=== PATIENT | female | born 1935 | race Caucasian/White ===

== ENCOUNTER 2017-04-07 15:04 | Observation (INO) | payer OTHER, MEDICARE ==
[2017-04-07 17:14] LABS: BASOPHIL 0.5 % (0-2.0); EOSINOPHIL 0.1 % (0-4.5); MCH 27.6 pg (25.7-33.7); MCHC 32.3 g/dl (32.0-36.0); MEAN CELL VOLUME 85.4 fl (80-96); MEAN PLT VOLUME 9.2 fl (7.5-11.1); NEUTROPHILS 90.2 % (42.8-82.8); PLATELET COUNT 244 K/MM3 (134-434); RDW 14.4 % (11.6-15.6); WHITE BLOOD COUNT 10.4 K/mm3 (4.0-10.0)
--- NOTE | 2017-04-07 17:30 | PDOC ---
History of Present Illness <EdyIrlanda - Last Filed: 04/07/17 17:59> <RjалександрCheri - Last Filed: 04/07/17 20:09> - General Chief Complaint: Syncope/Near Syncope Stated Complaint: Syncope/Near Syncope Time Seen by Provider: 04/07/17 17:18 - History of Present Illness Initial Comments: 04/07/17 17:31 Patient is an 82 year old female with significant medical hx of dementia and hypothyoidism who is presenting to the ED after a syncopal episode today. The patient was sitting in a chair when stated that suddenly she didnt feel well and slumped over. This was witnessed by the , who brought her to the floor and performed CPR on the patient without checking for a pulse. EMS was called and the patient had awoken by the time of their arrival. Patient had multiple episodes of nausea, vomiting, and epigastric pain after waking up and in the ambulance. EMS states that the patients heart rate dropped into the 50 s and atropine was administered. Patient complains of right shoulder pain in the ED, she is not a good historian. PMD: Marifer Peter MD Neurologist: Alfonso Rivas MD ([phone]) (Irlanda Snow) Past History <Irlanda Snow - Last Filed: 04/07/17 17:59> - Past Medical History Dementia: Yes - Psycho/Social/Smoking Cessation Hx Suicidal Ideation: No Smoking History: Unknown if ever smoked <Cheri Grady - Last Filed: 04/07/17 20:09> - Past Medical History Allergies/Adverse Reactions: Allergies Allergy/AdvReac Type Severity Reaction Status Date / Time aspirin Allergy Mild Verified 04/07/17 16:22 cephalexin Allergy Mild Verified 04/07/17 16:22 cephalexin monohydrate Allergy Mild Verified 04/07/17 16:22 [From Keflex] naproxen Allergy Mild Verified 04/07/17 16:22 Home Medications: Ambulatory Orders Acyclovir [Zovirax -] 400 mg PO DAILY 04/07/17 Cyanocobalamin Vit B-12 Inj. [Redisol] 1,000 mcg IM MONTHLY 04/07/17 Donepezil HCl 5 mg PO DAILY 04/07/17 Levothyroxine [Synthroid -] 125 mcg PO DAILY 04/07/17 Review of Systems <EdyIrlanda - Last Filed: 04/07/17 17:59> <Cheri Grady - Last Filed: 04/07/17 20:09> - Review of Systems Comments:: 04/07/17 17:32 GENERAL/CONSTITUTIONAL: No fever or chills. No weakness. HEAD, EYES, EARS, NOSE AND THROAT: No change in vision. No ear pain or discharge. No sore throat. CARDIOVASCULAR: Syncope. No chest pain or shortness of breath. RESPIRATORY: No cough, wheezing, or hemoptysis. GASTROINTESTINAL: Nausea, vomiting, epigastric pain. No diarrhea or constipation. GENITOURINARY: No dysuria, frequency, or change in urination. MUSCULOSKELETAL: Right shoulder pain. No joint or muscle swelling. No neck or back pain. ENDOCRINE: No increased thirst. No abnormal weight change. SKIN: No rash NEUROLOGIC: No headache, vertigo, loss of consciousness, or change in strength/ sensation. (Irlanda Snow) *Physical Exam <EdyIrlanda - Last Filed: 04/07/17 17:59> <Cheri Grady - Last Filed: 04/07/17 20:09> - Vital Signs Last Vital Signs Temp Pulse Resp BP Pulse Ox 122/10 04/07/17 15:04 - Physical Exam Comments: 04/07/17 17:33 GENERAL: Awake, alert, dementia, in no acute distress HEAD: No signs of trauma EYES: PERRLA, EOMI, sclera anicteric, conjunctiva clear ENT: Auricles normal inspection, hearing grossly normal, nares patent, oropharynx clear without exudates. Dry mucous membranes NECK: Normal ROM, supple, no lymphadenopathy, JVD, or masses LUNGS: Breath sounds equal, clear to auscultation bilaterally. No wheezes, and no crackles HEART: Regular rate and rhythm, normal S1 and S2, no murmurs, rubs or gallops ABDOMEN: Soft, right mid quadrant tenderness, right lower rib tenderness, normoactive bowel sounds. No guarding, no rebound. No masses MUSCULOSKELETAL: No spinal tenderness. Right shoulder tender to palpation, can abduct to 90, no ecchymosis no deformity. Hips nontender with full ROM. EXTREMITIES: Warm and well profused. Right elbow/wrist FROM. No edema. No clubbing or cyanosis. Extremities otherwise atraumatic. NEUROLOGICAL: A&O x 1. Dementia. Normal speech SKIN: Warm, Dry, normal turgor, no rashes or lesions noted. HEMATOLOGIC/LYMPHATIC: No anemia, easy bleeding, or history of blood clots. ALLERGIC/IMMUNOLOGIC: No hives or skin allergy. (Irlanda Snow) Heart Score/ECG Review <Irlanda Snow - Last Filed: 04/07/17 17:59> - Electrocardiogram EKG: Normal - ECG Intrepretation Rhythm: Regular Rhythm <Cheri Grady - Last Filed: 04/07/17 20:09> #1 04/07/17 17:37 Sinus rhythm at 66 bpm with 1st degree AV block Otherwise normal ECG (Irlanda Snow) - ECG Intrepretation Comment:: 04/07/17 19:47 rate 66 bpm, no st elevation or depression. normal axis. (Cheri Grady) ED Treatment Course - LABORATORY CBC & Chemistry Diagram: 04/07/17 16:51 04/07/17 16:51 <Irlanda Snow - Last Filed: 04/07/17 17:59> - LABORATORY CBC & Chemistry Diagram: 04/07/17 16:51 04/07/17 16:51 <Cheri Grady - Last Filed: 04/07/17 20:09> - ADDITIONAL ORDERS Additional order review: Laboratory Results 04/07/17 04/07/17 04/07/17 18:13 16:51 16:51 INR 1.02 Sodium 140 Potassium 4.4 Chloride 101 Carbon Dioxide 29 Anion Gap 10 BUN 12 Creatinine 0.8 Creat Clearance w eGFR > 60 Random Glucose 91 Calcium 8.3 L Total Bilirubin 0.8 AST 15 ALT 16 Alkaline Phosphatase 111 Creatine Kinase 48 Troponin I < 0.02 Total Protein 6.4 Albumin 3.5 TSH 0.01 L 04/07/17 16:51 RBC 4.46 MCV 85.4 MCHC 32.3 RDW 14.4 MPV 9.2 Neutrophils % 90.2 H Lymphocytes % 6.5 L Monocytes % 2.7 L Eosinophils % 0.1 Basophils % 0.5 - RADIOLOGY Radiology Studies Ordered: Category Date Time Status HEAD CT WITHOUT CONTRAST [CT] Stat CT Scan 04/07/17 17:32 Completed CHEST X-RAY PORTABLE* [RAD] Stat Radiology 04/07/17 17:36 Ordered SHOULDER-RIGHT [RAD] Stat Radiology 04/07/17 17:32 Ordered - Medications Given in the ED: ED Medications Discontinued Medications Generic Name Dose Route Start Last Admin Trade Name Ibis PRN Reason Stop Dose Admin Lorazepam 1 mg 04/07/17 18:08 04/07/17 18:11 Ativan Injection - IM 04/07/17 18:09 1 mg ONCE ONE Administration Medical Decision Making <Irlanda Snow - Last Filed: 04/07/17 17:59> <Cheri Grady - Last Filed: 04/07/17 20:09> - Medical Decision Making 04/07/17 17:22 82 yo F with ho alzheimers dementia, hypothyroid, here with syncopal epsiode today. pt was at home with , and health aid, when suddenly became unresponsive after stating she didn't feel well. had breif LOC slumped in chair. laid to floor by , who initiated CPR. did not check for pulse. then became alert. EMS called , on arrival pt stating she didn't feel well, describing nausea, en rout, pt became bradycaric, given atropine. no cp no sob. c/o right shoulder pain. no f/c did have h/o uti. on exam awake, alert, c/o right shoulder ttp, no deformityl. lungs clear heart RRR no m/r/g. DDGX: uti, mi , dysrythmia , ich, shoulder injury infection such as pna. plan cxr ua cbc lytes. liklye admit r/o bradycardia, acs. (Cheri Grady) *DC/Admit/Observation/Transfer <Irlanda Snow - Last Filed: 04/07/17 17:59> - Discharge Dispostion Admit: Yes <Cheri Grady - Last Filed: 04/07/17 20:09> Diagnosis at time of Disposition: Syncope - Attestations Scribe Attestion: 04/07/17 17:36 Documentation prepared by Irlanda Snow, acting as medical liaison for Cheri Grady MD. (Irlanda Snow)
[2017-04-07 17:46] LABS: ALBUMIN 3.5 g/dl (3.4-5.0); ANION GAP 10 (8-16); CALCIUM 8.3 mg/dL (8.5-10.1); CO2 29 mmol/L (21-32); GLUCOSE,RANDOM 91 mg/dL (74-106)
[2017-04-07 17:51] LABS: ALK PHOS 111 U/L (45-117); BILIRUBIN,TOTAL 0.8 mg/dL (0.2-1.0); COCKROFT - GAULT 0; CREATININE 0.8 mg/dL (0.55-1.02); SGOT/AST 15 U/L (15-37); SGPT/ALT 16 U/L (12-78); TOT PROT 6.4 g/dl (6.4-8.2); TROPONIN I < 0.02 ng/ml (0.00-0.05)
[2017-04-07 17:58] LABS: INR 1.02 (0.82-1.09); PROTHROMBIN TIME (PATIENT) 11.2 SEC (9.98-11.88)
[2017-04-07] MEDS ORDERED: LORAZEPAM CARPU-JECT 2 MG/ML DISP.SYRIN ONE (18:06)
[2017-04-07] MEDS ORDERED: LORAZEPAM CARPU-JECT 2 MG/ML DISP.SYRIN IM ONE (18:08)
[2017-04-07 19:13] VITALS: BMI 22.6
[2017-04-07] MEDS ORDERED: HALOPERIDOL LACTATE 5 MG/ML IM ONE (19:28)
[2017-04-07] MEDS ORDERED: HALOPERIDOL LACTATE 5 MG/ML ONE (19:31)
[2017-04-07] MEDS ORDERED: LORazepam 1 MG TABLET PO PRN (21:54)
--- NOTE | 2017-04-07 22:26 | HP ---
<Jaycee Martinez - Last Filed: 04/07/17 22:53> CHIEF COMPLAINT: Syncope x1 episode PCP: HISTORY OF PRESENT ILLNESS: 82 year old female that present to the ED after an episode of syncope witnessed by family members(). Patient herself has advanced dementia and is unable to provide detailed hx, but had conversation with her over the phone who stated that the pt was sitting in chair and suddenly slumped over. She remained unresponsive for quite awhile and preceded to perform CPR. There were no witnessed seizures. Upon arrival of EMS, her HR was 50 and Atropine was administered. Pt arrived to ED with normal VS and stable BP and HR. No prior episodes of syncope like this before. denies any hx of heart disease. Upon examination in the ED pt is complaining of right shoulder pain. Recent Travel: No PAST MEDICAL HISTORY: dementia, hypothyroidism, hemorrhoids, UTI, shingles PAST SURGICAL HISTORY: Spine surgery, Laparoscopic oophorectomy, Prolapse bladder repair Social History: lives at home has 24 hr aide, social support present Smoking: no Alcohol: no Drugs: no Family History: Allergies aspirin Allergy (Mild, Verified 04/07/17 16:22) cephalexin Allergy (Mild, Verified 04/07/17 16:22) cephalexin monohydrate [From Keflex] Allergy (Mild, Verified 04/07/17 16:22) naproxen Allergy (Mild, Verified 04/07/17 16:22) HOME MEDICATIONS: Home Medications Medication Instructions Recorded Acyclovir [Zovirax -] 400 mg PO DAILY 04/07/17 Cyanocobalamin Vit B-12 Inj. 1,000 mcg IM MONTHLY 04/07/17 [Redisol] Donepezil HCl 5 mg PO DAILY 04/07/17 Levothyroxine [Synthroid -] 125 mcg PO DAILY 04/07/17 REVIEW OF SYSTEMS CONSTITUTIONAL: Absent: fever, chills, diaphoresis, generalized weakness, malaise, loss of appetite, weight change HEENT: Absent: rhinorrhea, nasal congestion, throat pain, throat swelling, difficulty swallowing, mouth swelling, ear pain, eye pain, visual changes CARDIOVASCULAR: Absent: chest pain, syncope, palpitations, irregular heart rate, lightheadedness , peripheral edema RESPIRATORY: Absent: cough, shortness of breath, dyspnea with exertion, orthopnea, wheezing, stridor, hemoptysis GASTROINTESTINAL: Absent: abdominal pain, abdominal distension, nausea, vomiting, diarrhea, constipation, melena, hematochezia GENITOURINARY: Absent: dysuria, frequency, urgency, hesitancy, hematuria, flank pain, genital pain MUSCULOSKELETAL: Present: right shoulder pain Absent: myalgia, arthralgia, joint swelling, back pain, neck pain SKIN: Absent: rash, itching, pallor HEMATOLOGIC/IMMUNOLOGIC: Absent: easy bleeding, easy bruising, lymphadenopathy, frequent infections ENDOCRINE: Absent: unexplained weight gain, unexplained weight loss, heat intolerance, cold intolerance NEUROLOGIC: Absent: headache, focal weakness or paresthesias, dizziness, unsteady gait, seizure, mental status changes, bladder or bowel incontinence PSYCHIATRIC: Absent: anxiety, depression, suicidal or homicidal ideation, hallucinations. VS: Vital Signs Period Temp Pulse Resp BP Sys/Rdz Pulse Ox Last 24 Hr 122/10 PHYSICAL EXAMINATION GENERAL: (+)Awake, alert, and disoriented to time and place HEAD: Normal with no signs of trauma. EYES: Pupils equal, round and reactive to light, extraocular movements intact, sclera anicteric, conjunctiva clear. No lid lag. EARS, NOSE, THROAT: (+)dry mucous membranes. Ears normal, nares patent, oropharynx clear without exudates. NECK: Normal range of motion, supple without lymphadenopathy, JVD, or masses. LUNGS: Breath sounds equal, clear to auscultation bilaterally. No wheezes, and no crackles. No accessory muscle use. HEART: Regular rate and rhythm, normal S1 and S2 without murmur, rub or gallop. ABDOMEN: Soft, nontender, not distended, normoactive bowel sounds, no guarding, no rebound, no masses. No hepatomegaly or splenomegaly. MUSCULOSKELETAL: Normal range of motion at all joints. No bony deformities. No CVA tenderness. UPPER EXTREMITIES: (+)Right shoulder tender to palpation, pain upon ROM, No deformity. 2+ pulses, warm, well-perfused. No cyanosis. No clubbing. No peripheral edema. LOWER EXTREMITIES: 2+ pulses, warm, well-perfused. No calf tenderness. No peripheral edema. NEUROLOGICAL: Cranial nerves II-XII intact. PSYCHIATRIC: Cooperative. Good eye contact. Appropriate mood and affect. SKIN: Warm, dry, normal turgor, no rashes or lesions noted, normal capillary refill. Labs: CBCD WBC 10.4 K/mm3 (4.0-10.0) H 04/07/17 16:51 RBC 4.46 M/mm3 (3.60-5.2) 04/07/17 16:51 Hgb 12.3 GM/dL (10.7-15.3) 04/07/17 16:51 Hct 38.0 % (32.4-45.2) 04/07/17 16:51 MCV 85.4 fl (80-96) 04/07/17 16:51 MCHC 32.3 g/dl (32.0-36.0) 04/07/17 16:51 RDW 14.4 % (11.6-15.6) 04/07/17 16:51 Plt Count 244 K/MM3 (134-434) 04/07/17 16:51 MPV 9.2 fl (7.5-11.1) 04/07/17 16:51 CMP Sodium 140 mmol/L (136-145) 04/07/17 16:51 Potassium 4.4 mmol/L (3.5-5.1) 04/07/17 16:51 Chloride 101 mmol/L (98-107) 04/07/17 16:51 Carbon Dioxide 29 mmol/L (21-32) 04/07/17 16:51 Anion Gap 10 (8-16) 04/07/17 16:51 BUN 12 mg/dL (7-18) 04/07/17 16:51 Creatinine 0.8 mg/dL (0.55-1.02) 04/07/17 16:51 Creat Clearance w eGFR > 60 (>60) 04/07/17 16:51 Calcium 8.3 mg/dL (8.5-10.1) L 04/07/17 16:51 Total Bilirubin 0.8 mg/dL (0.2-1.0) 04/07/17 16:51 AST 15 U/L (15-37) 04/07/17 16:51 ALT 16 U/L (12-78) 04/07/17 16:51 Alkaline Phosphatase 111 U/L (45-117) 04/07/17 16:51 Total Protein 6.4 g/dl (6.4-8.2) 04/07/17 16:51 Albumin 3.5 g/dl (3.4-5.0) 04/07/17 16:51 ECG: NS at 66 bpm with 1st degree AV block Urinalysis: pending ASSESSMENT/PLAN: 1. Syncope, transient bradycardia. Cardiogenic etiology cannot be excluded - telemetry monitoring - orthostatic vital signs - IVF possible dehydration - echo - troponins - obtain UA (ordered in ED) r/o underlined UTI - frequent VS 2. Dementia as per patient's pt has episodes of agitation emergency record shows admin of haldol and lorazepam x4 -continue with prn lorazepam for agitation -continue with namenda 3. Hx of shingles -Continue with aciclovir 4. Hx of hypothyroidism -Continue with synthroid 5. Right shoulder pain -xrays pending 6. Dvt ppx -Heparin subQ Documentation prepared by Jaycee Martinez, acting as medical technicians for Nikole Ram M.D. <Nikole Ram - Last Filed: 04/07/17 22:59> Visit type - Emergency Visit Emergency Visit: Yes ED Registration Date: 04/07/17 Care time: The patient presented to the Emergency Department on the above date and was hospitalized for further evaluation of their emergent condition. - New Patient This patient is new to me today: Yes Date on this admission: 04/07/17 - Critical Care Critical Care patient: No
[2017-04-08] MEDS ORDERED: HEPARIN NA (PORCINE) 5,000 UNITS/ML 1ML VIAL ONE ×2 (01:39→12:25)
[2017-04-08] MEDS: HEPARIN NA (PORCINE) 5,000 UNITS/ML 1ML VIAL SQ SCH ×4 (01:41→22:05)
[2017-04-08 06:50] LABS: BASOPHIL 0.5 % (0-2.0); EOSINOPHIL 0.5 % (0-4.5); MCH 28.2 pg (25.7-33.7); MCHC 33.1 g/dl (32.0-36.0); MEAN PLT VOLUME 9.1 fl (7.5-11.1); NEUTROPHILS 78.4 % (42.8-82.8); PLATELET COUNT 229 K/MM3 (134-434); WHITE BLOOD COUNT 7.8 K/mm3 (4.0-10.0)
[2017-04-08] MEDS: SODIUM CHLORIDE 1,000 ML IV SCH ×2 (06:59→22:06)
[2017-04-08] MEDS ORDERED: LEVOTHYROXINE NA 125 MCG TABLET (FP) PO SCH (07:00)
[2017-04-08 07:05] LABS: ALBUMIN 3.3 g/dl (3.4-5.0); ANION GAP 10 (8-16); BILIRUBIN,TOTAL 0.9 mg/dL (0.2-1.0); CALCIUM 8.6 mg/dL (8.5-10.1); CO2 28 mmol/L (21-32); CREATININE 0.8 mg/dL (0.55-1.02); GLUCOSE,RANDOM 97 mg/dL (74-106); SGOT/AST 16 U/L (15-37); SGPT/ALT 14 U/L (12-78)
[2017-04-08 07:06] LABS: ALK PHOS 109 U/L (45-117)
[2017-04-08] MEDS ORDERED: LEVOTHYROXINE NA 25 MCG TABLET (FP) ONE (08:43)
[2017-04-08] MEDS ORDERED: ACYCLOVIR 400 MG TABLET PO SCH (10:00)
[2017-04-08] MEDS: DONEPEZIL HCL 5 MG TABLET (FP) PO SCH (11:30)
[2017-04-08 13:07] LABS: FREE T4 1.63 ng/dl (0.76-1.46); TROPONIN I < 0.02 ng/ml (0.00-0.05)
[2017-04-08 15:37] LABS: URINE APPEARANCE CLEAR; URINE BILIRUBIN NEGATIVE (NEGATIVE); URINE BLOOD NEGATIVE (NEGATIVE); URINE COLOR STRAW; URINE GLUCOSE (UA) NEGATIVE (NEGATIVE); URINE KETONE NEGATIVE (NEGATIVE); URINE LEUK ESTERASE NEGATIVE (NEGATIVE); URINE NITRITE NEGATIVE (NEGATIVE); URINE PROTEIN NEGATIVE (NEGATIVE); URINE UROBILINOGEN NEGATIVE E.U./dl (0.2-1.0)
--- NOTE | 2017-04-08 17:13 | EKG ---
Test Reason : Blood Pressure : / mmHG Vent. Rate : 066 BPM Atrial Rate : 066 BPM P-R Int : 220 ms QRS Dur : 074 ms QT Int : 424 ms P-R-T Axes : 069 038 031 degrees QTc Int : 444 ms SINUS RHYTHM WITH 1ST DEGREE A-V BLOCK OTHERWISE NORMAL ECG NO PREVIOUS ECGS AVAILABLE Confirmed by ABE ALVA, HARIKA ([id number]) on 04/08/2017 5:13:29 PM Referred By: Confirmed By:HARIKA FISH MD
--- NOTE | 2017-04-08 17:54 | PN ---
Teaching Attending Note Name of Resident: Bishop Castañeda ATTENDING PHYSICIAN STATEMENT I saw and evaluated the patient. I reviewed the resident's note and discussed the case with the resident. I agree with the resident's findings and plan as documented. SUBJECTIVE:resting comfortable. denies Cp, SOB,fever, chills, N/V/C/D OBJECTIVE: Last Vital Signs Temp Pulse Resp BP Pulse Ox 98.1 F 74 18 119/59 98 04/08/17 17:09 04/08/17 17:09 04/08/17 17:09 04/08/17 17:09 04/08/17 17:09 General NAD A&Ox1 (self only) CV S1 S2 RRR no murmur/rub/gallop no carotid bruits Lungs CTA B/L no wheezing/rales/rhonchi ASSESSMENT AND PLAN: 82yo F wtih PMH dementia, hypothyroid, frequent UTI and shingles presented to the ER and was admitted for further evaluation 1. Syncope- noted to be bradycardic on EMS arrival 50's 1st degree AV block on EKG. no priors to compare. cardiac markers neg x2. no events on tele monitor. no longer bradycardic. CT head, CXR, echo and carotid doppler done. UA negative for infection. +orthostatics. will cont IVF at this time. cont for 24H cardiac monitoring 2. Hypothyroid- TSH low, T4 elevated. decrease LT4 to 100mcg. will need to have TSH levels check in 6 weeks 3. Dementia- at baseline per aid present at bedside 4. cont 24H cardiac monitoring to monitor for arrhythmia. case d/w 24H aid present at bedside. all questions answered. informed of anticipation of discharge in the AM.
--- NOTE | 2017-04-08 17:59 | PN ---
Physical Exam: SUBJECTIVE: Patient seen and examined at bedside. She has advanced dementia and is confused at baseline. OBJECTIVE: Vital Signs Period Temp Pulse Resp BP Sys/Rdz Pulse Ox Last 24 Hr 97.9 F-98.8 F 58-81 16-18 95-138/56-75 97-99 GENERAL: Awake, alert but not oriented, able to converse but confused at baseline, in no acute distress. HEAD: Normal with no signs of trauma. EYES: PERRL, extraocular movements intact, sclera anicteric, conjunctiva clear. ENT: Ears normal, nares patent, oropharynx clear without exudates LUNGS:CTAB HEART:RRR, S1, S2 without murmur, rub or gallop. ABDOMEN: Soft, nontender, nondistended, normoactive bowel sounds, no guarding, no rebound, no hepatosplenomegaly, no masses. EXTREMITIES: no edema; cap refill > 3 sec NEUROLOGICAL: Unable to assess SKIN: Warm, dry CBCD WBC 7.8 K/mm3 (4.0-10.0) 04/08/17 06:10 RBC 4.34 M/mm3 (3.60-5.2) 04/08/17 06:10 Hgb 12.2 GM/dL (10.7-15.3) 04/08/17 06:10 Hct 36.9 % (32.4-45.2) 04/08/17 06:10 MCV 85.0 fl (80-96) 04/08/17 06:10 MCHC 33.1 g/dl (32.0-36.0) 04/08/17 06:10 RDW 14.0 % (11.6-15.6) 04/08/17 06:10 Plt Count 229 K/MM3 (134-434) 04/08/17 06:10 MPV 9.1 fl (7.5-11.1) 04/08/17 06:10 CMP Sodium 141 mmol/L (136-145) 04/08/17 06:10 Potassium 4.2 mmol/L (3.5-5.1) 04/08/17 06:10 Chloride 103 mmol/L (98-107) 04/08/17 06:10 Carbon Dioxide 28 mmol/L (21-32) 04/08/17 06:10 Anion Gap 10 (8-16) 04/08/17 06:10 BUN 10 mg/dL (7-18) 04/08/17 06:10 Creatinine 0.8 mg/dL (0.55-1.02) 04/08/17 06:10 Creat Clearance w eGFR > 60 (>60) 04/08/17 06:10 Calcium 8.6 mg/dL (8.5-10.1) 04/08/17 06:10 Total Bilirubin 0.9 mg/dL (0.2-1.0) 04/08/17 06:10 AST 16 U/L (15-37) 04/08/17 06:10 ALT 14 U/L (12-78) 04/08/17 06:10 Alkaline Phosphatase 109 U/L (45-117) 04/08/17 06:10 Total Protein 6.0 g/dl (6.4-8.2) L 04/08/17 06:10 Albumin 3.3 g/dl (3.4-5.0) L 04/08/17 06:10 Intake & Output 04/05/17 04/06/17 04/07/17 04/08/17 23:59 23:59 23:59 23:59 Weight 60 kg 60 kg Vital Signs Temperature 98.1 F 04/08/17 17:09 Pulse Rate 74 04/08/17 17:09 Respiratory Rate 18 04/08/17 17:09 Blood Pressure 119/59 04/08/17 17:09 O2 Sat by Pulse Oximetry (%) 98 04/08/17 17:09 Active Medications Generic Name Dose Route Start Last Admin Trade Name Leodanq PRN Reason Stop Dose Admin Acyclovir 400 mg 04/08/17 10:00 04/08/17 12:31 Zovirax - PO 400 mg DAILY GALO Administration Donepezil HCl 5 mg 04/08/17 10:00 04/08/17 11:30 Aricept - PO 5 mg DAILY GALO Administration Heparin Sodium (Porcine) 5,000 unit 04/07/17 22:00 04/08/17 12:31 Heparin - SQ Not Given BID GALO Sodium Chloride 1,000 mls @ 75 mls/hr 04/07/17 22:00 04/08/17 06:59 Normal Saline - IV Not Given ASDIR GALO Levothyroxine Sodium 100 mcg 04/09/17 07:00 Synthroid - PO DAILY@0700 GALO Lorazepam 1 mg 04/07/17 21:54 Ativan - PO 04/09/17 21:53 TID PRN AGITATION Imaging ECHO on 04/08: normal LVF, normal EF Carotid doppler on 04/08: Intimal thickening in the distal common carotid artery with a small soft plaque at the bifurcation involving the bulb and without evidence of hemodynamically significant stenosis. Patient refused evaluation of the left side as well as evaluation of both vertebral arteries Shoulder X-ray on 04/07: No evidence of glenohumeral joint dislocation, visible acute bony abnormalities. CXR on 04/07: no acute pathology CT head on 04/07: no acute pathology ASSESSMENT/PLAN: 82 yo F with h/o advanced dementia admitted to observation after an syncope episode. Syncope - Cardiac vs. neurologic vs. vasovagal * ECHO, CT head and carotid doppler WNL * Trop x 3 negative * orthostatic BP change unremarkable * cont. cardiac monitoring for symptomatic bradycardia L shoulder pain - X-ray negative - Patient has no complaint so far Hypothyroidism - Now hyper: low TSH and high T4 - Synthroid dose adjusted to 100mcg daily Advanced dementia - Cont. aricept FEN - Pt refuses IVF - All lytes normal - Vegetarian diet Prophylaxis - DVT: heparin SQ - GI: not indicated Disposition - Discharge tomorrow if cardiac monitoring does not show any acute event Code status - Full code Visit type - Emergency Visit Emergency Visit: Yes ED Registration Date: 04/07/17 Care time: The patient presented to the Emergency Department on the above date and was hospitalized for further evaluation of their emergent condition. - New Patient This patient is new to me today: Yes Date on this admission: 04/09/17 - Critical Care Critical Care patient: No
[2017-04-09] MEDS ORDERED: LEVOTHYROXINE NA 100 MCG TABLET (FP) PO SCH (07:00)
[2017-04-09] MEDS ORDERED: PT OWN MED DRAWER 7, Y5N ONE (10:11)
[2017-04-09] MEDS: DONEPEZIL HCL 5 MG TABLET (FP) PO SCH (10:15)
--- NOTE | 2017-04-09 10:49 | PN ---
Teaching Attending Note Name of Resident: Bishop Castañeda ATTENDING PHYSICIAN STATEMENT I saw and evaluated the patient. I reviewed the resident's note and discussed the case with the resident. I agree with the resident's findings and plan as documented. SUBJECTIVE:currently asymptomatic. denies LOC, CP, palpitaitons, dizzyness OBJECTIVE: Last Vital Signs Temp Pulse Resp BP Pulse Ox 97.6 F 66 18 108/72 95 04/09/17 06:48 04/09/17 06:48 04/09/17 06:48 04/09/17 06:48 04/09/17 05:00 General NAD A&Ox1 (self only) CV S1 S2 RRR no murmur/rub/gallop no carotid bruits Lungs CTA B/L no wheezing/rales/rhonchi ASSESSMENT AND PLAN: 82yo F wtih PMH dementia, hypothyroid, frequent UTI and shingles presented to the ER and was admitted for further evaluation 1. Syncope-no repeated episodes. cardiac markers negative x3. no events on tele monitor. no longer bradycardic. all imaging studies are negative. repeat orthostatics this AM are negative. can d/c IVF. 2. Hypothyroid- TSH low, T4 elevated. decrease LT4 to 100mcg. will need to have TSH levels check in 6 weeks 3. Dementia- at baseline 4. d/c home. spoke with present at bedside about results. informed him need to ensure pt is drinking plenty of water. informed me he has appt with [facility] on friday. informed of reduced dose of LT4.
[2017-04-09 11:19] VITALS: PULSE 56; TEMP 98.2
[2017-04-09 11:24] VITALS: BP 99/69
--- NOTE | 2017-04-09 18:31 | DS ---
Physical Exam: SUBJECTIVE: Patient seen and examined at bedside. She was asleep. Upon waking up, she stated she feels fine overnight. No complaint. Per nurse, she was agitated at times last night and kept pulling EKG leads off. OBJECTIVE: Vital Signs Period Temp Pulse Resp BP Sys/Rdz Pulse Ox Last 24 Hr 97.6 F-98.3 F 55-72 18-18 99-137/54-82 94-95 PHYSICAL EXAM GENERAL: Awake, alert but not oriented, able to converse but confused at baseline, in no acute distress. HEAD: Normal with no signs of trauma. EYES: PERRL, extraocular movements intact, sclera anicteric, conjunctiva clear. ENT: Ears normal, nares patent, oropharynx clear without exudates LUNGS:CTAB HEART:RRR, S1, S2 without murmur, rub or gallop. ABDOMEN: Soft, nontender, nondistended, normoactive bowel sounds, no guarding, no rebound, no hepatosplenomegaly, no masses. EXTREMITIES: no edema NEUROLOGICAL: Unable to assess SKIN: Warm, dry LABS Laboratory Results - last 24 hr 04/08/17 15:00 Ur Specific [place] 1.015 HOSPITAL COURSE: Date of Admission:04/07/17 82 yo F with h/o advanced dementia admitted to observation after an syncope episode. Syncope workup was done. ECHO, CT head and carotid doppler were all within normal limits, troponins were negative, orthostatic BP change unremarkable and 24 hour cardiac monitoring showed no acute event. Her TSH is low and T4 is elevated on lab work. As a result, her synthroid dose was decreased to 100mcg daily and new prescription was sent to her pharmacy. She's instructed to keep hydrated and follow up with her PMD. Date of Discharge: 04/09/17 Minutes to complete discharge: 35 Discharge Summary Reason For Visit: Syncope - Instructions Diet, Activity, Other Instructions: You were admitted since you loss consciousness at home. It was found out that you were very dehydrated which may have contributed to this. It is important that you drink plenty of water, especially with the current heat wave to prevent this from happening again. The sonogram of your heart and vessels in your neck were normal. No abnormal rhythms were detected on the heart monitor. It was also found on lab work that your thyroid function was very high (TSH 0.01 T4 1.63) and your synthyroid dose was reduced. You will need to have your primary care doctor repeat your lab work in 6 weeks Follow up with your primary care doctor this week If your symptoms worsen return to the ER Referrals: Marifer Peter [Non Staff, Medical] - Disposition: HOME - Home Medications Comprehensive Discharge Medication List: Ambulatory Orders Acyclovir [Zovirax -] 400 mg PO DAILY 04/07/17 Cyanocobalamin Vit B-12 Inj. [Vitamin B12 Injection -] 1,000 mcg IM MONTHLY Donepezil HCl 5 mg PO DAILY 04/07/17 Levothyroxine [Synthroid -] 125 mcg PO DAILY 04/07/17 Levothyroxine [Synthroid -] 100 mcg PO DAILY@0700 #30 tablet 04/09/17 This patient is new to me today: No Emergency Visit: No Critical Care patient: No - Discharge Referral Referred to [facility] Med P.C.: No
== END 2017-04-09 12:25 | disposition home or self-care (01) ==
LOC: JER 15:04 → JERBED 20:09 → UNDOADMOB 20:09 → INTOOBSV 20:09 → JERBED 21:39 → J4W 04-08 17:00
PROVIDERS: ADMIT Internal Medicine; ATTEND Internal Medicine
PROC: 3E023GC Introduction of Other Therapeutic Substance into Muscle, Percutaneous Approach (ICD-10-PCS; principal; 2017-04-07)
DX: R55 Syncope and collapse (principal); F03.90 Unspecified dementia, unspecified severity, without behavioral disturbance, psychotic disturbance, mood disturbance, and anxiety; E03.9 Hypothyroidism, unspecified; Z86.19 Personal history of other infectious and parasitic diseases; M25.512 Pain in left shoulder; Z87.440 Personal history of urinary (tract) infections
CPT/HCPCS: 36415; 70450-TC; 71010-TC; 73030-TC-RT; 80053; 81003; 82550; 82553; 84439; 84443; 84484; 85025; 85610; 87086; 93005; 93010; 93306-TC; 93880-TC; 99285-25; G0378; G0480; J1644

== ENCOUNTER 2019-07-10 15:33 | Inpatient (IN) | payer OTHER, MEDICARE ==
[2019-07-10] MEDS ORDERED: ATROPINE SULFATE 1 MG/10 ML DISP.SYRIN ONE (15:44)
[2019-07-10 15:59] VITALS: BMI 20.5
--- NOTE | 2019-07-10 16:36 | PDOC ---
History of Present Illness - General Chief Complaint: Blood Pressure Problem Stated Complaint: LOW BLOOD PRESSURE Time Seen by Provider: 07/10/19 15:42 History Source: Spouse Exam Limitations: Dementia - History of Present Illness Initial Comments: 84 yo F pmh Alzheimer and hypothyroidism BIBEMS from home after a witnessed episode of unresponsiveness described as patient's head went limp while sitting in a chair. No seizure activities, no head strike. EMS called and found her to be bradycardic in the 40s and hypotensive 70/34, administered 0.5mg atropine which brought her HR to 90s and BP up to 120s/80s. Patient in ED is awake but nonverbal; states she is at baseline. denies any recent changes in behavior, cough, rhinorrhea, fever, changes in appetite, n/v/d. states pt did not have any pain this morning. Pt has had one prior episode similar to this. Allergies to ASA, cephalexin, and naproxen / / hx provided by . Patient is a poor historian / nonverbal. Past History - Past Medical History Allergies/Adverse Reactions: Allergies Allergy/AdvReac Type Severity Reaction Status Date / Time aspirin Allergy Severe Verified 07/11/19 07:26 cephalexin Allergy Mild Verified 04/07/17 16:22 cephalexin monohydrate Allergy Mild Verified 04/07/17 16:22 [From Keflex] naproxen Allergy Mild Verified 04/07/17 16:22 Home Medications: Ambulatory Orders Acyclovir [Zovirax -] 400 mg PO DAILY 04/07/17 Levothyroxine [Synthroid -] 100 mcg PO DAILY@0700 #30 tablet 04/09/17 COPD: No Dementia: Yes Thyroid Disease: Yes (hypothyroid) - Suicide/Smoking/Psychosocial Hx Smoking History: Never smoked Have you smoked in the past 12 months: No Number of Cigarettes Smoked Daily: 0 Information on smoking cessation initiated: No Hx Alcohol Use: No Drug/Substance Use Hx: No Substance Use Type: None Hx Substance Use Treatment: No Review of Systems - Review of Systems Able to Perform ROS?: No (pt condition, see hpi ) *Physical Exam - Vital Signs Last Vital Signs Temp Pulse Resp BP Pulse Ox 67 16 101/53 L 96 07/10/19 15:35 07/10/19 15:35 07/10/19 15:35 07/10/19 15:35 - Physical Exam Comments: EXAM LIMITED DUE TO PATIENT CONDITION. GEN: NAD, nontoxic. Awake but nonverbal. Responsive to voice. HEENT: NC/AT, PERRLA. CV: S1/S2, RRR, no m/r/g LUNG: LIMITED inspiratory effort but CTAB, no wheezes, crackles, rales, rhonchi. GI: soft, ndnt, +BS, no guarding, no rebound. No masses. EXTREMITIES: 2+ distal pulses. No LE edema. No obvious deformities of all extremities. ED Treatment Course - LABORATORY CBC & Chemistry Diagram: 07/11/19 08:40 07/11/19 08:40 - RADIOLOGY Radiology Studies Ordered: Category Date Time Status CHEST X-RAY PORTABLE* [RAD] Stat Radiology 07/10/19 15:54 Ordered Medical Decision Making - Medical Decision Making 07/10/19 16:30 84 yo F BIBEMS with an episode of unresponsiveness found to be bradycardic and hypotensive was given atropine and BP,HR increased. Hx provided by pt's . Unresponsiveness DDx - bradycardia, ACS, dehydration. Uncertain about the cause of bradycardia - CBC, CMP, cardiac - CXR, EKG - UA/UC - investor relations specialist 07/10/19 17:53 labs reviewed EKG demonstrates bigeminy will admit for further workup of syncope / bradycardia / hypotension // admitted *DC/Admit/Observation/Transfer Diagnosis at time of Disposition: Bradycardia Syncope Qualifiers: Syncope type: unspecified Qualified Code(s): R55 - Syncope and collapse Hypotension Qualifiers: Hypotension type: unspecified hypotension type Qualified Code(s): I95.9 - Hypotension, unspecified - Discharge Dispostion Condition at time of disposition: Stable Decision to Admit order: Yes - Referrals - Patient Instructions - Post Discharge Activity
[2019-07-10 17:02] LABS: BASO % 1.4 % (0-2.0); EOS % 0.7 % (0-4.5); HEMATOCRIT 36.6 % (32.4-45.2); HEMOGLOBIN 12.2 GM/dL (10.7-15.3); LYMPH % 11.8 % (8-40); MCH 30.1 pg (25.7-33.7); MCHC 33.4 g/dl (32.0-36.0); MEAN CELL VOLUME 89.9 fl (80-96); MONO % 4.8 % (3.8-10.2); NEUT % 81.3 % (42.8-82.8); PLATELET COUNT 250 K/MM3 (134-434); RBC 4.07 M/mm3 (3.60-5.2); RDW 13.6 % (11.6-15.6); WHITE BLOOD COUNT 10.9 K/mm3 (4.0-10.0)
--- NOTE | 2019-07-10 17:16 | PDOC ---
Documentation entered by Marian Madrid SCRIBE, acting as scribe for Tai Haynes MD. Tai Haynes MD: This documentation has been prepared by the [facility], SCRIBE, under my direction and personally reviewed by me in its entirety. I confirm that the documentation accurately reflects all work, treatment, procedures, and medical decision making performed by me. Attending Attestation - Resident Resident Name: Wood Hoffman - ED Attending Attestation I have performed the following: I have examined & evaluated the patient, The case was reviewed & discussed with the resident, I agree w/resident's findings & plan, Exceptions are as noted - HPI HPI: 07/10/19 18:14 The patient is an 84 year old male, with a significant past medical history of hypothyroidism and Alzheimers, who presents to the emergency department s/p episode of syncope. As per aid, patient was sitting at the table at which time she had an episode of syncope. Aid notes calling EMS at which time she was bradycardic in the 40s and hypotensive 70/34. She was administered 0.5mg atropine and brought to the ED. History was obtained via aid at bedside secondary to patients profound dementia. Allergies: Penicillins, Iodine. Primary Care Physician: Dr. Lerner Cardiology: Dr. Kan - Physicial Exam PE: 07/10/19 17:13 GENERAL: The patient is awake, alert/oriented x 0, cachectic, pale appearing HEAD: Normocephalic, atraumatic. EYES: extraocular movements intact, sclera anicteric, conjunctiva clear. ENT: Normal voice, Moist mucous membranes. NECK: Normal range of motion, supple LUNGS: Breath sounds equal, clear to auscultation bilaterally. No wheezes, no rhonchi, no rales. HEART: bradycardic ABDOMEN: Soft, nontender, No guarding, no rebound. No CVA tenderness EXTREMITIES: Normal range of motion, no edema. NEUROLOGICAL: No facial assymetry, Normal speech, moving all 4 extremities spontneously and symmetrically SKIN: Warm, Dry, normal turgor, - Medical Decision Making 07/10/19 17:14 84y F hx of hypohtyoridism, presents with complaint of syncopal episode, found to be bradycardic to 40s and hyptoensive, given atropin by EMS with imprvement ofher HR and BP. here pt without complaints, but history severely limited by her severe dementia. per aide, pt was doing welluntil this monrning. ddx - arrythmia, metaoblic derangement, occult infection, acs pt on quality assurance monitor chassis ekg noted for bigeminy anticipate admit for further management pending labs Heart Score/ECG Review - ECG Impressions Comment:: 07/10/19 17:16 Twelve-lead EKG was performed and reviewed by me. There is normal sinus rhythm with a rate of 66 pvcs with pattern of bigeminy
[2019-07-10 17:43] LABS: ALBUMIN 3.3 g/dl (3.4-5.0); BILIRUBIN,TOTAL 0.6 mg/dL (0.2-1); BLOOD UREA NITROGEN 18.6 mg/dL (7-18); CALCIUM 8.6 mg/dL (8.5-10.1); POTASSIUM 4.8 mmol/L (3.5-5.1); TOT PROT 6.4 g/dl (6.4-8.2)
--- NOTE | 2019-07-10 19:13 | PN ---
Teaching Attending Note Name of Resident: Amber Goldstein ATTENDING PHYSICIAN STATEMENT I saw and evaluated the patient. I reviewed the resident's note and discussed the case with the resident. I agree with the resident's findings and plan as documented. SUBJECTIVE: Patient is an 84 year old woman with PMH of Penicillin allergy, Alzheimer's dementia (nonverbal) and Hypothyroidism presenting from home after a witnessed episode of unresponsiveness described as patient's head went limp while sitting in a chair. No seizure activities, no head trauma. EMS called and found her to be bradycardic in the 40s and hypotensive 70/34, administered 0.5mg atropine which brought her HR to 90s and BP up to 120s/80s. Patient in ED is awake but nonverbal; states she is at baseline. denies any recent changes in behavior, cough, rhinorrhea, fever, changes in appetite, nausea, vomiting or diarrhea. states patient did not have any pain this morning and had a similar presentation on 2017. OBJECTIVE: Alert and not orthostatic Vital Signs Period Temp Pulse Resp BP Sys/Rdz Pulse Ox Last 24 Hr 97.2 F 67 16 101/53 96 HEENT: No Jaundice, eye redness or discharge, PERRLA, EOMI. Normocephalic, atraumatic. External ears are normal and hearing is grossly intact. No nasal discharge. Neck: Supple, nontender. No palpable adenopathy or thyromegaly. No JVD Chest: Good effort. Clear to auscultation and percussion. Heart: Regular. No S3, rub or murmur Abdomen: Not distended, soft, nontender and no HSM. No rebound or guarding. Normal bowel sounds. Ext: Peripheral pulses intact. No leg edema. Skin: Warm and dry. No petechiae, rash or ecchymosis. Neuro: Alert. Not oriented; unable to follow commands. CN 2-12 grossly intact. Sensation grossly intact in all four extremities and DTR are symmetric. Psych: Appropriate mood and affect. Home Medications Medication Instructions Recorded Acyclovir [Zovirax -] 400 mg PO DAILY 04/07/17 Cyanocobalamin Vit B-12 Inj. 1,000 mcg IM MONTHLY 04/07/17 [Vitamin B12 Injection -] Donepezil HCl 5 mg PO DAILY 04/07/17 Levothyroxine [Synthroid -] 125 mcg PO DAILY 04/07/17 Levothyroxine [Synthroid -] 100 mcg PO DAILY@0700 #30 tablet 04/09/17 Abnormal Lab Results 07/10/19 07/10/19 16:45 16:45 WBC 10.9 H Absolute Neuts (auto) 8.8 H Chloride 109 H Anion Gap 6 L BUN 18.6 H AST 12 L ALT 12 L Albumin 3.3 L ASSESSMENT AND PLAN: 1. Syncope - Likely of cardiac origin in view of associated bradycardia. Bradycardia and hypotension responded promptly to one dose of atropine. EKG shows bigemeny with no significant changes of ischemia and initial troponin is negative. No acute infiltrate on CXR. Get free T4 and T3RU. Will get stat Urinalysis, head CT scan, carotid doppler, ECHO, monitor her on telemetry, hydrate gently and consult Neurology and Cardiology. Continue comprehensive care of all her comorbid conditions including Alzheimers' care. 2. Hypoalbuminemia - Possibly due to combined effects of malnutrition and inflammation associated with comorbid chronic conditions. Will ensure adequate dietary protein intake and also consult supervisor print line. 3. DVT prophylaxis - Lovenox 40 mg SQ q 24 hours. 4. Advance directives - Full code
[2019-07-10] MEDS: SODIUM CHLORIDE 1,000 ML IV SCH (20:33)
[2019-07-10 21:43] LABS: HYALINE CASTS 14 /lpf (0-8); PH,URINE 7.5 (5.0-8.0); URINE APPEARANCE CLEAR; URINE BACTERIA 1163.6 /hpf (NEGATIVE); URINE BILIRUBIN NEGATIVE (NEGATIVE); URINE COLOR YELLOW; URINE GLUCOSE (UA) NEGATIVE (NEGATIVE); URINE KETONE NEGATIVE (NEGATIVE); URINE LEUK ESTERASE TRACE (NEGATIVE); URINE NITRITE NEGATIVE (NEGATIVE); URINE PROTEIN NEGATIVE (NEGATIVE); URINE RBC 1 /hpf (0-4); URINE UROBILINOGEN 0.2 mg/dL (0.2-1.0); URINE WBC 3 /hpf (0-5)
[2019-07-10] MEDS: HEPARIN NA (PORCINE) 5,000 UNITS/ML 1ML VIAL SQ SCH (22:55)
--- NOTE | 2019-07-10 23:21 | HP ---
CHIEF COMPLAINT: unresponsiveness PCP: Dr. Marifer Peter HISTORY OF PRESENT ILLNESS: 84 y.o. F H Alzheimers dementia and hypothyroidism BIBEMS after her and 24-hr live-in nurse found her to be unresponsive at home. History obtained from pt's and home nurse as the patient is nonverbal at baseline. Pt was sitting at the kitchen table drinking tea when her home nurse noticed she became limp in her chair. As per , pt's eyes rolled backwards for approximately 2 seconds. Patient did not lose consciousness, did not lose bladder control, did not hit her head. Upon EMS arrival pt found to be bradycardic to the 40s and hypotensive to 70/34. Pt was given atropine w/ incr in HR to 90s and BP to 120/80s. Pt is awake and alert. As per and EMR patient had a syncopal episode w/ similar presentation in 2017. Pts states that over the past 3 months her Alzheimers has significantly worsened. Requires assistance w/ almost all ADLs except is able to feed herself. Walks w/ assistance. ER course was notable for: (1) Atropine 1mg, HR & BP improved (2) Gentle hydration w/ NS @75mL/ hr (3) UA negative Recent Travel: denies PAST MEDICAL HISTORY: as above PAST SURGICAL HISTORY: scoliosis surgery- lumbar laminectomy & spinal fusion in 2010, lap hysterectomy for bladder prolapse correction w/ unilateral oopharectomy 2010, proctology procedure 2014. Social History: to for ~20 years. 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 1,000 mcg IM MONTHLY 04/07/17 [Vitamin B12 Injection -] Donepezil HCl 5 mg PO DAILY 04/07/17 Levothyroxine [Synthroid -] 125 mcg PO DAILY 04/07/17 Levothyroxine [Synthroid -] 100 mcg PO DAILY@0700 #30 tablet 04/09/17 REVIEW OF SYSTEMS CONSTITUTIONAL: Absent: fever, chills, diaphoresis, generalized weakness, malaise, loss of appetite, weight change HEENT: Absent: rhinorrhea, nasal congestion, throat pain, throat swelling, difficulty swallowing, mouth swelling, ear pain, eye pain, visual changes CARDIOVASCULAR: Absent: chest pain, syncope, palpitations, irregular heart rate, lightheadedness , peripheral edema RESPIRATORY: Absent: cough, shortness of breath, dyspnea with exertion, orthopnea, wheezing, stridor, hemoptysis GASTROINTESTINAL: Absent: abdominal pain, abdominal distension, nausea, vomiting, diarrhea, constipation, melena, hematochezia GENITOURINARY: Absent: dysuria, frequency, urgency, hesitancy, hematuria, flank pain, genital pain MUSCULOSKELETAL: Absent: myalgia, arthralgia, joint swelling, back pain, neck pain SKIN: Absent: rash, itching, pallor HEMATOLOGIC/IMMUNOLOGIC: Absent: easy bleeding, easy bruising, lymphadenopathy, frequent infections ENDOCRINE: Absent: unexplained weight gain, unexplained weight loss, heat intolerance, cold intolerance NEUROLOGIC: Absent: headache, focal weakness or paresthesias, dizziness, unsteady gait, seizure, mental status changes, bladder or bowel incontinence PSYCHIATRIC: Absent: anxiety, depression, suicidal or homicidal ideation, hallucinations. PHYSICAL EXAMINATION Vital Signs - 24 hr 07/10/19 07/10/19 15:35 16:46 Temperature 97.2 F L Pulse Rate 67 Respiratory 16 Rate Blood Pressure 101/53 L O2 Sat by Pulse 96 Oximetry (%) GENERAL: Awake, alert, unable to assess orientation. HEENT: NCAT. PERRLA. LUNGS: Pt did not take full deep breaths, difficult to fully assess breath sounds. Clear to ausc with regular breathing. No wheezes, and no crackles. No accessory muscle use. HEART: Regular rate and rhythm, normal S1 and S2 without murmur, rub or gallop. ABDOMEN: Soft, nontender, not distended, normoactive bowel sounds, no guarding. UPPER EXTREMITIES: 2+ pulses, warm, well-perfused. No cyanosis. No clubbing. No peripheral edema. LOWER EXTREMITIES: 2+ pulses, warm, well-perfused. No calf tenderness. No peripheral edema. Laboratory Results - last 24 hr 07/10/19 07/10/19 07/10/19 16:45 16:45 16:45 WBC 10.9 H RBC 4.07 Hgb 12.2 Hct 36.6 MCV 89.9 MCH 30.1 MCHC 33.4 RDW 13.6 Plt Count 250 MPV 9.0 Absolute Neuts (auto) 8.8 H Neutrophils % 81.3 Lymphocytes % 11.8 Monocytes % 4.8 Eosinophils % 0.7 Basophils % 1.4 Nucleated RBC % 0 Sodium 145 Potassium 4.8 Chloride 109 H Carbon Dioxide 30 Anion Gap 6 L BUN 18.6 H Creatinine 1.0 Est GFR (CKD-EPI)AfAm 59.08 Est GFR (CKD-EPI)NonAf 50.97 Random Glucose 97 Calcium 8.6 Total Bilirubin 0.6 AST 12 L ALT 12 L Alkaline Phosphatase 108 Creatine Kinase 34 Troponin I < 0.02 Total Protein 6.4 Albumin 3.3 L TSH 1.34 Urine Color Urine Appearance Urine pH Ur Specific [place] Urine Protein Urine Glucose (UA) Urine Ketones Urine Blood Urine Nitrite Urine Bilirubin Urine Urobilinogen Ur Leukocyte Esterase Urine WBC (Auto) Urine RBC (Auto) Urine Casts (Auto) U Epithel Cells (Auto) Urine Bacteria (Auto) 07/10/19 21:10 WBC RBC Hgb Hct MCV MCH MCHC RDW Plt Count MPV Absolute Neuts (auto) Neutrophils % Lymphocytes % Monocytes % Eosinophils % Basophils % Nucleated RBC % Sodium Potassium Chloride Carbon Dioxide Anion Gap BUN Creatinine Est GFR (CKD-EPI)AfAm Est GFR (CKD-EPI)NonAf Random Glucose Calcium Total Bilirubin AST ALT Alkaline Phosphatase Creatine Kinase Troponin I Total Protein Albumin TSH Urine Color Yellow Urine Appearance Clear Urine pH 7.5 Ur Specific [place] 1.014 Urine Protein Negative Urine Glucose (UA) Negative Urine Ketones Negative Urine Blood Negative Urine Nitrite Negative Urine Bilirubin Negative Urine Urobilinogen 0.2 Ur Leukocyte Esterase Trace Urine WBC (Auto) 3 Urine RBC (Auto) 1 Urine Casts (Auto) 14 U Epithel Cells (Auto) 5.0 Urine Bacteria (Auto) 1163.6 ASSESSMENT/PLAN: 84 y.o. F H Alzheimers dementia and hypothyroidism presented after likely syncopal episode #Syncopal episode -Simón & hypotensive, responded well to atropine x 1 dose -EKG: Bigeminy -Trop neg x 1 -F/u thyroid fxn test (T4, T3RU) -UA neg -F/u CT head, CXR, carotid US, Echo -Gentle hydration w/ NS -Neuro consulted (Dr. Schumacher) -Cardio consulted (Dr. Kan) -Tele monitoring #Alzheimers Dementia -Cut Off Sawyer consulted -C/w Donepezil #Hypothyroidism -F/u thryoid testing -C/w Levothyroxine #FEN -NS @75mL/hr -Monitor lytes -Na controlled diet #DVT PPX -Heparin 5000 SQ BID Visit type - Emergency Visit Emergency Visit: Yes ED Registration Date: 07/10/19 Care time: The patient presented to the Emergency Department on the above date and was hospitalized for further evaluation of their emergent condition. - New Patient This patient is new to me today: Yes Date on this admission: 07/11/19 - Critical Care Critical Care patient: No ATTENDING PHYSICIAN STATEMENT I saw and evaluated the patient. I reviewed the resident's note and discussed the case with the resident. I agree with the resident's findings and plan as documented. SUBJECTIVE: OBJECTIVE: ASSESSMENT AND PLAN:
[2019-07-10] MEDS ORDERED: HEPARIN NA (PORCINE) 5,000 UNITS/ML 1ML VIAL ONE ×2 (23:29→23:48)
[2019-07-11] MEDS: LEVOTHYROXINE NA 100 MCG TABLET (FP) PO SCH (08:00)
[2019-07-11] MEDS ORDERED: LEVOTHYROXINE NA 25 MCG TABLET (FP) ONE (08:22)
[2019-07-11] MEDS ORDERED: HEPARIN NA (PORCINE) 5,000 UNITS/ML 1ML VIAL ONE ×2 (08:22→22:10)
--- NOTE | 2019-07-11 08:34 | CON.CARD ---
Consult Consult Specialty:: cardio - History of Present Illness Chief Complaint: syncope History of Present Illness: 84 y.o. F here with syncope. pt has Alzheimers dementia and is non-verbal, history from notes (per admit team d/w and 24-hr live-in nurse). she was sitting at the kitchen table drinking tea when her home nurse noticed she became limp in her chair. As per , pt's eyes rolled backwards for approximately 2 seconds. Patient did not lose consciousness, did not lose bladder control, did not hit her head. Upon EMS arrival pt found to be bradycardic to the 40s and hypotensive to 70/ 34. Pt was given atropine w/ incr in HR to 90s and BP to 120/80s. Pt is awake and alert. at baseline she recognizes , has sense of humor in flashes--per at baseline. states yest he was concerned that eyes rolled back. but there was no suggestive sz activity. she never reports cp, palpitations. no h/o cardiac disease. Here with similar episode 2017--24 hrs tele unrevealing, echo WNL then. PMH: hypothyroid - Alcohol/Substance Use Hx Alcohol Use: No - Smoking History Smoking history: Never smoked Have you smoked in the past 12 months: No Aproximately how many cigarettes per day: 0 Home Medications - Allergies Allergies/Adverse Reactions: Allergies Allergy/AdvReac Type Severity Reaction Status Date / Time aspirin Allergy Severe Verified 07/11/19 07:26 cephalexin Allergy Mild Verified 04/07/17 16:22 cephalexin monohydrate Allergy Mild Verified 04/07/17 16:22 [From Keflex] naproxen Allergy Mild Verified 04/07/17 16:22 - Home Medications Home Medications: Ambulatory Orders Acyclovir [Zovirax -] 400 mg PO DAILY 04/07/17 Cyanocobalamin Vit B-12 Inj. [Vitamin B12 Injection -] 1,000 mcg IM MONTHLY Donepezil HCl 5 mg PO DAILY 04/07/17 Levothyroxine [Synthroid -] 100 mcg PO DAILY@0700 #30 tablet 04/09/17 Family Disease History - Family Disease History Family History: Unable to Obtain Review of Systems Unable to obtain ROS, reason: pt non-verbal Vital Signs: Vital Signs Temperature 97.4 F L 07/11/19 06:59 Pulse Rate 52 L 07/11/19 06:59 Respiratory Rate 17 07/11/19 06:59 Blood Pressure 100/83 07/11/19 06:59 O2 Sat by Pulse Oximetry (%) 96 07/11/19 06:59 Constitutional: Yes: Well Nourished, No Distress Eyes: No: Sclera Icterus HENT: No: Nasal Congestion Neck: No: Decreased ROM Respiratory: Yes: CTA Bilaterally. No: Accessory Muscle Use, Rales, Wheezes Gastrointestinal: Yes: Normal Bowel Sounds. No: Distention, Hepatomegaly, Palpable Mass, Tenderness Cardiovascular: Yes: Regular Rate and Rhythm JVD: No Carotid Bruit: No PMI: Non-Displaced Heart Sounds: Yes: S1, S2. No: Gallop Murmur: No: Systolic Murmur, Diastolic Murmur Musculoskeletal: Yes: Other (No kyphosis) Extremities: No: Cool, Cyanosis Edema: No Peripheral Pulses: 2+ Left Carotid, 2+ Right Carotid, 2+ Left Doralis Pedis, 2+ Right Dorsalis Pedis Integumentary: No: Jaundice Neurological: No: Alert, Oriented (x3), Seizure Psychiatric: No: Agitated - Other Data Labs, Other Data: CBC, BMP 07/10/19 16:45 07/10/19 16:45 Troponin, BNP 07/10/19 16:45 Troponin I < 0.02 Troponin, BNP 07/10/19 16:45 Troponin I < 0.02 Assessment/Plan ECG: NSR with ventric bigeminy; no path q's or ST-T abn. normal axis CXR: clear lungs tele: sinus jus to 40s at times. artifact. rare PVCs, no VT. no conduction dz/ pathological bradyarrhythmia syncope: -vitals with EMS reportedly moderately bradycardic (40s) and hypotensive-- responded briskly to atropine -event most likely represents vasovagal/neurocardiogenic (? hot tea triggered). -similar presentation 2016 with normal echo/tele monitor then -this presentation would not be an indication for PM, in absence of documenting more profound bradycardia associated with sx's--rec outpatient event monitor if pt can comply (? patch monitor can work) -cont tele at least 24 hrs here -CT head, carotids unrevealing -pt confusion precluded orthostatic VS check standing (no drop supine to seated) -TSH normal -troponin neg, ECG no ischemia -ventricular bigeminy is likely incidental finding. rec echo to confirm normal LV fxn. K good, will check Mag dementia: -per hospitalist
[2019-07-11 09:01] LABS: BASO % 0.9 % (0-2.0); EOS % 1.4 % (0-4.5); HEMATOCRIT 35.6 % (32.4-45.2); HEMOGLOBIN 11.8 GM/dL (10.7-15.3); LYMPH % 25.5 % (8-40); MCH 29.6 pg (25.7-33.7); MCHC 33.3 g/dl (32.0-36.0); MEAN CELL VOLUME 88.9 fl (80-96); MEAN PLT VOLUME 8.7 fl (7.5-11.1); MONO % 5.5 % (3.8-10.2); NEUT % 66.7 % (42.8-82.8); PLATELET COUNT 242 K/MM3 (134-434); RDW 13.7 % (11.6-15.6); WHITE BLOOD COUNT 5.3 K/mm3 (4.0-10.0)
[2019-07-11 09:23] LABS: ALBUMIN 3.2 g/dl (3.4-5.0); BILIRUBIN,TOTAL 0.6 mg/dL (0.2-1); CALCIUM 8.8 mg/dL (8.5-10.1); CREATININE 0.8 mg/dL (0.55-1.3); MAGNESIUM 2.3 mg/dL (1.8-2.4); PHOSPHOROUS 3.8 mg/dL (2.5-4.9); POTASSIUM 4.9 mmol/L (3.5-5.1); TOT PROT 6.3 g/dl (6.4-8.2)
[2019-07-11] MEDS: HEPARIN NA (PORCINE) 5,000 UNITS/ML 1ML VIAL SQ SCH ×2 (09:35→22:13)
[2019-07-11] MEDS ORDERED: DONEPEZIL HCL 5 MG TABLET (FP) PO SCH (10:00)
[2019-07-11] MEDS: ACYCLOVIR 400 MG TABLET PO SCH (10:30)
--- NOTE | 2019-07-11 11:29 | CON.NEURO ---
Consult Consult Specialty:: Endy Referred by:: ER - History of Present Illness History of Present Illness: 84 years old woman with PMH CAD O A Demntia Alzheimer presnted with two secomnds episodes of ?? syncopy had the pleasure of seeing the patient in the emergency room with her home health aide. Patient was lying down patient was sleeping patient was arousable no report of any seizure-like activity CAT scan of the head was noted. - History Source History Provided By: Medical Record Limitations to Obtaining History: Clinical Condition - Alcohol/Substance Use Hx Alcohol Use: No - Smoking History Smoking history: Never smoked Have you smoked in the past 12 months: No Aproximately how many cigarettes per day: 0 Home Medications - Allergies Allergies/Adverse Reactions: Allergies Allergy/AdvReac Type Severity Reaction Status Date / Time aspirin Allergy Severe Verified 07/11/19 07:26 cephalexin Allergy Mild Verified 04/07/17 16:22 cephalexin monohydrate Allergy Mild Verified 04/07/17 16:22 [From Keflex] naproxen Allergy Mild Verified 04/07/17 16:22 - Home Medications Home Medications: Ambulatory Orders Acyclovir [Zovirax -] 400 mg PO DAILY 04/07/17 Cyanocobalamin Vit B-12 Inj. [Vitamin B12 Injection -] 1,000 mcg IM MONTHLY Donepezil HCl 10 mg PO DAILY 04/07/17 Levothyroxine [Synthroid -] 100 mcg PO DAILY@0700 #30 tablet 04/09/17 Family Disease History - Family Disease History Family History: Unable to Obtain Review of Systems - Review of Systems Constitutional: reports: No Symptoms Eyes: reports: No Symptoms HENT: reports: No Symptoms Physical Exam-Neuro Vital Signs: Vital Signs Temperature 97.4 F L 07/11/19 06:59 Pulse Rate 52 L 07/11/19 06:59 Respiratory Rate 17 07/11/19 06:59 Blood Pressure 100/83 07/11/19 06:59 O2 Sat by Pulse Oximetry (%) 97 07/11/19 09:00 Constitutional: Yes: Well Nourished Neck: Yes: WNL Cardiovascular: Yes: WNL Respiratory: Yes: WNL Labs: CBC, BMP 07/11/19 08:40 07/11/19 08:40 - Neuro Exam Level Of Consciousness: Yes: Alert, Oriented to Person Eyes: Yes: PERRLA Speech: Garbled Dominant Hand: Right Cranial Nerves II-XII Intact: Yes Gag: Absent DTR's: 1+ Left Bicep, 1+ Right Bicep, 1+ Left Brachioradialis, 1+ Right Brachioradialis Response to pain prick: Abnormal Response to temperature: Abnormal Response to vibration: Abnormal Motor Strength: 3/5: Left Arm, Right Arm, Left Leg, Right Leg Gait: Deferred Imaging - Results Cat Scan: Image Reviewed Problem List - Problems (1) Syncope Assessment/Plan: 1. Admit to Tele 2. Seizure precautions 3. Holter monitor 4. ASA 5. DC Aricpet 6. Fall precautions Code(s): R55 - SYNCOPE AND COLLAPSE Qualifiers: Syncope type: unspecified Qualified Code(s): R55 - Syncope and collapse
--- NOTE | 2019-07-11 11:33 | EKG ---
Test Reason : Blood Pressure : / mmHG Vent. Rate : 066 BPM Atrial Rate : 066 BPM P-R Int : 196 ms QRS Dur : 076 ms QT Int : 464 ms P-R-T Axes : 076 012 040 degrees QTc Int : 486 ms SINUS RHYTHM WITH FREQUENT PREMATURE VENTRICULAR COMPLEXES IN A PATTERN OF BIGEMINY OTHERWISE NORMAL ECG WHEN COMPARED WITH ECG OF 07-APR-2017 15:18, PREMATURE VENTRICULAR COMPLEXES ARE NOW PRESENT Confirmed by BORIS ATKINS MD ([id number]) on 07/11/2019 11:33:12 AM Referred By: Confirmed By:BORIS ATKINS MD
--- NOTE | 2019-07-11 18:04 | PN ---
Progress Note (short form) - Note Progress Note: SUBJECTIVE: No complaints. Disoriented. Non-verbal at baseline OBJECTIVE: Afebrile, hemodynamically Stable. Disoriented. Calm. Last Vital Signs Temp Pulse Resp BP Pulse Ox 97.4 F L 52 L 17 100/83 97 07/11/19 06:59 07/11/19 06:59 07/11/19 06:59 07/11/19 06:59 07/11/19 09:00 HEENT - Atraumatic, Normocephalic. Heart - S1, S2, soft SM Lungs - decreased air entry at bases Abdomen - soft, non-tender. Bowel sounds normal Extremities - No edema/calf tenderness Neuro - Non-verbal at baseline. Moving all 4 extremities Laboratory Results - last 24 hr 07/10/19 07/11/19 07/11/19 21:10 08:40 08:40 WBC 5.3 RBC 4.00 Hgb 11.8 Hct 35.6 MCV 88.9 MCH 29.6 MCHC 33.3 RDW 13.7 Plt Count 242 MPV 8.7 Absolute Neuts (auto) 3.6 Neutrophils % 66.7 Lymphocytes % 25.5 D Monocytes % 5.5 Eosinophils % 1.4 D Basophils % 0.9 Nucleated RBC % 0 PTT (Actin FS) 34.0 Sodium Potassium Chloride Carbon Dioxide Anion Gap BUN Creatinine Est GFR (CKD-EPI)AfAm Est GFR (CKD-EPI)NonAf Random Glucose Calcium Phosphorus Magnesium Total Bilirubin AST ALT Alkaline Phosphatase Total Protein Albumin Urine Color Yellow Urine Appearance Clear Urine pH 7.5 Ur Specific [place] 1.014 Urine Protein Negative Urine Glucose (UA) Negative Urine Ketones Negative Urine Blood Negative Urine Nitrite Negative Urine Bilirubin Negative Urine Urobilinogen 0.2 Ur Leukocyte Esterase Trace Urine WBC (Auto) 3 Urine RBC (Auto) 1 Urine Casts (Auto) 14 U Epithel Cells (Auto) 5.0 Urine Bacteria (Auto) 1163.6 07/11/19 08:40 WBC RBC Hgb Hct MCV MCH MCHC RDW Plt Count MPV Absolute Neuts (auto) Neutrophils % Lymphocytes % Monocytes % Eosinophils % Basophils % Nucleated RBC % PTT (Actin FS) Sodium 145 Potassium 4.9 Chloride 110 H Carbon Dioxide 29 Anion Gap 6 L BUN 15.0 Creatinine 0.8 Est GFR (CKD-EPI)AfAm 77.37 Est GFR (CKD-EPI)NonAf 66.76 Random Glucose 89 Calcium 8.8 Phosphorus 3.8 Magnesium 2.3 Total Bilirubin 0.6 AST 11 L ALT 13 Alkaline Phosphatase 105 Total Protein 6.3 L Albumin 3.2 L Urine Color Urine Appearance Urine pH Ur Specific [place] Urine Protein Urine Glucose (UA) Urine Ketones Urine Blood Urine Nitrite Urine Bilirubin Urine Urobilinogen Ur Leukocyte Esterase Urine WBC (Auto) Urine RBC (Auto) Urine Casts (Auto) U Epithel Cells (Auto) Urine Bacteria (Auto) Current Medications Generic Name Dose Route Start Last Admin Trade Name Freq PRN Reason Stop Dose Admin Acyclovir 400 mg 07/11/19 10:00 07/11/19 10:30 Zovirax - PO 400 mg DAILY GALO Administration Donepezil HCl 5 mg 07/11/19 10:00 07/11/19 10:30 Aricept - PO 5 mg DAILY GALO Administration Heparin Sodium (Porcine) 5,000 unit 07/10/19 22:00 07/11/19 09:35 Heparin - SQ 5,000 unit BID GALO Administration Sodium Chloride 1,000 mls @ 75 mls/hr 07/10/19 20:15 07/10/19 20:33 Normal Saline - IV 75 mls/hr ASDIR GALO Administration Levothyroxine Sodium 100 mcg 07/11/19 07:00 07/11/19 08:00 Synthroid - PO 100 mcg DAILY@0700 GALO Administration Home Medications Medication Instructions Recorded Acyclovir [Zovirax -] 400 mg PO DAILY 04/07/17 Cyanocobalamin Vit B-12 Inj. 1,000 mcg IM MONTHLY 04/07/17 [Vitamin B12 Injection -] Donepezil HCl 5 mg PO DAILY 04/07/17 Levothyroxine [Synthroid -] 100 mcg PO DAILY@0700 #30 tablet 04/09/17 ASSESSMENT/PLAN: 86 year old female with Alzheimer's Dementia (non-verbal at baseline), Hypothyroidism, DJD (Scoliosis Sx/Lumbar laminectomy/Spinal fusion), brought in by EMS for unresponsive episode at home found to be bradycardic to the 40s and hypotensive to 70/34 by EMS. 1. Syncope secondary to Bradycardia Simón/Hypotension improved s/p Atropine ECG - Bigeminy TropI neg TSH 1.34 CT Head - dilated ventricles with generalized volume loss ?NPH Carotid US - No hemodynamically significant stenosis Echo pending Cardiology consulted - Ventricular Bigeminy on tele with Siunus Simón intermittently, awaiting Echo, 24 additional hrs of tele, outpatient event monitor. Neurology consulted - Aricept stopped and Seizure precautions recommended. 2. Alzheimer's Dementia, non-verbal at baseline Donepezil discontinued as per Neuro. 3. Hypotyroidism - Continue Levothyroxine DVT px - Heparin SQ Visit type - Emergency Visit Emergency Visit: Yes ED Registration Date: 07/10/19 Care time: The patient presented to the Emergency Department on the above date and was hospitalized for further evaluation of their emergent condition. - New Patient This patient is new to me today: Yes Date on this admission: 07/11/19 - Critical Care Critical Care patient: No - Discharge Referral Referred to [facility] Med P.C.: No
[2019-07-11] MEDS: SODIUM CHLORIDE 1,000 ML IV SCH (20:27)
[2019-07-12] MEDS: LEVOTHYROXINE NA 100 MCG TABLET (FP) PO SCH (06:37)
[2019-07-12] MEDS ORDERED: PT OWN MED DRAWER 7, Y5N ONE (09:44)
[2019-07-12] MEDS: HEPARIN NA (PORCINE) 5,000 UNITS/ML 1ML VIAL SQ SCH ×2 (09:55→21:59)
[2019-07-12] MEDS: ACYCLOVIR 400 MG TABLET PO SCH (09:55)
--- NOTE | 2019-07-12 11:33 | PN ---
Progress Note, Physician Chief Complaint: syncope History of Present Illness: sleepy with eyes closed, becomes agitated when attempt to examin her. otherwise calm. - Current Medication List Current Medications: Active Medications Acyclovir (Zovirax -) 400 mg PO DAILY [facility] Last Admin: 07/12/19 09:55 Dose: 400 mg Heparin Sodium (Porcine) (Heparin -) 5,000 unit SQ BID [facility] Last Admin: 07/12/19 09:55 Dose: 5,000 unit Sodium Chloride (Normal Saline -) 1,000 mls @ 75 mls/hr IV ASDIR [facility] Last Admin: 07/11/19 20:27 Dose: 75 mls/hr Levothyroxine Sodium (Synthroid -) 100 mcg PO DAILY@0700 [facility] Last Admin: 07/12/19 06:37 Dose: 100 mcg - Objective Vital Signs: Vital Signs Temperature 98.2 F 07/12/19 09:01 Pulse Rate 59 L 07/12/19 09:01 Respiratory Rate 18 07/12/19 09:01 Blood Pressure 139/65 07/12/19 09:01 O2 Sat by Pulse Oximetry (%) 98 07/12/19 09:00 Constitutional: Yes: Well Nourished, No Distress, Calm Cardiovascular: Yes: Regular Rate and Rhythm, S1, S2. No: Gallop, Murmur Respiratory: Yes: Regular, CTA Bilaterally (not allowing thorough exam). No: Accessory Muscle Use Extremities: No: Cold Edema: No Neurological: Yes: Lethargy. No: Oriented, Seizure Psychiatric: No: Agitated Labs: CBC, BMP 07/11/19 08:40 07/11/19 08:40 Assessment/Plan ECG: NSR with ventric bigeminy; no path q's or ST-T abn. normal axis CXR: clear lungs tele: sinus jus 40s-50s. no VT. no events syncope: -vitals with EMS reportedly moderately bradycardic (40s) and hypotensive-- responded to atropine -event most likely represents vasovagal/neurocardiogenic (? hot tea triggered). -similar presentation 2016 with normal echo/tele monitor then -this presentation would not be an indication for PM, in absence of documenting more profound bradycardia associated with sx's--rec outpatient event monitor if pt can comply (? patch monitor can work) -tele shows asymptomatic sinus bradycardia with HRs ranging 40s-50s, likely hi vagal tone (has been asleep or sleepy each time i have examined her here)--no indication for pacing. -CT head, carotids unrevealing -pt confusion precluded orthostatic VS check standing (no drop supine to seated) -TSH normal -troponin neg, ECG no ischemia -ventricular bigeminy is likely incidental finding. rec echo to confirm normal LV fxn. K good, will check Mag dementia: -per hospitalist if tele remains benign unchanged throughout the day today and echo ok, no further cardiac workup is indicated
--- NOTE | 2019-07-12 13:07 | PN ---
Teaching Attending Note Name of Resident: Ruby Manzanares ATTENDING PHYSICIAN STATEMENT I saw and evaluated the patient. I reviewed the resident's note and discussed the case with the resident. I agree with the resident's findings and plan as documented. SUBJECTIVE: No complaints. Disoriented. Minimally-verbal at baseline. Unable to participate in interview. OBJECTIVE: Afebrile, Hemodynamically Stable. Disoriented. Calm. Last Vital Signs Temp Pulse Resp BP Pulse Ox 98.2 F 59 L 18 139/65 98 07/12/19 09:01 07/12/19 09:01 07/12/19 09:01 07/12/19 09:01 07/12/19 09:00 Heart - S1, S2, soft SM Lungs - decreased air entry at bases Abdomen - soft, non-tender. Bowel sounds normal Extremities - No edema/calf tenderness Neuro - Minimally-verbal at baseline. Moving all 4 extremities Laboratory Results - last 24 hr 07/12/19 06:50 Free T4 1.42 Current Medications Generic Name Dose Route Start Last Admin Trade Name Freq PRN Reason Stop Dose Admin Acyclovir 400 mg 07/11/19 10:00 07/12/19 09:55 Zovirax - PO 400 mg DAILY GALO Administration Heparin Sodium (Porcine) 5,000 unit 07/10/19 22:00 07/12/19 09:55 Heparin - SQ 5,000 unit BID GALO Administration Sodium Chloride 1,000 mls @ 75 mls/hr 07/10/19 20:15 07/11/19 20:27 Normal Saline - IV 75 mls/hr ASDIR GALO Administration Levothyroxine Sodium 100 mcg 07/11/19 07:00 07/12/19 06:37 Synthroid - PO 100 mcg DAILY@0700 GALO Administration Home Medications Medication Instructions Recorded Acyclovir [Zovirax -] 400 mg PO DAILY 04/07/17 Cyanocobalamin Vit B-12 Inj. 1,000 mcg IM MONTHLY 04/07/17 [Vitamin B12 Injection -] Donepezil HCl 5 mg PO DAILY 04/07/17 Levothyroxine [Synthroid -] 100 mcg PO DAILY@0700 #30 tablet 04/09/17 ASSESSMENT/PLAN: 86 year old female with Alzheimer's Dementia (minimally-verbal at baseline), Hypothyroidism, DJD (Scoliosis Sx/Lumbar laminectomy/Spinal fusion), brought in by EMS for unresponsive episode at home found to be bradycardic to the 40s and hypotensive to 70/34 by EMS. 1. Syncope secondary to Bradycardia Simón/Hypotension improved s/p Atropine ECG/tele - Bigeminy TropI neg TSH 1.34 CT Head - dilated ventricles with generalized volume loss ?NPH Carotid US - No hemodynamically significant stenosis Echo pending Cardiology consulted - Ventricular Bigeminy on tele with Sinus Simón intermittently - rec awaiting Echo, 24 additional hrs of tele, outpatient follow up for event monitor. Neurology consulted - Aricept stopped and Seizure precautions recommended. Neuro to kindly comment on CT Head findings of possible NPH. 2. Alzheimer's Dementia, minimally-verbal at baseline Donepezil discontinued as per Neuro. 3. Hypotyroidism - Continue Levothyroxine 4. Acyclovir chronically - reason unclear, will attempt to get more information. DVT Px - Heparin SQ
--- NOTE | 2019-07-12 16:00 | PN ---
Physical Exam: SUBJECTIVE: Patient seen and examined. Pt is verbal this morning, forming non- complete sentences. Responsive to name. Overnight pt remained bradycardic on tele. OBJECTIVE: Vital Signs Period Temp Pulse Resp BP Sys/Rdz Pulse Ox Last 24 Hr 97.6 F-98.4 F 50-64 12-20 120-161/65-79 98-100 GENERAL: Unable to assess orientation. Alert, awake. HEENT: NCAT. PERRLA. LUNGS: CTABL. No wheezes, and no crackles. No accessory muscle use. HEART: Regular rate and rhythm, normal S1 and S2 without murmur, rub or gallop. ABDOMEN: Soft, nontender, not distended, normoactive bowel sounds, no guarding. UPPER EXTREMITIES: 2+ pulses, well-perfused. No cyanosis. No peripheral edema. LOWER EXTREMITIES: 2+ pulses, well-perfused. No calf tenderness. No peripheral edema. Laboratory Results - last 24 hr 07/12/19 06:50 Free T4 1.42 Active Medications Generic Name Dose Route Start Last Admin Trade Name Ibis PRN Reason Stop Dose Admin Acyclovir 400 mg 07/11/19 10:00 07/12/19 09:55 Zovirax - PO 400 mg DAILY GALO Administration Heparin Sodium (Porcine) 5,000 unit 07/10/19 22:00 07/12/19 09:55 Heparin - SQ 5,000 unit BID GALO Administration Sodium Chloride 1,000 mls @ 75 mls/hr 07/10/19 20:15 07/11/19 20:27 Normal Saline - IV 75 mls/hr ASDIR GALO Administration Levothyroxine Sodium 100 mcg 07/11/19 07:00 07/12/19 06:37 Synthroid - PO 100 mcg DAILY@0700 GALO Administration ASSESSMENT/PLAN: 84 y.o. F PMH Alzheimers dementia and hypothyroidism presented after likely syncopal episode #Syncopal episode -Simón & hypotensive, responded well to atropine x 1 dose -EKG: Bigeminy -Trop neg x 1 -Normal T4, f/u T3 -UA neg -F/u Echo -CT head: volume loss (generalized) w/ mod to marked ventricular dilatation. Lateral & 3rd ventricles are dilated. 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 Carotid doppler: Mild intimal thickening & minimal plaque buildup at common carotid bifurcation R>L. -Gentle hydration w/ NS -Neuro consulted (Dr. 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 Kan) -Tele monitoring #Alzheimers Dementia -Radiation Protection Engineer recs: soft diet, cut up food. Lactose free. Ensure enlive BID between meals. Daily multivitamins -Holding Donepezil #Hypothyroidism -F/u thryoid testing -C/w Levothyroxine #FEN -NS @75mL/hr -Monitor lytes -Na controlled diet #DVT PPX -Heparin 5000 SQ BID Visit type - Emergency Visit Emergency Visit: No - New Patient This patient is new to me today: No - Critical Care Critical Care patient: No ATTENDING PHYSICIAN STATEMENT I saw and evaluated the patient. I reviewed the resident's note and discussed the case with the resident. I agree with the resident's findings and plan as documented. SUBJECTIVE: OBJECTIVE: ASSESSMENT AND PLAN:
--- NOTE | 2019-07-12 18:14 | ECHO ---
Name: JONATHAN BRODERICKLYN Exam:Adult Echocardiogram Study Date: 07/12/2019 11:41 AM Age: 84 yrs Reason For Study: SYNCOPE Height: 63 in Weight: 120 lb BSA: 1.6 m2 MMode/2D Measurements & Calculations IVSd: 0.97 cm Ao root diam: 3.1 cm LVIDd: 3.4 cm LA dimension: 2.5 cm LVIDs: 2.3 cm LVPWd: 0.92 cm LVPWs: 1.1 cm EDV(Teich): 47.8 ml ESV(Teich): 18.4 ml LVOT diam: 1.7 cm RV S Gentry: 11.8 cm/sec Doppler Measurements & Calculations MV E max gentry: 107.1 cm/sec Ao V2 max: 137.5 cm/sec MV A max gentry: 75.0 cm/sec Ao max P.6 mmHg MV E/A: 1.4 Ao V2 mean: 91.5 cm/sec MV dec time: 0.30 sec Ao mean P.9 mmHg Ao V2 VTI: 32.2 cm ASHLY(I,D): 2.0 cm2 ASHLY(V,D): 1.7 cm2 LV V1 max P.4 mmHg SV(LVOT): 64.1 ml LV V1 mean P.7 mmHg LV V1 max: 104.6 cm/sec LV V1 mean: 78.0 cm/sec LV V1 VTI: 28.3 cm TR max gentry: 203.1 cm/sec PA V2 max: 71.6 cm/sec TR max P.5 mmHg PA max P.1 mmHg RVSP(TR): 26.5 mmHg Med Peak E' Gentry: 5.5 cm/sec RAP systole: 10.0 mmHg Med E/e': 19.6 Lat Peak E' Gentry: 7.6 cm/sec Lat E/e': 14.1 Procedure The study was technically difficult with many images being suboptimal in quality. The study was techn ically limited with all images being suboptimal in quality. Left Ventricle The left ventricular size, thickness and function are normal. Ejection Fraction = 65-70%. The transmi tral spectral Doppler flow pattern is abnormal for age. Regional wall motion abnormalities cannot be exclu ded due to limited visualization. Right Ventricle The right ventricle is normal in size and function. Atria Normal left and right atrial size and function. Mitral Valve The mitral valve is grossly normal. There is trace mitral regurgitation. Tricuspid Valve The tricuspid valve is not well visualized. Aortic Valve The aortic valve is not well visualized. No aortic regurgitation is present. Pulmonic Valve The pulmonic valve is not well visualized. Great Vessels The aortic root is normal size. Pericardium/Pleura There is no pericardial effusion. Interpretation Summary There is no comparison study available. The left ventricular size, thickness and function are normal The right ventricle is normal in size and function. There is trace mitral regurgitation. Ejection Fraction = 65-70%. Marc Brown MD 07/12/2019 06:13 PM
[2019-07-13] MEDS: SODIUM CHLORIDE 1,000 ML IV SCH (06:00)
[2019-07-13] MEDS: LEVOTHYROXINE NA 100 MCG TABLET (FP) PO SCH (07:13)
[2019-07-13] MEDS: ACYCLOVIR 400 MG TABLET PO SCH (11:22)
[2019-07-13] MEDS: HEPARIN NA (PORCINE) 5,000 UNITS/ML 1ML VIAL SQ SCH (11:22)
--- NOTE | 2019-07-13 11:35 | PN ---
Progress Note (short form) - Note Progress Note: awake to voice, appears comfortable. shakes head when asked if any complaints, not answering questions. per no events Current Medications Acyclovir (Zovirax -) 400 mg PO DAILY [facility] Last Admin: 07/13/19 11:22 Dose: 400 mg Heparin Sodium (Porcine) (Heparin -) 5,000 unit SQ BID [facility] Last Admin: 07/13/19 11:22 Dose: 5,000 unit Sodium Chloride (Normal Saline -) 1,000 mls @ 75 mls/hr IV ASDIR [facility] Last Admin: 07/13/19 06:00 Dose: 75 mls/hr Levothyroxine Sodium (Synthroid -) 100 mcg PO DAILY@0700 [facility] Last Admin: 07/13/19 07:13 Dose: Not Given Vital Signs Period Temp Pulse Resp BP Sys/Rdz Pulse Ox Last 24 Hr 97.7 F-98.4 F 48-73 18-18 120-132/63-80 98 Constitutional: Yes: Well Nourished, No Distress, Calm Cardiovascular: Yes: Regular Rate and Rhythm, S1, S2. No: Gallop, Murmur Respiratory: Yes: Regular, CTA Bilaterally (not allowing thorough exam). No: Accessory Muscle Use Extremities: No: Cold Edema: No Neurological: Yes: Lethargy. No: Oriented, Seizure Psychiatric: No: Agitated Assessment/Plan ECG: NSR with ventric bigeminy; no path q's or ST-T abn. normal axis CXR: clear lungs tele: sinus jus syncope: -vitals with EMS reportedly moderately bradycardic (40s) and hypotensive-- responded to atropine -event most likely represents vasovagal/neurocardiogenic (? hot tea triggered). -similar presentation 2016 with normal echo/tele monitor then -this presentation would not be an indication for PM, in absence of documenting more profound bradycardia associated with sx's--rec outpatient event monitor if pt can comply (? patch monitor can work) -tele shows asymptomatic sinus bradycardia with HRs ranging 40s-50s, likely hi vagal tone (has been asleep or sleepy each time i have examined her here)--no indication for pacing. -CT head, carotids unrevealing -pt confusion precluded orthostatic VS check standing (no drop supine to seated) -TSH normal -troponin neg, ECG no ischemia -ventricular bigeminy is likely incidental finding. rec echo to confirm normal LV fxn. K good, will check Mag - echo unremarkable, no further cardiac testing indicated dementia: -per hospitalist Stable for dc from cardiac perspective
--- NOTE | 2019-07-13 14:47 | PN ---
Teaching Attending Note Name of Resident: Ruby Manzanares ATTENDING PHYSICIAN STATEMENT I saw and evaluated the patient. I reviewed the resident's note and discussed the case with the resident. I agree with the resident's findings and plan as documented. SUBJECTIVE:asymptomatic. denies CP, SOB, fever, chills, N/V/C/D OBJECTIVE: Last Vital Signs Temp Pulse Resp BP Pulse Ox 97.8 F 48 L 18 132/64 98 07/13/19 09:00 07/13/19 09:00 07/13/19 09:00 07/13/19 09:00 07/13/19 09:00 General NAD CV S1 S2 RRR lungs CTA anteriorly ASSESSMENT AND PLAN: 86 year old female with Alzheimer's Dementia (minimally-verbal at baseline), Hypothyroidism, DJD (Scoliosis Sx/Lumbar laminectomy/Spinal fusion), brought in by EMS for unresponsive episode at home found to be bradycardic to the 40s and hypotensive to 70/34 by EMS. 1. Syncope secondary to Bradycardia. s/p atropine. showing ventricular bigeminy on tele. echo normal. no further workup per cardio. CT head showing cerebral atrophy vs NPH. resident spoke to neuro and no intervention at this time. aricept stopped. as per aid present at bedside. she is close to baseline 2. on acyclovir- unclear why. and aid unsure. multiple attempts to reach primary with no response. will need to discuss with PMD 3. d/c home
[2019-07-13 15:39] VITALS: BP 143/61; PULSE 58; TEMP 97.7
--- NOTE | 2019-07-13 16:04 | DS ---
Physical Exam: SUBJECTIVE: Patient seen and examined. Verbal but minimal, noncoherent. Patient appears well. OBJECTIVE: Vital Signs Period Temp Pulse Resp BP Sys/Rdz Pulse Ox Last 24 Hr 97.7 F-98.3 F 48-73 18-18 120-143/61-80 98-98 PHYSICAL EXAM GENERAL: Unable to assess orientation. Alert, awake. HEENT: NCAT. PERRLA. LUNGS: CTABL. No wheezes, and no crackles. No accessory muscle use. HEART: Regular rate and rhythm, normal S1 and S2 without murmur, rub or gallop. ABDOMEN: Soft, nontender, not distended, normoactive bowel sounds, no guarding. UPPER EXTREMITIES: 2+ pulses, well-perfused. No cyanosis. No peripheral edema. LOWER EXTREMITIES: 2+ pulses, well-perfused. No calf tenderness. No peripheral edema. LABS Laboratory Results - last 24 hr 07/12/19 06:50 Free T3 1.5 L HOSPITAL COURSE: 84 y.o. F PMH Alzheimers dementia, hypothyroidism and degenerative joint disease presented after syncopal episode secondary to bradycardia with subsequent hypotension. Patient was brought into EMS after her and 24 hour live in nurse noticed her go limp and her eyes roll backwards for about 2 seconds. Patient was given 1 dose atropine in ED and responded well with normalization of HR to 90's and BP 120s/80s. Cardiac workup revealed bigeminy on EKG; echo was normal. Placed on gentle hydration and tele monitoring with some episodes of bradycardia and no other significant events. 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 Neuro was consulted, recommended no acute intervention at this time. Aricept d/ cd, patient to f/u with Neurologist in 2 weeks. Date of Admission:07/10/19 Carotid doppler 07/11: Mild intimal thickening & minimal plaque buildup at the common carotid bifurcation, R>L w/o evidence of hemodynamically significant stenosis. CT head 07/11: Generalized volume loss w/ mod to marked ventircular dilation. The lateral & 3rd ventricles including the temporal horns are relatively more dilated than the 4th. Although this may be due to central atrophy, the differential diagnosis includes normal pressure hydrocephalus and aqueduct of sylvius stenosis. Echo: Trace MR. EF 65-70% Date of Discharge: 07/13/19 Minutes to complete discharge: 36 Discharge Summary Reason For Visit: BRADYCARDIA, SYNCOPE, HYPOTENSION Current Active Problems Bradycardia (Acute) Hypotension (Acute) Syncope (Acute) Condition: Stable - Instructions Diet, Activity, Other Instructions: Your visit You presented to the hospital for a syncopal episode with slow heart rate and low blood pressure. You were treated with IV fluids and monitoring. While you were here you had imaging done of your brain showing generalized changes consistent with your Alzheimers. You were evaluated by neurology and recommended to stop taking your Aricept. Please follow a soft diet that is chopped up and easy to eat. cont with ensures. Medication changes 1. Please do not continue to take Aricept until you follow up with your neurologist. Please follow up with the following physicians: 1. Primary care provider (Dr. Peter) in 1 week.Please discuss with them why your on acyclovir. as this may not be necessary anymore. 2. Neurology (Dr. Schumacher) in 2 weeks. 3. [facility] (Dr. Kan) in 2 weeks. Further information Please take all other medications as prescribed Please call 911 or come to the emergency department if you experience shortness of breath, chest pain, dizziness, headache, unusual bleeding, seizure, or any other alarming symptoms. Referrals: Willis Kan MD [Staff Physician] - Karlos Schumacher MD [Staff Physician] - Disposition: HOME - Home Medications Comprehensive Discharge Medication List: Ambulatory Orders Acyclovir [Zovirax -] 400 mg PO DAILY 04/07/17 Levothyroxine [Synthroid -] 100 mcg PO DAILY@0700 #30 tablet 04/09/17 This patient is new to me today: No Emergency Visit: No Critical Care patient: No - Discharge Referral Referred to [facility] Med [facility] No ATTENDING PHYSICIAN STATEMENT I saw and evaluated the patient. I reviewed the resident's note and discussed the case with the resident. I agree with the resident's findings and plan as documented. SUBJECTIVE: OBJECTIVE: ASSESSMENT AND PLAN:
== END 2019-07-13 17:20 | disposition home or self-care (01) | DRG 309 ==
LOC: JER 15:33 → JERBED 17:55 → J4W 07-11 22:55
PROVIDERS: ADMIT Internal Medicine; ATTEND Internal Medicine
DX: R00.1 Bradycardia, unspecified (principal); G91.2 (Idiopathic) normal pressure hydrocephalus; R55 Syncope and collapse; I95.9 Hypotension, unspecified; R00.8 Other abnormalities of heart beat; G30.9 Alzheimer's disease, unspecified; F02.80 Dementia in other diseases classified elsewhere, unspecified severity, without behavioral disturbance, psychotic disturbance, mood disturbance, and anxiety; E03.9 Hypothyroidism, unspecified; E88.09 Other disorders of plasma-protein metabolism, not elsewhere classified
CPT/HCPCS: 36415; 70450-TC; 71045-TC-FY; 80053; 81003; 82550; 83735; 84100; 84439; 84443; 84481; 84484; 85025; 85730; 87086; 93005; 93010; 93306-TC; 93880-TC; 97116-GP; 97161-GP; 99285-25; J1644; J7030

== ENCOUNTER 2019-08-09 13:01 | Inpatient (IN) | payer OTHER, MEDICARE ==
--- NOTE | 2019-08-09 14:44 | PDOC ---
History of Present Illness - General Chief Complaint: Respiratory Stated Complaint: FEVER Time Seen by Provider: 08/09/19 14:43 History Source: Care Provider - History of Present Illness Initial Comments: 08/09/19 17:37 Ms. Maher is an 84 y/o woman with severe alzheimers, non-verbal, hypothyroidism, hx NPH presenting from home with her regular home health aid. Her aid reports that she sees her three days each week, alternating with another health aid. She reports that this morning when we saw her for the first time since her last shift four days ago she appeared more somnolent than usual. She reports that her baseline mental status is incoherent, but she is typically able to form some words. Today she reports that Ms. Maher's reported to her that she had been febrile, and was "more sleepy" than usual. Her health aid denies noticing any changes in her urine, any measured fevers, or any complaints of pain. Past History - Past Medical History Allergies/Adverse Reactions: Allergies Allergy/AdvReac Type Severity Reaction Status Date / Time aspirin Allergy Severe Verified 07/11/19 07:26 cephalexin Allergy Mild Verified 04/07/17 16:22 cephalexin monohydrate Allergy Mild Verified 04/07/17 16:22 [From Keflex] naproxen Allergy Mild Verified 04/07/17 16:22 Home Medications: Ambulatory Orders Levothyroxine [Synthroid -] 100 mcg PO DAILY@0700 #30 tablet 04/09/17 COPD: No Dementia: Yes Thyroid Disease: Yes (hypothyroid) - Surgical History Abdominal Surgery: (11/03-Laparoscopic Hysterectomy for prolapse uterus & removal ovary.) Appendectomy: Yes Cardiac Surgery: (Repair Extruded Retina Rt eye) Orthopedic Surgery: (Lumbar laminectomy &Spinal fusion 2011bnfor degenerative Scoliosis) - Immunization History Immunization Up to Date: Yes - Suicide/Smoking/Psychosocial Hx Smoking History: Never smoked Have you smoked in the past 12 months: No Number of Cigarettes Smoked Daily: 0 Information on smoking cessation initiated: No Hx Alcohol Use: No Drug/Substance Use Hx: No Substance Use Type: None Hx Substance Use Treatment: No Review of Systems - Review of Systems Able to Perform ROS?: No (Severe dementia, non-verb) *Physical Exam - Vital Signs Last Vital Signs Temp Pulse Resp BP Pulse Ox 100.1 F H 85 21 H 122/71 100 08/09/19 14:00 08/09/19 14:00 08/09/19 14:00 08/09/19 14:00 08/09/19 14:00 - Physical Exam Comments: Exam limited by dementia. PE: GENERAL: Somnolent, disoriented, no verbal responsiveness. HEAD: No signs of trauma, normocephalic, atraumatic EYES: PERRLA, EOMI, sclera anicteric, conjunctiva clear ENT: Auricles normal inspection, hearing grossly normal, nares patent, oropharynx clear without exudates. Moist mucosa NECK: Supple, no lymphadenopathy, JVD, or masses LUNGS: No distress, clear to auscultation bilaterally HEART: Regular rate and rhythm, normal S1 and S2, no murmurs, rubs or gallops, peripheral pulses normal and equal bilaterally. ABDOMEN: Soft, nontender, normoactive bowel sounds. No guarding, no rebound. No masses EXTREMITIES : Normal inspection, no edema. No clubbing or cyanosis SKIN: Warm, Dry, normal turgor, no rashes or lesions noted ED Treatment Course - LABORATORY CBC & Chemistry Diagram: 08/10/19 06:35 08/10/19 06:35 Medical Decision Making - Medical Decision Making 08/09/19 19:37 84F with hx severe alzheimers presenting with increased sleepiness per home health aid, subjective fevers at home. Differential includes infectious workup given age, alzheimers, increased risk for aspiration. Plan: Rectal temp Sepsis order set CBC CMP EKG CXR UA Urine culture Blood culture Cardiac profile Dispo: Likely admission, pending labs, imaging --- Repeat temp - 100.7 --- WBC - 11.0 Lactate - 1.5 --- Straight cath completed, urine turbid, cloudy in appearance Plan for inpatient admission given SIRS criteria + discovered source of possible sepsis. --- Patient admitted to Dr. Edmond. *DC/Admit/Observation/Transfer Diagnosis at time of Disposition: UTI (urinary tract infection) Qualifiers: Urinary tract infection type: site unspecified Hematuria presence: without hematuria Qualified Code(s): N39.0 - Urinary tract infection, site not specified - Discharge Dispostion Condition at time of disposition: Stable Decision to Admit order: Yes - Referrals - Patient Instructions - Post Discharge Activity
[2019-08-09] MEDS ORDERED: SODIUM CHLORIDE 0.9% 500 ML INFUS.BAG IV ONE (15:06)
[2019-08-09 15:48] LABS: VENOUS PC02 42.8 mmHg (38-52); VENOUS PH 7.42 (7.31-7.41)
--- NOTE | 2019-08-09 15:48 | PDOC ---
Attending Attestation - Resident Resident Name: Otf Gutierrez - HPI HPI: 08/09/19 15:49 Pt presents to the ED after brought in from home for altered mental status and chills. Home health aide states that family reported fevers at home, but does not recall Tmax. Home health aide reports that her baseline is to be confused, but alert, walking and verbal. - Physicial Exam PE: 08/09/19 15:57 Agree with resident exam. patient opens eyes to loud voice, but is non verbal, not following commands. Lungs are clear. CV: rrr no m/r. Abdomen: soft, non tender, non distended, no guarding or rebound. - Medical Decision Making 08/09/19 16:02 Pt presents to the ED after sent in for altered mental status. low grade fever on arrival to the ED. Differential includes sepsis, electrolyte disturbance, intracranial lesion or bleed. Will check labs and CT head, check fingerstick, and admit to medicine. 08/09/19 16:03
[2019-08-09 15:49] LABS: BASO % 0.6 % (0-2.0); HEMOGLOBIN 13.1 GM/dL (10.7-15.3); MCH 29.2 pg (25.7-33.7); MCHC 32.7 g/dl (32.0-36.0); MEAN CELL VOLUME 89.3 fl (80-96); MEAN PLT VOLUME 9.2 fl (7.5-11.1); MONO % 5.5 % (3.8-10.2); NEUT % 81.9 % (42.8-82.8); PLATELET COUNT 287 K/MM3 (134-434); RBC 4.48 M/mm3 (3.60-5.2); RDW 13.7 % (11.6-15.6)
[2019-08-09 15:50] LABS: VENOUS PO2 < 49 mmHg (28-48)
[2019-08-09 16:03] LABS: ACTIVATED PTT 29.6 SECONDS (25.2-36.5)
[2019-08-09 16:42] LABS: ALBUMIN 3.7 g/dl (3.4-5.0); BILIRUBIN,TOTAL 1.7 mg/dL (0.2-1); BLOOD UREA NITROGEN 24.6 mg/dL (7-18); CALCIUM 9.1 mg/dL (8.5-10.1); POTASSIUM 4.4 mmol/L (3.5-5.1)
[2019-08-09 16:51] LABS: INR 1.01 (0.83-1.09); PROTHROMBIN TIME (PATIENT) 11.9 SEC (9.7-13.0)
--- NOTE | 2019-08-09 19:42 | PDOC ---
*Physical Exam - Vital Signs Last Vital Signs Temp Pulse Resp BP Pulse Ox 100.1 F H 85 21 H 122/71 100 08/09/19 14:00 08/09/19 14:00 08/09/19 14:00 08/09/19 14:00 08/09/19 14:00 ED Treatment Course - LABORATORY CBC & Chemistry Diagram: 08/09/19 15:33 08/09/19 15:33 - ADDITIONAL ORDERS Additional order review: Laboratory Results 08/09/19 08/09/19 08/09/19 15:33 15:33 15:33 PT with INR INR PTT (Actin FS) VBG pH 7.42 H POC VBG pCO2 42.8 POC VBG pO2 < 49 H VBG HCO3 27.2 VBG O2 Sat (Jatin) 74.8 VBG Base Excess 2.8 H Sodium Potassium Chloride Carbon Dioxide Anion Gap BUN Creatinine Est GFR (CKD-EPI)AfAm Est GFR (CKD-EPI)NonAf Random Glucose Lactic Acid 1.5 Calcium Total Bilirubin AST ALT Alkaline Phosphatase Troponin I Total Protein Albumin Blood Type O POSITIVE Antibody Screen Negative 08/09/19 08/09/19 08/09/19 15:33 15:33 15:33 PT with INR 11.90 INR 1.01 PTT (Actin FS) 29.6 VBG pH POC VBG pCO2 POC VBG pO2 VBG HCO3 VBG O2 Sat (Jatin) VBG Base Excess Sodium 140 Potassium 4.4 Chloride 105 Carbon Dioxide 27 Anion Gap 8 BUN 24.6 H Creatinine 1.0 Est GFR (CKD-EPI)AfAm 59.08 Est GFR (CKD-EPI)NonAf 50.97 Random Glucose 118 H Lactic Acid Calcium 9.1 Total Bilirubin 1.7 H AST 142 H ALT 40 Alkaline Phosphatase 140 H Troponin I < 0.02 Total Protein 7.0 Albumin 3.7 Blood Type Antibody Screen 08/09/19 15:33 RBC 4.48 MCV 89.3 MCHC 32.7 RDW 13.7 MPV 9.2 Neutrophils % 81.9 D Lymphocytes % 12.0 D Monocytes % 5.5 Eosinophils % 0.0 D Basophils % 0.6 - Medications Given in the ED: ED Medications Discontinued Medications Generic Name Dose Route Start Last Admin Trade Name Freq PRN Reason Stop Dose Admin Sodium Chloride 500 ml 08/09/19 15:06 08/09/19 15:39 Normal Saline - IV 08/09/19 15:07 500 ml ONCE ONE Administration Medical Decision Making - Medical Decision Making 08/09/19 19:41 temp is now 100.7, and she'll be given Tylenol King placed and urine is cloudy and turbid and she'll be started on IV antibiotics and admitted *DC/Admit/Observation/Transfer Diagnosis at time of Disposition: UTI (urinary tract infection) Qualifiers: Urinary tract infection type: site unspecified Hematuria presence: without hematuria Qualified Code(s): N39.0 - Urinary tract infection, site not specified - Referrals - Patient Instructions - Post Discharge Activity
[2019-08-09 21:18] LABS: URINE APPEARANCE TURBID; URINE BILIRUBIN NEGATIVE (NEGATIVE); URINE COLOR YELLOW; URINE GLUCOSE (UA) NEGATIVE (NEGATIVE); URINE KETONE TRACE (NEGATIVE); URINE PROTEIN 100 (NEGATIVE); URINE UROBILINOGEN 0.2 mg/dL (0.2-1.0)
[2019-08-09 21:19] LABS: EPI CELLS 54.3 /HPF (0-5/HPF); HYALINE CASTS 2923.75 /lpf (0-8); URINE BACTERIA 1601.5 /hpf (NEGATIVE); URINE LEUK ESTERASE LARGE (NEGATIVE); URINE NITRITE POSITIVE (NEGATIVE); URINE WBC 6077.3 /hpf (0-5)
[2019-08-09 21:34] LABS: URINE RBC 87.2 /hpf (0-4); YEAST NONE SEEN (NEGATIVE)
--- NOTE | 2019-08-09 22:01 | HP ---
Admitting History and Physical - Primary Care Physician PCP: Debbie Edmond - Admission History of Present Illness: Ms. Maher is an 84 y/o woman with severe alzheimers, non-verbal, hypothyroidism, hx NPH presenting from home with her regular home health aid. Her aid reports that she sees her three days each week, alternating with another health aid. She reports that this morning when we saw her for the first time since her last shift four days ago she appeared more somnolent than usual. She reports that her baseline mental status is incoherent, but she is typically able to form some words. Today she reports that Ms. Maher's reported to her that she had been febrile, and was "more sleepy" than usual. Her health aid denies noticing any changes in her urine, any measured fevers, or any complaints of pain. - Smoking History Smoking history: Never smoked Have you smoked in the past 12 months: No Aproximately how many cigarettes per day: 0 - Alcohol/Substance Use Hx Alcohol Use: No Home Medications - Allergies Allergies/Adverse Reactions: Allergies Allergy/AdvReac Type Severity Reaction Status Date / Time aspirin Allergy Severe Verified 07/11/19 07:26 cephalexin Allergy Mild Verified 04/07/17 16:22 cephalexin monohydrate Allergy Mild Verified 04/07/17 16:22 [From Keflex] naproxen Allergy Mild Verified 04/07/17 16:22 - Home Medications Home Medications: Ambulatory Orders Levothyroxine [Synthroid -] 100 mcg PO DAILY@0700 #30 tablet 04/09/17 Physical Examination Vital Signs: Vital Signs Temperature 100.1 F H 08/09/19 14:00 Pulse Rate 83 08/09/19 21:59 Respiratory Rate 18 08/09/19 21:59 Blood Pressure 140/85 08/09/19 21:59 O2 Sat by Pulse Oximetry (%) 96 08/09/19 21:59 Constitutional: Yes: No Distress HENT: Yes: Atraumatic Neck: Yes: Supple Cardiovascular: Yes: Regular Rate and Rhythm Respiratory: Yes: Rhonchi Gastrointestinal: Yes: Normal Bowel Sounds Extremities: Yes: WNL Edema: No Neurological: Yes: Other (drowsy) Labs: CBC, BMP 08/09/19 15:33 08/09/19 15:33 Imaging - Results X-ray: Report Reviewed Cat Scan: Report Reviewed Problem List - Problems (1) Dementia Code(s): F03.90 - UNSPECIFIED DEMENTIA WITHOUT BEHAVIORAL DISTURBANCE (2) UTI (urinary tract infection) Assessment/Plan: iv abx cxs sent id on board Code(s): N39.0 - URINARY TRACT INFECTION, SITE NOT SPECIFIED Qualifiers: Urinary tract infection type: site unspecified Hematuria presence: without hematuria Qualified Code(s): N39.0 - Urinary tract infection, site not specified (3) Hypothyroid Assessment/Plan: on meds Code(s): E03.9 - HYPOTHYROIDISM, UNSPECIFIED Assessment/Plan Laboratory Tests 08/09/19 08/09/19 08/09/19 15:33 15:33 15:33 WBC 11.0 H RBC 4.48 Hgb 13.1 Hct 40.0 MCV 89.3 MCH 29.2 MCHC 32.7 RDW 13.7 Plt Count 287 MPV 9.2 Absolute Neuts (auto) 9.0 H Neutrophils % 81.9 D Lymphocytes % 12.0 D Monocytes % 5.5 Eosinophils % 0.0 D Basophils % 0.6 Nucleated RBC % 0 PT with INR 11.90 INR 1.01 PTT (Actin FS) 29.6 VBG pH POC VBG pCO2 POC VBG pO2 VBG HCO3 VBG O2 Sat (Jatin) VBG Base Excess Sodium Potassium Chloride Carbon Dioxide Anion Gap BUN Creatinine Est GFR (CKD-EPI)AfAm Est GFR (CKD-EPI)NonAf Random Glucose Lactic Acid Calcium Total Bilirubin AST ALT Alkaline Phosphatase Troponin I < 0.02 Total Protein Albumin Urine Color Urine Appearance Urine pH Ur Specific [place] Urine Protein Urine Glucose (UA) Urine Ketones Urine Blood Urine Nitrite Urine Bilirubin Urine Urobilinogen Ur Leukocyte Esterase Urine WBC (Auto) Urine RBC (Auto) Urine Casts (Auto) U Pathogenic Cast Auto U Epithel Cells (Auto) Urine Bacteria (Auto) Urine Yeast (Auto) Blood Type Antibody Screen 08/09/19 08/09/19 08/09/19 15:33 15:33 15:33 WBC RBC Hgb Hct MCV MCH MCHC RDW Plt Count MPV Absolute Neuts (auto) Neutrophils % Lymphocytes % Monocytes % Eosinophils % Basophils % Nucleated RBC % PT with INR INR PTT (Actin FS) VBG pH 7.42 H POC VBG pCO2 42.8 POC VBG pO2 < 49 H VBG HCO3 27.2 VBG O2 Sat (Jatin) 74.8 VBG Base Excess 2.8 H Sodium 140 Potassium 4.4 Chloride 105 Carbon Dioxide 27 Anion Gap 8 BUN 24.6 H Creatinine 1.0 Est GFR (CKD-EPI)AfAm 59.08 Est GFR (CKD-EPI)NonAf 50.97 Random Glucose 118 H Lactic Acid 1.5 Calcium 9.1 Total Bilirubin 1.7 H AST 142 H ALT 40 Alkaline Phosphatase 140 H Troponin I Total Protein 7.0 Albumin 3.7 Urine Color Urine Appearance Urine pH Ur Specific [place] Urine Protein Urine Glucose (UA) Urine Ketones Urine Blood Urine Nitrite Urine Bilirubin Urine Urobilinogen Ur Leukocyte Esterase Urine WBC (Auto) Urine RBC (Auto) Urine Casts (Auto) U Pathogenic Cast Auto U Epithel Cells (Auto) Urine Bacteria (Auto) Urine Yeast (Auto) Blood Type Antibody Screen 08/09/19 08/09/19 15:33 19:50 WBC RBC Hgb Hct MCV MCH MCHC RDW Plt Count MPV Absolute Neuts (auto) Neutrophils % Lymphocytes % Monocytes % Eosinophils % Basophils % Nucleated RBC % PT with INR INR PTT (Actin FS) VBG pH POC VBG pCO2 POC VBG pO2 VBG HCO3 VBG O2 Sat (Jatin) VBG Base Excess Sodium Potassium Chloride Carbon Dioxide Anion Gap BUN Creatinine Est GFR (CKD-EPI)AfAm Est GFR (CKD-EPI)NonAf Random Glucose Lactic Acid Calcium Total Bilirubin AST ALT Alkaline Phosphatase Troponin I Total Protein Albumin Urine Color Yellow Urine Appearance Turbid Urine pH 6.0 Ur Specific [place] 1.020 Urine Protein 100 Urine Glucose (UA) Negative Urine Ketones Trace H Urine Blood Moderate Urine Nitrite Positive H Urine Bilirubin Negative Urine Urobilinogen 0.2 Ur Leukocyte Esterase Large Urine WBC (Auto) 6077.3 Urine RBC (Auto) 87.2 Urine Casts (Auto) 2923.75 U Pathogenic Cast Auto None seen U Epithel Cells (Auto) 54.3 Urine Bacteria (Auto) 1601.5 Urine Yeast (Auto) None seen Blood Type O POSITIVE Antibody Screen Negative Active Medications Generic Name Dose Route Start Last Admin Trade Name Freq PRN Reason Stop Dose Admin Acetaminophen 650 mg 08/10/19 18:09 08/10/19 18:21 Tylenol - PO 650 mg Q6H PRN Administration FEVER Heparin Sodium (Porcine) 5,000 unit 08/10/19 10:00 08/13/19 10:41 Heparin - SQ 5,000 unit BID GALO Administration Sodium Chloride 1,000 mls @ 75 mls/hr 08/10/19 03:00 08/12/19 17:19 Normal Saline - IV 75 mls/hr ASDIR GALO Administration Meropenem 1 gm/ Dextrose 100 mls @ 200 mls/hr 08/10/19 11:45 08/13/19 10:41 IVPB 200 mls/hr Q8H-IV GALO Administration Levothyroxine Sodium 100 mcg 08/10/19 07:00 08/13/19 06:31 Synthroid - PO 100 mcg DAILY@0700 GALO Administration
[2019-08-10 01:13] LABS: ARTERIAL BLD GAS O2 SATURATION 95.1 % (95-98); ARTERIAL BLOOD GAS BASE EXCESS 2.2 meq/l (-2-2); ARTERIAL BLOOD GAS pH 7.45 (7.35-7.45)
[2019-08-10 01:15] LABS: ALLENS TEST POSITIVE
[2019-08-10] MEDS ORDERED: MEROPENEM 1 GM in DEXTROSE 5%-WATER 100 ML IVPB ONE (01:24)
[2019-08-10] MEDS ORDERED: VANCOMYCIN 1 GM in D5W (PRE-DOCKED) 1,000 MG/250 ML IVPB ONE (01:25)
[2019-08-10] MEDS ORDERED: MEROPENEM 1 GM VIAL (RESTRICTED TO ID) IVPB ONE ×3 (01:34→18:15)
[2019-08-10] MEDS ORDERED: DEXTROSE 5%-WATER 100 ML IVPB ONE ×3 (01:35→18:15)
--- NOTE | 2019-08-10 01:39 | RAPID ---
Physical Examination Vital Signs: Vital Signs Temperature 100.7 F H 08/09/19 20:02 Pulse Rate 83 08/09/19 21:59 Respiratory Rate 18 08/09/19 21:59 Blood Pressure 140/85 08/09/19 21:59 O2 Sat by Pulse Oximetry (%) 96 08/09/19 21:59 Labs: CBC, BMP 08/09/19 15:33 08/09/19 15:33 Rapid Response - Rapid Response Assessment: Rapid response called at 8w. Patient found to be unresponsive. As per nurse, patient just came up from the ED where it was reported that patient was awake and alert. Patient is admitted for sepsis 2/2 UTI. , Neal, at bedside provided information that patient's mental status at baseline waxes and wanes. VS: BP 153/81, AK 77, Temp 96.6, RR 15, O2 sat 94% Patient is lethargic, does not open eyes, but follows some commands Lung CTAB Heart RRR, S1 S2 Abdomen soft NT, ND , NABs Neuro: squeezes eyes shut when attempt to open eyes to check pupils. squeezed fingers when asked. does not follow other commands. arms resisting passive ROM by examiner. Acute Metabolic encephalopathy likely 2/2 sepsis, will rule out stroke BGM 140s Head CT stat As patient was wheeled down to CT, she was reported to be more awake and alert, but still minimally responsive. CBC, CMP, lactic acid, cardiac profile stat EKG, ABG IV NS bolus given Will start Meropenem and Vancomycin given patient's recent hospital admission. Previous echo reviewed. Will start gentle hydration with IV NS @75cc/hr. Head CT report on imaging nurse companion noted: No acute intracranial pathology.
[2019-08-10 02:59] LABS: WHITE BLOOD COUNT 10.1 K/mm3 (4.0-10.0)
[2019-08-10 03:22] LABS: BASO % 0.7 % (0-2.0); HEMATOCRIT 35.7 % (32.4-45.2); HEMOGLOBIN 11.8 GM/dL (10.7-15.3); LYMPH % 8.5 % (8-40); MCH 29.6 pg (25.7-33.7); MCHC 33.2 g/dl (32.0-36.0); MEAN CELL VOLUME 89.3 fl (80-96); MEAN PLT VOLUME 9.9 fl (7.5-11.1); MONO % 4.4 % (3.8-10.2); NEUT % 86.4 % (42.8-82.8); PLATELET COUNT 256 K/MM3 (134-434)
[2019-08-10 03:47] LABS: ALBUMIN 3.2 g/dl (3.4-5.0); ANION GAP 5 MMOL/L (8-16); BLOOD UREA NITROGEN 25.4 mg/dL (7-18); CALCIUM 8.2 mg/dL (8.5-10.1); CHLORIDE 108 mmol/L (98-107); CO2 29 mmol/L (21-32); CREATININE 0.9 mg/dL (0.55-1.3); GLUCOSE,RANDOM 117 mg/dL (74-106); SODIUM 142 mmol/L (136-145); TOT PROT 6.2 g/dl (6.4-8.2)
[2019-08-10 03:48] LABS: ALK PHOS 118 U/L (45-117); BILIRUBIN,TOTAL 1.2 mg/dL (0.2-1); SGOT/AST 141 U/L (15-37); SGPT/ALT 44 U/L (13-61)
[2019-08-10] MEDS: SODIUM CHLORIDE 1,000 ML IV SCH (03:55)
[2019-08-10] MEDS ORDERED: ACETAMINOPHEN 1000 MG/100 ML VIAL (NON FORMULARY) IVPB ONE (05:07)
[2019-08-10 07:36] LABS: BASO % 0.7 % (0-2.0); HEMOGLOBIN 11.6 GM/dL (10.7-15.3); LYMPH % 10.9 % (8-40); MCH 29.9 pg (25.7-33.7); MCHC 34.1 g/dl (32.0-36.0); MEAN CELL VOLUME 87.6 fl (80-96); MONO % 6.7 % (3.8-10.2); NEUT % 81.7 % (42.8-82.8); PLATELET COUNT 256 K/MM3 (134-434); RBC 3.88 M/mm3 (3.60-5.2); WHITE BLOOD COUNT 10.3 K/mm3 (4.0-10.0)
[2019-08-10] MEDS: LEVOTHYROXINE NA 100 MCG TABLET (FP) PO SCH (07:41)
[2019-08-10 08:30] LABS: BLOOD UREA NITROGEN 22.1 mg/dL (7-18); CALCIUM 8.2 mg/dL (8.5-10.1); CREATININE 0.8 mg/dL (0.55-1.3); POTASSIUM 3.7 mmol/L (3.5-5.1)
[2019-08-10] MEDS: HEPARIN NA (PORCINE) 5,000 UNITS/ML 1ML VIAL SQ SCH ×2 (10:33→21:23)
--- NOTE | 2019-08-10 11:32 | CON.ID ---
Consult Consult Specialty:: infectious diseases Referred by:: Reason for Consultation:: uti,weakness - History of Present Illness Chief Complaint: lethargy History of Present Illness: 84 y/o woman with severe alzheimers, non-verbal, hypothyroidism, hx NPH presenting from home with her regular home health aid. Her aid reports that she sees her three days each week, alternating with another health aid. She reports that this morning when we saw her for the first time since her last shift four days ago she appeared more somnolent than usual. She reports that her baseline mental status is incoherent, but she is typically able to form some words. Today she reports that Ms. Maher's reported to her that she had been febrile, and was "more sleepy" than usual. Her health aid denies noticing any changes in her urine, any measured fevers, or any complaints of pain. the above history taken from the charts as patient not able to give any history - History Source History Provided By: Medical Record Limitations to Obtaining History: Clinical Condition - Alcohol/Substance Use Hx Alcohol Use: No - Smoking History Smoking history: Never smoked Have you smoked in the past 12 months: No Aproximately how many cigarettes per day: 0 Home Medications - Allergies Allergies/Adverse Reactions: Allergies Allergy/AdvReac Type Severity Reaction Status Date / Time aspirin Allergy Severe Verified 07/11/19 07:26 cephalexin Allergy Mild Verified 04/07/17 16:22 cephalexin monohydrate Allergy Mild Verified 04/07/17 16:22 [From Keflex] naproxen Allergy Mild Verified 04/07/17 16:22 - Home Medications Home Medications: Ambulatory Orders Levothyroxine [Synthroid -] 100 mcg PO DAILY@0700 #30 tablet 04/09/17 Review of Systems Unable to obtain ROS, reason: unable to obtain Physical Exam Vital Signs: Vital Signs Temperature 100.9 F H 08/10/19 06:00 Pulse Rate 67 08/10/19 06:00 Respiratory Rate 20 08/10/19 06:00 Blood Pressure 118/59 L 08/10/19 06:00 O2 Sat by Pulse Oximetry (%) 93 L 08/10/19 04:00 Constitutional: Yes: No Distress, Calm Cardiovascular: Yes: Regular Rate and Rhythm Respiratory: Yes: Regular, CTA Bilaterally Gastrointestinal: Yes: Normal Bowel Sounds, Soft Renal/: Yes: King Present Musculoskeletal: Yes: WNL Extremities: Yes: Other Neurological: Yes: Other Psychiatric: Yes: Other Labs: CBC, BMP 08/10/19 06:35 08/10/19 06:35 Imaging - Results Chest X-ray: Report Reviewed, Image Reviewed Cat Scan: Report Reviewed, Image Reviewed Assessment/Plan Problem List - Problems (1) Dementia Code(s): F03.90 - UNSPECIFIED DEMENTIA WITHOUT BEHAVIORAL DISTURBANCE (2) UTI (urinary tract infection) Code(s): N39.0 - URINARY TRACT INFECTION, SITE NOT SPECIFIED 3 lethargy weakness plan continue meropenam all cx reports awaited hydration rest as per the team
[2019-08-10] MEDS: MEROPENEM 1 GM in DEXTROSE 5%-WATER 100 ML IVPB SCH ×2 (12:34→18:21)
--- NOTE | 2019-08-10 13:07 | EKG ---
Test Reason : Blood Pressure : / mmHG Vent. Rate : 077 BPM Atrial Rate : 077 BPM P-R Int : 190 ms QRS Dur : 076 ms QT Int : 376 ms P-R-T Axes : 069 038 005 degrees QTc Int : 425 ms NORMAL SINUS RHYTHM NONSPECIFIC ST AND T WAVE ABNORMALITY ABNORMAL ECG WHEN COMPARED WITH ECG OF 10-JUL-2019 15:43, PREMATURE VENTRICULAR COMPLEXES ARE NO LONGER PRESENT T WAVE INVERSION NOW EVIDENT IN ANTERIOR LEADS QT HAS SHORTENED Confirmed by MD Josue, Samir ([id number]) on 08/10/2019 1:06:56 PM Referred By: Confirmed By:Samir Salas MD
[2019-08-10] MEDS ORDERED: ACETAMINOPHEN 325 MG TABLET (FP) PO PRN ×2 (17:36→18:09)
--- NOTE | 2019-08-10 18:10 | PN ---
Progress Note, Physician History of Present Illness: more alert - Current Medication List Current Medications: Active Medications Heparin Sodium (Porcine) (Heparin -) 5,000 unit SQ BID [facility] Last Admin: 08/10/19 10:33 Dose: 5,000 unit Sodium Chloride (Normal Saline -) 1,000 mls @ 75 mls/hr IV ASDIR [facility] Last Admin: 08/10/19 03:55 Dose: 75 mls/hr Meropenem 1 gm/ Dextrose 100 mls @ 200 mls/hr IVPB Q8H-IV [facility] Last Admin: 08/10/19 12:34 Dose: 200 mls/hr Levothyroxine Sodium (Synthroid -) 100 mcg PO DAILY@0700 [facility] Last Admin: 08/10/19 07:41 Dose: 100 mcg - Objective Vital Signs: Vital Signs Temperature 101.3 F H 08/10/19 17:07 Pulse Rate 83 08/10/19 17:07 Respiratory Rate 20 08/10/19 17:07 Blood Pressure 164/75 08/10/19 17:07 O2 Sat by Pulse Oximetry (%) 93 L 08/10/19 09:00 Constitutional: Yes: No Distress HENT: Yes: Atraumatic Neck: Yes: Supple, Tenderness Respiratory: Yes: CTA Bilaterally Gastrointestinal: Yes: Normal Bowel Sounds Extremities: Yes: WNL Edema: No Peripheral Pulses WNL: Yes Neurological: Yes: Alert, Oriented Labs: CBC, BMP 08/10/19 06:35 08/10/19 06:35 INR, PTT INR 1.01 (0.83-1.09) 08/09/19 15:33 Problem List - Problems (1) Dementia Code(s): F03.90 - UNSPECIFIED DEMENTIA WITHOUT BEHAVIORAL DISTURBANCE (2) UTI (urinary tract infection) Assessment/Plan: iv abx cxs sent id on board Code(s): N39.0 - URINARY TRACT INFECTION, SITE NOT SPECIFIED Qualifiers: Urinary tract infection type: site unspecified Hematuria presence: without hematuria Qualified Code(s): N39.0 - Urinary tract infection, site not specified (3) Hypothyroid Code(s): E03.9 - HYPOTHYROIDISM, UNSPECIFIED
[2019-08-10] MEDS ORDERED: PT OWN MED DRAWER 7, Y5N ONE ×2 (20:55→23:06)
[2019-08-11] MEDS ORDERED: DEXTROSE 5%-WATER 100 ML IVPB ONE ×4 (01:08→23:56)
[2019-08-11] MEDS ORDERED: MEROPENEM 1 GM VIAL (RESTRICTED TO ID) IVPB ONE ×4 (01:08→23:56)
[2019-08-11] MEDS: MEROPENEM 1 GM in DEXTROSE 5%-WATER 100 ML IVPB SCH ×3 (01:32→18:06)
[2019-08-11] MEDS: SODIUM CHLORIDE 1,000 ML IV SCH (03:30)
[2019-08-11] MEDS: LEVOTHYROXINE NA 100 MCG TABLET (FP) PO SCH (06:05)
[2019-08-11] MEDS: HEPARIN NA (PORCINE) 5,000 UNITS/ML 1ML VIAL SQ SCH ×2 (09:40→21:45)
--- NOTE | 2019-08-11 10:58 | PN ---
Progress Note, Physician History of Present Illness: looks much better than yesterday still essentially non verbal,but did say no when asked how is she feeling - Current Medication List Current Medications: Active Medications Acetaminophen (Tylenol -) 650 mg PO Q6H PRN PRN Reason: FEVER Last Admin: 08/10/19 18:21 Dose: 650 mg Heparin Sodium (Porcine) (Heparin -) 5,000 unit SQ BID [facility] Last Admin: 08/11/19 09:40 Dose: 5,000 unit Sodium Chloride (Normal Saline -) 1,000 mls @ 75 mls/hr IV ASDIR [facility] Last Admin: 08/11/19 03:30 Dose: Not Given Meropenem 1 gm/ Dextrose 100 mls @ 200 mls/hr IVPB Q8H-IV [facility] Last Admin: 08/11/19 09:40 Dose: 200 mls/hr Levothyroxine Sodium (Synthroid -) 100 mcg PO DAILY@0700 [facility] Last Admin: 08/11/19 06:05 Dose: 100 mcg - Objective Vital Signs: Vital Signs Temperature 97.8 F 08/11/19 06:50 Pulse Rate 73 08/11/19 06:50 Respiratory Rate 20 08/11/19 06:50 Blood Pressure 115/54 L 08/11/19 06:50 O2 Sat by Pulse Oximetry (%) 93 L 08/10/19 21:00 Constitutional: Yes: No Distress, Calm Cardiovascular: Yes: S1, S2 Respiratory: Yes: Regular, CTA Bilaterally Gastrointestinal: Yes: Normal Bowel Sounds, Soft Genitourinary: Yes: King Present Musculoskeletal: Yes: WNL Extremities: Yes: WNL Neurological: Yes: Alert Psychiatric: Yes: Other Labs: CBC, BMP 08/10/19 06:35 08/10/19 06:35 INR, PTT INR 1.01 (0.83-1.09) 08/09/19 15:33 Assessment/Plan Problem List - Problems (1) Dementia Code(s): F03.90 - UNSPECIFIED DEMENTIA WITHOUT BEHAVIORAL DISTURBANCE (2) UTI (urinary tract infection) Code(s): N39.0 - URINARY TRACT INFECTION, SITE NOT SPECIFIED 3 lethargy weakness plan continue meropenam await for identification of the organism and sensitivity
--- NOTE | 2019-08-11 12:21 | PN ---
Progress Note, Physician - Current Medication List Current Medications: Active Medications Acetaminophen (Tylenol -) 650 mg PO Q6H PRN PRN Reason: FEVER Last Admin: 08/10/19 18:21 Dose: 650 mg Heparin Sodium (Porcine) (Heparin -) 5,000 unit SQ BID [facility] Last Admin: 08/11/19 09:40 Dose: 5,000 unit Sodium Chloride (Normal Saline -) 1,000 mls @ 75 mls/hr IV ASDIR [facility] Last Admin: 08/11/19 03:30 Dose: Not Given Meropenem 1 gm/ Dextrose 100 mls @ 200 mls/hr IVPB Q8H-IV [facility] Last Admin: 08/11/19 09:40 Dose: 200 mls/hr Levothyroxine Sodium (Synthroid -) 100 mcg PO DAILY@0700 [facility] Last Admin: 08/11/19 06:05 Dose: 100 mcg - Objective Vital Signs: Vital Signs Temperature 97.8 F 08/11/19 06:50 Pulse Rate 73 08/11/19 06:50 Respiratory Rate 20 08/11/19 09:00 Blood Pressure 115/54 L 08/11/19 06:50 O2 Sat by Pulse Oximetry (%) 93 L 08/11/19 09:00 Constitutional: Yes: No Distress HENT: Yes: Atraumatic Neck: Yes: Supple Cardiovascular: Yes: Regular Rate and Rhythm Respiratory: Yes: CTA Bilaterally Gastrointestinal: Yes: Normal Bowel Sounds Extremities: Yes: WNL Edema: No Neurological: Yes: Alert Labs: CBC, BMP 08/10/19 06:35 08/10/19 06:35 INR, PTT INR 1.01 (0.83-1.09) 08/09/19 15:33 Problem List - Problems (1) Dementia Code(s): F03.90 - UNSPECIFIED DEMENTIA WITHOUT BEHAVIORAL DISTURBANCE (2) UTI (urinary tract infection) Assessment/Plan: iv abx cxs noted id to decide on po abx Code(s): N39.0 - URINARY TRACT INFECTION, SITE NOT SPECIFIED Qualifiers: Urinary tract infection type: site unspecified Hematuria presence: without hematuria Qualified Code(s): N39.0 - Urinary tract infection, site not specified (3) Hypothyroid Assessment/Plan: on meds Code(s): E03.9 - HYPOTHYROIDISM, UNSPECIFIED
[2019-08-12] MEDS: SODIUM CHLORIDE 1,000 ML IV SCH ×3 (01:33→17:19)
[2019-08-12] MEDS: MEROPENEM 1 GM in DEXTROSE 5%-WATER 100 ML IVPB SCH ×3 (01:34→17:19)
[2019-08-12] MEDS: LEVOTHYROXINE NA 100 MCG TABLET (FP) PO SCH (06:07)
[2019-08-12] MEDS ORDERED: MEROPENEM 1 GM VIAL (RESTRICTED TO ID) IVPB ONE ×2 (09:23→17:11)
[2019-08-12] MEDS ORDERED: DEXTROSE 5%-WATER 100 ML IVPB ONE ×2 (09:24→17:11)
[2019-08-12] MEDS: HEPARIN NA (PORCINE) 5,000 UNITS/ML 1ML VIAL SQ SCH ×2 (09:34→22:21)
--- NOTE | 2019-08-12 10:05 | PN ---
Progress Note, Physician History of Present Illness: stable afebrile still very confused - Current Medication List Current Medications: Active Medications Acetaminophen (Tylenol -) 650 mg PO Q6H PRN PRN Reason: FEVER Last Admin: 08/10/19 18:21 Dose: 650 mg Heparin Sodium (Porcine) (Heparin -) 5,000 unit SQ BID [facility] Last Admin: 08/12/19 09:34 Dose: 5,000 unit Sodium Chloride (Normal Saline -) 1,000 mls @ 75 mls/hr IV ASDIR [facility] Last Admin: 08/12/19 06:25 Dose: Not Given Meropenem 1 gm/ Dextrose 100 mls @ 200 mls/hr IVPB Q8H-IV [facility] Last Admin: 08/12/19 09:34 Dose: 200 mls/hr Levothyroxine Sodium (Synthroid -) 100 mcg PO DAILY@0700 [facility] Last Admin: 08/12/19 06:07 Dose: 100 mcg - Objective Vital Signs: Vital Signs Temperature 98.6 F 08/12/19 09:39 Pulse Rate 62 08/12/19 09:39 Respiratory Rate 16 08/12/19 09:39 Blood Pressure 129/54 L 08/12/19 09:39 O2 Sat by Pulse Oximetry (%) 93 L 08/11/19 21:00 Constitutional: Yes: No Distress, Calm Cardiovascular: Yes: S1, S2 Respiratory: Yes: Regular, CTA Bilaterally Genitourinary: Yes: King Present Musculoskeletal: Yes: WNL Extremities: Yes: Other Neurological: Yes: Alert, Other Psychiatric: Yes: Other Labs: CBC, BMP 08/10/19 06:35 08/10/19 06:35 INR, PTT INR 1.01 (0.83-1.09) 08/09/19 15:33 Assessment/Plan Problem List - Problems (1) Dementia Code(s): F03.90 - UNSPECIFIED DEMENTIA WITHOUT BEHAVIORAL DISTURBANCE (2) UTI (urinary tract infection) Code(s): N39.0 - URINARY TRACT INFECTION, SITE NOT SPECIFIED 3 lethargy weakness plan continue meropenam await for identification of the organism and sensitivity
--- NOTE | 2019-08-12 20:39 | PN ---
Progress Note, Physician History of Present Illness: alert - Current Medication List Current Medications: Active Medications Acetaminophen (Tylenol -) 650 mg PO Q6H PRN PRN Reason: FEVER Last Admin: 08/10/19 18:21 Dose: 650 mg Heparin Sodium (Porcine) (Heparin -) 5,000 unit SQ BID [facility] Last Admin: 08/12/19 09:34 Dose: 5,000 unit Sodium Chloride (Normal Saline -) 1,000 mls @ 75 mls/hr IV ASDIR [facility] Last Admin: 08/12/19 17:19 Dose: 75 mls/hr Meropenem 1 gm/ Dextrose 100 mls @ 200 mls/hr IVPB Q8H-IV [facility] Last Admin: 08/12/19 17:19 Dose: 200 mls/hr Levothyroxine Sodium (Synthroid -) 100 mcg PO DAILY@0700 [facility] Last Admin: 08/12/19 06:07 Dose: 100 mcg - Objective Vital Signs: Vital Signs Temperature 98.9 F 08/12/19 17:04 Pulse Rate 70 08/12/19 17:04 Respiratory Rate 20 08/12/19 17:04 Blood Pressure 111/62 08/12/19 17:04 O2 Sat by Pulse Oximetry (%) 96 08/12/19 09:00 Constitutional: Yes: No Distress HENT: Yes: Atraumatic Neck: Yes: Supple Cardiovascular: Yes: Regular Rate and Rhythm Respiratory: Yes: CTA Bilaterally Gastrointestinal: Yes: Normal Bowel Sounds Extremities: Yes: WNL Edema: No Peripheral Pulses WNL: Yes Neurological: Yes: Alert Labs: CBC, BMP 08/10/19 06:35 08/10/19 06:35 INR, PTT INR 1.01 (0.83-1.09) 08/09/19 15:33 Problem List - Problems (1) Dementia Code(s): F03.90 - UNSPECIFIED DEMENTIA WITHOUT BEHAVIORAL DISTURBANCE (2) UTI (urinary tract infection) Assessment/Plan: iv abx cxs pending id on board Code(s): N39.0 - URINARY TRACT INFECTION, SITE NOT SPECIFIED Qualifiers: Urinary tract infection type: site unspecified Hematuria presence: without hematuria Qualified Code(s): N39.0 - Urinary tract infection, site not specified Assessment/Plan Laboratory Tests 08/09/19 08/09/19 08/09/19 15:33 15:33 15:33 WBC 11.0 H RBC 4.48 Hgb 13.1 Hct 40.0 MCV 89.3 MCH 29.2 MCHC 32.7 RDW 13.7 Plt Count 287 MPV 9.2 Absolute Neuts (auto) 9.0 H Neutrophils % 81.9 D Lymphocytes % 12.0 D Monocytes % 5.5 Eosinophils % 0.0 D Basophils % 0.6 Nucleated RBC % 0 PT with INR 11.90 INR 1.01 PTT (Actin FS) 29.6 VBG pH POC VBG pCO2 POC VBG pO2 VBG HCO3 VBG O2 Sat (Jatin) VBG Base Excess Sodium Potassium Chloride Carbon Dioxide Anion Gap BUN Creatinine Est GFR (CKD-EPI)AfAm Est GFR (CKD-EPI)NonAf Random Glucose Lactic Acid Calcium Total Bilirubin AST ALT Alkaline Phosphatase Troponin I < 0.02 Total Protein Albumin Urine Color Urine Appearance Urine pH Ur Specific [place] Urine Protein Urine Glucose (UA) Urine Ketones Urine Blood Urine Nitrite Urine Bilirubin Urine Urobilinogen Ur Leukocyte Esterase Urine WBC (Auto) Urine RBC (Auto) Urine Casts (Auto) U Pathogenic Cast Auto U Epithel Cells (Auto) Urine Bacteria (Auto) Urine Yeast (Auto) Blood Type Antibody Screen 08/09/19 08/09/19 08/09/19 15:33 15:33 15:33 WBC RBC Hgb Hct MCV MCH MCHC RDW Plt Count MPV Absolute Neuts (auto) Neutrophils % Lymphocytes % Monocytes % Eosinophils % Basophils % Nucleated RBC % PT with INR INR PTT (Actin FS) VBG pH 7.42 H POC VBG pCO2 42.8 POC VBG pO2 < 49 H VBG HCO3 27.2 VBG O2 Sat (Jatin) 74.8 VBG Base Excess 2.8 H Sodium 140 Potassium 4.4 Chloride 105 Carbon Dioxide 27 Anion Gap 8 BUN 24.6 H Creatinine 1.0 Est GFR (CKD-EPI)AfAm 59.08 Est GFR (CKD-EPI)NonAf 50.97 Random Glucose 118 H Lactic Acid 1.5 Calcium 9.1 Total Bilirubin 1.7 H AST 142 H ALT 40 Alkaline Phosphatase 140 H Troponin I Total Protein 7.0 Albumin 3.7 Urine Color Urine Appearance Urine pH Ur Specific [place] Urine Protein Urine Glucose (UA) Urine Ketones Urine Blood Urine Nitrite Urine Bilirubin Urine Urobilinogen Ur Leukocyte Esterase Urine WBC (Auto) Urine RBC (Auto) Urine Casts (Auto) U Pathogenic Cast Auto U Epithel Cells (Auto) Urine Bacteria (Auto) Urine Yeast (Auto) Blood Type Antibody Screen 08/09/19 08/09/19 15:33 19:50 WBC RBC Hgb Hct MCV MCH MCHC RDW Plt Count MPV Absolute Neuts (auto) Neutrophils % Lymphocytes % Monocytes % Eosinophils % Basophils % Nucleated RBC % PT with INR INR PTT (Actin FS) VBG pH POC VBG pCO2 POC VBG pO2 VBG HCO3 VBG O2 Sat (Jatin) VBG Base Excess Sodium Potassium Chloride Carbon Dioxide Anion Gap BUN Creatinine Est GFR (CKD-EPI)AfAm Est GFR (CKD-EPI)NonAf Random Glucose Lactic Acid Calcium Total Bilirubin AST ALT Alkaline Phosphatase Troponin I Total Protein Albumin Urine Color Yellow Urine Appearance Turbid Urine pH 6.0 Ur Specific [place] 1.020 Urine Protein 100 Urine Glucose (UA) Negative Urine Ketones Trace H Urine Blood Moderate Urine Nitrite Positive H Urine Bilirubin Negative Urine Urobilinogen 0.2 Ur Leukocyte Esterase Large Urine WBC (Auto) 6077.3 Urine RBC (Auto) 87.2 Urine Casts (Auto) 2923.75 U Pathogenic Cast Auto None seen U Epithel Cells (Auto) 54.3 Urine Bacteria (Auto) 1601.5 Urine Yeast (Auto) None seen Blood Type O POSITIVE Antibody Screen Negative Active Medications Generic Name Dose Route Start Last Admin Trade Name Leodanq PRN Reason Stop Dose Admin Acetaminophen 650 mg 08/10/19 18:09 08/10/19 18:21 Tylenol - PO 650 mg Q6H PRN Administration FEVER Heparin Sodium (Porcine) 5,000 unit 08/10/19 10:00 08/13/19 10:41 Heparin - SQ 5,000 unit BID [facility] Administration Sodium Chloride 1,000 mls @ 75 mls/hr 08/10/19 03:00 08/12/19 17:19 Normal Saline - IV 75 mls/hr ASDIR [facility] Administration Meropenem 1 gm/ Dextrose 100 mls @ 200 mls/hr 08/10/19 11:45 08/13/19 10:41 IVPB 200 mls/hr Q8H-IV [facility] Administration Levothyroxine Sodium 100 mcg 08/10/19 07:00 08/13/19 06:31 Synthroid - PO 100 mcg DAILY@0700 [facility] Administration
[2019-08-13] MEDS ORDERED: DEXTROSE 5%-WATER 100 ML IVPB ONE ×3 (00:24→17:01)
[2019-08-13] MEDS ORDERED: MEROPENEM 1 GM VIAL (RESTRICTED TO ID) IVPB ONE ×3 (00:24→17:01)
[2019-08-13] MEDS: MEROPENEM 1 GM in DEXTROSE 5%-WATER 100 ML IVPB SCH ×3 (01:25→17:18)
[2019-08-13] MEDS: LEVOTHYROXINE NA 100 MCG TABLET (FP) PO SCH (06:31)
[2019-08-13 06:44] LABS: BASO % 0.3 % (0-2.0); EOS % 1.6 % (0-4.5); HEMATOCRIT 29.7 % (32.4-45.2); HEMOGLOBIN 10.2 GM/dL (10.7-15.3); LYMPH % 17.9 % (8-40); MCH 29.7 pg (25.7-33.7); MCHC 34.2 g/dl (32.0-36.0); MEAN CELL VOLUME 86.9 fl (80-96); MEAN PLT VOLUME 9.6 fl (7.5-11.1); MONO % 6.1 % (3.8-10.2); NEUT % 74.1 % (42.8-82.8); PLATELET COUNT 199 K/MM3 (134-434); RBC 3.42 M/mm3 (3.60-5.2); RDW 13.9 % (11.6-15.6); WHITE BLOOD COUNT 5.1 K/mm3 (4.0-10.0)
[2019-08-13 07:41] LABS: ALBUMIN 2.2 g/dl (3.4-5.0); BILIRUBIN,TOTAL 0.7 mg/dL (0.2-1); BLOOD UREA NITROGEN 10.1 mg/dL (7-18); CALCIUM 7.7 mg/dL (8.5-10.1); CREATININE 0.6 mg/dL (0.55-1.3); POTASSIUM 3.2 mmol/L (3.5-5.1)
--- NOTE | 2019-08-13 10:37 | PN ---
Progress Note, Physician History of Present Illness: stable more awake and alert - Current Medication List Current Medications: Active Medications Acetaminophen (Tylenol -) 650 mg PO Q6H PRN PRN Reason: FEVER Last Admin: 08/10/19 18:21 Dose: 650 mg Heparin Sodium (Porcine) (Heparin -) 5,000 unit SQ BID [facility] Last Admin: 08/12/19 22:21 Dose: 5,000 unit Sodium Chloride (Normal Saline -) 1,000 mls @ 75 mls/hr IV ASDIR [facility] Last Admin: 08/12/19 17:19 Dose: 75 mls/hr Meropenem 1 gm/ Dextrose 100 mls @ 200 mls/hr IVPB Q8H-IV [facility] Last Admin: 08/13/19 01:25 Dose: 200 mls/hr Levothyroxine Sodium (Synthroid -) 100 mcg PO DAILY@0700 [facility] Last Admin: 08/13/19 06:31 Dose: 100 mcg - Objective Vital Signs: Vital Signs Temperature 98.4 F 08/13/19 06:38 Pulse Rate 64 08/13/19 06:38 Respiratory Rate 08/13/19 06:38 Blood Pressure 120/46 L 08/13/19 06:38 O2 Sat by Pulse Oximetry (%) 96 08/12/19 21:00 Constitutional: Yes: No Distress, Calm Cardiovascular: Yes: S1, S2 Respiratory: Yes: Regular, CTA Bilaterally Gastrointestinal: Yes: Normal Bowel Sounds, Soft Musculoskeletal: Yes: WNL Extremities: Yes: WNL Neurological: Yes: Alert, Other Psychiatric: Yes: Other Labs: CBC, BMP 08/13/19 05:30 08/13/19 05:30 INR, PTT INR 1.01 (0.83-1.09) 08/09/19 15:33 Assessment/Plan Problem List - Problems (1) Dementia Code(s): F03.90 - UNSPECIFIED DEMENTIA WITHOUT BEHAVIORAL DISTURBANCE (2) UTI (urinary tract infection) Code(s): N39.0 - URINARY TRACT INFECTION, SITE NOT SPECIFIED 3 lethargy weakness plan continue meropenam cx results noted
[2019-08-13] MEDS: HEPARIN NA (PORCINE) 5,000 UNITS/ML 1ML VIAL SQ SCH ×2 (10:41→22:24)
--- NOTE | 2019-08-13 17:14 | PN ---
Progress Note, Physician History of Present Illness: alert - Current Medication List Current Medications: Active Medications Acetaminophen (Tylenol -) 650 mg PO Q6H PRN PRN Reason: FEVER Last Admin: 08/10/19 18:21 Dose: 650 mg Heparin Sodium (Porcine) (Heparin -) 5,000 unit SQ BID [facility] Last Admin: 08/13/19 10:41 Dose: 5,000 unit Sodium Chloride (Normal Saline -) 1,000 mls @ 75 mls/hr IV ASDIR [facility] Last Admin: 08/12/19 17:19 Dose: 75 mls/hr Meropenem 1 gm/ Dextrose 100 mls @ 200 mls/hr IVPB Q8H-IV [facility] Last Admin: 08/13/19 10:41 Dose: 200 mls/hr Levothyroxine Sodium (Synthroid -) 100 mcg PO DAILY@0700 [facility] Last Admin: 08/13/19 06:31 Dose: 100 mcg - Objective Vital Signs: Vital Signs Temperature 97 F L 08/13/19 16:59 Pulse Rate 66 08/13/19 16:59 Respiratory Rate 20 08/13/19 16:59 Blood Pressure 107/56 L 08/13/19 16:59 O2 Sat by Pulse Oximetry (%) 96 08/12/19 21:00 Constitutional: Yes: No Distress HENT: Yes: Atraumatic Neck: Yes: Supple Cardiovascular: Yes: Regular Rate and Rhythm Respiratory: Yes: CTA Bilaterally Gastrointestinal: Yes: Normal Bowel Sounds Extremities: Yes: WNL Edema: No Peripheral Pulses WNL: Yes Neurological: Yes: Alert Labs: CBC, BMP 08/13/19 05:30 08/13/19 05:30 INR, PTT INR 1.01 (0.83-1.09) 08/09/19 15:33 Problem List - Problems (1) Dementia Code(s): F03.90 - UNSPECIFIED DEMENTIA WITHOUT BEHAVIORAL DISTURBANCE (2) UTI (urinary tract infection) Assessment/Plan: iv abx cxs noted id to decide on po abx Code(s): N39.0 - URINARY TRACT INFECTION, SITE NOT SPECIFIED Qualifiers: Urinary tract infection type: site unspecified Hematuria presence: without hematuria Qualified Code(s): N39.0 - Urinary tract infection, site not specified (3) Hypothyroid Assessment/Plan: on meds Code(s): E03.9 - HYPOTHYROIDISM, UNSPECIFIED
[2019-08-13] MEDS: SODIUM CHLORIDE 1,000 ML IV SCH (17:18)
[2019-08-13] MEDS: POTASSIUM CHLORIDE ORAL LIQUID 20 MEQ/15 ML PO SCH (22:19)
[2019-08-14] MEDS ORDERED: MEROPENEM 1 GM VIAL (RESTRICTED TO ID) IVPB ONE ×3 (01:26→17:38)
[2019-08-14] MEDS ORDERED: DEXTROSE 5%-WATER 100 ML IVPB ONE ×3 (01:27→17:38)
[2019-08-14] MEDS: MEROPENEM 1 GM in DEXTROSE 5%-WATER 100 ML IVPB SCH ×3 (01:41→17:43)
[2019-08-14] MEDS: LEVOTHYROXINE NA 100 MCG TABLET (FP) PO SCH (06:09)
--- NOTE | 2019-08-14 10:17 | PN ---
Progress Note, Physician History of Present Illness: patient stable no new issues more awake - Current Medication List Current Medications: Active Medications Acetaminophen (Tylenol -) 650 mg PO Q6H PRN PRN Reason: FEVER Last Admin: 08/10/19 18:21 Dose: 650 mg Heparin Sodium (Porcine) (Heparin -) 5,000 unit SQ BID [facility] Last Admin: 08/13/19 22:24 Dose: 5,000 unit Sodium Chloride (Normal Saline -) 1,000 mls @ 75 mls/hr IV ASDIR [facility] Last Admin: 08/13/19 17:18 Dose: 75 mls/hr Meropenem 1 gm/ Dextrose 100 mls @ 200 mls/hr IVPB Q8H-IV [facility] Last Admin: 08/14/19 01:41 Dose: 200 mls/hr Levothyroxine Sodium (Synthroid -) 100 mcg PO DAILY@0700 [facility] Last Admin: 08/14/19 06:09 Dose: 100 mcg Potassium Chloride (Potassium Chloride Oral Liquid) 20 meq PO BID [facility] Last Admin: 08/13/19 22:19 Dose: 20 meq - Objective Vital Signs: Vital Signs Temperature 97.9 F 08/14/19 06:34 Pulse Rate 69 08/14/19 06:34 Respiratory Rate 20 08/14/19 06:34 Blood Pressure 136/62 08/14/19 06:34 O2 Sat by Pulse Oximetry (%) 96 08/12/19 21:00 Constitutional: Yes: No Distress, Calm Cardiovascular: Yes: S1, S2 Respiratory: Yes: Regular, CTA Bilaterally Gastrointestinal: Yes: Normal Bowel Sounds, Soft Musculoskeletal: Yes: WNL Extremities: Yes: WNL Neurological: Yes: Alert, Other Psychiatric: Yes: Other Labs: CBC, BMP 08/13/19 05:30 08/13/19 05:30 INR, PTT INR 1.01 (0.83-1.09) 08/09/19 15:33 Assessment/Plan Problem List - Problems (1) Dementia Code(s): F03.90 - UNSPECIFIED DEMENTIA WITHOUT BEHAVIORAL DISTURBANCE (2) UTI (urinary tract infection) Code(s): N39.0 - URINARY TRACT INFECTION, SITE NOT SPECIFIED 3 lethargy weakness plan continue meropenam will stop abx tomorrow
[2019-08-14] MEDS: HEPARIN NA (PORCINE) 5,000 UNITS/ML 1ML VIAL SQ SCH ×2 (10:21→21:54)
[2019-08-14] MEDS: SODIUM CHLORIDE 1,000 ML IV SCH (10:22)
[2019-08-14] MEDS: POTASSIUM CHLORIDE ORAL LIQUID 20 MEQ/15 ML PO SCH ×2 (10:26→21:54)
--- NOTE | 2019-08-14 21:41 | PN ---
Progress Note, Physician - Current Medication List Current Medications: Active Medications Acetaminophen (Tylenol -) 650 mg PO Q6H PRN PRN Reason: FEVER Last Admin: 08/10/19 18:21 Dose: 650 mg Heparin Sodium (Porcine) (Heparin -) 5,000 unit SQ BID [facility] Last Admin: 08/14/19 10:21 Dose: 5,000 unit Sodium Chloride (Normal Saline -) 1,000 mls @ 75 mls/hr IV ASDIR [facility] Last Admin: 08/14/19 10:22 Dose: 75 mls/hr Meropenem 1 gm/ Dextrose 100 mls @ 200 mls/hr IVPB Q8H-IV [facility] Last Admin: 08/14/19 17:43 Dose: 200 mls/hr Levothyroxine Sodium (Synthroid -) 100 mcg PO DAILY@0700 [facility] Last Admin: 08/14/19 06:09 Dose: 100 mcg Potassium Chloride (Potassium Chloride Oral Liquid) 20 meq PO BID [facility] Last Admin: 08/14/19 10:26 Dose: Not Given - Objective Vital Signs: Vital Signs Temperature 97.9 F 08/14/19 17:19 Pulse Rate 71 08/14/19 17:19 Respiratory Rate 18 08/14/19 17:19 Blood Pressure 120/64 08/14/19 17:19 O2 Sat by Pulse Oximetry (%) 96 08/12/19 21:00 Labs: CBC, BMP 08/13/19 05:30 08/13/19 05:30 INR, PTT INR 1.01 (0.83-1.09) 08/09/19 15:33
[2019-08-15] MEDS ORDERED: MEROPENEM 1 GM VIAL (RESTRICTED TO ID) IVPB ONE ×2 (01:30→10:52)
[2019-08-15] MEDS ORDERED: DEXTROSE 5%-WATER 100 ML IVPB ONE ×2 (01:31→10:52)
[2019-08-15] MEDS: MEROPENEM 1 GM in DEXTROSE 5%-WATER 100 ML IVPB SCH ×2 (01:51→10:55)
[2019-08-15] MEDS: LEVOTHYROXINE NA 100 MCG TABLET (FP) PO SCH (06:30)
[2019-08-15 08:10] LABS: ALBUMIN 2.4 g/dl (3.4-5.0); BILIRUBIN,TOTAL 0.6 mg/dL (0.2-1); BLOOD UREA NITROGEN 6.9 mg/dL (7-18); CREATININE 0.6 mg/dL (0.55-1.3); POTASSIUM 4.3 mmol/L (3.5-5.1); TOT PROT 5.1 g/dl (6.4-8.2)
--- NOTE | 2019-08-15 10:53 | PN ---
Progress Note, Physician History of Present Illness: patient stable no new issues - Current Medication List Current Medications: Active Medications Acetaminophen (Tylenol -) 650 mg PO Q6H PRN PRN Reason: FEVER Last Admin: 08/10/19 18:21 Dose: 650 mg Heparin Sodium (Porcine) (Heparin -) 5,000 unit SQ BID [facility] Last Admin: 08/14/19 21:54 Dose: 5,000 unit Sodium Chloride (Normal Saline -) 1,000 mls @ 75 mls/hr IV ASDIR [facility] Last Admin: 08/14/19 10:22 Dose: 75 mls/hr Meropenem 1 gm/ Dextrose 100 mls @ 200 mls/hr IVPB Q8H-IV [facility] Last Admin: 08/15/19 01:51 Dose: 200 mls/hr Levothyroxine Sodium (Synthroid -) 100 mcg PO DAILY@0700 [facility] Last Admin: 08/15/19 06:30 Dose: 100 mcg Potassium Chloride (Potassium Chloride Oral Liquid) 20 meq PO BID [facility] Last Admin: 08/14/19 21:54 Dose: 20 meq - Objective Vital Signs: Vital Signs Temperature 98.9 F 08/15/19 06:56 Pulse Rate 70 08/15/19 06:56 Respiratory Rate 18 08/15/19 06:56 Blood Pressure 109/52 L 08/15/19 06:56 O2 Sat by Pulse Oximetry (%) 96 08/12/19 21:00 Constitutional: Yes: No Distress, Calm Cardiovascular: Yes: S1, S2 Respiratory: Yes: Regular, CTA Bilaterally Gastrointestinal: Yes: Normal Bowel Sounds, Soft Musculoskeletal: Yes: WNL Extremities: Yes: WNL Neurological: Yes: Other Psychiatric: Yes: Other Labs: CBC, BMP 08/13/19 05:30 08/15/19 06:30 INR, PTT INR 1.01 (0.83-1.09) 08/09/19 15:33 Assessment/Plan Problem List - Problems (1) Dementia Code(s): F03.90 - UNSPECIFIED DEMENTIA WITHOUT BEHAVIORAL DISTURBANCE (2) UTI (urinary tract infection) Code(s): N39.0 - URINARY TRACT INFECTION, SITE NOT SPECIFIED 3 lethargy weakness plan will watch patient without abx rest as per the team
[2019-08-15] MEDS: HEPARIN NA (PORCINE) 5,000 UNITS/ML 1ML VIAL SQ SCH ×2 (10:55→21:39)
[2019-08-15] MEDS: POTASSIUM CHLORIDE ORAL LIQUID 20 MEQ/15 ML PO SCH ×2 (10:55→21:39)
--- NOTE | 2019-08-15 19:58 | PN ---
Progress Note, Physician History of Present Illness: No new changes - Current Medication List Current Medications: Active Medications Acetaminophen (Tylenol -) 650 mg PO Q6H PRN PRN Reason: FEVER Last Admin: 08/10/19 18:21 Dose: 650 mg Heparin Sodium (Porcine) (Heparin -) 5,000 unit SQ BID [facility] Last Admin: 08/15/19 10:55 Dose: 5,000 unit Sodium Chloride (Normal Saline -) 1,000 mls @ 75 mls/hr IV ASDIR [facility] Last Admin: 08/14/19 10:22 Dose: 75 mls/hr Levothyroxine Sodium (Synthroid -) 100 mcg PO DAILY@0700 [facility] Last Admin: 08/15/19 06:30 Dose: 100 mcg Potassium Chloride (Potassium Chloride Oral Liquid) 20 meq PO BID [facility] Last Admin: 08/15/19 10:55 Dose: 20 meq - Objective Vital Signs: Vital Signs Temperature 97.9 F 08/15/19 14:00 Pulse Rate 59 L 08/15/19 14:00 Respiratory Rate 18 08/15/19 14:00 Blood Pressure 93/55 L 08/15/19 14:00 O2 Sat by Pulse Oximetry (%) 96 08/12/19 21:00 Neck: Yes: WNL, Supple Cardiovascular: Yes: WNL, Regular Rate and Rhythm Respiratory: Yes: WNL, Regular, CTA Bilaterally Gastrointestinal: Yes: WNL, Normal Bowel Sounds, Soft Labs: CBC, BMP 08/13/19 05:30 08/15/19 06:30 INR, PTT INR 1.01 (0.83-1.09) 08/09/19 15:33 Problem List - Problems (1) UTI (urinary tract infection) Assessment/Plan: Pt is now off antibxs as per ID Cont to monitor Urine culture (+) for Citrobacter Will dc IVF Code(s): N39.0 - URINARY TRACT INFECTION, SITE NOT SPECIFIED Qualifiers: Urinary tract infection type: site unspecified Hematuria presence: without hematuria Qualified Code(s): N39.0 - Urinary tract infection, site not specified (2) Hypothyroid Assessment/Plan: Cont levothyroxine Code(s): E03.9 - HYPOTHYROIDISM, UNSPECIFIED (3) Dementia Code(s): F03.90 - UNSPECIFIED DEMENTIA WITHOUT BEHAVIORAL DISTURBANCE
[2019-08-16] MEDS: LEVOTHYROXINE NA 100 MCG TABLET (FP) PO SCH (06:38)
--- NOTE | 2019-08-16 07:50 | PN ---
Progress Note, Physician History of Present Illness: stable no new issues - Current Medication List Current Medications: Active Medications Acetaminophen (Tylenol -) 650 mg PO Q6H PRN PRN Reason: FEVER Last Admin: 08/10/19 18:21 Dose: 650 mg Heparin Sodium (Porcine) (Heparin -) 5,000 unit SQ BID [facility] Last Admin: 08/15/19 21:39 Dose: 5,000 unit Levothyroxine Sodium (Synthroid -) 100 mcg PO DAILY@0700 [facility] Last Admin: 08/16/19 06:38 Dose: 100 mcg Potassium Chloride (Potassium Chloride Oral Liquid) 20 meq PO BID [facility] Last Admin: 08/15/19 21:39 Dose: 20 meq - Objective Vital Signs: Vital Signs Temperature 97.7 F 08/16/19 05:00 Pulse Rate 60 08/16/19 05:00 Respiratory Rate 18 08/15/19 22:00 Blood Pressure 118/60 08/16/19 05:00 O2 Sat by Pulse Oximetry (%) 96 08/12/19 21:00 Constitutional: Yes: No Distress, Calm Cardiovascular: Yes: S1, S2 Respiratory: Yes: Regular, CTA Bilaterally Gastrointestinal: Yes: Normal Bowel Sounds, Soft Musculoskeletal: Yes: WNL Extremities: Yes: WNL Neurological: Yes: Other Psychiatric: Yes: Other Labs: CBC, BMP 08/13/19 05:30 08/15/19 06:30 INR, PTT INR 1.01 (0.83-1.09) 08/09/19 15:33 Assessment/Plan Problem List - Problems (1) Dementia Code(s): F03.90 - UNSPECIFIED DEMENTIA WITHOUT BEHAVIORAL DISTURBANCE (2) UTI (urinary tract infection) Code(s): N39.0 - URINARY TRACT INFECTION, SITE NOT SPECIFIED 3 lethargy weakness plan continue current mgmt nutrition rest as per the team
[2019-08-16] MEDS ORDERED: PT OWN MED DRAWER 7, Y5N ONE (08:05)
[2019-08-16] MEDS: HEPARIN NA (PORCINE) 5,000 UNITS/ML 1ML VIAL SQ SCH ×2 (11:01→22:48)
[2019-08-16] MEDS: POTASSIUM CHLORIDE ORAL LIQUID 20 MEQ/15 ML PO SCH ×2 (11:01→22:48)
[2019-08-16 13:13] VITALS: BMI 23.2
--- NOTE | 2019-08-16 16:49 | DS ---
Physical Examination Vital Signs: Vital Signs Temperature 97.3 F L 08/16/19 14:00 Pulse Rate 72 08/16/19 14:00 Respiratory Rate 18 08/16/19 14:00 Blood Pressure 106/45 L 08/16/19 14:00 O2 Sat by Pulse Oximetry (%) 96 08/12/19 21:00 Constitutional: Yes: No Distress HENT: Yes: Atraumatic Neck: Yes: Supple Cardiovascular: Yes: Regular Rate and Rhythm Respiratory: Yes: CTA Bilaterally Gastrointestinal: Yes: Normal Bowel Sounds Extremities: Yes: WNL Edema: No Neurological: Yes: Alert, Oriented Labs: CBC, BMP 08/13/19 05:30 08/15/19 06:30 Discharge Summary Reason For Visit: COMPLICATED UTI Current Active Problems UTI (urinary tract infection) (Acute) Condition: Stable - Instructions - Home Medications Comprehensive Discharge Medication List: Ambulatory Orders Levothyroxine [Synthroid -] 100 mcg PO DAILY@0700 #30 tablet 04/09/17
--- NOTE | 2019-08-16 18:09 | PN ---
Progress Note, Physician - Current Medication List Current Medications: Active Medications Acetaminophen (Tylenol -) 650 mg PO Q6H PRN PRN Reason: FEVER Last Admin: 08/10/19 18:21 Dose: 650 mg Heparin Sodium (Porcine) (Heparin -) 5,000 unit SQ BID [facility] Last Admin: 08/16/19 11:01 Dose: 5,000 unit Levothyroxine Sodium (Synthroid -) 100 mcg PO DAILY@0700 [facility] Last Admin: 08/16/19 06:38 Dose: 100 mcg Potassium Chloride (Potassium Chloride Oral Liquid) 20 meq PO BID [facility] Last Admin: 08/16/19 11:01 Dose: 20 meq - Objective Vital Signs: Vital Signs Temperature 97.1 F L 08/16/19 17:28 Pulse Rate 67 08/16/19 17:28 Respiratory Rate 18 08/16/19 17:28 Blood Pressure 154/74 08/16/19 17:28 O2 Sat by Pulse Oximetry (%) 96 08/12/19 21:00 Constitutional: Yes: No Distress HENT: Yes: Atraumatic Neck: Yes: Supple Cardiovascular: Yes: Regular Rate and Rhythm Respiratory: Yes: CTA Bilaterally Gastrointestinal: Yes: Normal Bowel Sounds Extremities: Yes: WNL Edema: No Peripheral Pulses WNL: Yes Neurological: Yes: Alert Labs: CBC, BMP 08/13/19 05:30 08/15/19 06:30 INR, PTT INR 1.01 (0.83-1.09) 08/09/19 15:33 Problem List - Problems (1) Dementia Assessment/Plan: not on many meds as of now..as per Code(s): F03.90 - UNSPECIFIED DEMENTIA WITHOUT BEHAVIORAL DISTURBANCE (2) UTI (urinary tract infection) Assessment/Plan: abx completed Code(s): N39.0 - URINARY TRACT INFECTION, SITE NOT SPECIFIED Qualifiers: Urinary tract infection type: site unspecified Hematuria presence: without hematuria Qualified Code(s): N39.0 - Urinary tract infection, site not specified (3) Hypothyroid Assessment/Plan: on meds Code(s): E03.9 - HYPOTHYROIDISM, UNSPECIFIED Assessment/Plan d/w in detail answered all his questions he is considering sending her to snf he will call psychiatric social worker tomorrow
[2019-08-17] MEDS: LEVOTHYROXINE NA 100 MCG TABLET (FP) PO SCH (06:23)
[2019-08-17] MEDS: POTASSIUM CHLORIDE ORAL LIQUID 20 MEQ/15 ML PO SCH ×2 (10:43→10:46)
--- NOTE | 2019-08-17 11:52 | PN ---
Progress Note, Physician History of Present Illness: stable no new issues - Current Medication List Current Medications: Active Medications Acetaminophen (Tylenol -) 650 mg PO Q6H PRN PRN Reason: FEVER Last Admin: 08/10/19 18:21 Dose: 650 mg Levothyroxine Sodium (Synthroid -) 100 mcg PO DAILY@0700 [facility] Last Admin: 08/17/19 06:23 Dose: 100 mcg Potassium Chloride (Potassium Chloride Oral Liquid) 20 meq PO BID [facility] Last Admin: 08/17/19 10:46 Dose: Not Given - Objective Vital Signs: Vital Signs Temperature 97.7 F 08/17/19 10:00 Pulse Rate 62 08/17/19 10:00 Respiratory Rate 18 08/17/19 10:00 Blood Pressure 107/60 08/17/19 10:00 O2 Sat by Pulse Oximetry (%) 96 08/17/19 09:00 Constitutional: Yes: No Distress, Calm Cardiovascular: Yes: S1, S2 Respiratory: Yes: Regular, CTA Bilaterally Gastrointestinal: Yes: Normal Bowel Sounds, Soft Musculoskeletal: Yes: WNL Extremities: Yes: Other Neurological: Yes: Other Labs: CBC, BMP 08/13/19 05:30 08/15/19 06:30 INR, PTT INR 1.01 (0.83-1.09) 08/09/19 15:33 Assessment/Plan Problem List - Problems (1) Dementia Code(s): F03.90 - UNSPECIFIED DEMENTIA WITHOUT BEHAVIORAL DISTURBANCE (2) UTI (urinary tract infection) Code(s): N39.0 - URINARY TRACT INFECTION, SITE NOT SPECIFIED 3 lethargy weakness plan continue current mgmt nutrition rest as per the team
--- NOTE | 2019-08-17 18:40 | DS ---
Physical Examination Vital Signs: Vital Signs Temperature 95 F L 08/17/19 15:00 Pulse Rate 88 08/17/19 15:00 Respiratory Rate 18 08/17/19 15:00 Blood Pressure 114/61 08/17/19 15:00 O2 Sat by Pulse Oximetry (%) 96 08/17/19 09:00 Constitutional: Yes: No Distress HENT: Yes: Atraumatic Neck: Yes: Supple Cardiovascular: Yes: Regular Rate and Rhythm Respiratory: Yes: CTA Bilaterally Gastrointestinal: Yes: Normal Bowel Sounds Extremities: Yes: WNL Neurological: Yes: Alert Labs: CBC, BMP 08/13/19 05:30 08/15/19 06:30 Discharge Summary Reason For Visit: COMPLICATED UTI Current Active Problems UTI (urinary tract infection) (Acute) Condition: Stable - Instructions - Home Medications Comprehensive Discharge Medication List: Ambulatory Orders Levothyroxine [Synthroid -] 100 mcg PO DAILY@0700 #30 tablet 04/09/17 dc [facility] today
[2019-08-17 19:42] VITALS: BP 99/43; PULSE 69; TEMP 98
== END 2019-08-17 21:17 | DRG 689 ==
LOC: JER 13:01 → JERBED 20:15 → J8W 08-10 00:46
PROVIDERS: ADMIT Internal Medicine; ATTEND Internal Medicine
DX: N39.0 Urinary tract infection, site not specified (principal); G93.41 Metabolic encephalopathy; G30.9 Alzheimer's disease, unspecified; F02.80 Dementia in other diseases classified elsewhere, unspecified severity, without behavioral disturbance, psychotic disturbance, mood disturbance, and anxiety; E03.9 Hypothyroidism, unspecified
CPT/HCPCS: 36415; 36600; 70450-TC; 71045-TC-FY; 80053; 81003; 82550; 82553; 82803; 82962; 83605; 84443; 84484; 85025; 85610; 85730; 86850; 86900; 86901; 87040; 87086; 87186; 93005; 93010; 97116-GP; 97161-GP; 99283-25; J0131; J1644; J7030

== ENCOUNTER 2019-12-29 17:05 | Inpatient (IN) | payer OTHER, MEDICARE ==
--- NOTE | 2019-12-29 18:01 | PDOC ---
History of Present Illness - General Chief Complaint: Weakness Stated Complaint: DEHYDRATED Time Seen by Provider: 12/29/19 18:00 History Source: Patient Exam Limitations: No Limitations - History of Present Illness Initial Comments: 12/29/19 18:00 Dalia Maher is an 84F with H Alzheimer's dementia c/b baseline non-verbal , hypothyroidism, history NPH, sent by PMD for failure to thrive. at bedside, highly involved in care, brought OSH medical records. Patient at end stages of Alzheimers, non-verbal. Reports that patient has been at [facility] multiple times over the last 6 months, 2 times for syncopal episodes/ falls, last time in July 2019 for weakness and found to have UTI, admitted for Abx and discharged to SNF. says since patient returned home from SNF , was able to walk, but since has declined, no longer able to walk, poor PO intake, 20lb weight loss, worsening dementia. Has 24 hour aide who monitors, bed -bound, has back ulcers and turned frequently. Aide denies cough, fever, bloody stools, diarrhea, vomiting, choking/aspiration. Saw PMD Dr. Peter at [place], latest labs on 12/25/19 show dehydration, malnutrition, recommend patient be brought to hospital for IVF and evaluation. Takes 100mcg Synthroid daily and Bactroban for back ulcers. Past History - Past Medical History Allergies/Adverse Reactions: Allergies Allergy/AdvReac Type Severity Reaction Status Date / Time aspirin Allergy Severe Verified 12/29/19 18:09 cephalexin Allergy Mild Verified 12/29/19 18:09 cephalexin monohydrate Allergy Mild Verified 12/29/19 18:09 [From Keflex] naproxen Allergy Mild Verified 12/29/19 18:09 Home Medications: Ambulatory Orders Levothyroxine [Synthroid -] 100 mcg PO DAILY@0700 #30 tablet 04/09/17 Mupirocin Ointment [Bactroban 2% Ointment -] 1 applic TD BID 12/29/19 COPD: No Dementia: Yes Thyroid Disease: Yes (hypothyroid) - Surgical History Abdominal Surgery: (11/03-Laparoscopic Hysterectomy for prolapse uterus & removal ovary.) Appendectomy: Yes Cardiac Surgery: (Repair Extruded Retina Rt eye) Orthopedic Surgery: (Lumbar laminectomy &Spinal fusion 2011bnfor degenerative Scoliosis) - Immunization History Immunization Up to Date: Yes - Psycho Social/Smoking Cessation Hx Smoking History: Never smoked Have you smoked in the past 12 months: No Number of Cigarettes Smoked Daily: 0 Hx Alcohol Use: No Drug/Substance Use Hx: No Substance Use Type: None Hx Substance Use Treatment: No Review of Systems - Review of Systems Able to Perform ROS?: No (demented) Constitutional: No: Chills, Fever HEENTM: No: Symptoms Reported Respiratory: No: Cough, Shortness of Breath, Hemoptysis ABD/GI: Yes: Constipated, Poor Appetite, Poor Fluid Intake. No: Diarrhea, Nausea, Vomiting : No: Discharge, Frequency Musculoskeletal: No: Symptoms Reported Integumentary: No: Symptoms Reported Neurological: No: Symptoms reported Endocrine: Yes: Change in Weight All Other Systems: Reviewed and Negative *Physical Exam - Physical Exam General Appearance: Yes: Nourished, Appropriately Dressed, Cachetic. No: Apparent Distress HEENT: positive: EOMI, Symmetrical. negative: MIKA (R eye without pupil), Normal Voice, Pharynx Normal (dry mouth and tongue), Scleral Icterus (R), Scleral Icterus (L) Neck: positive: Supple. negative: Tender, Lymphadenopathy (R), Lymphadenopathy (L), Tender lateral, Tender midline Respiratory/Chest: positive: Lungs Clear, Normal Breath Sounds. negative: Chest Tender, Respiratory Distress, Accessory Muscle Use, Crackles, Rales, Rhonchi, Stridor, Wheezing Cardiovascular: positive: Regular Rhythm, Regular Rate. negative: Murmur Gastrointestinal/Abdominal: positive: Normal Bowel Sounds, Flat, Soft. negative : Tender, Organomegaly, Pulsatile Mass, Guarding, Rebound Rectal Exam: positive: normal exam, normal rectal tone. negative: hemorrhoids Musculoskeletal: positive: Normal Inspection. negative: CVA Tenderness, Decreased Range of Motion Extremity: positive: Normal Capillary Refill, Normal Inspection, Normal Range of Motion, Pelvis Stable. negative: Tender, Pedal Edema, Swelling Integumentary: positive: Normal Color, Dry, Warm, Other (2in and 1cm back ulcers , Stage 2, serous/pus discharge) Neurologic: positive: Alert. negative: Fully Oriented, Normal Mood/Affect, Normal Response, Motor Strength 5/5 (forming machine adjuster strength 5/5 in both hands, quads/ rotator cuff/bicep strength 5/5) ED Treatment Course - LABORATORY CBC & Chemistry Diagram: 12/29/19 18:30 12/29/19 18:30 Medical Decision Making - Medical Decision Making 12/29/19 19:09 Patient presents with poor PO, weight loss, dehydration, worsening Alzheimers, sent by PMD for admission and rehydration. Patient clinically very dry, last labs show Na 157, unable to articulate any distress or symptoms. Unknown code status, will clarify with at bedside if PEG placement needed for feeding as patient continues to decline. - CMP/CBC/Mg/Phos for eval lytes - CP for eval heart - ECG for eval cardiac disease - CXR for eval PNA - UA/UC for eval UTI given history - BC/WC for eval infection - FOBT for eval possible anemia - 1L NS to start for dehydration, will continue based on labs Signed out to Dr. Cervantes, will need admission and lyte repletion based on results, clarification of Code Status. Discharge - Discharge Information Problems reviewed: Yes Clinical Impression/Diagnosis: Failure to thrive Qualifiers: Failure to thrive age range: in adult Qualified Code(s): R62.7 - Adult failure to thrive Condition: Stable - Admission Yes - Follow up/Referral Referrals: Marifer Peter [Primary Care Provider] - - Patient Discharge Instructions - Post Discharge Activity
[2019-12-29] MEDS ORDERED: SODIUM CHLORIDE 0.9% 500 ML INFUS.BAG IV ONE (19:01)
--- NOTE | 2019-12-29 19:04 | PDOC ---
Documentation entered by Eugenio Tapia SCRIBE, acting as scribe for Arlene Hoang DO. Arlene Hoang DO: This documentation has been prepared by the Regina sutton Elijah, SCRIBE, under my direction and personally reviewed by me in its entirety. I confirm that the documentation accurately reflects all work, treatment, procedures, and medical decision making performed by me. Attending Attestation - Resident Resident Name: Richard Butt - ED Attending Attestation I have performed the following: I have examined & evaluated the patient, The case was reviewed & discussed with the resident, I agree w/resident's findings & plan - HPI HPI: 12/29/19 19:08 Patient is a 84 year old female with a significant PMH of Alzheimers who presents today via PCP for dehydration. As per patients she has not been drinking fluids normally as of late and in addition has not had a BM in the last x3-4 days. Denies fevers, chills, vomiting and diarrhea. Allergies: Aspiring, Cephalexin Monohydrate, Naproxen PCP: Dr. Peter - Physicial Exam PE: 12/29/19 19:08 Constitutional: +Non-Verbal Head: Normocephalic. Atraumatic Eyes: +Cataract in Right E ENT: +Mucous membranes are dry. Posterior pharynx without exudates or erythema. Uvula midline. Neck: Supple. Full ROM. No lymphadenopathy. Cardiovascular: Regular rate. Regular rhythm. S1, S2 regular. Distal pulses are 2+ and symmetric. Pulmonary/Chest: No evidence of respiratory distress. Clear to auscultation bilaterally No wheezing, rales or rhonchi. Abdominal: +scaphoid-abdomen Back: No CVA tenderness. Musculoskeletal: No edema. No cyanosis. No clubbing. Full range of motion in all extremities. Nocalf tenderness. Radial/pedal pulses are intact and 2+ bilaterally Skin: +Skin is dry. Neurological: Cranial nerves II-XII are grossly intact. Strength is grossly symmetric. No sensory deficits. - Medical Decision Making 12/29/19 19:00 a/p: 84yo female with hx of dementia - end stage requiring to be fed and requiring 24 hour care presents to the ER for dehydration -seen by her PMD earlier today - had labs that showed a sodium of 153 and dehydration -sent for labs, admission, ivf hydation -pt with wounds to back and sacrum that are being treated with mupirocin topical ointment -pt is nonverbal and cannot provide any hx -will send labs, ivf hydration, ekg -will straight cath for urine -pt will need admission 12/29/19 19:17 cxr clear 12/29/19 19:17 no elevated wbc 12/29/19 20:13 pt with borderline trop 12/29/19 20:52 sodium 167 ivf ordered pt will need admission microblog sent 12/29/19 21:11 resident discussed the case with toby who accepts the patient to service 12/29/19 21:12 pt with a uti abx ordered
[2019-12-29 19:05] LABS: BASO % 0.9 % (0-2.0); EOS % 0.2 % (0-4.5); HEMATOCRIT 41.8 % (32.4-45.2); HEMOGLOBIN 13.1 GM/dL (10.7-15.3); LYMPH % 20.6 % (8-40); MCHC 31.3 g/dl (32.0-36.0); MEAN CELL VOLUME 89.4 fl (80-96); NEUT % 74.3 % (42.8-82.8); PLATELET COUNT 228 K/MM3 (134-434); RBC 4.67 M/mm3 (3.60-5.2); RDW 16.1 % (11.6-15.6)
[2019-12-29 19:22] LABS: INR 1.11 (0.83-1.09); PROTHROMBIN TIME (PATIENT) 13.1 SEC (9.7-13.0)
[2019-12-29 19:24] LABS: ACTIVATED PTT 34.2 SECONDS (25.2-36.5)
[2019-12-29 19:48] LABS: VENOUS PC02 60.3 mmHg (38-52); VENOUS PH 7.36 (7.31-7.41)
[2019-12-29 19:49] LABS: VENOUS PO2 < 49 mmHg (28-48)
[2019-12-29 19:56] LABS: BILIRUBIN,TOTAL 1.4 mg/dL (0.2-1); BLOOD UREA NITROGEN 55.9 mg/dL (7-18); CALCIUM 8.8 mg/dL (8.5-10.1); PHOSPHOROUS 3.8 mg/dL (2.5-4.9); POTASSIUM 3.7 mmol/L (3.5-5.1); TOT PROT 6.2 g/dl (6.4-8.2)
--- NOTE | 2019-12-29 19:58 | PDOC ---
*Physical Exam - Vital Signs Last Vital Signs Temp Pulse Resp BP Pulse Ox 99.2 F 104/74 12/29/19 18:10 12/29/19 18:10 ED Treatment Course - LABORATORY CBC & Chemistry Diagram: 12/29/19 18:30 12/29/19 18:30 - ADDITIONAL ORDERS Additional order review: Laboratory Results 12/29/19 12/29/19 12/29/19 18:30 18:30 18:30 PT with INR 13.10 H INR 1.11 H PTT (Actin FS) 34.2 VBG pH 7.36 POC VBG pCO2 60.3 H POC VBG pO2 < 49 H VBG HCO3 33.4 H VBG O2 Sat (Jatin) 36.6 L VBG Base Excess 6.3 H Potassium 3.7 Chloride 129 H Carbon Dioxide 33 H BUN 55.9 H Creatinine 1.0 Est GFR (CKD-EPI)AfAm 59.08 Est GFR (CKD-EPI)NonAf 50.97 Random Glucose 111 H Calcium 8.8 Phosphorus 3.8 Magnesium 4.0 H Total Bilirubin 1.4 H AST 28 ALT 19 Alkaline Phosphatase 112 Total Protein 6.2 L Albumin 3.0 L Stool Occult Blood 12/29/19 18:00 PT with INR INR PTT (Actin FS) VBG pH POC VBG pCO2 POC VBG pO2 VBG HCO3 VBG O2 Sat (Jatin) VBG Base Excess Potassium Chloride Carbon Dioxide BUN Creatinine Est GFR (CKD-EPI)AfAm Est GFR (CKD-EPI)NonAf Random Glucose Calcium Phosphorus Magnesium Total Bilirubin AST ALT Alkaline Phosphatase Total Protein Albumin Stool Occult Blood Negative 12/29/19 18:30 RBC 4.67 MCV 89.4 MCHC 31.3 L RDW 16.1 H MPV 10.0 Neutrophils % 74.3 Lymphocytes % 20.6 Monocytes % 4.0 Eosinophils % 0.2 D Basophils % 0.9 - Medications Given in the ED: ED Medications Discontinued Medications Generic Name Dose Route Start Last Admin Trade Name Freq PRN Reason Stop Dose Admin Sodium Chloride 1,000 ml 12/29/19 19:01 12/29/19 19:12 Normal Saline - IV 12/29/19 19:02 1,000 ml ONCE ONE Administration Medical Decision Making - Medical Decision Making Patient signed out to me from Dr. Butt pending labs, re-assessment and admission to the hospital after being sent in by her PMD for failure to thrive. Urine: Patient has a UTI -Prior cultures essentially cervantes-sensitive but patient is allergic to cephalosporins - Treating with Zosyn Labs: Hypernatremic to 167 - Per MD calc: Female, elderly, 40 kg, sodium serum of 167 Fluid type: 1/2 NS Rate of sodium correction: 0.5 mEq/L/Hr => 108 ml/hr Re-assessment: Patient non-verbal - Starting 1/2 NS drip at 100 ml/hr Disposition: Admit to Tele Discharge - Discharge Information Problems reviewed: Yes Clinical Impression/Diagnosis: Hypernatremia Failure to thrive Qualifiers: Failure to thrive age range: in adult Qualified Code(s): R62.7 - Adult failure to thrive UTI (urinary tract infection) Qualifiers: Urinary tract infection type: acute cystitis Hematuria presence: without hematuria Qualified Code(s): N30.00 - Acute cystitis without hematuria Condition: Guarded - Admission Yes - Follow up/Referral Referrals: Marifer Peter [Primary Care Provider] - - Patient Discharge Instructions - Post Discharge Activity
[2019-12-29 20:15] LABS: EPI CELLS 0.4 /HPF (0-5/HPF); HYALINE CASTS 0 /lpf (0-8); PH,URINE 7.5 (5.0-8.0); URINE APPEARANCE TURBID; URINE BACTERIA 4612.4 /hpf (NEGATIVE); URINE BILIRUBIN NEGATIVE (NEGATIVE); URINE COLOR DK YELLOW; URINE GLUCOSE (UA) NEGATIVE (NEGATIVE); URINE KETONE NEGATIVE (NEGATIVE); URINE LEUK ESTERASE 3+ (NEGATIVE); URINE NITRITE NEGATIVE (NEGATIVE); URINE PROTEIN 1+ (NEGATIVE); URINE RBC 1 /hpf (0-4); URINE UROBILINOGEN 0.2 mg/dL (0.2-1.0); URINE WBC 62 /hpf (0-5)
[2019-12-29] MEDS ORDERED: PIPERACILLIN/TAZOB 4.5 GM 4.5 GM in DEXTROSE 5%-WATER 100 ML IVPB ONE (20:28)
[2019-12-29] MEDS ORDERED: SODIUM CHLORIDE 0.45% 1,000 ML IV SCH (20:30)
[2019-12-29] MEDS ORDERED: PIPERACILLIN/TAZOB 4.5 GM 4.5 GM/100 ML BAG IVPB ONE (21:24)
--- NOTE | 2019-12-29 23:01 | PN ---
Teaching Attending Note Name of Resident: Ayaan Rodriguez ATTENDING PHYSICIAN STATEMENT I saw and evaluated the patient. I reviewed the resident's note and discussed the case with the resident. I agree with the resident's findings and plan as documented. SUBJECTIVE: 84-year-old woman with advanced dementia, bedbound, nonverbal at baseline, history of hypothyroidism sent in by PCP for failure to thrive. Patient allegedly lives at home, she cannot provide any history herself due to severe underlying dementia. History obtained from EMR And ER staff. OBJECTIVE: Last Vital Signs Temp Pulse Resp BP Pulse Ox 99.2 F 104/74 12/29/19 18:10 12/29/19 18:10 GENERAL: Appears nontoxic, not in acute distress, cachectic, frail, does not cooperate with physical exam HEENT: Normocephalic, atraumatic. PERRLA, EOMI. No conjunctival pallor. Sclera are non- icteric. Moist mucous membranes. Oropharynx is clear. NECK: Supple. Full ROM. No JVD. Carotid pulses 2+ and symmetric, without bruits. No thyromegaly. No lymphadenopathy. CARDIOVASCULAR: Regular rate and rhythm. No murmurs, rubs, or gallops. Distal pulses are 2+ and symmetric. PULMONARY: No evidence of respiratory distress. Lungs clear to auscultation bilaterally. No wheezing, rales or rhonchi. ABDOMINAL: Soft. Non-tender. Non-distended. No rebound or guarding. No organomegaly. Normoactive bowel sounds. MUSCULOSKELETAL Normal range of motion at all joints. No bony deformities or tenderness. No CVA tenderness. EXTREMITIES: No cyanosis. No clubbing. No edema. No calf tenderness. SKIN: Small Stage III sacral ulcer, foul-smelling with some purulent discharge noted NEUROLOGICAL: Moves all extremities, no focal neurological deficits noted, severe underlying dementia. PSYCHIATRIC: Underlying dementia, uncooperative. Abnormal Lab Results 12/29/19 12/29/19 12/29/19 18:30 18:30 18:30 MCHC 31.3 L RDW 16.1 H PT with INR INR POC VBG pCO2 POC VBG pO2 VBG HCO3 VBG O2 Sat (Jatin) VBG Base Excess Sodium 167 H* Chloride 129 H Carbon Dioxide 33 H Anion Gap 5 L BUN 55.9 H Random Glucose 111 H Magnesium 4.0 H Total Bilirubin 1.4 H Troponin I 0.07 H Total Protein 6.2 L Albumin 3.0 L Urine Protein Ur Leukocyte Esterase 12/29/19 12/29/19 12/29/19 18:30 18:30 19:15 MCHC RDW PT with INR 13.10 H INR 1.11 H POC VBG pCO2 60.3 H POC VBG pO2 < 49 H VBG HCO3 33.4 H VBG O2 Sat (Jatin) 36.6 L VBG Base Excess 6.3 H Sodium Chloride Carbon Dioxide Anion Gap BUN Random Glucose Magnesium Total Bilirubin Troponin I Total Protein Albumin Urine Protein 1+ H Ur Leukocyte Esterase 3+ H Imaging studies reviewed ASSESSMENT AND PLAN: 84-year-old woman, cachectic, BMI noted to be 16, failure to thrive presenting with decreased p.o. intake, dehydration, severe free water deficit and resultant hypernatremia. #Hypernatremiacalculated free water deficit to be 3.5 L. Suspect secondary to free water loss secondary to decreased p.o. intake. [facility] hydration[facility]-normal saline at 100 cc an hour Check BMP every 6 hours Sodium should not be overcorrectedno more than 12 Meq/ 24 hours Check other electrolytes including magnesium, phosphate Nephrology consultation King catheter Accurate I's and O's and daily weights #Sacral wound infectionSuspect limited to the soft tissues and skin Vancomycin, Zosyn Infectious disease consultation Wound care to site Wound culture ESR, CRP #Severe malnutrition/failure to thriveCachectic, BMI lower than normal. Hypoalbuminemia Dietary consult for calorie count Palliative consult May be candidate for PEG #Metabolic alkalosissuspect contraction alkalosis secondary to severe intravascular volume depletion IV fluid resuscitation as stated above #Elevated T bilirubin Right upper quadrant ultrasound to exclude cholecystitis #Mild troponinemiasuspect secondary to mild JUAN versus demand ischemia Telemetry Trend troponins
[2019-12-29] MEDS ORDERED: VANCOMYCIN 1 GRAM (PRE-DOCKED) 1,000 MG/250 ML BAG IVPB ONE ×2 (23:15→23:40)
[2019-12-30 02:28] LABS: BLOOD UREA NITROGEN 53.5 mg/dL (7-18); CALCIUM 8.5 mg/dL (8.5-10.1); MAGNESIUM 3.9 mg/dL (1.8-2.4)
--- NOTE | 2019-12-30 02:29 | HP ---
CHIEF COMPLAINT: failure to thrive, hypernatremia, sent in from PCP PCP: Dr. 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 Patient was admitted to this institution in July 2019 for a fall, found with a UTI, and was sent to a SNF afterwards and had been home for greater than one month before this presentation. after The aide and at the bedside assisted in history taking. The patient is bed-bound and is not able to make her needs known and does not voice complaints or requests. She is fed by the aide who feeds her on a schedule and does not know if the patient gets hungry or thirst. The patient was noted by the and aide to have poor PO intake over the last week and worsened over the last 2 days. Earlier labs performed via the PCP noted she was hypernatremic in the 150s. She was recommended to present to the ER for IVF and evaluations. Family does note that the ulcer on her sacrum has increased in size despite the wound care that they have been providing for her. ER course was notable for: (1) 98% sat on 2L (2) Na 167, Cl 129, HCO3 33, BUN 55.9, CRE 1.0 (baseline 0.5-0.6), Mg 4.0, Bili 1.4, trop 0.07 (3) UA 3+ LE, 62 WBC , >4000 bacteria. VBG pH 7.36, CO2 60.3, Hco3 33.4 (4) CXR without acute disease (5) Given NS, Zofran, started on 1/2NS at 100cc/hr Recent Travel: family denied PAST MEDICAL HISTORY: as above PAST SURGICAL HISTORY: scoliosis surgery- lumbar laminectomy & spinal fusion in 2010, lap hysterectomy for bladder prolapse correction w/ unilateral oopharectomy 2010, proctology procedure 2014. Social History: Smoking: family denied Alcohol: family denied Drug: family denied to for ~20 years. 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 PHYSICAL EXAMINATION Vital Signs - 24 hr 12/29/19 12/29/19 12/29/19 18:10 21:14 22:43 Temperature 99.2 F Pulse Rate [ 89 Radial] Respiratory 18 Rate Blood Pressure 104/74 O2 Sat by Pulse 98 Oximetry (%) GENERAL: Awake, not alert and not oriented. Cachectic and very malnourished. HEAD: Normal with no signs of trauma. EYES: Pupils equal, round and sluggish reaction to light. EARS, NOSE, THROAT: Dry mucous membranes. NECK: No masses or JVD. LUNGS: Breath sounds equal, clear to auscultation bilaterally. No wheezes, and no crackles. No accessory muscle use. HEART: Regular rate and rhythm, normal S1 and S2 without murmur, rub. ABDOMEN: Soft, nontender, not distended, normoactive bowel sounds, no guarding, no rebound, no masses. No hepatomegaly or splenomegaly. MUSCULOSKELETAL: No bony deformities or tenderness. UPPER EXTREMITIES: 2+ pulses, warm, well-perfused. No cyanosis. No clubbing. No peripheral edema. LOWER EXTREMITIES: 2+ pulses, warm, well-perfused. No calf tenderness. No peripheral edema. NEUROLOGICAL: Moves all limbs spontaneously and withdraws to painful stimuli. SKIN: Cool, dry, decreased turgor. Noted stage 3 sacral ulcer with purulence, foul-smelling. Laboratory Results - last 24 hr 12/29/19 12/29/19 12/29/19 18:00 18:30 18:30 WBC RBC Hgb Hct MCV MCH MCHC RDW Plt Count MPV Absolute Neuts (auto) Neutrophils % Lymphocytes % Monocytes % Eosinophils % Basophils % Nucleated RBC % PT with INR INR PTT (Actin FS) VBG pH POC VBG pCO2 POC VBG pO2 VBG HCO3 VBG O2 Sat (Jatin) VBG Base Excess Sodium 167 H* Potassium 3.7 Chloride 129 H Carbon Dioxide 33 H Anion Gap 5 L BUN 55.9 H Creatinine 1.0 Est GFR (CKD-EPI)AfAm 59.08 Est GFR (CKD-EPI)NonAf 50.97 Random Glucose 111 H Calcium 8.8 Phosphorus 3.8 Magnesium 4.0 H Total Bilirubin 1.4 H AST 28 ALT 19 Alkaline Phosphatase 112 Creatine Kinase 145 Troponin I 0.07 H Total Protein 6.2 L Albumin 3.0 L Urine Color Urine Appearance Urine pH Ur Specific [place] Urine Protein Urine Glucose (UA) Urine Ketones Urine Blood Urine Nitrite Urine Bilirubin Urine Urobilinogen Ur Leukocyte Esterase Urine WBC (Auto) Urine RBC (Auto) Urine Casts (Auto) U Epithel Cells (Auto) Urine Bacteria (Auto) Stool Occult Blood Negative Blood Type Antibody Screen 12/29/19 12/29/19 12/29/19 18:30 18:30 18:30 WBC 7.0 RBC 4.67 Hgb 13.1 Hct 41.8 D MCV 89.4 MCH 28.0 MCHC 31.3 L RDW 16.1 H Plt Count 228 MPV 10.0 Absolute Neuts (auto) 5.2 Neutrophils % 74.3 Lymphocytes % 20.6 Monocytes % 4.0 Eosinophils % 0.2 D Basophils % 0.9 Nucleated RBC % 0 PT with INR 13.10 H INR 1.11 H PTT (Actin FS) 34.2 VBG pH POC VBG pCO2 POC VBG pO2 VBG HCO3 VBG O2 Sat (Jatin) VBG Base Excess Sodium Potassium Chloride Carbon Dioxide Anion Gap BUN Creatinine Est GFR (CKD-EPI)AfAm Est GFR (CKD-EPI)NonAf Random Glucose Calcium Phosphorus Magnesium Total Bilirubin AST ALT Alkaline Phosphatase Creatine Kinase Troponin I Total Protein Albumin Urine Color Urine Appearance Urine pH Ur Specific [place] Urine Protein Urine Glucose (UA) Urine Ketones Urine Blood Urine Nitrite Urine Bilirubin Urine Urobilinogen Ur Leukocyte Esterase Urine WBC (Auto) Urine RBC (Auto) Urine Casts (Auto) U Epithel Cells (Auto) Urine Bacteria (Auto) Stool Occult Blood Blood Type O POSITIVE Antibody Screen Negative 12/29/19 12/29/19 18:30 19:15 WBC RBC Hgb Hct MCV MCH MCHC RDW Plt Count MPV Absolute Neuts (auto) Neutrophils % Lymphocytes % Monocytes % Eosinophils % Basophils % Nucleated RBC % PT with INR INR PTT (Actin FS) VBG pH 7.36 POC VBG pCO2 60.3 H POC VBG pO2 < 49 H VBG HCO3 33.4 H VBG O2 Sat (Jatin) 36.6 L VBG Base Excess 6.3 H Sodium Potassium Chloride Carbon Dioxide Anion Gap BUN Creatinine Est GFR (CKD-EPI)AfAm Est GFR (CKD-EPI)NonAf Random Glucose Calcium Phosphorus Magnesium Total Bilirubin AST ALT Alkaline Phosphatase Creatine Kinase Troponin I Total Protein Albumin Urine Color Dk yellow Urine Appearance Turbid Urine pH 7.5 D Ur Specific [place] 1.023 Urine Protein 1+ H Urine Glucose (UA) Negative Urine Ketones Negative Urine Blood Negative Urine Nitrite Negative Urine Bilirubin Negative Urine Urobilinogen 0.2 Ur Leukocyte Esterase 3+ H Urine WBC (Auto) 62 Urine RBC (Auto) 1 Urine Casts (Auto) 0 U Epithel Cells (Auto) 0.4 Urine Bacteria (Auto) 4612.4 Stool Occult Blood Blood Type Antibody Screen ASSESSMENT/PLAN: Dalia Maher is an 84 year old female with a past medical history of 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 UTI - UA as above - started on Zosyn due to cephalosporin allergy - Ucx pending - ID consulted Sacral Ulcer - on Vancomycin and Zosyn - wound care consulted - ID consulted - wound culture - turning q2h - will likely need air mattress and close wound care follow up Hypernatremia - NA 167, free water deficit 3.5L - likely in setting of dehydration and poor PO intake - correction rate of 106mL/hr for 0.5Meq/hr corrected, avoid correction by greater than 10Meq/24hrs - urine lytes, CRE, osms, serum osms - BMP q6h - nephrology consulted - choi, I+Os, daily weights - may need to consider NG tube and free water administration Troponemia - 0.07-->0.09 - has T wave inversion in V4, V5, V6, II, III - likely demand ischemia from severe intravascular depletion - continue to monitor in setting of resuscitation Cachectic with poor PO intake - BMI 16.1 - has poor PO intake - dietary consult - may need to consider PEG Elevated bilirubin - unclear reason for elevation - RUQ U/S Hypothyroidism - continue home synthroid DVT PPx - heparin 5000 units bid FEN - 1/2 NS at 100cc/hr - continue to monitor electrolytes and replete as necessary, hypernatremia, hypermagnesemia noted and correcting with fluids - dysphagia puree diet Dispo - admit to telemetry - palliative care team consulted CODE STATUS - full code Family Medical History Family History: Unable to Obtain Visit type - Emergency Visit Emergency Visit: Yes ED Registration Date: 12/29/19 Care time: The patient presented to the Emergency Department on the above date and was hospitalized for further evaluation of their emergent condition. - New Patient This patient is new to me today: Yes Date on this admission: 12/30/19 - Critical Care Critical Care patient: No
[2019-12-30] MEDS ORDERED: PIPERACILLIN/TAZOB 3.375 GM 3.375 GM in DEXTROSE 5%-WATER - 50 ML IVPB SCH (04:00)
[2019-12-30] MEDS ORDERED: PIPERACILLIN/TAZOB 3.375 GM 3.375 GM/50 ML BAG IVPB ONE ×2 (04:21→17:38)
[2019-12-30] MEDS: PIPERACILLIN/TAZOB 3.375 GM 3.375 GM in DEXTROSE 5%-WATER - 50 ML IVPB SCH ×4 (04:28→18:01)
[2019-12-30 06:49] LABS: BASO % 0.5 % (0-2.0); EOS % 0.8 % (0-4.5); HEMATOCRIT 39.1 % (32.4-45.2); HEMOGLOBIN 12.5 GM/dL (10.7-15.3); LYMPH % 20.6 % (8-40); MCH 28.2 pg (25.7-33.7); MCHC 31.9 g/dl (32.0-36.0); MEAN CELL VOLUME 88.5 fl (80-96); MEAN PLT VOLUME 9.8 fl (7.5-11.1); MONO % 3.7 % (3.8-10.2); NEUT % 74.4 % (42.8-82.8); PLATELET COUNT 221 K/MM3 (134-434); RBC 4.42 M/mm3 (3.60-5.2); RDW 15.2 % (11.6-15.6)
[2019-12-30] MEDS ORDERED: LEVOTHYROXINE NA 100 MCG TABLET (FP) PO SCH (07:00)
[2019-12-30 07:59] LABS: ALBUMIN 2.9 g/dl (3.4-5.0); BILIRUBIN,TOTAL 2.3 mg/dL (0.2-1); BLOOD UREA NITROGEN 47.8 mg/dL (7-18); CALCIUM 8.3 mg/dL (8.5-10.1); CREATININE 0.9 mg/dL (0.55-1.3); MAGNESIUM 3.8 mg/dL (1.8-2.4); PHOSPHOROUS 3.1 mg/dL (2.5-4.9); POTASSIUM 3.7 mmol/L (3.5-5.1)
[2019-12-30] MEDS ORDERED: DEXTROSE 5%-WATER - 1,000 ML IV SCH (09:00)
--- NOTE | 2019-12-30 11:18 | CON.CARD ---
Cardiology Consult (text) - Consultation Consultation Note: Chief Complaint: ftt History of Present Illness: 84 y.o. F here with failure to thrive. pt has Alzheimers dementia and is non-verbal, history from notes sent in by pmd for abnl labs and ftt in er had elevated na PMH: hypothyroid - Alcohol/Substance Use Hx Alcohol Use: No - Smoking History Smoking history: Never smoked Have you smoked in the past 12 months: No Aproximately how many cigarettes per day: 0 Home Medications - Allergies Allergies/Adverse Reactions: Allergies Allergy/AdvReac Type Severity Reaction Status Date / Time aspirin Allergy Severe Verified 12/29/19 18:09 cephalexin Allergy Mild Verified 12/29/19 18:09 cephalexin monohydrate Allergy Mild Verified 12/29/19 18:09 [From Keflex] naproxen Allergy Mild Verified 12/29/19 18:09 - Home Medications Home Medications: Ambulatory Orders Home Medications Medication Instructions Recorded Levothyroxine [Synthroid -] 100 mcg PO DAILY@0700 #30 tablet 04/09/17 Mupirocin Ointment [Bactroban 2% 1 applic TD BID 12/29/19 Ointment -] Family Disease History - Family Disease History Family History: Unable to Obtain Review of Systems Unable to obtain ROS, reason: pt non-verbal Vital Signs: Vital Signs Period Temp Pulse Resp BP Sys/Rdz Pulse Ox Last 24 Hr 99.2 F 89 18 104/74 98 Constitutional: Yes: Well Nourished, No Distress Eyes: No: Sclera Icterus Respiratory: Yes: CTA Bilaterally. No: Accessory Muscle Use, Rales, Wheezes Gastrointestinal: Yes: Normal Bowel Sounds. No: Distention, Hepatomegaly, Palpable Mass, Tenderness Cardiovascular: Yes: Regular Rate and Rhythm JVD: No Carotid Bruit: No PMI: Non-Displaced Heart Sounds: Yes: S1, S2. No: Gallop Murmur: No: Systolic Murmur, Diastolic Murmur Extremities: No: Cool, Cyanosis Edema: No Peripheral Pulses: 2+ Left Carotid, 2+ Right Carotid, 2+ Left Doralis Pedis, 2+ Right Dorsalis Pedis Integumentary: No: Jaundice diaphoresis Neurological: severe dementia Psychiatric: No: Agitated Laboratory Last Values WBC 7.0 K/mm3 (4.0-10.0) 12/30/19 05:50 RBC 4.42 M/mm3 (3.60-5.2) 12/30/19 05:50 Hgb 12.5 GM/dL (10.7-15.3) 12/30/19 05:50 Hct 39.1 % (32.4-45.2) 12/30/19 05:50 MCV 88.5 fl (80-96) 12/30/19 05:50 MCH 28.2 pg (25.7-33.7) 12/30/19 05:50 MCHC 31.9 g/dl (32.0-36.0) L 12/30/19 05:50 RDW 15.2 % (11.6-15.6) 12/30/19 05:50 Plt Count 221 K/MM3 (134-434) 12/30/19 05:50 MPV 9.8 fl (7.5-11.1) 12/30/19 05:50 Absolute Neuts (auto) 5.2 K/mm3 (1.5-8.0) 12/30/19 05:50 Neutrophils % 74.4 % (42.8-82.8) 12/30/19 05:50 Lymphocytes % 20.6 % (8-40) 12/30/19 05:50 Monocytes % 3.7 % (3.8-10.2) L 12/30/19 05:50 Eosinophils % 0.8 % (0-4.5) D 12/30/19 05:50 Basophils % 0.5 % (0-2.0) 12/30/19 05:50 Nucleated RBC % 0 % (0-0) 12/30/19 05:50 PT with INR 13.10 SEC (9.7-13.0) H 12/29/19 18:30 INR 1.11 (0.83-1.09) H 12/29/19 18:30 PTT (Actin FS) 34.2 SECONDS (25.2-36.5) 12/29/19 18:30 VBG pH 7.36 (7.31-7.41) 12/29/19 18:30 POC VBG pCO2 60.3 mmHg (38-52) H 12/29/19 18:30 POC VBG pO2 < 49 mmHg (28-48) H 02/05/20 18:30 VBG HCO3 33.4 mmol/L (23-29) H 12/29/19 18:30 VBG O2 Sat (Jatin) 36.6 % (70-80) L 12/29/19 18:30 VBG Base Excess 6.3 meq/l (-2-2) H 12/29/19 18:30 Sodium 165 mmol/L (136-145) H* 12/30/19 05:50 Potassium 3.7 mmol/L (3.5-5.1) 12/30/19 05:50 Chloride 129 mmol/L (98-107) H 12/30/19 05:50 Carbon Dioxide 30 mmol/L (21-32) 12/30/19 05:50 Anion Gap 6 MMOL/L (8-16) L 12/30/19 05:50 BUN 47.8 mg/dL (7-18) H 12/30/19 05:50 Creatinine 0.9 mg/dL (0.55-1.3) 12/30/19 05:50 Est GFR (CKD-EPI)AfAm 67.10 12/30/19 05:50 Est GFR (CKD-EPI)NonAf 57.90 12/30/19 05:50 Random Glucose 138 mg/dL (74-106) H 12/30/19 05:50 Serum Osmolality 364 mosm/kg (278-305) H 12/30/19 00:30 Calcium 8.3 mg/dL (8.5-10.1) L 12/30/19 05:50 Phosphorus 3.1 mg/dL (2.5-4.9) 12/30/19 05:50 Magnesium 3.8 mg/dL (1.8-2.4) H 12/30/19 05:50 Total Bilirubin 2.3 mg/dL (0.2-1) H 12/30/19 05:50 AST 29 U/L (15-37) 12/30/19 05:50 ALT 18 U/L (13-61) 12/30/19 05:50 Alkaline Phosphatase 109 U/L (45-117) 12/30/19 05:50 Creatine Kinase 145 U/L (26-192) 12/29/19 18:30 Troponin I 0.08 ng/ml (0.00-0.05) H 12/30/19 05:50 Total Protein 6.0 g/dl (6.4-8.2) L 12/30/19 05:50 Albumin 2.9 g/dl (3.4-5.0) L 12/30/19 05:50 TSH 0.05 uIU/ml (0.358-3.74) L 12/30/19 05:50 Urine Color Dk yellow 12/29/19 19:15 Urine Appearance Turbid 12/29/19 19:15 Urine pH 7.5 (5.0-8.0) D 12/29/19 19:15 Ur Specific [place] 1.023 (1.010-1.035) 12/29/19 19:15 Urine Protein 1+ (NEGATIVE) H 12/29/19 19:15 Urine Glucose (UA) Negative (NEGATIVE) 12/29/19 19:15 Urine Ketones Negative (NEGATIVE) 12/29/19 19:15 Urine Blood Negative (NEGATIVE) 12/29/19 19:15 Urine Nitrite Negative (NEGATIVE) 12/29/19 19:15 Urine Bilirubin Negative (NEGATIVE) 12/29/19 19:15 Urine Urobilinogen 0.2 mg/dL (0.2-1.0) 12/29/19 19:15 Ur Leukocyte Esterase 3+ (NEGATIVE) H 12/29/19 19:15 Urine WBC (Auto) 62 /hpf (0-5) 12/29/19 19:15 Urine RBC (Auto) 1 /hpf (0-4) 12/29/19 19:15 Urine Casts (Auto) 0 /lpf (0-8) 12/29/19 19:15 U Epithel Cells (Auto) 0.4 /HPF (0-5/HPF) 12/29/19 19:15 Urine Bacteria (Auto) 4612.4 /hpf (NEGATIVE) 12/29/19 19:15 Urine Osmolality 687 mosm/kg (300-900) 12/30/19 06:00 Ur Random Creatinine 129.0 mg/dL (30-150) 12/30/19 06:00 Ur Random Sodium 32 MMOL/L (40-220) L 12/30/19 06:00 Ur Random Potassium 71.0 MMOL/L (25-125) 12/30/19 06:00 Ur Random Chloride 57 MMOL/L (110-250) L 02/06/20 06:00 Stool Occult Blood Negative (NEGATIVE) 12/29/19 18:00 Blood Type O POSITIVE 12/29/19 18:30 Antibody Screen Negative 12/29/19 18:30 Assessment/Plan ecg: sr nl intervals, nonspec stt changes, no sig change prior echo 06/2019: nl lv/rv, no sig valve path CXR: clear lungs elevated trops: -borderline trop elevation with flat trend and nl ck, ecg w/o significant changes from prior, no signs acs -recent echo unremarkable hypernatremia: -cont ivfs, monitor na -renal consulting hypothyroid: -on synthroid
--- NOTE | 2019-12-30 11:24 | EKG ---
Test Reason : Blood Pressure : / mmHG Vent. Rate : 085 BPM Atrial Rate : 085 BPM P-R Int : 144 ms QRS Dur : 064 ms QT Int : 348 ms P-R-T Axes : 071 058 265 degrees QTc Int : 414 ms NORMAL SINUS RHYTHM ABNORMAL ECG WHEN COMPARED WITH ECG OF 09-AUG-2019 15:38, T WAVE INVERSION NOW EVIDENT IN INFERIOR LEADS INVERTED T WAVES HAVE REPLACED NONSPECIFIC T WAVE ABNORMALITY IN LATERAL LEADS Confirmed by ENRIQUE ALVA, DEANNA ([id number]) on 12/30/2019 11:23:52 AM Referred By: Confirmed By:DEANNA NUNEZ MD
[2019-12-30 11:59] LABS: BILIRUBIN,DIRECT 0.6 mg/dL (0.0-0.2); BLOOD UREA NITROGEN 43.4 mg/dL (7-18); CALCIUM 8.3 mg/dL (8.5-10.1); CREATININE 0.9 mg/dL (0.55-1.3); MAGNESIUM 3.6 mg/dL (1.8-2.4); POTASSIUM 3.9 mmol/L (3.5-5.1)
[2019-12-30] MEDS ORDERED: LEVOTHYROXINE NA 25 MCG TABLET (FP) ONE ×2 (12:01→13:37)
--- NOTE | 2019-12-30 12:39 | CONSULT ---
Consultation: REQUESTING PROVIDER: Dr. German CONSULT REQUEST: We have been asked to medically evaluate this patient for hypernatremia. 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 All history per , who is bedside. Reports that the patient has had worsening mental function over the past 6 months, and for the past 2 months, she has been unable to feed herself. They have 24/7 home nursing but they have had difficulty ensuring adequate fluid intake, leading to chronic issues with hypovolemic hyponatremia, typically in the 150s. REVIEW OF SYSTEMS: Unable to assess 2/2 advanced Alzheimer's. PHYSICAL EXAMINATION Vital Signs - 24 hr 12/29/19 12/29/19 12/29/19 18:10 21:14 22:43 Temperature 99.2 F Pulse Rate [ 89 Radial] Respiratory 18 Rate Blood Pressure 104/74 O2 Sat by Pulse 98 Oximetry (%) GENERAL: Awake, alert, moaning sounds, no acute distress. HEAD: Normal with no signs of trauma. HEENT: atraumatic, normocephalic, dry mucous membranes NECK: Normal range of motion, supple without lymphadenopathy LUNGS: Breath sounds equal, clear to auscultation bilaterally. No wheezes, and no crackles HEART: Regular rate and rhythm, normal S1 and S2 without murmur, rub or gallop ABDOMEN: Soft, nontender, not distended, normoactive bowel sounds, no guarding, no rebound, no masses MUSCULOSKELETAL: Normal range of motion at all joints. No bony deformities or tenderness. No CVA tenderness UPPER EXTREMITIES: 2+ pulses, warm, well-perfused. No cyanosis. No clubbing. LOWER EXTREMITIES: 2+ pulses, warm, well-perfused. No calf tenderness. No peripheral edema. NEUROLOGICAL: grunting, 5/5 strength, non-verbal SKIN: Warm, dry, sacral ulcer Laboratory Results - last 24 hr 12/29/19 12/29/19 12/29/19 18:00 18:30 18:30 WBC RBC Hgb Hct MCV MCH MCHC RDW Plt Count MPV Absolute Neuts (auto) Neutrophils % Lymphocytes % Monocytes % Eosinophils % Basophils % Nucleated RBC % PT with INR INR PTT (Actin FS) VBG pH POC VBG pCO2 POC VBG pO2 VBG HCO3 VBG O2 Sat (Jatin) VBG Base Excess Sodium 167 H* Potassium 3.7 Chloride 129 H Carbon Dioxide 33 H Anion Gap 5 L BUN 55.9 H Creatinine 1.0 Est GFR (CKD-EPI)AfAm 59.08 Est GFR (CKD-EPI)NonAf 50.97 Random Glucose 111 H Serum Osmolality Calcium 8.8 Phosphorus 3.8 Magnesium 4.0 H Total Bilirubin 1.4 H Direct Bilirubin AST 28 ALT 19 Alkaline Phosphatase 112 LD Total Creatine Kinase 145 Troponin I 0.07 H Total Protein 6.2 L Albumin 3.0 L TSH Free T4 Urine Color Urine Appearance Urine pH Ur Specific [place] Urine Protein Urine Glucose (UA) Urine Ketones Urine Blood Urine Nitrite Urine Bilirubin Urine Urobilinogen Ur Leukocyte Esterase Urine WBC (Auto) Urine RBC (Auto) Urine Casts (Auto) U Epithel Cells (Auto) Urine Bacteria (Auto) Urine Osmolality Ur Random Creatinine Ur Random Sodium Ur Random Potassium Ur Random Chloride Stool Occult Blood Negative Blood Type Antibody Screen 12/29/19 12/29/19 12/29/19 18:30 18:30 18:30 WBC 7.0 RBC 4.67 Hgb 13.1 Hct 41.8 D MCV 89.4 MCH 28.0 MCHC 31.3 L RDW 16.1 H Plt Count 228 MPV 10.0 Absolute Neuts (auto) 5.2 Neutrophils % 74.3 Lymphocytes % 20.6 Monocytes % 4.0 Eosinophils % 0.2 D Basophils % 0.9 Nucleated RBC % 0 PT with INR 13.10 H INR 1.11 H PTT (Actin FS) 34.2 VBG pH POC VBG pCO2 POC VBG pO2 VBG HCO3 VBG O2 Sat (Jatin) VBG Base Excess Sodium Potassium Chloride Carbon Dioxide Anion Gap BUN Creatinine Est GFR (CKD-EPI)AfAm Est GFR (CKD-EPI)NonAf Random Glucose Serum Osmolality Calcium Phosphorus Magnesium Total Bilirubin Direct Bilirubin AST ALT Alkaline Phosphatase LD Total Creatine Kinase Troponin I Total Protein Albumin TSH Free T4 Urine Color Urine Appearance Urine pH Ur Specific [place] Urine Protein Urine Glucose (UA) Urine Ketones Urine Blood Urine Nitrite Urine Bilirubin Urine Urobilinogen Ur Leukocyte Esterase Urine WBC (Auto) Urine RBC (Auto) Urine Casts (Auto) U Epithel Cells (Auto) Urine Bacteria (Auto) Urine Osmolality Ur Random Creatinine Ur Random Sodium Ur Random Potassium Ur Random Chloride Stool Occult Blood Blood Type O POSITIVE Antibody Screen Negative 12/29/19 12/29/19 12/30/19 18:30 19:15 00:30 WBC RBC Hgb Hct MCV MCH MCHC RDW Plt Count MPV Absolute Neuts (auto) Neutrophils % Lymphocytes % Monocytes % Eosinophils % Basophils % Nucleated RBC % PT with INR INR PTT (Actin FS) VBG pH 7.36 POC VBG pCO2 60.3 H POC VBG pO2 < 49 H VBG HCO3 33.4 H VBG O2 Sat (Jatin) 36.6 L VBG Base Excess 6.3 H Sodium 170 H* Potassium 4.0 Chloride 132 H Carbon Dioxide 31 Anion Gap 7 L BUN 53.5 H Creatinine 1.0 Est GFR (CKD-EPI)AfAm 59.08 Est GFR (CKD-EPI)NonAf 50.97 Random Glucose 121 H Serum Osmolality 364 H Calcium 8.5 Phosphorus Magnesium 3.9 H Total Bilirubin Direct Bilirubin AST ALT Alkaline Phosphatase LD Total Creatine Kinase Troponin I 0.09 H Total Protein Albumin TSH Free T4 Urine Color Dk yellow Urine Appearance Turbid Urine pH 7.5 D Ur Specific [place] 1.023 Urine Protein 1+ H Urine Glucose (UA) Negative Urine Ketones Negative Urine Blood Negative Urine Nitrite Negative Urine Bilirubin Negative Urine Urobilinogen 0.2 Ur Leukocyte Esterase 3+ H Urine WBC (Auto) 62 Urine RBC (Auto) 1 Urine Casts (Auto) 0 U Epithel Cells (Auto) 0.4 Urine Bacteria (Auto) 4612.4 Urine Osmolality Ur Random Creatinine Ur Random Sodium Ur Random Potassium Ur Random Chloride Stool Occult Blood Blood Type Antibody Screen 12/30/19 12/30/19 12/30/19 05:50 05:50 06:00 WBC 7.0 RBC 4.42 Hgb 12.5 Hct 39.1 MCV 88.5 MCH 28.2 MCHC 31.9 L RDW 15.2 Plt Count 221 MPV 9.8 Absolute Neuts (auto) 5.2 Neutrophils % 74.4 Lymphocytes % 20.6 Monocytes % 3.7 L Eosinophils % 0.8 D Basophils % 0.5 Nucleated RBC % 0 PT with INR INR PTT (Actin FS) VBG pH POC VBG pCO2 POC VBG pO2 VBG HCO3 VBG O2 Sat (Jatin) VBG Base Excess Sodium 165 H* Potassium 3.7 Chloride 129 H Carbon Dioxide 30 Anion Gap 6 L BUN 47.8 H Creatinine 0.9 Est GFR (CKD-EPI)AfAm 67.10 Est GFR (CKD-EPI)NonAf 57.90 Random Glucose 138 H Serum Osmolality Calcium 8.3 L Phosphorus 3.1 Magnesium 3.8 H Total Bilirubin 2.3 H Direct Bilirubin AST 29 ALT 18 Alkaline Phosphatase 109 LD Total Creatine Kinase Troponin I 0.08 H Total Protein 6.0 L Albumin 2.9 L TSH 0.05 L Free T4 Urine Color Urine Appearance Urine pH Ur Specific [place] Urine Protein Urine Glucose (UA) Urine Ketones Urine Blood Urine Nitrite Urine Bilirubin Urine Urobilinogen Ur Leukocyte Esterase Urine WBC (Auto) Urine RBC (Auto) Urine Casts (Auto) U Epithel Cells (Auto) Urine Bacteria (Auto) Urine Osmolality Ur Random Creatinine Cancelled Ur Random Sodium Ur Random Potassium Ur Random Chloride Stool Occult Blood Blood Type Antibody Screen 12/30/19 12/30/19 12/30/19 06:00 06:00 10:40 WBC RBC Hgb Hct MCV MCH MCHC RDW Plt Count MPV Absolute Neuts (auto) Neutrophils % Lymphocytes % Monocytes % Eosinophils % Basophils % Nucleated RBC % PT with INR INR PTT (Actin FS) VBG pH POC VBG pCO2 POC VBG pO2 VBG HCO3 VBG O2 Sat (Jatin) VBG Base Excess Sodium 166 H* Potassium 3.9 Chloride 132 H Carbon Dioxide 31 Anion Gap 4 L BUN 43.4 H Creatinine 0.9 Est GFR (CKD-EPI)AfAm 67.10 Est GFR (CKD-EPI)NonAf 57.90 Random Glucose 116 H Serum Osmolality Calcium 8.3 L Phosphorus 3.0 Magnesium 3.6 H Total Bilirubin Direct Bilirubin 0.6 H AST ALT Alkaline Phosphatase LD Total 360 H Creatine Kinase Troponin I Total Protein Albumin TSH Free T4 1.65 H Urine Color Urine Appearance Urine pH Ur Specific [place] Urine Protein Urine Glucose (UA) Urine Ketones Urine Blood Urine Nitrite Urine Bilirubin Urine Urobilinogen Ur Leukocyte Esterase Urine WBC (Auto) Urine RBC (Auto) Urine Casts (Auto) U Epithel Cells (Auto) Urine Bacteria (Auto) Urine Osmolality 687 Ur Random Creatinine 129.0 Ur Random Sodium 32 L Ur Random Potassium 71.0 Ur Random Chloride 57 L Stool Occult Blood Blood Type Antibody Screen Active Medications Generic Name Dose Route Start Last Admin Trade Name Freq PRN Reason Stop Dose Admin Heparin Sodium (Porcine) 5,000 unit 12/30/19 10:00 Heparin - SQ BID GALO Piperacillin Sod/Tazobactam 50 mls @ 100 mls/hr 12/30/19 04:00 12/30/19 12:04 Sod 3.375 gm/ Dextrose IVPB 12/30/19 16:29 100 mls/hr Q6H GALO Administration Dextrose 1,000 mls @ 100 mls/hr 12/30/19 09:00 D5w - IV Q10H GALO Levothyroxine Sodium 100 mcg 12/30/19 07:00 Synthroid - PO DAILY@0700 GALO ASSESSMENT/PLAN: 84 yo F PMH advanced Alzheimer's disease (non-verbal at baseline), hypothyroidism, and normal pressure hydrocephalus, presenting upon request of her PCP due to failure to thrive and hypernatremia. Neuro: - advanced Alzheimer's - non-verbal at baseline - per , patient is at her baseline CV: - borderline trop elevation with flat trend - EKG: normal sinus, non-specific ST-T changes, no acute changes - recent echo 06/2019 unremarkable, normal LV/RV, no significant valvular pathology Respiratory: - CXR clear - no acute concerns GI: - no acute concerns Renal: - patient with hypernatremia, likely chronic and 2/2 hypovolemia - continue IVF, trend Na - Renal consulted, appreciate recs Endo: - hypothyroid on Synthroid Dispo: - Patient is appropriate to be followed on floors - Please notify if there are changes in mental status - Thank you for this consultative opportunity Visit type - Emergency Visit Emergency Visit: Yes ED Registration Date: 12/29/19 Care time: The patient presented to the Emergency Department on the above date and was hospitalized for further evaluation of their emergent condition. - New Patient This patient is new to me today: Yes Date on this admission: 12/30/19 - Critical Care Critical Care patient: Yes Total Critical Care Time (in minutes): 20 ATTENDING PHYSICIAN STATEMENT I saw and evaluated the patient. I reviewed the resident's note and discussed the case with the resident. I agree with the resident's findings and plan as documented. SUBJECTIVE: OBJECTIVE: ASSESSMENT AND PLAN:
--- NOTE | 2019-12-30 12:47 | PN ---
Teaching Attending Note Name of Resident: Enrique Chiang ATTENDING PHYSICIAN STATEMENT I saw and evaluated the patient. I reviewed the resident's note and discussed the case with the resident. I agree with the resident's findings and plan as documented. Seen and examined; no new complaints. This patient is an 84 y/o female presenting with severe hypoNa. Due to constraints with lab draws may require upgrade to ICU 2/2 staffing. Will delineate. 10 sys ROS done and negative aside from HPI VS, labs, imaging reviewed NAD, AAO, resting comfortably in bed. RRR s1/2 no mgr Normal muscle tone, moves all 5 extremities with normal apparent strength Neck is supple, trachea midline, no benny LN Lungs CTAB with sym expansion NT ND +BS no benny organomegaly CN2-12 wnl; no FND NC AT EOMI PERRLA Normal mood, appropriate behavior, euthymic affect No skin breakdown or rashes noted ASSESSMENT AND PLAN: Presents from ultrasound of the right upper quadrant shows sludge filled gallbladder with small calculi and an atrophic right kidney with no evidence of hydronephrosis or acute pathology. home with a chief complaint of failure to thrive and hyponatremia. She cannot provide history. Discussed with at length and she is full code. He says that if she is to she is to at home. I fear that he has limited insight into the severity of her illness. He is willing to consider placement. She has had multiple hospitalizations at [facility] this year. Problems include -Severe hypernatremia; change to D5w; avoiding overcorrection and will consult nephro. -Failure to thrive. Dietary consult, check prealbumin. Likely secondary to her advanced alzheimer's. -Possible dysphagia, consulting speech and swallow -Relative hypotension with low-grade fevers, question the cuff size having something to do with this. Given her BMI of 17 I would recommend child-size cuff with no tachycardia associated with this. We are obtaining a chest CT to further evaluate if there is a pneumonic process occurring. Source also could be implicated with UTI given the fact that she has positive leukoesterase and bacteria, but minimal epithelial cells and no nitrite as she has had in the past disagreed with this. She is not growing out any resistant organisms. Furthermore, she has an elevated ESR with a decubitus ulcer, surgery has seen the patient for this and they do not anticipate inpatient debridement -Hypomagnesemia -Low TSH at 0.05, free T4 is 1.65, free T3 is 1.2. Consult endocrinology; patient has a history of hypothyroidism documented and was on 100 mcg of levothyroxine daily at home. 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 Cardiology has been consulted. She has a recent echocardiogram and June 2019 that is unremarkable with normal left and right ventricles and no significant valvulopathy noted -Advanced dementia, Alzheimer type Full Code; confirmed with . Plan for family meeting to discuss goals of care
--- NOTE | 2019-12-30 13:11 | PN ---
Teaching Attending Note Name of Resident: Junior Lomeli ATTENDING PHYSICIAN STATEMENT I saw and evaluated the patient. I reviewed the resident's note and discussed the case with the resident. I agree with the resident's findings and plan as documented. SUBJECTIVE: Pt seen and examined in the ER. Pt nonverbal, unable to provide history at this time. Hypernatremia is stable, slowly improving with free water replacement. Blood pressure has been stable. OBJECTIVE: Vital Signs Period Temp Pulse Resp BP Sys/Rdz Pulse Ox Last 24 Hr 99.2 F 89 18 104/74 98 Gen: NAD, nonverbal Heart: RRR Lung: decreased breath sounds at the bases Abd: soft, nontender Ext: no edema Unstageable sacral ulcer CBC, BMP 12/30/19 05:50 12/30/19 10:40 Active Medications Heparin Sodium (Porcine) (Heparin -) 5,000 unit SQ BID GALO Piperacillin Sod/Tazobactam (Sod 3.375 gm/ Dextrose) 50 mls @ 100 mls/hr IVPB Q6H GALO Stop: 12/30/19 16:29 Last Admin: 12/30/19 12:04 Dose: 100 mls/hr Dextrose (D5w -) 1,000 mls @ 100 mls/hr IV Q10H [facility] Levothyroxine Sodium (Synthroid -) 100 mcg PO DAILY@0700 [facility] ASSESSMENT AND PLAN: UTI Hypernatremia/Dehydration Failure to Thrive Sacral Decubitus Ulcer +Troponins likely Demand Ischemia Hypothyroidism Advanced Dementia - continue antibiotics - f/u cultures - free water replacement - monitor lytes - aspiration precautions - may need surgical eval of sacral ulcer - DVT prophylaxis - can monitor on floor, please call back if any change in clinical condition
[2019-12-30] MEDS ORDERED: HEPARIN NA (PORCINE) 5,000 UNITS/ML 1ML VIAL ONE (13:37)
[2019-12-30] MEDS: HEPARIN NA (PORCINE) 5,000 UNITS/ML 1ML VIAL SQ SCH ×2 (13:39→22:06)
--- NOTE | 2019-12-30 13:46 | CONSULT ---
- Consultation REQUESTING PROVIDER: CONSULT REQUEST: We have been asked to surgically evaluate this patient for decubitus ulcer PCP:Rufus German MD HISTORY OF PRESENT ILLNESS: 84yo F h/o dementia so history was obtained from pt's bedside. states that pt has had the decubitus ulcer for a couple weeks that has been treating with mupirocin and being seen by his PCP. also states he is trying to do frequent bed turning as pt is nonambulatory. PMHx: dementia, Home Medications Medication Instructions Recorded Levothyroxine [Synthroid -] 100 mcg PO DAILY@0700 #30 tablet 04/09/17 Mupirocin Ointment [Bactroban 2% 1 applic TD DAILY 12/29/19 Ointment -] Allergies Allergy/AdvReac Type Severity Reaction Status Date / Time aspirin Allergy Severe Verified 12/29/19 18:09 cephalexin Allergy Mild Verified 12/29/19 18:09 cephalexin monohydrate Allergy Mild Verified 12/29/19 18:09 [From Keflex] naproxen Allergy Mild Verified 12/29/19 18:09 PHYSICAL EXAM: GENERAL: Awake, disoriented, cachectic HEAD: Normal with no signs of trauma. EYES: PERRL, sclera anicteric, conjunctiva clear. NECK: Normal ROM, supple without lymphadenopathy, JVD, or masses. LUNGS: breathing comfortably on room air, No accessory muscle use. UPPER EXTREMITIES: 2+ pulses, warm, well-perfused. No cyanosis. Cap refill <2 seconds. No peripheral edema. LOWER EXTREMITIES: 2+ pulses, warm, well-perfused. No calf tenderness. No peripheral edema. NEUROLOGICAL: Normal speech, gait not observed. PSYCH: Cooperative. Good eye contact. Appropriate mood and affect. SKIN: Warm, dry, normal turgor, stage 2 decubitus ulcer 7cm x 3 cm, no erythema or discharge. Vital Signs Temperature 99.2 F 12/29/19 18:10 Pulse Rate 89 12/29/19 22:43 Respiratory Rate 18 12/29/19 21:14 Blood Pressure 104/74 12/29/19 18:10 O2 Sat by Pulse Oximetry (%) 98 12/29/19 21:14 Lab Results WBC 7.0 K/mm3 (4.0-10.0) 12/30/19 05:50 RBC 4.42 M/mm3 (3.60-5.2) 12/30/19 05:50 Hgb 12.5 GM/dL (10.7-15.3) 12/30/19 05:50 Hct 39.1 % (32.4-45.2) 12/30/19 05:50 MCV 88.5 fl (80-96) 12/30/19 05:50 MCHC 31.9 g/dl (32.0-36.0) L 12/30/19 05:50 RDW 15.2 % (11.6-15.6) 12/30/19 05:50 Plt Count 221 K/MM3 (134-434) 12/30/19 05:50 Sodium 166 mmol/L (136-145) H* 12/30/19 10:40 Potassium 3.9 mmol/L (3.5-5.1) 12/30/19 10:40 Chloride 132 mmol/L (98-107) H 12/30/19 10:40 Carbon Dioxide 31 mmol/L (21-32) 12/30/19 10:40 Anion Gap 4 MMOL/L (8-16) L 12/30/19 10:40 BUN 43.4 mg/dL (7-18) H 12/30/19 10:40 Creatinine 0.9 mg/dL (0.55-1.3) 12/30/19 10:40 Random Glucose 116 mg/dL (74-106) H 12/30/19 10:40 Calcium 8.3 mg/dL (8.5-10.1) L 12/30/19 10:40 Blood Type O POSITIVE 12/29/19 18:30 Antibody Screen Negative 12/29/19 18:30 INR 1.11 (0.83-1.09) H 12/29/19 18:30 Problem List - Problems (1) Decubitus ulcer limited to breakdown of skin (stage 2) Assessment/Plan: Sacral Ulcer/DTI Plan -Reposition every two hours while in bed -Air mattress recommended -Use drawsheets and Trendelenburg when repositioning to reduce friction and shear -Manageincontinence via timely cleansing, use of appropriate incontinence disposables and use of barrier ointment to intact skin -Ensure adequate hydration/nutrition, supplementation per primary team -Ensure off-loading to all bony areas (heels, ankles, hips and tailbone) with Allevyn/Optifoam -Clean open wounds with normal saline and apply mupirocin Code(s): L89.92 - PRESSURE ULCER OF UNSPECIFIED SITE, STAGE 2 Qualifiers: Pressure injury location: contiguous region involving back and buttock Laterality: unspecified laterality Qualified Code(s): L89.42 - Pressure ulcer of contiguous site of back, buttock and hip, stage 2
[2019-12-30 13:55] LABS: BLOOD UREA NITROGEN 45.5 mg/dL (7-18); CALCIUM 8.1 mg/dL (8.5-10.1); CREATININE 0.9 mg/dL (0.55-1.3); POTASSIUM 3.6 mmol/L (3.5-5.1)
--- NOTE | 2019-12-30 14:00 | PN ---
Physical Exam: SUBJECTIVE: Patient seen and examined at bedside. No acute events. OBJECTIVE: Vital Signs Period Temp Pulse Resp BP Sys/Rdz Pulse Ox Last 24 Hr 99.2 F 89 18 104/74 98 GENERAL: The patient is awake, alert, and fully oriented, in no acute distress. HEAD: Normal with no signs of trauma. LUNGS: Breath sounds equal, clear to auscultation bilaterally, no wheezes, no crackles, no accessory muscle use. HEART: Regular rate and rhythm, S1, S2 without murmur, rub or gallop. ABDOMEN: Soft, nontender, nondistended. EXTREMITIES: 2+ pulses, warm, well-perfused, no edema. NEUROLOGICAL: Cranial nerves II through XII grossly intact. Normal speech, gait not observed. PSYCH: very somnolent SKIN: Stage III ulcer on sacrum Laboratory Results - last 24 hr 12/29/19 12/29/19 12/29/19 18:00 18:30 18:30 WBC RBC Hgb Hct MCV MCH MCHC RDW Plt Count MPV Absolute Neuts (auto) Neutrophils % Lymphocytes % Monocytes % Eosinophils % Basophils % Nucleated RBC % ESR PT with INR INR PTT (Actin FS) VBG pH POC VBG pCO2 POC VBG pO2 VBG HCO3 VBG O2 Sat (Jatin) VBG Base Excess Sodium 167 H* Potassium 3.7 Chloride 129 H Carbon Dioxide 33 H Anion Gap 5 L BUN 55.9 H Creatinine 1.0 Est GFR (CKD-EPI)AfAm 59.08 Est GFR (CKD-EPI)NonAf 50.97 Random Glucose 111 H Serum Osmolality Calcium 8.8 Phosphorus 3.8 Magnesium 4.0 H Total Bilirubin 1.4 H Direct Bilirubin AST 28 ALT 19 Alkaline Phosphatase 112 LD Total Creatine Kinase 145 Troponin I 0.07 H Total Protein 6.2 L Albumin 3.0 L TSH Free T4 Urine Color Urine Appearance Urine pH Ur Specific [place] Urine Protein Urine Glucose (UA) Urine Ketones Urine Blood Urine Nitrite Urine Bilirubin Urine Urobilinogen Ur Leukocyte Esterase Urine WBC (Auto) Urine RBC (Auto) Urine Casts (Auto) U Epithel Cells (Auto) Urine Bacteria (Auto) Urine Osmolality Ur Random Creatinine Ur Random Sodium Ur Random Potassium Ur Random Chloride Stool Occult Blood Negative Blood Type Antibody Screen 12/29/19 12/29/19 12/29/19 18:30 18:30 18:30 WBC 7.0 RBC 4.67 Hgb 13.1 Hct 41.8 D MCV 89.4 MCH 28.0 MCHC 31.3 L RDW 16.1 H Plt Count 228 MPV 10.0 Absolute Neuts (auto) 5.2 Neutrophils % 74.3 Lymphocytes % 20.6 Monocytes % 4.0 Eosinophils % 0.2 D Basophils % 0.9 Nucleated RBC % 0 ESR PT with INR 13.10 H INR 1.11 H PTT (Actin FS) 34.2 VBG pH POC VBG pCO2 POC VBG pO2 VBG HCO3 VBG O2 Sat (Jatin) VBG Base Excess Sodium Potassium Chloride Carbon Dioxide Anion Gap BUN Creatinine Est GFR (CKD-EPI)AfAm Est GFR (CKD-EPI)NonAf Random Glucose Serum Osmolality Calcium Phosphorus Magnesium Total Bilirubin Direct Bilirubin AST ALT Alkaline Phosphatase LD Total Creatine Kinase Troponin I Total Protein Albumin TSH Free T4 Urine Color Urine Appearance Urine pH Ur Specific [place] Urine Protein Urine Glucose (UA) Urine Ketones Urine Blood Urine Nitrite Urine Bilirubin Urine Urobilinogen Ur Leukocyte Esterase Urine WBC (Auto) Urine RBC (Auto) Urine Casts (Auto) U Epithel Cells (Auto) Urine Bacteria (Auto) Urine Osmolality Ur Random Creatinine Ur Random Sodium Ur Random Potassium Ur Random Chloride Stool Occult Blood Blood Type O POSITIVE Antibody Screen Negative 12/29/19 12/29/19 12/30/19 18:30 19:15 00:30 WBC RBC Hgb Hct MCV MCH MCHC RDW Plt Count MPV Absolute Neuts (auto) Neutrophils % Lymphocytes % Monocytes % Eosinophils % Basophils % Nucleated RBC % ESR PT with INR INR PTT (Actin FS) VBG pH 7.36 POC VBG pCO2 60.3 H POC VBG pO2 < 49 H VBG HCO3 33.4 H VBG O2 Sat (Jatin) 36.6 L VBG Base Excess 6.3 H Sodium 170 H* Potassium 4.0 Chloride 132 H Carbon Dioxide 31 Anion Gap 7 L BUN 53.5 H Creatinine 1.0 Est GFR (CKD-EPI)AfAm 59.08 Est GFR (CKD-EPI)NonAf 50.97 Random Glucose 121 H Serum Osmolality 364 H Calcium 8.5 Phosphorus Magnesium 3.9 H Total Bilirubin Direct Bilirubin AST ALT Alkaline Phosphatase LD Total Creatine Kinase Troponin I 0.09 H Total Protein Albumin TSH Free T4 Urine Color Dk yellow Urine Appearance Turbid Urine pH 7.5 D Ur Specific [place] 1.023 Urine Protein 1+ H Urine Glucose (UA) Negative Urine Ketones Negative Urine Blood Negative Urine Nitrite Negative Urine Bilirubin Negative Urine Urobilinogen 0.2 Ur Leukocyte Esterase 3+ H Urine WBC (Auto) 62 Urine RBC (Auto) 1 Urine Casts (Auto) 0 U Epithel Cells (Auto) 0.4 Urine Bacteria (Auto) 4612.4 Urine Osmolality Ur Random Creatinine Ur Random Sodium Ur Random Potassium Ur Random Chloride Stool Occult Blood Blood Type Antibody Screen 12/30/19 12/30/19 12/30/19 05:50 05:50 06:00 WBC 7.0 RBC 4.42 Hgb 12.5 Hct 39.1 MCV 88.5 MCH 28.2 MCHC 31.9 L RDW 15.2 Plt Count 221 MPV 9.8 Absolute Neuts (auto) 5.2 Neutrophils % 74.4 Lymphocytes % 20.6 Monocytes % 3.7 L Eosinophils % 0.8 D Basophils % 0.5 Nucleated RBC % 0 ESR PT with INR INR PTT (Actin FS) VBG pH POC VBG pCO2 POC VBG pO2 VBG HCO3 VBG O2 Sat (Jatin) VBG Base Excess Sodium 165 H* Potassium 3.7 Chloride 129 H Carbon Dioxide 30 Anion Gap 6 L BUN 47.8 H Creatinine 0.9 Est GFR (CKD-EPI)AfAm 67.10 Est GFR (CKD-EPI)NonAf 57.90 Random Glucose 138 H Serum Osmolality Calcium 8.3 L Phosphorus 3.1 Magnesium 3.8 H Total Bilirubin 2.3 H Direct Bilirubin AST 29 ALT 18 Alkaline Phosphatase 109 LD Total Creatine Kinase Troponin I 0.08 H Total Protein 6.0 L Albumin 2.9 L TSH 0.05 L Free T4 Urine Color Urine Appearance Urine pH Ur Specific [place] Urine Protein Urine Glucose (UA) Urine Ketones Urine Blood Urine Nitrite Urine Bilirubin Urine Urobilinogen Ur Leukocyte Esterase Urine WBC (Auto) Urine RBC (Auto) Urine Casts (Auto) U Epithel Cells (Auto) Urine Bacteria (Auto) Urine Osmolality Ur Random Creatinine Cancelled Ur Random Sodium Ur Random Potassium Ur Random Chloride Stool Occult Blood Blood Type Antibody Screen 12/30/19 12/30/19 12/30/19 06:00 06:00 10:40 WBC RBC Hgb Hct MCV MCH MCHC RDW Plt Count MPV Absolute Neuts (auto) Neutrophils % Lymphocytes % Monocytes % Eosinophils % Basophils % Nucleated RBC % ESR PT with INR INR PTT (Actin FS) VBG pH POC VBG pCO2 POC VBG pO2 VBG HCO3 VBG O2 Sat (Jatin) VBG Base Excess Sodium 166 H* Potassium 3.9 Chloride 132 H Carbon Dioxide 31 Anion Gap 4 L BUN 43.4 H Creatinine 0.9 Est GFR (CKD-EPI)AfAm 67.10 Est GFR (CKD-EPI)NonAf 57.90 Random Glucose 116 H Serum Osmolality Calcium 8.3 L Phosphorus 3.0 Magnesium 3.6 H Total Bilirubin Direct Bilirubin 0.6 H AST ALT Alkaline Phosphatase LD Total 360 H Creatine Kinase Troponin I Total Protein Albumin TSH Free T4 1.65 H Urine Color Urine Appearance Urine pH Ur Specific [place] Urine Protein Urine Glucose (UA) Urine Ketones Urine Blood Urine Nitrite Urine Bilirubin Urine Urobilinogen Ur Leukocyte Esterase Urine WBC (Auto) Urine RBC (Auto) Urine Casts (Auto) U Epithel Cells (Auto) Urine Bacteria (Auto) Urine Osmolality 687 Ur Random Creatinine 129.0 Ur Random Sodium 32 L Ur Random Potassium 71.0 Ur Random Chloride 57 L Stool Occult Blood Blood Type Antibody Screen 12/30/19 12:52 WBC RBC Hgb Hct MCV MCH MCHC RDW Plt Count MPV Absolute Neuts (auto) Neutrophils % Lymphocytes % Monocytes % Eosinophils % Basophils % Nucleated RBC % ESR 75 H PT with INR INR PTT (Actin FS) VBG pH POC VBG pCO2 POC VBG pO2 VBG HCO3 VBG O2 Sat (Jatin) VBG Base Excess Sodium Potassium Chloride Carbon Dioxide Anion Gap BUN Creatinine Est GFR (CKD-EPI)AfAm Est GFR (CKD-EPI)NonAf Random Glucose Serum Osmolality Calcium Phosphorus Magnesium Total Bilirubin Direct Bilirubin AST ALT Alkaline Phosphatase LD Total Creatine Kinase Troponin I Total Protein Albumin TSH Free T4 Urine Color Urine Appearance Urine pH Ur Specific [place] Urine Protein Urine Glucose (UA) Urine Ketones Urine Blood Urine Nitrite Urine Bilirubin Urine Urobilinogen Ur Leukocyte Esterase Urine WBC (Auto) Urine RBC (Auto) Urine Casts (Auto) U Epithel Cells (Auto) Urine Bacteria (Auto) Urine Osmolality Ur Random Creatinine Ur Random Sodium Ur Random Potassium Ur Random Chloride Stool Occult Blood Blood Type Antibody Screen Active Medications Generic Name Dose Route Start Last Admin Trade Name Freq PRN Reason Stop Dose Admin Heparin Sodium (Porcine) 5,000 unit 12/30/19 10:00 12/30/19 13:39 Heparin - SQ 5,000 unit BID GALO Administration Piperacillin Sod/Tazobactam 50 mls @ 100 mls/hr 12/30/19 04:00 12/30/19 12:04 Sod 3.375 gm/ Dextrose IVPB 12/30/19 16:29 100 mls/hr Q6H GALO Administration Dextrose 1,000 mls @ 100 mls/hr 12/30/19 09:00 12/30/19 13:39 D5w - IV 100 mls/hr Q10H GALO Administration Levothyroxine Sodium 100 mcg 12/30/19 07:00 12/30/19 13:39 Synthroid - PO Not Given DAILY@0700 [facility], [facility] ASSESSMENT/PLAN: Dalia Maher is an 84 year old female with a past medical history of 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 UTI - UA 3+ Leuk est positive - started on Zosyn due to cephalosporin allergy and levaquin one time dose given , one dose of vanco given. - Ucx pending - ID consulted (Collin) Sacral Ulcer - given one dose of nd Zosyn - wound care consulted - ID consulted - wound culture - turning q2h - will likely need air mattress and close wound care follow up Hypernatremia - NA 162 on rpt, free water deficit 3.5L - likely in setting of dehydration and poor PO intake - avoid correction by greater than 10Meq/24hrs - urine lytes, CRE, osms, serum osms - BMP q4h, continue IV D5W 100cc/hr - nephrology consulted recommending continuing these fluids. - must be aware the risk of CPM is higher in the elderly - choi, I+Os, daily weights Troponemia - 0.07-->0.09->0.08 has peaked - has T wave inversion in V4, V5, V6, II, III - likely demand ischemia from severe intravascular depletion - continue to monitor in setting of resuscitation Cachectic with poor PO intake - BMI 16.1 - has poor PO intake - dietary consult - may need to consider PEG Elevated bilirubin - T bili 2.3 - RUQ U/S showing atrophic rt kidney and sludge in GB Hypothyroidism - continue home synthroid - TSH- 0.05, T4 1.64 - ESR 75 - rpt as o/p may be altered given recent infection DVT PPx - heparin 5000 units bid FEN - 1/2 NS at 100cc/hr - continue to monitor electrolytes and replete as necessary, hypernatremia, hypermagnesemia noted and correcting with fluids - dysphagia puree diet Dispo - admit to telemetry - palliative care team consulted CODE STATUS - full code Visit type - Emergency Visit Emergency Visit: Yes ED Registration Date: 12/29/19 Care time: The patient presented to the Emergency Department on the above date and was hospitalized for further evaluation of their emergent condition. - New Patient This patient is new to me today: Yes Date on this admission: 12/30/19 - Critical Care Critical Care patient: No - Discharge Referral Referred to [facility] No ATTENDING PHYSICIAN STATEMENT I saw and evaluated the patient. I reviewed the resident's note and discussed the case with the resident. I agree with the resident's findings and plan as documented. SUBJECTIVE: OBJECTIVE: ASSESSMENT AND PLAN:
[2019-12-30] MEDS ORDERED: DEXTROSE 5%-WATER - 1,000 ML with POTASSIUM CHLORIDE 10 MEQ IV SCH (16:36)
--- NOTE | 2019-12-30 16:46 | CONSULT ---
Consult Consult Specialty:: Nephrology Reason for Consultation:: hypernatremia - History of Present Illness Chief Complaint: sent in for failure to thrive History of Present Illness: Pt is an 84 year old female with pmhx of alzeimers, hypothyroidism and NPH who was sent in for failure to thrive and hypernatremia. She is not verbal and unable to give history. Her is at bedside and assisted. She has not been eating or drinking much lately. She was found to be hypernatremic and I was called to evaluate her. She appears dehydrated on exam. She had a sodium in the 150 range as outpt. 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[employer]: Yes: Dementia Endocrine: Yes: Hypothyroidism - Alcohol/Substance Use Hx Alcohol Use: No - Smoking History Smoking history: Never smoked Have you smoked in the past 12 months: No Aproximately how many cigarettes per day: 0 Home Medications - Allergies Allergies/Adverse Reactions: Allergies Allergy/AdvReac Type Severity Reaction Status Date / Time aspirin Allergy Severe Verified 12/29/19 18:09 cephalexin Allergy Mild Verified 12/29/19 18:09 cephalexin monohydrate Allergy Mild Verified 12/29/19 18:09 [From Keflex] naproxen Allergy Mild Verified 12/29/19 18:09 - Home Medications Home Medications: Ambulatory Orders Levothyroxine [Synthroid -] 100 mcg PO DAILY@0700 #30 tablet 04/09/17 Mupirocin Ointment [Bactroban 2% Ointment -] 1 applic TD DAILY 12/29/19 Family Medical History Family History: Denies Review of Systems Unable to obtain ROS, reason: not verbal Physical Exam Vital Signs: Vital Signs Temperature 99.2 F 12/29/19 18:10 Pulse Rate 89 12/29/19 22:43 Respiratory Rate 18 12/29/19 21:14 Blood Pressure 104/74 12/29/19 18:10 O2 Sat by Pulse Oximetry (%) 98 12/29/19 21:14 Constitutional: Yes: Calm, Cachectic Eyes: Yes: Conjunctiva Clear HENT: Yes: Atraumatic Cardiovascular: Yes: S1, S2 Respiratory: Yes: CTA Bilaterally Gastrointestinal: Yes: Soft Renal/: Yes: Incontinence Musculoskeletal: Yes: Muscle Weakness Edema: No Neurological: Yes: Confusion, Lethargy Labs: CBC, BMP 12/30/19 05:50 12/30/19 13:15 Laboratory Tests 12/29/19 12/30/19 12/30/19 18:30 00:30 05:50 Sodium 167 H* 170 H* 165 H* BUN 55.9 H 12/30/19 12/30/19 10:40 13:15 Sodium 166 H* 162 H* BUN 45.5 H Imaging - Results Chest X-ray: Report Reviewed Assessment/Plan Current Medications Generic Name Dose Route Start Last Admin Trade Name Freq PRN Reason Stop Dose Admin Heparin Sodium (Porcine) 5,000 unit 12/30/19 10:00 12/30/19 13:39 Heparin - SQ 5,000 unit BID [facility] Administration Potassium Chloride 10 meq/ 1,005 mls @ 75 mls/hr 12/30/19 16:36 Dextrose IV Q13H [facility] Levothyroxine Sodium 100 mcg 12/30/19 07:00 12/30/19 13:39 Synthroid - PO Not Given DAILY@0700 [facility] Impression 1. hypernatremia 2. malnutrition 3. dehydration 4. failure to thrive 5. dementia 6. hypothyroidism Plan - free water deficit remaining is about 2.8 liters - change fluids to d5w with potassium - cont to monitor renal function - discussed with medical team - bun improving - get swallow eval
--- NOTE | 2019-12-30 17:18 | PN ---
Progress Note (short form) - Note Progress Note: ID consult dictated 84 yo female nonverbal with dementia admitted from home with failure to thrive and hypernatremia she also has a worsening sacral ulcer recent admission in July- with UTI discharged to SNF, now home for about a month doing poorly dehydration hypernatremia uti sacral ulcer-local care per surgery, doubt infected failure to thrive keflex allergy severe dementia she has received both levaquin and zosyn and vancomycin in ed would continue zosyn alone adjusted for her renal function f/u cultures Problem List - Problems (1) UTI (urinary tract infection) Code(s): N39.0 - URINARY TRACT INFECTION, SITE NOT SPECIFIED Qualifiers: Urinary tract infection type: acute cystitis Hematuria presence: without hematuria Qualified Code(s): N30.00 - Acute cystitis without hematuria (2) Dehydration Code(s): E86.0 - DEHYDRATION (3) Hypernatremia Code(s): E87.0 - HYPEROSMOLALITY AND HYPERNATREMIA (4) Failure to thrive Code(s): BCG0167 - Qualifiers: Failure to thrive age range: in adult Qualified Code(s): R62.7 - Adult failure to thrive (5) Dementia Code(s): F03.90 - UNSPECIFIED DEMENTIA WITHOUT BEHAVIORAL DISTURBANCE (6) Drug allergy, antibiotic Code(s): Z88.1 - ALLERGY STATUS TO OTHER ANTIBIOTIC AGENTS STATUS
--- NOTE | 2019-12-30 18:00 | CONS ---
INFECTIOUS DISEASE CONSULTATION DATE OF CONSULTATION: DATE OF DICTATION: 12/30/2019 REQUESTED BY: Hospitalist service HISTORY: This is an 84-year-old woman with advanced dementia. She is nonverbal. She lives at home with her , and she has 24-hour care. She was last in the hospital in July at which time she was found to have a UTI, and she had been sent to a SNF. She has now been home for over a month. Her aide is present at the bedside. She reports patient has had poor oral intake over the course of the last several days. There has been no vomiting. She does have regular bowel movements. She has not had any fevers and chills. She was found to have a sacral ulcer for which they have been putting topical antibiotics as per the PCP. She was referred to the ER by the primary care provider for failure to thrive and hypernatremia. In the ER, she was given IV fluids, and she was given vancomycin, Levaquin, and Zosyn. PAST MEDICAL HISTORY: Notable for advanced Alzheimer disease, hypothyroidism. She has normal-pressure hydrocephalus. SURGICAL HISTORY: Notable for a laparoscopic hysterectomy, appendectomy. She has had eye surgery and a lumbar laminectomy and spinal fusion for scoliosis. Apparently, per the , the patient has been declining at home. She is no longer able to walk. She has poor oral intake, and she has had weight loss with worsening dementia. MEDICATIONS: At home include levothyroxine and mupirocin ointment. ALLERGIES: She is allergic to ASPIRIN and apparently has a mild allergy to KEFLEX. Allergic to NAPROXEN as well. REVIEW OF SYSTEMS: There have been no fevers or chills. She has not had any vomiting. She has been constipated, and she has lost weight. PHYSICAL EXAMINATION: General: She opens her eyes. She cannot follow any commands. She does become agitated when we turn her to look at her back. Vital Signs: Notable for a temperature of 99.2, pulse of 89, blood pressure 104/74, respiratory rate is 18. Reported weight is 40 kg. She is saturating 98% on 2 L. HEENT: She is normocephalic. She will not open her mouth. Lungs: Clear to auscultation. Heart: Regular rate and rhythm. Abdomen: Soft. Extremities: Her legs, she has no ulcers. She has some erythema on her left hip, and she has a stage 2 sacral ulcer with an eschar. There is no drainage. DIAGNOSTIC DATA: Labs are notable for a white count of 7000, hemoglobin is 12.5, platelets are 221. Her sodium on admission is 167 with a BUN of 55 and a creatinine of 1, chloride 129. Liver function tests; a total bilirubin is 1.4. LFTs are normal. Her TSH is low at 0.05. Urinalysis has 3+ leukocytes and 62 white cells. Blood and urine cultures are pending. In summary, this is an 84-year-old woman with dehydration, hypernatremia, UTI, sacral ulcer, failure to thrive, KEFLEX allergy all in the setting of severe dementia. Overall prognosis is quite poor. She has received multiple antibiotics for her UTI. Would continue Zosyn alone adjusted for her renal function with follow up of her cultures. For her sacral ulcer, would suggest that she have a wound care evaluation. I do not think she will need any debridement, and I doubt the ulcer is infected. SHAUNA POSADAS M.D. [id number]
[2019-12-30 21:45] LABS: BLOOD UREA NITROGEN 42.1 mg/dL (7-18); CREATININE 0.9 mg/dL (0.55-1.3); POTASSIUM 3.9 mmol/L (3.5-5.1)
[2019-12-30] MEDS ORDERED: VANCOMYCIN 1 GM in D5W (PRE-DOCKED) 1,000 MG/250 ML IVPB SCH (22:51)
[2019-12-31] MEDS ORDERED: PIPERACILLIN/TAZOBACTAM 3.375 GM VIAL IVPB ONE ×3 (02:15→17:27)
[2019-12-31] MEDS ORDERED: DEXTROSE 5%-WATER - 50 ML IVPB ONE ×3 (02:15→17:28)
[2019-12-31] MEDS: PIPERACILLIN/TAZOB 3.375 GM 3.375 GM in DEXTROSE 5%-WATER - 50 ML IVPB SCH ×3 (02:27→17:33)
[2019-12-31 04:08] LABS: BLOOD UREA NITROGEN 34.9 mg/dL (7-18); CALCIUM 7.6 mg/dL (8.5-10.1); POTASSIUM 3.3 mmol/L (3.5-5.1)
[2019-12-31] MEDS ORDERED: DEXTROSE 5%-WATER - 1,000 ML with POTASSIUM CHLORIDE 10 MEQ IV SCH (04:24)
[2019-12-31] MEDS: KCL 10 MEQ IVPB 10 MEQ/100 ML INFUS.BAG IVPB SCH ×3 (04:48→06:45)
[2019-12-31 07:39] LABS: BASO % 0.5 % (0-2.0); EOS % 2.5 % (0-4.5); HEMATOCRIT 33.6 % (32.4-45.2); HEMOGLOBIN 10.9 GM/dL (10.7-15.3); LYMPH % 12.4 % (8-40); MCH 28.3 pg (25.7-33.7); MCHC 32.3 g/dl (32.0-36.0); MEAN CELL VOLUME 87.4 fl (80-96); MEAN PLT VOLUME 10.1 fl (7.5-11.1); MONO % 3.4 % (3.8-10.2); NEUT % 81.2 % (42.8-82.8); PLATELET COUNT 152 K/MM3 (134-434); RBC 3.84 M/mm3 (3.60-5.2); RDW 15.2 % (11.6-15.6); WHITE BLOOD COUNT 5.3 K/mm3 (4.0-10.0)
--- NOTE | 2019-12-31 08:02 | PN ---
Teaching Attending Note Name of Resident: Enrique Chiang ATTENDING PHYSICIAN STATEMENT I saw and evaluated the patient. I reviewed the resident's note and discussed the case with the resident. I agree with the resident's findings and plan as documented. Seen and examined; please see resident note for further historical information. I personally verified all colbert historical information and exam findings. Personally interpreted all imaging and diagnostics and reviewed appropriate consults. I reviewed all labs and vital signs as per resident note and EMR as documented. I agree with the above assessment and plan unless supplemented by myself in the following. Seen and examined, the patient has no new complaints today. Mental status is still poor. is present. Sodium corrected to 155 and Was in the 160s yesterday. Following up swallow eval and dietary consutlation. On Zosyn only per ID. CV saw patient and agrees this si a type 2 NSTEMI 2/2 demand. ..Even though her T4 was high for some reason she was started on IV Synthroid by the night team this was discontinued before dose was administered. There is no indication. 10 item review of systems completed and is negative aside from as discussed in the subjective data in my own/the resident documentation. VS, labs, imaging reviewed NAD, AAO, resting comfortably in bed. RRR s1/2 no mgr Normal muscle tone, moves all 5 extremities with normal apparent strength Neck is supple, trachea midline, no benny LN Lungs CTAB with sym expansion NT ND +BS no benny organomegaly CN2-12 wnl; no FND NC AT EOMI PERRLA Normal mood, appropriate behavior, euthymic affect No skin breakdown or rashes noted Assessment and plan: Today Mental status is still poor. is present. Sodium corrected to 155 and Was in the 160s yesterday. Following up swallow eval and dietary consutlation. On Zosyn only per ID. CV saw patient and agrees this si a type 2 NSTEMI 2/2 demand. Even though her T4 was high for some reason she was started on IV Synthroid by the night team this was discontinued before dose was administered. There is no indication. Furthermore, we will go ahead and discuss the case with endocrinology. Could be hgih due to exogenous supplements given her continued use of LT4 100. Continue to monitor. Problems include: -Severe hypernatremia; change to D5w; avoiding overcorrection and will consult nephro. -Failure to thrive. Dietary consult, check prealbumin. Likely secondary to her advanced alzheimer's. -Possible dysphagia, consulting speech and swallow -Relative hypotension with low-grade fevers, question the cuff size having something to do with this. Given her BMI of 17 I would recommend child-size cuff with no tachycardia associated with this. We are obtaining a chest CT to further evaluate if there is a pneumonic process occurring. Source also could be implicated with UTI given the fact that she has positive leukoesterase and bacteria, but minimal epithelial cells and no nitrite as she has had in the past disagreed with this. She is not growing out any resistant organisms. Furthermore, she has an elevated ESR with a decubitus ulcer, surgery has seen the patient for this and they do not anticipate inpatient debridement -Hypomagnesemia -Low TSH at 0.05, free T4 is 1.65, free T3 is 1.2. Consult endocrinology; patient has a history of hypothyroidism documented and was on 100 mcg of levothyroxine daily at home. 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 Cardiology has been consulted. She has a recent echocardiogram and June 2019 that is unremarkable with normal left and right ventricles and no significant valvulopathy noted -Advanced dementia, Alzheimer type Full Code; still pending family meeting
[2019-12-31 08:16] LABS: ALBUMIN 2.3 g/dl (3.4-5.0); BLOOD UREA NITROGEN 35.8 mg/dL (7-18); CALCIUM 7.7 mg/dL (8.5-10.1); MAGNESIUM 3.4 mg/dL (1.8-2.4); POTASSIUM 3.7 mmol/L (3.5-5.1); TOT PROT 4.9 g/dl (6.4-8.2)
--- NOTE | 2019-12-31 08:41 | PN ---
Physical Exam: SUBJECTIVE: Patient seen and examined. Hypokalemic last night, fluids decreased from 75->42cc/hr D5W and added Kcl to fluids by night team. Afebrile overnight, Na improved this AM. OBJECTIVE: Vital Signs Period Temp Pulse Resp BP Sys/Rdz Pulse Ox Last 24 Hr 97.7 F-98 F 65-97 13-22 80-120/40-87 76-99 GENERAL: The patient is somnolent but improved from yesterday. HEAD: Normal with no signs of trauma. LUNGS: Breath sounds equal, clear to auscultation bilaterally, no wheezes, no crackles, no accessory muscle use. HEART: Regular rate and rhythm, S1, S2 without murmur, rub or gallop. ABDOMEN: Soft, nontender, nondistended. EXTREMITIES: 2+ pulses, warm, well-perfused, no edema. NEUROLOGICAL: Cranial nerves II through XII grossly intact. Normal speech, gait not observed. PSYCH: very somnolent SKIN: Stage III ulcer on sacrum Laboratory Results - last 24 hr 12/30/19 12/30/19 12/30/19 00:30 06:00 10:40 WBC RBC Hgb Hct MCV MCH MCHC RDW Plt Count MPV Absolute Neuts (auto) Neutrophils % Lymphocytes % Monocytes % Eosinophils % Basophils % Nucleated RBC % ESR Sodium 166 H* Potassium 3.9 Chloride 132 H Carbon Dioxide 31 Anion Gap 4 L BUN 43.4 H Creatinine 0.9 Est GFR (CKD-EPI)AfAm 67.10 Est GFR (CKD-EPI)NonAf 57.90 Random Glucose 116 H Serum Osmolality 364 H Calcium 8.3 L Phosphorus 3.0 Magnesium 3.6 H Total Bilirubin Direct Bilirubin 0.6 H AST ALT Alkaline Phosphatase LD Total 360 H Total Protein Albumin Free T4 1.65 H Free T3 Urine Osmolality 687 12/30/19 12/30/19 12/30/19 12:52 12:52 13:15 WBC RBC Hgb Hct MCV MCH MCHC RDW Plt Count MPV Absolute Neuts (auto) Neutrophils % Lymphocytes % Monocytes % Eosinophils % Basophils % Nucleated RBC % ESR 75 H Sodium 162 H* Potassium 3.6 Chloride 127 H Carbon Dioxide 31 Anion Gap 4 L BUN 45.5 H Creatinine 0.9 Est GFR (CKD-EPI)AfAm 67.10 Est GFR (CKD-EPI)NonAf 57.90 Random Glucose 138 H Serum Osmolality Calcium 8.1 L Phosphorus Magnesium Total Bilirubin Direct Bilirubin AST ALT Alkaline Phosphatase LD Total Total Protein Albumin Free T4 Free T3 1.2 L Urine Osmolality 12/30/19 12/31/19 12/31/19 20:15 02:00 05:30 WBC 5.3 RBC 3.84 Hgb 10.9 Hct 33.6 MCV 87.4 MCH 28.3 MCHC 32.3 RDW 15.2 Plt Count 152 D MPV 10.1 Absolute Neuts (auto) 4.3 Neutrophils % 81.2 Lymphocytes % 12.4 D Monocytes % 3.4 L Eosinophils % 2.5 D Basophils % 0.5 Nucleated RBC % 0 ESR Sodium 159 H 155 H Potassium 3.9 3.3 L Chloride 124 H 123 H Carbon Dioxide 31 28 Anion Gap 3 L 4 L BUN 42.1 H 34.9 H Creatinine 0.9 1.0 Est GFR (CKD-EPI)AfAm 67.10 59.08 Est GFR (CKD-EPI)NonAf 57.90 50.97 Random Glucose 116 H 138 H Serum Osmolality Calcium 8.0 L 7.6 L Phosphorus Magnesium Total Bilirubin Direct Bilirubin AST ALT Alkaline Phosphatase LD Total Total Protein Albumin Free T4 Free T3 Urine Osmolality 12/31/19 05:30 WBC RBC Hgb Hct MCV MCH MCHC RDW Plt Count MPV Absolute Neuts (auto) Neutrophils % Lymphocytes % Monocytes % Eosinophils % Basophils % Nucleated RBC % ESR Sodium 155 H Potassium 3.7 Chloride 121 H Carbon Dioxide 31 Anion Gap 3 L BUN 35.8 H Creatinine 1.0 Est GFR (CKD-EPI)AfAm 59.08 Est GFR (CKD-EPI)NonAf 50.97 Random Glucose 129 H Serum Osmolality Calcium 7.7 L Phosphorus Magnesium 3.4 H Total Bilirubin 2.0 H Direct Bilirubin AST 24 ALT 14 Alkaline Phosphatase 89 LD Total Total Protein 4.9 L Albumin 2.3 L Free T4 Free T3 Urine Osmolality Active Medications Generic Name Dose Route Start Last Admin Trade Name Freq PRN Reason Stop Dose Admin Heparin Sodium (Porcine) 5,000 unit 12/30/19 10:00 12/30/19 22:06 Heparin - SQ 5,000 unit BID GALO Administration Piperacillin Sod/Tazobactam 50 mls @ 100 mls/hr 12/30/19 18:00 12/31/19 02:27 Sod 3.375 gm/ Dextrose IVPB 100 mls/hr Q8H-IV GALO Administration Protocol Potassium Chloride 10 meq/ 1,005 mls @ 42 mls/hr 12/31/19 04:24 12/31/19 04: 48 Dextrose IV 42 mls/hr ASDIR GALO Administration Influenza Virus Vaccine Quadrival 60 mcg 12/31/19 10:00 Flulaval Quad [id number] IM 12/31/19 10:01 .ONCE ONE ASSESSMENT/PLAN: Dalia Maher is an 84 year old female with a past medical history of 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 Hypernatremia - free water deficit 3.5L - likely in setting of dehydration and poor PO intake - Fluids switched D51/2NS 65cc/hr with KCL - avoid correction by greater than 8 Meq/24hrs - BMP q4h, continue IV D5W 42cc/hr - nephrology consulted recommending continuing these fluids. - must be aware the risk of CPM is higher in the elderly - choi, I+Os, daily weights UTI - UA 3+ Leuk est positive - started on Zosyn due to cephalosporin allergy and levaquin one time dose given , one dose of vanco given. - Ucx pending - ID consulted (Collin)- continue Mild chronic lung dx - Chest CT ordered to r/o Asp Pna - Chest CT- mild chronic lung dx, w trace rt pleural effusion and basilar atelectasis of Rt lung, no PNA, distended GB w/ a small calculi. - asp precautions Sacral Ulcer - given one dose of nd Zosyn - wound care consulted - ID consulted - wound culture - turning q2h - will likely need air mattress and close wound care follow up Troponemia - 0.07-->0.09->0.08 has peaked - has T wave inversion in V4, V5, V6, II, III - likely demand ischemia from severe intravascular depletion - borderline trop elevation with flat trend and nl ck, ecg w/o significant changes from prior, no signs acs -recent echo unremarkable LV/RV ftn (07/12) Cachectic with poor PO intake - BMI 16.1 - has poor PO intake - dietary consult/Kelly claire consulted unable to perform given mental status of patient - consider PEG IR consult for placement - palliative consult - full code status but must continue to assess goals of care Elevated bilirubin - T bili 2.3 - RUQ U/S showing atrophic rt kidney and sludge in GB - improved today but ? need for HIDA given sludge Hypothyroidism - holding home synthroid - TSH- 0.05, T4 1.64 - ESR 75 - rpt as o/p may be altered given recent infection - consulted endocrine (neshiwat for synthroid mgmt) DVT PPx - heparin 5000 units bid FEN - 1/2 NS at 100cc/hr - continue to monitor electrolytes and replete as necessary, hypernatremia, hypermagnesemia noted and correcting with fluids - dysphagia puree diet Visit type - Emergency Visit Emergency Visit: Yes ED Registration Date: 12/29/19 Care time: The patient presented to the Emergency Department on the above date and was hospitalized for further evaluation of their emergent condition. - New Patient This patient is new to me today: No - Critical Care Critical Care patient: No - Discharge Referral Referred to [facility] Med P.C[facility] No ATTENDING PHYSICIAN STATEMENT I saw and evaluated the patient. I reviewed the resident's note and discussed the case with the resident. I agree with the resident's findings and plan as documented. SUBJECTIVE: OBJECTIVE: ASSESSMENT AND PLAN:
[2019-12-31] MEDS: HEPARIN NA (PORCINE) 5,000 UNITS/ML 1ML VIAL SQ SCH ×2 (09:39→22:08)
[2019-12-31] MEDS ORDERED: LEVOTHYROXINE SODIUM 100 MCG VIAL IVPUSH SCH (10:00)
[2019-12-31] MEDS ORDERED: FLU VACCINE QUAD 60 MCG/0.5 ML (MDV 19-20) IM ONE (10:00)
--- NOTE | 2019-12-31 10:23 | PN ---
Progress Note, Physician Chief Complaint: nonverbal TELE: NSR - Current Medication List Current Medications: Active Medications Heparin Sodium (Porcine) (Heparin -) 5,000 unit SQ BID GALO Last Admin: 12/31/19 09:39 Dose: 5,000 unit Piperacillin Sod/Tazobactam (Sod 3.375 gm/ Dextrose) 50 mls @ 100 mls/hr IVPB Q8H-IV GALO; Protocol Last Admin: 12/31/19 09:39 Dose: 100 mls/hr Potassium Chloride 10 meq/ (Dextrose) 1,005 mls @ 42 mls/hr IV ASDIR GALO Last Admin: 12/31/19 04:48 Dose: 42 mls/hr - Objective Vital Signs: Vital Signs Temperature 97.8 F 12/31/19 02:00 Pulse Rate 65 12/31/19 05:16 Respiratory Rate 12/31/19 05:16 Blood Pressure 105/62 12/31/19 05:16 O2 Sat by Pulse Oximetry (%) 99 12/31/19 04:00 Constitutional: Yes: No Distress, Calm Cardiovascular: Yes: Regular Rate and Rhythm Respiratory: Yes: CTA Bilaterally Gastrointestinal: Yes: Soft Edema: No Labs: CBC, BMP 12/31/19 05:30 12/31/19 05:30 INR, PTT INR 1.11 (0.83-1.09) H 12/29/19 18:30 Microbiology 12/29/19 19:15 Urine - Urine Clean Catch Urine Culture - Preliminary Non Lactose Fermenting Gnb 12/29/19 18:30 Blood - Peripheral Venous Blood Culture - Preliminary NO GROWTH OBTAINED AFTER 24 HOURS, INCUBATION TO CONTINUE FOR 4 DAYS. 12/29/19 18:30 Blood - Peripheral Venous Blood Culture - Preliminary NO GROWTH OBTAINED AFTER 24 HOURS, INCUBATION TO CONTINUE FOR 4 DAYS. - ....Imaging EKG: Image Reviewed Assessment/Plan Assessment/Plan ecg: sr nl intervals, nonspec stt changes, no sig change prior echo 06/2019: nl lv/rv, no sig valve path CXR: clear lungs elevated trops: -borderline trop elevation with flat trend and nl ck, ecg w/o significant changes from prior, no signs acs -recent echo unremarkable hypernatremia: likely cause altered MS along with UTI -cont ivfs, monitor na -renal consulting hypothyroid: -on synthroid UTI: as per PMD Altered MS: likely combo elevated Na and UTI -If no impovement with treatment, would check head CT. Continue tele until improvement in electrolytes.
--- NOTE | 2019-12-31 12:29 | PN ---
Progress Note (short form) - Note Progress Note: Non-verbal. Breathing is non-labored. No acute events overnight. OBJECTIVE: Intake & Output 12/28/19 12/29/19 12/30/19 12/31/19 23:59 23:59 23:59 23:59 Intake Total 1400 840 Output Total 200 500 Balance 1200 340 Weight 88 lb 2.958 oz 95 lb 6 oz 95 lb 6 oz Last Vital Signs Temp Pulse Resp BP Pulse Ox 97.3 F L 75 20 98/50 L 99 12/31/19 10:00 12/31/19 10:00 12/31/19 10:00 12/31/19 10:00 12/31/19 09:00 Active Medications Heparin Sodium (Porcine) (Heparin -) 5,000 unit SQ BID GALO Last Admin: 12/31/19 09:39 Dose: 5,000 unit Piperacillin Sod/Tazobactam (Sod 3.375 gm/ Dextrose) 50 mls @ 100 mls/hr IVPB Q8H-IV GALO; Protocol Last Admin: 12/31/19 09:39 Dose: 100 mls/hr Potassium Chloride 10 meq/ (Dextrose) 1,005 mls @ 42 mls/hr IV ASDIR GALO Last Admin: 12/31/19 04:48 Dose: 42 mls/hr Gen: NAD, nonverbal Heart: RRR Lung: decreased breath sounds at the bases Abd: soft, nontender Ext: no edema Unstageable sacral ulcer Laboratory Results - last 24 hr 12/30/19 12/30/19 12/30/19 12:52 12:52 13:15 WBC RBC Hgb Hct MCV MCH MCHC RDW Plt Count MPV Absolute Neuts (auto) Neutrophils % Lymphocytes % Monocytes % Eosinophils % Basophils % Nucleated RBC % ESR 75 H Sodium 162 H* Potassium 3.6 Chloride 127 H Carbon Dioxide 31 Anion Gap 4 L BUN 45.5 H Creatinine 0.9 Est GFR (CKD-EPI)AfAm 67.10 Est GFR (CKD-EPI)NonAf 57.90 Random Glucose 138 H Calcium 8.1 L Magnesium Total Bilirubin AST ALT Alkaline Phosphatase Total Protein Albumin Free T3 1.2 L 12/30/19 12/31/19 12/31/19 20:15 02:00 05:30 WBC 5.3 RBC 3.84 Hgb 10.9 Hct 33.6 MCV 87.4 MCH 28.3 MCHC 32.3 RDW 15.2 Plt Count 152 D MPV 10.1 Absolute Neuts (auto) 4.3 Neutrophils % 81.2 Lymphocytes % 12.4 D Monocytes % 3.4 L Eosinophils % 2.5 D Basophils % 0.5 Nucleated RBC % 0 ESR Sodium 159 H 155 H Potassium 3.9 3.3 L Chloride 124 H 123 H Carbon Dioxide 31 28 Anion Gap 3 L 4 L BUN 42.1 H 34.9 H Creatinine 0.9 1.0 Est GFR (CKD-EPI)AfAm 67.10 59.08 Est GFR (CKD-EPI)NonAf 57.90 50.97 Random Glucose 116 H 138 H Calcium 8.0 L 7.6 L Magnesium Total Bilirubin AST ALT Alkaline Phosphatase Total Protein Albumin Free T3 12/31/19 05:30 WBC RBC Hgb Hct MCV MCH MCHC RDW Plt Count MPV Absolute Neuts (auto) Neutrophils % Lymphocytes % Monocytes % Eosinophils % Basophils % Nucleated RBC % ESR Sodium 155 H Potassium 3.7 Chloride 121 H Carbon Dioxide 31 Anion Gap 3 L BUN 35.8 H Creatinine 1.0 Est GFR (CKD-EPI)AfAm 59.08 Est GFR (CKD-EPI)NonAf 50.97 Random Glucose 129 H Calcium 7.7 L Magnesium 3.4 H Total Bilirubin 2.0 H AST 24 ALT 14 Alkaline Phosphatase 89 Total Protein 4.9 L Albumin 2.3 L Free T3 ASSESSMENT AND PLAN: UTI Hypernatremia/Dehydration Failure to Thrive Sacral Decubitus Ulcer +Troponins likely Demand Ischemia Hypothyroidism Advanced Dementia - continue antibiotics - f/u cultures - free water replacement - monitor lytes - aspiration precautions - Local wound care - DVT prophylaxis Dr Adams
--- NOTE | 2019-12-31 13:10 | PN ---
Progress Note (short form) - Note Progress Note: somnalent NAD Vital Signs Period Temp Pulse Resp BP Sys/Rdz Pulse Ox Last 24 Hr 97.3 F-98 F 65-97 13-22 80-120/40-87 76-99 cor-rrr lungs decreased bs at bases abd soft,nt ext no edema CBC, BMP 12/31/19 05:30 12/31/19 05:30 Microbiology 12/29/19 19:15 Urine - Urine Clean Catch Urine Culture - Preliminary Non Lactose Fermenting Gnb 12/29/19 18:30 Blood - Peripheral Venous Blood Culture - Preliminary NO GROWTH OBTAINED AFTER 24 HOURS, INCUBATION TO CONTINUE FOR 4 DAYS. 12/29/19 18:30 Blood - Peripheral Venous Blood Culture - Preliminary NO GROWTH OBTAINED AFTER 24 HOURS, INCUBATION TO CONTINUE FOR 4 DAYS. a/p dehydration hypernatremia uti sacral [id number] care per surgery, doubt infected failure to thrive keflex allergy severe dementia goals of care f/u cultures continue zosyn for now
--- NOTE | 2019-12-31 14:32 | PN ---
Progress Note, SWING FRAME GRINDER OPERATOR - Note Progress Note: Consultation received Reviewed chart. . SWING FRAME GRINDER OPERATOR unable to formally evaluate oral / facial structure and swallowing status secondary to altered mental status with advanced dementia, obtundent state. SWING FRAME GRINDER OPERATOR unable to evaluate swallow status at this time. SWING FRAME GRINDER OPERATOR spoke with monorail charger operator and dietitian. Pt is not able to participate in swallow exam at this time. SWING FRAME GRINDER OPERATOR will attempt to perform dysphagia eval at another time.
[2019-12-31] MEDS ORDERED: POTASSIUM CHLORIDE 10 MEQ in DEXTROSE 5%-WATER - 1,000 ML IVPB SCH (15:55)
[2019-12-31 16:03] LABS: BLOOD UREA NITROGEN 32.5 mg/dL (7-18); CALCIUM 7.5 mg/dL (8.5-10.1); CREATININE 0.9 mg/dL (0.55-1.3)
--- NOTE | 2019-12-31 16:47 | PN ---
Progress Note, Physician History of Present Illness: Pt seen and examined at bedside. No great change in her clinical status. - Current Medication List Current Medications: Active Medications Heparin Sodium (Porcine) (Heparin -) 5,000 unit SQ BID GALO Last Admin: 12/31/19 09:39 Dose: 5,000 unit Piperacillin Sod/Tazobactam (Sod 3.375 gm/ Dextrose) 50 mls @ 100 mls/hr IVPB Q8H-IV GALO; Protocol Last Admin: 12/31/19 09:39 Dose: 100 mls/hr Potassium Chloride 10 meq/ (Dextrose) 1,005 mls @ 42 mls/hr IVPB Q24H GALO Mupirocin (Bactroban 2% Cream -) 1 applic TP BID GALO - Objective Vital Signs: Vital Signs Temperature 97.7 F 12/31/19 14:00 Pulse Rate 68 12/31/19 14:00 Respiratory Rate 20 12/31/19 10:00 Blood Pressure 95/56 L 12/31/19 14:00 O2 Sat by Pulse Oximetry (%) 99 12/31/19 09:00 Constitutional: Yes: Calm Eyes: Yes: Conjunctiva Clear HENT: Yes: Atraumatic Neck: Yes: Supple Cardiovascular: Yes: S1, S2 Respiratory: Yes: CTA Bilaterally Gastrointestinal: Yes: Soft Genitourinary: Yes: Incontinence Musculoskeletal: Yes: Muscle Weakness Edema: No Neurological: Yes: Confusion Labs: CBC, BMP 12/31/19 05:30 12/31/19 15:00 INR, PTT INR 1.11 (0.83-1.09) H 12/29/19 18:30 Assessment/Plan Current Medications Generic Name Dose Route Start Last Admin Trade Name Freq PRN Reason Stop Dose Admin Heparin Sodium (Porcine) 5,000 unit 12/30/19 10:00 12/31/19 09:39 Heparin - SQ 5,000 unit BID GALO Administration Piperacillin Sod/Tazobactam 50 mls @ 100 mls/hr 12/30/19 18:00 12/31/19 09:39 Sod 3.375 gm/ Dextrose IVPB 100 mls/hr Q8H-IV GALO Administration Protocol Potassium Chloride 10 meq/ 1,005 mls @ 42 mls/hr 12/31/19 15:55 Dextrose IVPB Q24H GALO Mupirocin 1 applic 12/31/19 22:00 Bactroban 2% Cream - TP BID GALO Impression 1. hypernatremia 2. malnutrition 3. dehydration 4. failure to thrive 5. dementia 6. hypothyroidism Plan - sodium is improving - change fluids to d51/2 to prevent a rapid decrease in sodium - cont to monitor bmp - discussed with medical team - will evaluate for clinimix tomorrow after lytes are more stable
[2019-12-31] MEDS ORDERED: D5-1/2NS+10 MEQ KCL - 10 MEQ/1,000 ML INFUS.BAG IV SCH (17:00)
[2019-12-31] MEDS: MUPIROCIN CA 2% TOPICAL CREAM 15 GM TUBE TP SCH (22:08)
[2020-01-01] MEDS ORDERED: DEXTROSE 5%-WATER - 50 ML IVPB ONE ×3 (00:54→17:29)
[2020-01-01] MEDS ORDERED: PIPERACILLIN/TAZOBACTAM 3.375 GM VIAL IVPB ONE ×3 (00:54→17:29)
[2020-01-01] MEDS: PIPERACILLIN/TAZOB 3.375 GM 3.375 GM in DEXTROSE 5%-WATER - 50 ML IVPB SCH ×3 (02:33→17:32)
[2020-01-01 07:45] LABS: BASO % 0.9 % (0-2.0); EOS % 4.7 % (0-4.5); HEMOGLOBIN 10.9 GM/dL (10.7-15.3); LYMPH % 26.4 % (8-40); MCH 28.1 pg (25.7-33.7); MCHC 32.1 g/dl (32.0-36.0); MEAN CELL VOLUME 87.5 fl (80-96); MEAN PLT VOLUME 10.3 fl (7.5-11.1); MONO % 3.2 % (3.8-10.2); NEUT % 64.8 % (42.8-82.8); PLATELET COUNT 131 K/MM3 (134-434); RBC 3.89 M/mm3 (3.60-5.2); RDW 15.5 % (11.6-15.6); WHITE BLOOD COUNT 4.2 K/mm3 (4.0-10.0)
[2020-01-01 08:14] LABS: BLOOD UREA NITROGEN 29.6 mg/dL (7-18); CALCIUM 7.6 mg/dL (8.5-10.1); CREATININE 0.9 mg/dL (0.55-1.3); POTASSIUM 3.9 mmol/L (3.5-5.1)
[2020-01-01] MEDS ORDERED: D5-1/2NS+10 MEQ KCL - 10 MEQ/1,000 ML INFUS.BAG IV SCH (08:30)
--- NOTE | 2020-01-01 08:30 | PN ---
Progress Note, Physician History of Present Illness: No Cv events overnight Tele: NSR - Current Medication List Current Medications: Active Medications Heparin Sodium (Porcine) (Heparin -) 5,000 unit SQ BID [facility] Last Admin: 12/31/19 22:08 Dose: 5,000 unit Piperacillin Sod/Tazobactam (Sod 3.375 gm/ Dextrose) 50 mls @ 100 mls/hr IVPB Q8H-IV GALO; Protocol Last Admin: 01/01/20 02:33 Dose: 100 mls/hr Potassium Chloride/Dextrose/Sod Cl (D5-1/2ns+10 Meq Kcl -) 10 meq in 1,000 mls @ 65 mls/hr IV Q15H [facility] Last Admin: 12/31/19 22:04 Dose: 65 mls/hr Mupirocin (Bactroban 2% Cream -) 1 applic TP BID [facility] Last Admin: 12/31/19 22:08 Dose: 1 applic - Objective Vital Signs: Vital Signs Temperature 97.8 F 01/01/20 05:00 Pulse Rate 50 L 01/01/20 05:00 Respiratory Rate 20 01/01/20 05:00 Blood Pressure 98/58 L 01/01/20 05:00 O2 Sat by Pulse Oximetry (%) 98 12/31/19 20:00 Constitutional: Yes: No Distress (Non-verbal) Cardiovascular: Yes: Regular Rate and Rhythm Respiratory: Yes: CTA Bilaterally Edema: No Labs: CBC, BMP 01/01/20 05:30 01/01/20 05:30 INR, PTT INR 1.11 (0.83-1.09) H 12/29/19 18:30 Assessment/Plan elevated trops: -borderline trop elevation with flat trend and nl ck, ecg w/o significant changes from prior, no signs acs -recent echo unremarkable -Stable CV status UTI: as per PMD Altered MS: likely combo elevated Na and UTI Reasonable to continue tele until improvement in electrolytes.
[2020-01-01] MEDS: HEPARIN NA (PORCINE) 5,000 UNITS/ML 1ML VIAL SQ SCH ×2 (09:05→21:52)
[2020-01-01] MEDS: MUPIROCIN CA 2% TOPICAL CREAM 15 GM TUBE TP SCH ×2 (09:08→21:52)
--- NOTE | 2020-01-01 15:15 | PN ---
Progress Note (short form) - Note Progress Note: Additional visit: 20 min Spoke with some time regarding the goals of care. Patient has had a decline in her mental status dating back to approximately 2010 notably worse in 2012 when they were formally diagnosed with Alzheimer's dementia and started on donepezil and memantine. The patient has had a stepwise progression since then likely made worse by the various medical comorbidities are delineated within the chart. Given the objective and subjective findings contributing to the patient's current presentation of toxic metabolic encephalopathy superimposed on to their chronic severe dementia with multiple severe and persisting medical comorbidities that likely will not resolve given her constellation of medical issues, the is opted to make her DO NOT RESUSCITATE/DO NOT INTUBATE, and will pursue home hospice as the patient clearly has a less than 6-month life expectancy. This was delineated to me after discussion regarding the patient's wishes for herself. Molst form was completed and the patient was indicated as referred to social work for continual evaluation for home hospice services. He wishes for her to at home in peace. We will back off on aggressive medical treatments and focus on comfort. Visit type - Emergency Visit Emergency Visit: No - New Patient This patient is new to me today: No - Critical Care Critical Care patient: No
--- NOTE | 2020-01-01 15:20 | PN ---
Physical Exam: SUBJECTIVE: Patient seen and examined; As stated in the previous progress note they are now DO NOT RESUSCITATE DO NOT INTUBATE and the patient is planning to go home on hospice as they have less than a 6 month life expectancy. 10 sys ROS done and negative aside from HPI OBJECTIVE: Vital Signs Period Temp Pulse Resp BP Sys/Rdz Pulse Ox Last 24 Hr 97 F-97.8 F 50-70 18-20 87-113/46-67 98-100 GENERAL: The patient is awake, alert, and fully oriented, in no acute distress. HEAD: Normal with no signs of trauma. EYES: PERRL, extraocular movements intact, sclera anicteric, conjunctiva clear. No ptosis. ENT: Ears normal, nares patent, oropharynx clear without exudates, moist mucous membranes. NECK: Trachea midline, full range of motion, supple. LUNGS: Breath sounds equal, clear to auscultation bilaterally, no wheezes, no crackles, no accessory muscle use. HEART: Regular rate and rhythm, S1, S2 without murmur, rub or gallop. ABDOMEN: Soft, nontender, nondistended, normoactive bowel sounds, no guarding, no rebound, no hepatosplenomegaly, no masses. EXTREMITIES: 2+ pulses, warm, well-perfused, no edema. NEUROLOGICAL: Cranial nerves II through XII grossly intact. Normal speech, gait not observed. PSYCH: Normal mood, normal affect. SKIN: Warm, dry, normal turgor, no rashes or lesions noted Laboratory Results - last 24 hr 12/31/19 01/01/20 01/01/20 15:00 05:30 05:30 WBC 4.2 RBC 3.89 Hgb 10.9 Hct 34.0 MCV 87.5 MCH 28.1 MCHC 32.1 RDW 15.5 Plt Count 131 L MPV 10.3 Absolute Neuts (auto) 2.7 Neutrophils % 64.8 D Lymphocytes % 26.4 D Monocytes % 3.2 L Eosinophils % 4.7 H D Basophils % 0.9 Nucleated RBC % 0 Sodium 151 H 151 H Potassium 4.0 3.9 Chloride 121 H 120 H Carbon Dioxide 29 27 Anion Gap 2 L 5 L BUN 32.5 H 29.6 H Creatinine 0.9 0.9 Est GFR (CKD-EPI)AfAm 67.10 67.10 Est GFR (CKD-EPI)NonAf 57.90 57.90 Random Glucose 117 H 110 H Calcium 7.5 L 7.6 L Active Medications Generic Name Dose Route Start Last Admin Trade Name Ibis PRN Reason Stop Dose Admin Heparin Sodium (Porcine) 5,000 unit 12/30/19 10:00 01/01/20 09:05 Heparin - SQ 5,000 unit BID GALO Administration Piperacillin Sod/Tazobactam 50 mls @ 100 mls/hr 12/30/19 18:00 01/01/20 09:05 Sod 3.375 gm/ Dextrose IVPB 100 mls/hr Q8H-IV GALO Administration Protocol Potassium Chloride/Dextrose/Sod Cl 10 meq in 1,000 mls @ 65 mls/hr 01/01/20 08 :30 01/01/20 09:04 D5-1/2ns+10 Meq Kcl - IV 65 mls/hr ASDIR GALO Administration Mupirocin 1 applic 12/31/19 22:00 01/01/20 09:08 Bactroban 2% Cream - TP 1 applic BID GALO Administration Will stop aggressive testing and lab draws. QD BMP and CBC only No further imaging unless pertaining to patient's overall comfort with respect to improving her acute issues and getting her home on hospice care. ASSESSMENT/PLAN: Patient is an 84-year-old female presenting to the hospital with a chief complaint of toxic metabolic encephalopathy secondary to hypernatremia, infection, acute on chronic mental illness. Please see full discussion of short progress note for my meeting with the family earlier today. Additional 20 minutes in addition to the time billed on this note. Patient has failure to thrive in the patient's family does not wish to proceed with a PEG tube. is healthcare proxy. After prolonged discussion he is determined that she would not wish to be kept on tube feeds and is been considering moving to comfort care for some time. Given that she has less than 6 months to live we will keep her DNR/DNI and place her on home hospice referral and plan to discharge home when coordinated with social media director Severe hypernatremia, improved, daily checks, continuing on half-normal saline at no low rate. No overcorrection noted today. Stage III decubitus ulcer, continue wound care recommendations Pneumonia, continue pit/tazo Dementia, fall and aspiration precautions, is DO NOT RESUSCITATE DO NOT INTUBATE going home with hospice. Completing molst form, acting social media director, anticipate discharge home within 24 to 36 hours pending social service involvement. Visit type - Emergency Visit Emergency Visit: No - New Patient This patient is new to me today: No - Critical Care Critical Care patient: No
--- NOTE | 2020-01-01 17:58 | PN ---
Progress Note, Physician History of Present Illness: Pt seen and examined at bedside. No great change in status. - Current Medication List Current Medications: Active Medications Heparin Sodium (Porcine) (Heparin -) 5,000 unit SQ BID [facility] Last Admin: 01/01/20 09:05 Dose: 5,000 unit Piperacillin Sod/Tazobactam (Sod 3.375 gm/ Dextrose) 50 mls @ 100 mls/hr IVPB Q8H-IV [facility]; Protocol Last Admin: 01/01/20 17:32 Dose: 100 mls/hr Potassium Chloride/Dextrose/Sod Cl (D5-1/2ns+10 Meq Kcl -) 10 meq in 1,000 mls @ 65 mls/hr IV ASDIR [facility] Last Admin: 01/01/20 09:04 Dose: 65 mls/hr Mupirocin (Bactroban 2% Cream -) 1 applic TP BID [facility] Last Admin: 01/01/20 09:08 Dose: 1 applic - Objective Vital Signs: Vital Signs Temperature 97.5 F L 01/01/20 14:00 Pulse Rate 55 L 01/01/20 14:00 Respiratory Rate 01/01/20 14:00 Blood Pressure 102/61 01/01/20 14:00 O2 Sat by Pulse Oximetry (%) 100 01/01/20 09:00 Constitutional: Yes: Calm Eyes: Yes: Conjunctiva Clear HENT: Yes: Atraumatic Neck: Yes: Supple Cardiovascular: Yes: S1, S2 Respiratory: Yes: CTA Bilaterally Gastrointestinal: Yes: Soft Genitourinary: Yes: Incontinence Musculoskeletal: Yes: WNL Edema: No Neurological: Yes: Lethargy Labs: CBC, BMP 01/01/20 05:30 01/01/20 05:30 INR, PTT INR 1.11 (0.83-1.09) H 12/29/19 18:30 Assessment/Plan Current Medications Generic Name Dose Route Start Last Admin Trade Name Freq PRN Reason Stop Dose Admin Heparin Sodium (Porcine) 5,000 unit 12/30/19 10:00 01/01/20 09:05 Heparin - SQ 5,000 unit BID [facility] Administration Piperacillin Sod/Tazobactam 50 mls @ 100 mls/hr 12/30/19 18:00 01/01/20 17:32 Sod 3.375 gm/ Dextrose IVPB 100 mls/hr Q8H-IV [facility] Administration Protocol Potassium Chloride/Dextrose/Sod Cl 10 meq in 1,000 mls @ 65 mls/hr 01/01/20 08 :30 01/01/20 09:04 D5-1/2ns+10 Meq Kcl - IV 65 mls/hr ASDIR [facility]O Administration Mupirocin 1 applic 12/31/19 22:00 01/01/20 09:08 Bactroban 2% Cream - TP 1 applic BID [facility] Administration Impression 1. hypernatremia 2. malnutrition 3. dehydration 4. failure to thrive 5. dementia 6. hypothyroidism Plan - cont hypotonic fluids - repeat labs in am - monitor sodium - will follow
--- NOTE | 2020-01-01 20:11 | CONSULT ---
Consult Consult Specialty:: ENDOCRINE Referred by:: Enrique Owens Reason for Consultation:: Hypothyroidism - History of Present Illness Chief Complaint: oms History of Present Illness: 84 year old female with a past medical history of advanced Alzheimer's disease ( non-verbal at baseline), hypothyroidism, and NPH presenting upon request of her PCP due to failure to thrive and hypernatremia. Patient was admitted for weakness and poor po intake and worsening mental status.found to have hyperthyroidism upon evaluation. 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 Endocrine: Yes: Hypothyroidism - Alcohol/Substance Use Hx Alcohol Use: No - Smoking History Smoking history: Never smoked Have you smoked in the past 12 months: No Aproximately how many cigarettes per day: 0 Home Medications - Allergies Allergies/Adverse Reactions: Allergies Allergy/AdvReac Type Severity Reaction Status Date / Time aspirin Allergy Severe Verified 12/29/19 18:09 cephalexin Allergy Mild Verified 12/29/19 18:09 cephalexin monohydrate Allergy Mild Verified 12/29/19 18:09 [From Keflex] naproxen Allergy Mild Verified 12/29/19 18:09 - Home Medications Home Medications: Ambulatory Orders Levothyroxine [Synthroid -] 100 mcg PO DAILY@0700 #30 tablet 04/09/17 Mupirocin Ointment [Bactroban 2% Ointment -] 1 applic TD DAILY 12/29/19 Review of Systems Unable to obtain ROS, reason: alzheimer dementia - Review of Systems Constitutional: reports: Lethargy, Malaise, Weakness Physical Exam Vital Signs: Vital Signs Temperature 97.5 F L 01/01/20 14:00 Pulse Rate 55 L 01/01/20 14:00 Respiratory Rate 20 01/01/20 14:00 Blood Pressure 102/61 01/01/20 14:00 O2 Sat by Pulse Oximetry (%) 100 01/01/20 09:00 Constitutional: Yes: Calm Eyes: Yes: EOM Intact HENT: Yes: Normocephalic Neck: Yes: Trachea Midline Cardiovascular: Yes: Regular Rate and Rhythm Respiratory: Yes: CTA Bilaterally Gastrointestinal: Yes: Normal Bowel Sounds ...Rectal Exam: Yes: Deferred Renal/: Yes: WNL Musculoskeletal: Yes: WNL Extremities: Yes: WNL Edema: No Integumentary: Yes: Pressure Ulcer, Venous Stasis Changes Wound/Incision: Yes: Reddened Neurological: Yes: Lethargy Labs: CBC, BMP 01/01/20 05:30 01/01/20 05:30 Problem List - Problems (1) Secondary hyperthyroidism Problems reviewed: Yes Code(s): E05.80 - OTHER THYROTOXICOSIS WITHOUT THYROTOXIC CRISIS OR STORM (2) Decubitus ulcer limited to breakdown of skin (stage 2) Problems reviewed: Yes Code(s): L89.92 - PRESSURE ULCER OF UNSPECIFIED SITE, STAGE 2 Qualifiers: Pressure injury location: contiguous region involving back and buttock Laterality: unspecified laterality Qualified Code(s): L89.42 - Pressure ulcer of contiguous site of back, buttock and hip, stage 2 (3) Failure to thrive Code(s): [id number] - Qualifiers: Failure to thrive age range: in adult Qualified Code(s): R62.7 - Adult failure to thrive (4) Hypernatremia Code(s): E87.0 - HYPEROSMOLALITY AND HYPERNATREMIA (5) Bradycardia Code(s): R00.1 - BRADYCARDIA, UNSPECIFIED (6) Hypotension Code(s): I95.9 - HYPOTENSION, UNSPECIFIED Qualifiers: Hypotension type: unspecified hypotension type Qualified Code(s): I95.9 - Hypotension, unspecified (7) Orthostatic hypotension Code(s): I95.1 - ORTHOSTATIC HYPOTENSION Assessment/Plan Current Active Problems hyperthyroidism excess t4 Decubitus ulcer limited to breakdown of skin (stage 2) (Acute) Failure to thrive (Acute) Hypernatremia (Acute) UTI (urinary tract infection) (Acute) Abnormal Lab Results 01/01/20 01/01/20 05:30 05:30 Plt Count 131 L Monocytes % 3.2 L Eosinophils % 4.7 H D Sodium 151 H Chloride 120 H Anion Gap 5 L BUN 29.6 H Random Glucose 110 H Calcium 7.6 L Laboratory Results - last 24 hr 01/01/20 01/01/20 05:30 05:30 WBC 4.2 RBC 3.89 Hgb 10.9 Hct 34.0 MCV 87.5 MCH 28.1 MCHC 32.1 RDW 15.5 Plt Count 131 L MPV 10.3 Absolute Neuts (auto) 2.7 Neutrophils % 64.8 D Lymphocytes % 26.4 D Monocytes % 3.2 L Eosinophils % 4.7 H D Basophils % 0.9 Nucleated RBC % 0 Sodium 151 H Potassium 3.9 Chloride 120 H Carbon Dioxide 27 Anion Gap 5 L BUN 29.6 H Creatinine 0.9 Est GFR (CKD-EPI)AfAm 67.10 Est GFR (CKD-EPI)NonAf 57.90 Random Glucose 110 H Calcium 7.6 L Laboratory Tests 12/30/19 12/30/19 05:50 10:40 TSH 0.05 L Free T4 1.65 H plan: hold synthroid dose repeat tsh when ft4 would need to restart synthroid later date if needed
[2020-01-01] MEDS: DEXTROSE 5%-WATER - 1,000 ML with POTASSIUM CHLORIDE 10 MEQ IV SCH (23:20)
[2020-01-02] MEDS ORDERED: PIPERACILLIN/TAZOBACTAM 3.375 GM VIAL IVPB ONE ×3 (01:31→16:46)
[2020-01-02] MEDS ORDERED: DEXTROSE 5%-WATER - 50 ML IVPB ONE ×3 (01:32→16:47)
[2020-01-02] MEDS: PIPERACILLIN/TAZOB 3.375 GM 3.375 GM in DEXTROSE 5%-WATER - 50 ML IVPB SCH ×3 (02:00→17:02)
[2020-01-02] MEDS: DEXTROSE 5%-WATER - 1,000 ML with POTASSIUM CHLORIDE 10 MEQ IV SCH (09:25)
[2020-01-02] MEDS: HEPARIN NA (PORCINE) 5,000 UNITS/ML 1ML VIAL SQ SCH ×2 (09:26→21:55)
[2020-01-02] MEDS: MUPIROCIN CA 2% TOPICAL CREAM 15 GM TUBE TP SCH ×2 (09:26→22:19)
--- NOTE | 2020-01-02 09:39 | PN ---
Progress Note, Physician History of Present Illness: No CV events overnight Tele: NSR Non-verbal this AM - Current Medication List Current Medications: Active Medications Heparin Sodium (Porcine) (Heparin -) 5,000 unit SQ BID [facility] Last Admin: 01/02/20 09:26 Dose: 5,000 unit Piperacillin Sod/Tazobactam (Sod 3.375 gm/ Dextrose) 50 mls @ 100 mls/hr IVPB Q8H-IV [facility]; Protocol Last Admin: 01/02/20 09:25 Dose: 100 mls/hr Potassium Chloride 10 meq/ (Dextrose) 1,005 mls @ 75 mls/hr IV Q13H [facility] Last Admin: 01/02/20 09:25 Dose: 75 mls/hr Mupirocin (Bactroban 2% Cream -) 1 applic TP BID [facility] Last Admin: 01/02/20 09:26 Dose: 1 applic - Objective Vital Signs: Vital Signs Temperature 98.6 F 01/02/20 06:00 Pulse Rate 58 L 01/02/20 06:00 Respiratory Rate 20 01/02/20 08:15 Blood Pressure 106/66 01/02/20 06:00 O2 Sat by Pulse Oximetry (%) 97 01/02/20 08:15 Constitutional: Yes: Other (Non verbal, open eyes) Cardiovascular: Yes: Regular Rate and Rhythm Respiratory: Yes: CTA Bilaterally Edema: No Labs: CBC, BMP 01/01/20 05:30 01/01/20 05:30 INR, PTT INR 1.11 (0.83-1.09) H 12/29/19 18:30 Assessment/Plan elevated trops: -borderline trop elevation with flat trend and nl ck, ecg w/o significant changes from prior, no signs acs -recent echo unremarkable -Stable CV status UTI: as per PMD Altered MS: likely combo elevated Na and UTI
[2020-01-02 09:57] LABS: BASO % 0.4 % (0-2.0); EOS % 3.2 % (0-4.5); HEMATOCRIT 30.7 % (32.4-45.2); LYMPH % 27.3 % (8-40); MCH 28.1 pg (25.7-33.7); MCHC 32.7 g/dl (32.0-36.0); MEAN PLT VOLUME 9.8 fl (7.5-11.1); MONO % 4.1 % (3.8-10.2); PLATELET COUNT 142 K/MM3 (134-434); RBC 3.57 M/mm3 (3.60-5.2); RDW 14.9 % (11.6-15.6); WHITE BLOOD COUNT 5.6 K/mm3 (4.0-10.0)
[2020-01-02 10:11] LABS: BLOOD UREA NITROGEN 22.5 mg/dL (7-18); CALCIUM 7.4 mg/dL (8.5-10.1); CREATININE 0.7 mg/dL (0.55-1.3); POTASSIUM 4.2 mmol/L (3.5-5.1)
--- NOTE | 2020-01-02 10:51 | PN ---
Progress Note (short form) - Note Progress Note: nonverbal Vital Signs Period Temp Pulse Resp BP Sys/Rdz Pulse Ox Last 24 Hr 97.3 F-98.8 F 55-72 20-20 98-107/51-66 96-97 cor-rrr lungs clear abd soft,nt ext no edema sacral ulcer CBC, BMP 01/02/20 09:35 01/02/20 09:35 Microbiology 12/31/19 06:00 Wound Gram Stain - Final 12/31/19 06:00 Wound Wound Culture - Preliminary Non Lactose Fermenting Gnb Diphtheroid/Corynebacterium 12/29/19 18:30 Blood - Peripheral Venous Blood Culture - Preliminary NO GROWTH OBTAINED AFTER 72 HOURS, INCUBATION TO CONTINUE FOR 2 DAYS. 12/29/19 18:30 Blood - Peripheral Venous Blood Culture - Preliminary NO GROWTH OBTAINED AFTER 72 HOURS, INCUBATION TO CONTINUE FOR 2 DAYS. 12/29/19 19:15 Urine - Urine Clean Catch Urine Culture - Final Citrobacter Koseri a/p uti day #4 antibiotics, would complete 5 days total and d/c antibiotics and observe sacral wrfbv-womjglsdzpb-aejnt care per surgery, doubt infected failure to thrive keflex allergy severe dementia goals of care noted- dnr/dni- comfort care d/w hospitalist
--- NOTE | 2020-01-02 18:58 | PN ---
Physical Exam: SUBJECTIVE: Patient seen and examined. Afebrile and asymptomatic. Discussed with about palliative care. stated he would get back to us. Denies f/c/n/v/d/sob/cp OBJECTIVE: Vital Signs Period Temp Pulse Resp BP Sys/Rdz Pulse Ox Last 24 Hr 97.6 F-98.8 F 57-72 -20 89-107/51-66 96-97 GENERAL: The patient is somnolent but improved from yesterday. HEAD: Normal with no signs of trauma. LUNGS: Breath sounds equal, clear to auscultation bilaterally, no wheezes, no crackles, no accessory muscle use. HEART: Regular rate and rhythm, S1, S2 without murmur, rub or gallop. ABDOMEN: Soft, nontender, nondistended. EXTREMITIES: 2+ pulses, warm, well-perfused, no edema. NEUROLOGICAL: Cranial nerves II through XII grossly intact. Normal speech, gait not observed. PSYCH: very somnolent SKIN: Unstagable sacral ulcer Laboratory Results - last 24 hr 01/01/20 01/02/20 01/02/20 05:30 09:35 09:35 WBC 5.6 RBC 3.57 L Hgb 10.0 L Hct 30.7 L MCV 86.0 MCH 28.1 MCHC 32.7 RDW 14.9 Plt Count 142 MPV 9.8 Absolute Neuts (auto) 3.7 Neutrophils % 65.0 Lymphocytes % 27.3 Monocytes % 4.1 Eosinophils % 3.2 Basophils % 0.4 Nucleated RBC % 0 Sodium 151 H 143 Potassium 3.9 4.2 Chloride 120 H 112 H Carbon Dioxide 27 29 Anion Gap 5 L 2 L BUN 29.6 H 22.5 H Creatinine 0.9 0.7 Est GFR (CKD-EPI)AfAm 67.10 90.93 Est GFR (CKD-EPI)NonAf 57.90 78.45 Random Glucose 110 H 198 H Calcium 7.6 L 7.4 L C-Reactive Protein 1.8 H Active Medications Generic Name Dose Route Start Last Admin Trade Name Freq PRN Reason Stop Dose Admin Heparin Sodium (Porcine) 5,000 unit 12/30/19 10:00 01/02/20 09:26 Heparin - SQ 5,000 unit BID [facility] Administration Piperacillin Sod/Tazobactam 50 mls @ 100 mls/hr 12/30/19 18:00 01/02/20 17:02 Sod 3.375 gm/ Dextrose IVPB 100 mls/hr Q8H-IV [facility] Administration Protocol Potassium Chloride 10 meq/ 1,005 mls @ 75 mls/hr 01/01/20 18:00 01/02/20 09: 25 Dextrose IV 75 mls/hr Q13H [facility] Administration Mupirocin 1 applic 12/31/19 22:00 01/02/20 09:26 Bactroban 2% Cream - TP 1 applic BID [facility] Administration ASSESSMENT/PLAN: Dalia Maher is an 84 year old female with a past medical history of 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 #Hypernatremia now resolved likely in setting of dehydration and poor PO intake Fluids D5 with KCL choi, I+Os, daily weights #UTI UA 3+ Leuk est positive cephalosporin allergy Zosyn D4, d/c tomorrow at D5 ID consulted (Collin)- continue #Mild chronic lung dx Chest CT- mild chronic lung dx, w trace rt pleural effusion and basilar atelectasis of Rt lung, no PNA, distended GB w/ a small calculi. Aspiration precautions #Sacral Ulcer wound care consulted ID consulted Turn and reposition pt regularily #Troponemia likely demand ischemia from reduced volume borderline trop elevation with flat trend and nl ck, ecg w/o significant changes from prior, no signs acs #Cachectic with poor PO intake consider PEG palliative consult Pt is DNR/DNI Discussed with Hospice, stated he would let us know- will give living will form #Elevated bilirubin RUQ U/S showing atrophic rt kidney and sludge in GB #Hypothyroidism holding synthroid r/p TSH #DVT PPx heparin 5000 units bid FEN Fluids D5 with KCL Pure diet Dispo: f/u living will status with tomorrow, DNR/DNI Visit type - Emergency Visit Emergency Visit: Yes ED Registration Date: 12/29/19 Care time: The patient presented to the Emergency Department on the above date and was hospitalized for further evaluation of their emergent condition. - New Patient This patient is new to me today: Yes Date on this admission: 01/02/20 - Critical Care Critical Care patient: No - Discharge Referral Referred to [facility] Med P.C.: No ATTENDING PHYSICIAN STATEMENT I saw and evaluated the patient. I reviewed the resident's note and discussed the case with the resident. I agree with the resident's findings and plan as documented. SUBJECTIVE: OBJECTIVE: ASSESSMENT AND PLAN:
--- NOTE | 2020-01-02 19:14 | PN ---
Progress Note, Physician History of Present Illness: Pt seen and examined at bedside. No great change in status. - Current Medication List Current Medications: Active Medications Heparin Sodium (Porcine) (Heparin -) 5,000 unit SQ BID [facility]O Last Admin: 01/02/20 09:26 Dose: 5,000 unit Piperacillin Sod/Tazobactam (Sod 3.375 gm/ Dextrose) 50 mls @ 100 mls/hr IVPB Q8H-IV G[facility]O; Protocol Last Admin: 01/02/20 17:02 Dose: 100 mls/hr Potassium Chloride 10 meq/ (Dextrose) 1,005 mls @ 75 mls/hr IV Q13H [facility] Last Admin: 01/02/20 09:25 Dose: 75 mls/hr Mupirocin (Bactroban 2% Cream -) 1 applic TP BID [facility]O Last Admin: 01/02/20 09:26 Dose: 1 applic - Objective Vital Signs: Vital Signs Temperature 98.6 F 01/02/20 14:00 Pulse Rate 57 L 01/02/20 14:00 Respiratory Rate 20 01/02/20 14:00 Blood Pressure 89/51 L 01/02/20 14:00 O2 Sat by Pulse Oximetry (%) 97 01/02/20 08:15 Constitutional: Yes: Calm Eyes: Yes: Conjunctiva Clear HENT: Yes: Atraumatic Neck: Yes: Supple Cardiovascular: Yes: S1, S2 Respiratory: Yes: CTA Bilaterally Gastrointestinal: Yes: WNL Genitourinary: Yes: Incontinence Musculoskeletal: Yes: WNL Edema: No Integumentary: Yes: WNL Neurological: Yes: Confusion Labs: CBC, BMP 01/02/20 09:35 01/02/20 09:35 INR, PTT INR 1.11 (0.83-1.09) H 12/29/19 18:30 Assessment/Plan Current Medications Generic Name Dose Route Start Last Admin Trade Name Freq PRN Reason Stop Dose Admin Heparin Sodium (Porcine) 5,000 unit 12/30/19 10:00 01/02/20 09:26 Heparin - SQ 5,000 unit BID GALO Administration Piperacillin Sod/Tazobactam 50 mls @ 100 mls/hr 12/30/19 18:00 01/02/20 17:02 Sod 3.375 gm/ Dextrose IVPB 100 mls/hr Q8H-IV [facility]O Administration Protocol Potassium Chloride 10 meq/ 1,005 mls @ 75 mls/hr 01/01/20 18:00 01/02/20 09: 25 Dextrose IV 75 mls/hr Q13H [facility] Administration Mupirocin 1 applic 12/31/19 22:00 01/02/20 09:26 Bactroban 2% Cream - TP 1 applic BID GALO Administration Impression 1. hypernatremia 2. malnutrition 3. dehydration 4. failure to thrive 5. dementia 6. hypothyroidism Plan - sodium is improved - can change fluids to clinimix - repeat labs in am - swallow eval - will follow
[2020-01-02] MEDS ORDERED: SODIUM CHLORIDE 250 ML IV STA (19:15)
[2020-01-02] MEDS ORDERED: AMINO ACIDS 4.25%/D5W 1,000 ML IV SCH (19:15)
--- NOTE | 2020-01-02 23:36 | PN ---
Progress Note, Physician Chief Complaint: lethargic responding to verbal stimuli - Current Medication List Current Medications: Active Medications Heparin Sodium (Porcine) (Heparin -) 5,000 unit SQ BID [facility]O Last Admin: 01/02/20 21:55 Dose: 5,000 unit Piperacillin Sod/Tazobactam (Sod 3.375 gm/ Dextrose) 50 mls @ 100 mls/hr IVPB Q8H-IV [facility]; Protocol Last Admin: 01/02/20 17:02 Dose: 100 mls/hr Amino Acids (Clinimix -) 1,000 mls @ 55 mls/hr IV Q24H [facility] Mupirocin (Bactroban 2% Cream -) 1 applic TP BID GALO Last Admin: 01/02/20 22:19 Dose: 1 applic - Objective Vital Signs: Vital Signs Temperature 97.5 F L 01/02/20 22:00 Pulse Rate 60 01/02/20 22:00 Respiratory Rate 20 01/02/20 22:00 Blood Pressure 100/67 01/02/20 22:00 O2 Sat by Pulse Oximetry (%) 96 01/02/20 21:00 Constitutional: Yes: Calm Eyes: Yes: EOM Intact HENT: Yes: Normocephalic Cardiovascular: Yes: Bradycardia Respiratory: Yes: CTA Bilaterally Gastrointestinal: Yes: Normal Bowel Sounds ...Rectal Exam: Yes: Deferred Genitourinary: Yes: WNL Musculoskeletal: Yes: Muscle Weakness Extremities: Yes: Delayed Capillary Refill Neurological: Yes: Alert, Confusion Labs: CBC, BMP 01/02/20 09:35 01/02/20 09:35 INR, PTT INR 1.11 (0.83-1.09) H 12/29/19 18:30 Problem List - Problems (1) Secondary hyperthyroidism Code(s): E05.80 - OTHER THYROTOXICOSIS WITHOUT THYROTOXIC CRISIS OR STORM (2) Decubitus ulcer limited to breakdown of skin (stage 2) Code(s): L89.92 - PRESSURE ULCER OF UNSPECIFIED SITE, STAGE 2 Qualifiers: Pressure injury location: contiguous region involving back and buttock Laterality: unspecified laterality Qualified Code(s): L89.42 - Pressure ulcer of contiguous site of back, buttock and hip, stage 2 (3) Failure to thrive Code(s): [id number] - Qualifiers: Failure to thrive age range: in adult Qualified Code(s): R62.7 - Adult failure to thrive (4) Hypernatremia Code(s): E87.0 - HYPEROSMOLALITY AND HYPERNATREMIA (5) Bradycardia Code(s): R00.1 - BRADYCARDIA, UNSPECIFIED (6) Hypotension Code(s): I95.9 - HYPOTENSION, UNSPECIFIED Qualifiers: Hypotension type: unspecified hypotension type Qualified Code(s): I95.9 - Hypotension, unspecified (7) Orthostatic hypotension Code(s): I95.1 - ORTHOSTATIC HYPOTENSION Assessment/Plan Current Active Problems hyperthyroidism secondary Decubitus ulcer limited to breakdown of skin (stage 2) (Acute) Failure to thrive (Acute) Hypernatremia (Acute) Secondary hyperthyroidism (Acute) UTI (urinary tract infection) (Acute) Abnormal Lab Results 01/01/20 01/02/20 01/02/20 05:30 09:35 09:35 RBC 3.57 L Hgb 10.0 L Hct 30.7 L Sodium 151 H Chloride 120 H 112 H Anion Gap 5 L 2 L BUN 29.6 H 22.5 H Random Glucose 110 H 198 H Calcium 7.6 L 7.4 L C-Reactive Protein 1.8 H plan: hold off synthroid till ft4 normalized restart synthroid 25mcg when tsh is normal.
[2020-01-03] MEDS ORDERED: DEXTROSE 5%-WATER - 50 ML IVPB ONE ×2 (00:56→09:26)
[2020-01-03] MEDS ORDERED: PIPERACILLIN/TAZOBACTAM 3.375 GM VIAL IVPB ONE ×2 (00:56→09:26)
[2020-01-03] MEDS: PIPERACILLIN/TAZOB 3.375 GM 3.375 GM in DEXTROSE 5%-WATER - 50 ML IVPB SCH ×2 (01:00→09:54)
[2020-01-03] MEDS: HEPARIN NA (PORCINE) 5,000 UNITS/ML 1ML VIAL SQ SCH ×3 (09:54→21:24)
[2020-01-03] MEDS: MUPIROCIN CA 2% TOPICAL CREAM 15 GM TUBE TP SCH ×3 (09:55→21:24)
[2020-01-03 11:14] LABS: HEMATOCRIT 31.1 % (32.4-45.2); HEMOGLOBIN 10.3 GM/dL (10.7-15.3); MCH 28.1 pg (25.7-33.7); MEAN PLT VOLUME 9.2 fl (7.5-11.1); PLATELET COUNT 145 K/MM3 (134-434); RBC 3.66 M/mm3 (3.60-5.2); RDW 14.7 % (11.6-15.6); WHITE BLOOD COUNT 5.3 K/mm3 (4.0-10.0)
--- NOTE | 2020-01-03 11:29 | PN ---
Progress Note, Physician History of Present Illness: pulmonary awake,non-verbal,-resp distress, on nasal cannula - Current Medication List Current Medications: Active Medications Heparin Sodium (Porcine) (Heparin -) 5,000 unit SQ BID [facility] Last Admin: 01/03/20 09:54 Dose: 5,000 unit Amino Acids (Clinimix -) 1,000 mls @ 55 mls/hr IV Q24H [facility] Last Admin: 01/02/20 23:42 Dose: 55 mls/hr Ceftriaxone Sodium 2 gm/ (Dextrose) 100 mls @ 100 mls/hr IVPB ONCE ONE Stop: 01/03/20 12:29 Mupirocin (Bactroban 2% Cream -) 1 applic TP BID [facility] Last Admin: 01/03/20 09:55 Dose: 1 applic - Objective Vital Signs: Vital Signs Temperature 98.2 F 01/03/20 10:00 Pulse Rate 61 01/03/20 10:00 Respiratory Rate 20 01/03/20 10:00 Blood Pressure 135/65 01/03/20 10:00 O2 Sat by Pulse Oximetry (%) 96 01/03/20 10:58 Constitutional: Yes: Calm, Thin Eyes: Yes: WNL HENT: Yes: WNL Neck: Yes: WNL Cardiovascular: Yes: Regular Rate and Rhythm, S1, S2 Respiratory: Yes: Rales (few bibasilar rales) Gastrointestinal: Yes: Normal Bowel Sounds, Soft Extremities: Yes: WNL Edema: No Labs: CBC, BMP 01/03/20 11:00 INR, PTT INR 1.11 (0.83-1.09) H 12/29/19 18:30 Problem List - Problems (1) Failure to thrive Code(s): [id number] - Qualifiers: Failure to thrive age range: in adult Qualified Code(s): R62.7 - Adult failure to thrive (2) Hypernatremia Code(s): E87.0 - HYPEROSMOLALITY AND HYPERNATREMIA (3) UTI (urinary tract infection) Code(s): N39.0 - URINARY TRACT INFECTION, SITE NOT SPECIFIED Qualifiers: Urinary tract infection type: acute cystitis Hematuria presence: without hematuria Qualified Code(s): N30.00 - Acute cystitis without hematuria (4) Hypothyroid Code(s): E03.9 - HYPOTHYROIDISM, UNSPECIFIED (5) Dementia Code(s): F03.90 - UNSPECIFIED DEMENTIA WITHOUT BEHAVIORAL DISTURBANCE Assessment/Plan ASSESSMENT AND PLAN: UTI Hypernatremia/Dehydration improved Failure to Thrive Sacral Decubitus Ulcer +Troponins likely Demand Ischemia Hypothyroidism Advanced Dementia - antibiotics as per ID - monitor lytes - aspiration precautions - Local wound care - DVT prophylaxis DR SEGOVIA
[2020-01-03] MEDS ORDERED: CEFTRIAXONE 2 GM in DEXTROSE 5%-WATER 100 ML IVPB ONE (11:30)
--- NOTE | 2020-01-03 11:41 | CONSULT ---
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 Mostly gestural or physical responses if she does not want to participate.) Oral Expression Ability: Yes: Severe Impairment, Non-Vocal - Speech Production Apraxia: No Able to Make Needs Known: Yes: Severely Impaired Intelligibility: Yes: Severely Impaired - Speech Characteristics Voice Comment: Pt is very minimally verbal. "no" was heard once during this session - Language/Auditory Comprehension Follows: Yes: 1 Stage Simple Commands (does not respond appropriately) Observation: Able to respond to yes/no queries: No, Yes/No Confusion: Yes, Comprehends Conversational Speech: No, Benefits from Slow Speech: No, Benefits from Repetiton: No, Benefits from Increased Volume of Speech: No - Language/Verbal Expression Able to Respond to Simple Queries: Yes: Severely Impaired Able to Communicate Wants and Needs: Yes: Severely Impaired Functional Communication Status: Yes: Severely Impaired Aware of Errors: No Attempts to Correct Errors: No Use of Gestures: Yes Written Expression: not examined Oral Expression: Minimally verbal. 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 Lingual Comment: limited study, appears WFL for swallowing purposes. Soft Palate Description: Normal Color Hard Palate Description: Normal Color Gag Reflex: Weak Bite Reflex: Absent Needs Assistance: Yes Rate of Intake: Slow/Holding Bolus Size: Small Labial Seal: WFL Chewing: Impaired Oral Prep Time: Increased A-P Transit: WFL Pocketing: Present Right Timing of Swallow: Delayed Odynophagia: Oral, Pharyngeal Coughing/Throat Clear: No Change in Voice: No Other Findings/Remarks: 84 yo female seen at bedside for swallow to r/o dysphagia. Pt is very minimally verbal, A&Ox1 and resistive to most po intake. Pt presents with advanced dementia, FTT hypotension, history o UTI. COMMERCIAL INTERN unable to formally eval oral facial features secondary to dementia. Pt refused to participate in oral motor exam. Limited study, dentition is fair for mastication with mising top incisors. Brief observation of the palate appear WNL. Absent gag reflex. Current diet pureed with thin liquids. Pt given po trials of puree with total assistance revealed poor acceptance (Pt mostly refusing). Pt did accept one bolus. Adequate bolus control and transport. Pharyngeal swallow was mildly delayed with no aspiration-like behaviors observed. LIMITED STUDY. Thin liquids trials revealed similar results. LIMITED STUDY. Functional swallow for only one small bolus trial via cup. NO aspiration-like behaviors after the swallow. Recommendations - Speech Evaluation, Impression/Plan Impression: 84 yo presents with severe to profound oral phase dysphagia and mild to moderate pharygeal phase dysphagia for purees and thin liquids. Pt is refusing most po trials secondary to adv stage dementia. Speech in essentially non-verbal but pt with verbally protest an unwanted action. 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 - Dysphagia Impressions/Plan Swallowing Skills: Impaired Dysphagia Impressions: Profound Impairment (secondary to dementia), Risk of Aspiration, Refused PO Trials *Silent aspiration: cannot be R/O at bedside Dysphagia Treatment Plan: Small Bites (if possible), Safe Rate, 1/2 tsp. at a time, Elevate HOB during feed Dysphagia Evaluation Summary: Pt presents with profound dysphagia secondary to dementia. She demonstrates a functional swallow for pureed and thin liquids ( limited study). Consider alternate method for providing hydration and medication if pt continues to refuse solids and liquids. Results given verbally to insulation cupola charger and to PCP via chart. COMMERCIAL INTERN to follow up. Recommendations: Palliative Care (consider) - Recommendations Diet Consistency: Dysphagia Pureed (if pt accepts) Medication Administration: Crushed with applesauce Liquids: Thin Liquids Supplement: Ensure
[2020-01-03 11:45] LABS: ALBUMIN 1.9 g/dl (3.4-5.0); BILIRUBIN,TOTAL 0.7 mg/dL (0.2-1); BLOOD UREA NITROGEN 15.2 mg/dL (7-18); CALCIUM 7.4 mg/dL (8.5-10.1); CREATININE 0.5 mg/dL (0.55-1.3); MAGNESIUM 2.5 mg/dL (1.8-2.4); PHOSPHOROUS 1.9 mg/dL (2.5-4.9); POTASSIUM 3.7 mmol/L (3.5-5.1); TOT PROT 4.4 g/dl (6.4-8.2)
--- NOTE | 2020-01-03 12:02 | PN ---
Progress Note, Physician Chief Complaint: altered MS History of Present Illness: lethargic. not communicative. resists efforts at phys exam - Current Medication List Current Medications: Active Medications Heparin Sodium (Porcine) (Heparin -) 5,000 unit SQ BID [facility] Last Admin: 01/03/20 09:54 Dose: 5,000 unit Amino Acids (Clinimix -) 1,000 mls @ 55 mls/hr IV Q24H [facility] Last Admin: 01/02/20 23:42 Dose: 55 mls/hr Ceftriaxone Sodium 2 gm/ (Dextrose) 100 mls @ 100 mls/hr IVPB ONCE ONE Stop: 01/03/20 12:29 Mupirocin (Bactroban 2% Cream -) 1 applic TP BID [facility] Last Admin: 01/03/20 09:55 Dose: 1 applic - Objective Vital Signs: Vital Signs Temperature 98.2 F 01/03/20 10:00 Pulse Rate 61 01/03/20 10:00 Respiratory Rate 20 01/03/20 10:00 Blood Pressure 135/65 01/03/20 10:00 O2 Sat by Pulse Oximetry (%) 96 01/03/20 10:58 Constitutional: Yes: Well Nourished, No Distress, Calm Cardiovascular: Yes: Regular Rate and Rhythm, S1, S2. No: Gallop, Murmur Respiratory: Yes: Regular, CTA Bilaterally (not taking deep breaths). No: Accessory Muscle Use Extremities: No: Cold Edema: No (SCDs on) Neurological: Yes: Lethargy. No: Seizure Psychiatric: No: Agitated Labs: CBC, BMP 01/03/20 11:00 01/03/20 11:00 INR, PTT INR 1.11 (0.83-1.09) H 12/29/19 18:30 Assessment/Plan tele: NSR elevated trops: -borderline trop elevation with flat trend and nl ck, ecg w/o significant changes from prior, no signs acs -recent echo unremarkable -stable CV status, no further w/u indicated UTI: -as per PMD Altered MS: -likely combo elevated Na and UTI -observe--per primary D/C TELE
[2020-01-03] MEDS ORDERED: SODIUM PHOSPHATE - 20 MM in DEXTROSE 5%-WATER - 250 ML IVPB ONE (13:35)
[2020-01-03] MEDS ORDERED: DEXTROSE 5%-WATER 100 ML IVPB ONE (13:35)
[2020-01-03] MEDS ORDERED: SODIUM PHOSPHATE - 20 MM in DEXTROSE 5%-WATER - 500 ML IVPB ONE (13:39)
--- NOTE | 2020-01-03 17:05 | PN ---
Progress Note, Physician History of Present Illness: Pt seen and examined at bedside. She is not interactive. - Current Medication List Current Medications: Active Medications Heparin Sodium (Porcine) (Heparin -) 5,000 unit SQ BID [facility] Last Admin: 01/03/20 09:54 Dose: 5,000 unit Sodium Phosphate 20 mm/ (Dextrose) 506.6667 mls @ 62.5 mls/hr IVPB ONCE ONE Stop: 01/03/20 21:41 Last Admin: 01/03/20 16:35 Dose: 62.5 mls/hr Megestrol Acetate (Megace Oral Suspension -) 400 mg PO DAILY [facility] Mupirocin (Bactroban 2% Cream -) 1 applic TP BID [facility] Last Admin: 01/03/20 09:55 Dose: 1 applic - Objective Vital Signs: Vital Signs Temperature 98.4 F 01/03/20 14:05 Pulse Rate 59 L 01/03/20 14:05 Respiratory Rate 16 01/03/20 14:05 Blood Pressure 120/57 L 01/03/20 14:05 O2 Sat by Pulse Oximetry (%) 96 01/03/20 10:58 Constitutional: Yes: Calm Eyes: Yes: Conjunctiva Clear Cardiovascular: Yes: S1, S2 Respiratory: Yes: CTA Bilaterally Gastrointestinal: Yes: Soft Genitourinary: Yes: Incontinence Musculoskeletal: Yes: Muscle Weakness Edema: No Neurological: Yes: Lethargy Labs: CBC, BMP 01/03/20 11:00 01/03/20 11:00 INR, PTT INR 1.11 (0.83-1.09) H 12/29/19 18:30 Assessment/Plan Current Medications Generic Name Dose Route Start Last Admin Trade Name Ibis PRN Reason Stop Dose Admin Heparin Sodium (Porcine) 5,000 unit 12/30/19 10:00 01/03/20 09:54 Heparin - SQ 5,000 unit BID [facility] Administration Sodium Phosphate 20 mm/ 506.6667 mls @ 62.5 mls/hr 01/03/20 13:39 01/03/20 16 :35 Dextrose IVPB 01/03/20 21:41 62.5 mls/hr ONCE ONE Administration Megestrol Acetate 400 mg 01/03/20 14:30 Megace Oral Suspension - PO DAILY [facility] Mupirocin 1 applic 12/31/19 22:00 01/03/20 09:55 Bactroban 2% Cream - TP 1 applic BID [facility] Administration Impression 1. hypernatremia 2. malnutrition 3. dehydration 4. failure to thrive 5. dementia 6. hypothyroidism Plan - lytes improving - encourage po intake - discussed with medical team - repeat labs in am - swallow eval - will follow
[2020-01-03] MEDS ORDERED: FLU VACCINE QUAD 60 MCG/0.5 ML (MDV 19-20) IM ONE (17:40)
[2020-01-03] MEDS: MEGESTROL ACETATE 400 MG/10 ML UNIT DOSE CUP PO SCH (17:56)
--- NOTE | 2020-01-03 18:51 | PN ---
Teaching Attending Note Name of Resident: Lewis Rodriguez ATTENDING PHYSICIAN STATEMENT I saw and evaluated the patient. I reviewed the resident's note and discussed the case with the resident. I agree with the resident's findings and plan as documented. Seen and examined; please see resident note for further historical information. I personally verified all colbert historical information and exam findings. Personally interpreted all imaging and diagnostics and reviewed appropriate consults. I reviewed all labs and vital signs as per resident note and EMR as documented. I agree with the above assessment and plan unless supplemented by myself in the following. Seen by swallow evaluation, recommended oral diet. Briefly was considering starting TPN per nephrology but this was discontinued due to the overall clinical picture. Is not a feasible long-term solution given the swallow evaluation the patient likely could eat orally. If she could not not physically eat orally while having an intact swallow reflex, this would reflect underlying worsening of neurologic processes which would further necessitate the exploration of need for feeding tube which does agree to be against her wishes. The patient will continue be monitored on the hospitalist service today, chemistry is within normal limits aside from marked hypophosphatemia which will be repleted. Could not obtain review of systems secondary to clinical picture VS, labs, imaging reviewed NAD, AAOx0, resting comfortably in bed. RRR s1/2 no mgr Normal muscle tone, moves all 5 extremities with normal apparent strength Neck is supple, trachea midline, no benny LN Lungs CTAB with sym expansion NT ND +BS no benny organomegaly CN2-12 wnl; no FND NC AT EOMI PERRLA No new skin breakdown or rashes noted ASSESSMENT AND PLAN: Overall, the patient's does not wish to situate home hospice through any other individual than Cassandra who was confirmed to return tomorrow. is requesting her ears be cleaned due to wax buildup; will try to facilitate. UTI has improved; can DC abx when OK with ID. Swallow study done; she can theoretically tolerate PO. Problems include: Severe hypernatremia, resolved Severe protein calorie malnutrition Dehydration Failure to thrive Dementia Hypothyroidism Acute cystitis Suspected dysphagia, rule out aspiration pneumonia Multiple drug allergies History of cerumen impaction Plan to facilitate home hospice tomorrow. Patient's has the MOLST form with him as he is continuing to review it for his decision regarding feeding tube. She can eat but theres a considered volitional component vs. relating to underlying dementia, especially with respect to her ongoing malnutrition/ hypoalbuminemia. DNR/I
--- NOTE | 2020-01-03 18:51 | PN ---
Teaching Attending Note Name of Resident: Lewis Rodriguez ATTENDING PHYSICIAN STATEMENT I saw and evaluated the patient. I reviewed the resident's note and discussed the case with the resident. I agree with the resident's findings and plan as documented. Spoke with patient's who states that the patient is DNR/DNI but continues to have reservations regarding the feeding tube. We will elucidate the recommendations for this he has has not had to work with the perinatal social worker who he is unfamiliar with and we will continue to try to elucidate their schedule. Otherwise, patient is hemodynamically stable with improved electrolytes. We will continue to give fluids as per nephrology, with daily checks to minimize discomfort to the patient. She is weaning from nasal cannula. The patient's states that back in 2012 she did complete a living will which indicated she wanted to be full code, but after further conversation with me, we both concluded that the patient's quality of life and overall functional status as well as chances of ever having a non-bedridden existence with normal capacity for communication again were slim to none and the patient's healthcare proxy did agree that this likely is sales representative jewelry of a process that would be best served by potential hospice intervention. We will continue to monitor her on the medicine service and will attempt to place with home hospice. We will follow-up with swallow evaluation regarding potential need for feeding tube if this is at all desired. Could not obtain review of systems secondary to patient's clinical status VS, labs, imaging reviewed NAD, AAOx0, resting comfortably in bed. RRR s1/2 no mgr Normal muscle tone, moves all 5 extremities with normal apparent strength Neck is supple, trachea midline, no benny LN Lungs CTAB with sym expansion NT ND +BS no benny organomegaly CN2-12 wnl; no FND NC AT EOMI PERRLA Normal mood, appropriate behavior, euthymic affect No skin breakdown or rashes noted ASSESSMENT AND PLAN: Patient is an 84-year-old female presenting to the hospital with a chief complaint of toxic metabolic encephalopathy secondary to hypernatremia, infection, acute on chronic mental illness. Please see full discussion of short progress note for my meeting with the family earlier today. Additional 20 minutes in addition to the time billed on this note. Patient has failure to thrive in the patient's family does not wish to proceed with a PEG tube. is healthcare proxy. After prolonged discussion he is determined that she would not wish to be kept on tube feeds and is been considering moving to comfort care for some time. Given that she has less than 6 months to live we will keep her DNR/DNI and place her on home hospice referral and plan to discharge home when coordinated with social director Severe hypernatremia, improved, daily checks, continuing on half-normal saline at no low rate. No overcorrection noted today. Stage III decubitus ulcer, continue wound care recommendations Pneumonia, continue pit/tazo Dementia, fall and aspiration precautions, is DO NOT RESUSCITATE DO NOT INTUBATE going home with hospice. Completing molst form, acting social director, anticipate discharge home within 24 to 36 hours pending social service involvement.
--- NOTE | 2020-01-03 19:11 | PN ---
Physical Exam: SUBJECTIVE: Patient seen and examined OBJECTIVE: Vital Signs Period Temp Pulse Resp BP Sys/Rdz Pulse Ox Last 24 Hr 97.2 F-98.4 F 53-65 16-20 99-135/46-67 96-96 GENERAL: The patient is awake, alert, and fully oriented, in no acute distress. HEAD: Normal with no signs of trauma. EYES: PERRL, extraocular movements intact, sclera anicteric, conjunctiva clear. No ptosis. ENT: Ears normal, nares patent, oropharynx clear without exudates, moist mucous membranes. NECK: Trachea midline, full range of motion, supple. LUNGS: Breath sounds equal, clear to auscultation bilaterally, no wheezes, no crackles, no accessory muscle use. HEART: Regular rate and rhythm, S1, S2 without murmur, rub or gallop. ABDOMEN: Soft, nontender, nondistended, normoactive bowel sounds, no guarding, no rebound, no hepatosplenomegaly, no masses. EXTREMITIES: 2+ pulses, warm, well-perfused, no edema. NEUROLOGICAL: Cranial nerves II through XII grossly intact. Normal speech, gait not observed. PSYCH: Normal mood, normal affect. SKIN: Warm, dry, normal turgor, no rashes or lesions noted Laboratory Results - last 24 hr 01/03/20 01/03/20 11:00 11:00 WBC 5.3 RBC 3.66 Hgb 10.3 L Hct 31.1 L MCV 85.0 MCH 28.1 MCHC 33.0 RDW 14.7 Plt Count 145 MPV 9.2 Sodium 141 Potassium 3.7 Chloride 110 H Carbon Dioxide 26 Anion Gap 5 L BUN 15.2 Creatinine 0.5 L Est GFR (CKD-EPI)AfAm 101.57 Est GFR (CKD-EPI)NonAf 87.64 Random Glucose 101 Calcium 7.4 L Phosphorus 1.9 L Magnesium 2.5 H Total Bilirubin 0.7 AST 19 ALT 16 Alkaline Phosphatase 85 Total Protein 4.4 L Albumin 1.9 L TSH 0.23 L Free T4 1.00 Active Medications Generic Name Dose Route Start Last Admin Trade Name Freq PRN Reason Stop Dose Admin Heparin Sodium (Porcine) 5,000 unit 12/30/19 10:00 01/03/20 09:54 Heparin - SQ 5,000 unit BID [facility] Administration Sodium Phosphate 20 mm/ 506.6667 mls @ 62.5 mls/hr 01/03/20 13:39 01/03/20 16 :35 Dextrose IVPB 01/03/20 21:41 62.5 mls/hr ONCE ONE Administration Megestrol Acetate 400 mg 01/03/20 14:30 01/03/20 17:56 Megace Oral Suspension - PO 400 mg DAILY [facility] Administration Mupirocin 1 applic 12/31/19 22:00 01/03/20 09:55 Bactroban 2% Cream - TP 1 applic BID [facility] Administration ASSESSMENT/PLAN: Dalia Maher is an 84 year old female with a past medical history of 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 #Hypernatremia - now resolved - likely in setting of dehydration and poor PO intake - off fluids at this time - hypophosphatemia repleted with NaPO4 #UTI UA 3+ Leuk est positive cephalosporin allergy zosyn discontinued (Day 5) ID consulted (Collin) #Mild chronic lung dx Chest CT- mild chronic lung dx, w trace rt pleural effusion and basilar atelectasis of Rt lung, no PNA, distended GB w/ a small calculi. Aspiration precautions #Sacral Ulcer wound care consulted ID consulted Turn and reposition pt regularily #Troponemia likely demand ischemia from reduced volume borderline trop elevation with flat trend and nl ck, ecg w/o significant changes from prior, no signs acs #Cachectic with poor PO intake consider PEG palliative consult Pt is DNR/DNI Discussed hospice with yesterday, stated he would let us know- will give living will form. did not come by today will touch base tomorrow regarding PEG placement. is anemable to adira placement in mean time. #Elevated bilirubin RUQ U/S showing atrophic rt kidney and sludge in GB #Hypothyroidism holding synthroid r/p TSH #DVT PPx heparin 5000 units bid FEN Fluids D5 with KCL Pure diet Dispo: Patient's has the MOLST form with him as he is continuing to review it for his decision regarding feeding tube. She can eat but theres a considered volitional component vs. relating to underlying dementia, especially with respect to her ongoing malnutrition/hypoalbuminemia. Overall, the patient' s does not wish to situate home hospice through any other individual than Cassandra who was confirmed to return tomorrow. is requesting her ears be cleaned due to wax buildup; will try to facilitate. UTI has improved; can DC abx when OK with ID. Swallow study done; she can theoretically tolerate PO, but poor swallow reflex could be sign of impending neurological dysfunction which may require TPN. Visit type - Emergency Visit Emergency Visit: Yes ED Registration Date: 12/29/19 Care time: The patient presented to the Emergency Department on the above date and was hospitalized for further evaluation of their emergent condition. - New Patient This patient is new to me today: No - Critical Care Critical Care patient: No - Discharge Referral Referred to [facility] No ATTENDING PHYSICIAN STATEMENT I saw and evaluated the patient. I reviewed the resident's note and discussed the case with the resident. I agree with the resident's findings and plan as documented. SUBJECTIVE: OBJECTIVE: ASSESSMENT AND PLAN:
[2020-01-04 06:54] LABS: BASO % 0.6 % (0-2.0); EOS % 1.9 % (0-4.5); HEMATOCRIT 31.2 % (32.4-45.2); HEMOGLOBIN 10.5 GM/dL (10.7-15.3); LYMPH % 28.7 % (8-40); MCH 28.4 pg (25.7-33.7); MCHC 33.5 g/dl (32.0-36.0); MEAN CELL VOLUME 84.9 fl (80-96); MEAN PLT VOLUME 9.3 fl (7.5-11.1); MONO % 5.2 % (3.8-10.2); NEUT % 63.6 % (42.8-82.8); PLATELET COUNT 152 K/MM3 (134-434); RBC 3.68 M/mm3 (3.60-5.2); RDW 14.7 % (11.6-15.6); WHITE BLOOD COUNT 4.3 K/mm3 (4.0-10.0)
[2020-01-04 07:26] LABS: ALBUMIN 1.9 g/dl (3.4-5.0); BILIRUBIN,TOTAL 0.6 mg/dL (0.2-1); BLOOD UREA NITROGEN 9.7 mg/dL (7-18); CALCIUM 7.5 mg/dL (8.5-10.1); CREATININE 0.5 mg/dL (0.55-1.3); POTASSIUM 3.5 mmol/L (3.5-5.1); TOT PROT 4.7 g/dl (6.4-8.2)
[2020-01-04 08:10] LABS: MAGNESIUM 2.3 mg/dL (1.8-2.4)
[2020-01-04] MEDS ORDERED: PT OWN MED DRAWER 7, Y5N ONE (10:15)
[2020-01-04] MEDS: MEGESTROL ACETATE 400 MG/10 ML UNIT DOSE CUP PO SCH (10:21)
[2020-01-04] MEDS: HEPARIN NA (PORCINE) 5,000 UNITS/ML 1ML VIAL SQ SCH (10:21)
[2020-01-04] MEDS: MUPIROCIN CA 2% TOPICAL CREAM 15 GM TUBE TP SCH (10:22)
--- NOTE | 2020-01-04 11:11 | PN ---
Progress Note, Physician History of Present Illness: pulmonary sleeping,-resp distress - Current Medication List Current Medications: Active Medications Heparin Sodium (Porcine) (Heparin -) 5,000 unit SQ BID [facility] Last Admin: 01/04/20 10:21 Dose: 5,000 unit Megestrol Acetate (Megace Oral Suspension -) 400 mg PO DAILY [facility] Last Admin: 01/04/20 10:21 Dose: 400 mg Mupirocin (Bactroban 2% Cream -) 1 applic TP BID [facility] Last Admin: 01/04/20 10:22 Dose: 1 applic - Objective Vital Signs: Vital Signs Temperature 97.0 F L 01/04/20 05:33 Pulse Rate 57 L 01/04/20 05:33 Respiratory Rate 20 01/04/20 05:33 Blood Pressure 100/63 01/04/20 05:33 O2 Sat by Pulse Oximetry (%) 96 01/03/20 10:58 Constitutional: Yes: Thin, Other (sleeping) Eyes: Yes: WNL HENT: Yes: WNL Neck: Yes: WNL Cardiovascular: Yes: Regular Rate and Rhythm, S1, S2 Respiratory: Yes: Diminished Gastrointestinal: Yes: Normal Bowel Sounds, Soft Extremities: Yes: WNL Edema: No Labs: CBC, BMP 01/04/20 06:13 01/04/20 06:13 INR, PTT INR 1.11 (0.83-1.09) H 12/29/19 18:30 Problem List - Problems (1) Failure to thrive Code(s): [id number] - Qualifiers: Failure to thrive age range: in adult Qualified Code(s): R62.7 - Adult failure to thrive (2) Hypernatremia Code(s): E87.0 - HYPEROSMOLALITY AND HYPERNATREMIA (3) UTI (urinary tract infection) Code(s): N39.0 - URINARY TRACT INFECTION, SITE NOT SPECIFIED Qualifiers: Urinary tract infection type: acute cystitis Hematuria presence: without hematuria Qualified Code(s): N30.00 - Acute cystitis without hematuria (4) Hypothyroid Code(s): E03.9 - HYPOTHYROIDISM, UNSPECIFIED (5) Dementia Code(s): F03.90 - UNSPECIFIED DEMENTIA WITHOUT BEHAVIORAL DISTURBANCE Assessment/Plan ASSESSMENT AND PLAN: UTI Hypernatremia/Dehydration improved Failure to Thrive Sacral Decubitus Ulcer +Troponins likely Demand Ischemia Hypothyroidism Advanced Dementia - monitor lytes - aspiration precautions - Local wound care - DVT prophylaxis DR SEGOVIA
--- NOTE | 2020-01-04 12:15 | PN ---
Progress Note (short form) - Note Progress Note: s: asleep, not rousable. Current Medications Heparin Sodium (Porcine) (Heparin -) 5,000 unit SQ BID [facility] Last Admin: 01/04/20 10:21 Dose: 5,000 unit Megestrol Acetate (Megace Oral Suspension -) 400 mg PO DAILY [facility] Last Admin: 01/04/20 10:21 Dose: 400 mg Mupirocin (Bactroban 2% Cream -) 1 applic TP BID [facility] Last Admin: 01/04/20 10:22 Dose: 1 applic Vital Signs Period Temp Pulse Resp BP Sys/Rdz Pulse Ox Last 24 Hr 97.0 F-98.4 F 57-73 16-20 98-120/46-63 Constitutional: Yes: Well Nourished, No Distress, Calm Cardiovascular: Yes: Regular Rate and Rhythm, S1, S2. No: Gallop, Murmur Respiratory: Yes: Regular, CTA Bilaterally (not taking deep breaths). No: Accessory Muscle Use Extremities: No: Cold Edema: No (SCDs on) Neurological: Yes: Lethargy. No: Seizure Psychiatric: No: Agitated no jaundice, diaphoresis Assessment/Plan tele: NSR elevated trops: -borderline trop elevation with flat trend and nl ck, ecg w/o significant changes from prior -no signs acs -recent echo unremarkable -stable CV status, no further w/u indicated UTI: -as per PMD Altered MS: -likely combo elevated Na and UTI -manage per primary D/C TELE
[2020-01-04] MEDS ORDERED: POTASSIUM CHLORIDE ORAL LIQUID 20 MEQ/15 ML PO ONE (14:23)
--- NOTE | 2020-01-04 14:23 | PN ---
Progress Note, Physician History of Present Illness: Pt seen and examined at bedside. She appears comfortable. - Current Medication List Current Medications: Active Medications Heparin Sodium (Porcine) (Heparin -) 5,000 unit SQ BID GALO Last Admin: 01/04/20 10:21 Dose: 5,000 unit Megestrol Acetate (Megace Oral Suspension -) 400 mg PO DAILY GALO Last Admin: 01/04/20 10:21 Dose: 400 mg Mupirocin (Bactroban 2% Cream -) 1 applic TP BID GALO Last Admin: 01/04/20 10:22 Dose: 1 applic - Objective Vital Signs: Vital Signs Temperature 98.5 F 01/04/20 10:00 Pulse Rate 59 L 01/04/20 10:00 Respiratory Rate 01/04/20 10:00 Blood Pressure 132/63 01/04/20 10:00 O2 Sat by Pulse Oximetry (%) 95 01/04/20 13:24 Constitutional: Yes: Calm Eyes: Yes: Conjunctiva Clear HENT: Yes: Atraumatic Cardiovascular: Yes: S1, S2 Respiratory: Yes: CTA Bilaterally Gastrointestinal: Yes: Soft Genitourinary: Yes: Incontinence Extremities: Yes: WNL Edema: No Neurological: Yes: Confusion Labs: CBC, BMP 01/04/20 06:13 01/04/20 06:13 INR, PTT INR 1.11 (0.83-1.09) H 12/29/19 18:30 Assessment/Plan Current Medications Generic Name Dose Route Start Last Admin Trade Name Freq PRN Reason Stop Dose Admin Heparin Sodium (Porcine) 5,000 unit 12/30/19 10:00 01/04/20 10:21 Heparin - SQ 5,000 unit BID GALO Administration Megestrol Acetate 400 mg 01/03/20 14:30 01/04/20 10:21 Megace Oral Suspension - PO 400 mg DAILY GALO Administration Mupirocin 1 applic 12/31/19 22:00 01/04/20 10:22 Bactroban 2% Cream - TP 1 applic BID GALO Administration Impression 1. hypernatremia 2. malnutrition 3. dehydration 4. failure to thrive 5. dementia 6. hypothyroidism Plan - lytes stable - pt tolerating po intake - fluids stopped - avoid nsaids - discussed with - will follow
--- NOTE | 2020-01-04 15:47 | PN ---
Teaching Attending Note Name of Resident: Enrique Chiang ATTENDING PHYSICIAN STATEMENT I saw and evaluated the patient. I reviewed the resident's note and discussed the case with the resident. I agree with the resident's findings and plan as documented. SUBJECTIVE: Non-verbal, unable to participate in medical interview. OBJECTIVE: Afebrile, Hemodynamically stable. Last Vital Signs Temp Pulse Resp BP Pulse Ox 98.5 F 59 L 20 132/63 95 01/04/20 10:01/04/20 10:01/04/20 10:01/04/20 10:01/04/20 13:24 HEENt -Atramatic, Normocephalic Heart - S1, S2, RRR Lungs - clear to auscultation Abdomen - Soft, non-tender. Bowel Sounds normal. Extremities - no edema, no calf tenderness, wasting. MS - Sacral Decubitus ulcer stage II Neuro - MIKA. Unable to follow commands. Laboratory Results - last 24 hr 01/03/20 01/04/20 01/04/20 08:15 06:13 06:13 WBC 4.3 RBC 3.68 Hgb 10.5 L Hct 31.2 L MCV 84.9 MCH 28.4 MCHC 33.5 RDW 14.7 Plt Count 152 MPV 9.3 Absolute Neuts (auto) 2.7 Neutrophils % 63.6 Lymphocytes % 28.7 Monocytes % 5.2 Eosinophils % 1.9 Basophils % 0.6 Nucleated RBC % 0 Sodium 144 Potassium 3.5 Chloride 110 H Carbon Dioxide 29 Anion Gap 5 L BUN 9.7 Creatinine 0.5 L Est GFR (CKD-EPI)AfAm 101.57 Est GFR (CKD-EPI)NonAf 87.64 Random Glucose 84 Calcium 7.5 L Phosphorus 3.0 Magnesium 2.3 Total Bilirubin 0.6 AST 23 ALT 17 Alkaline Phosphatase 89 Total Protein 4.7 L Albumin 1.9 L Total T3 39.00 L Current Medications Generic Name Dose Route Start Last Admin Trade Name Freq PRN Reason Stop Dose Admin Heparin Sodium (Porcine) 5,000 unit 12/30/19 10:01/04/20 10:21 Heparin - SQ 5,000 unit BID GALO Administration Megestrol Acetate 400 mg 01/03/20 14:30 01/04/20 10:21 Megace Oral Suspension - PO 400 mg DAILY GALO Administration Mupirocin 1 applic 12/31/19 22:00 01/04/20 10:22 Bactroban 2% Cream - TP 1 applic BID GALO Administration Home Medications Medication Instructions Recorded Levothyroxine [Synthroid -] 100 mcg PO DAILY@0700 #30 tablet 04/09/17 Mupirocin Ointment [Bactroban 2% 1 applic TD DAILY 12/29/19 Ointment -] Megestrol Acetate Oral Susp 400 mg PO DAILY cup 01/04/20 [Megace Oral Suspension -] ASSESSMENT AND PLAN: 84 year old female with history of Advanced Dementia (non-verbal at baseline), Hypothyroidism, NPH, admitted for failure to thrive, poor appetite, gneralized weakness, found to have hypernatremia, UTI, and sacral ulcer. 1. Hypernatremia sec to Dehydration Improved. Oral intake improving /HCP declines PEG 2. UTI Afebrile, hemodynamically Stable. Urine Cx - Citerobacter. Completed 5 days IV zosyn 3. Sacral Ulcer - to follow with wound care for dressing changes. Frequent turning. 4. Failure to Thrive/Malnutrition Poor PO intake. No PEG as per HCP Continue to encourage oral intake with protein supplementation. 5. Hypothyroidism - TSH 0.23. Synthroid stopped. Repeat Thyroid function as out- patient with Endocrinology follow up. DVT Px - Heparin SQ Dispo - SNF
[2020-01-04 16:40] VITALS: BMI 17.9
--- NOTE | 2020-01-04 17:58 | DS ---
Physical Exam: SUBJECTIVE: Patient seen and examined. No acute events, pt eating puree food per family and food shown at bedside OBJECTIVE: Vital Signs Period Temp Pulse Resp BP Sys/Rdz Pulse Ox Last 24 Hr 97.0 F-98.5 F 57-73 18-20 98-132/55-63 95-95 PHYSICAL EXAM GENERAL: The patient is awake alert not oriented, nonverbal at baseline NECK:, supple. LUNGS: Breath sounds equal, clear to auscultation bilaterally, no wheezes, no crackles, no accessory muscle use. HEART: Regular rate and rhythm, S1, S2 without murmur, rub or gallop. ABDOMEN: Soft, nontender, nondistended, normoactive bowel sounds, no guarding, EXTREMITIES: 2+ pulses, warm, well-perfused, no edema. NEUROLOGICAL: Cranial nerves II through XII grossly intact. Normal speech, gait not observed. PSYCH: Normal mood, normal affect. SKIN: stage II sacral decub ulcer, nonstageable ulcers on buttock and pelvis LABS Laboratory Results - last 24 hr 01/03/20 01/04/20 01/04/20 08:15 06:13 06:13 WBC 4.3 RBC 3.68 Hgb 10.5 L Hct 31.2 L MCV 84.9 MCH 28.4 MCHC 33.5 RDW 14.7 Plt Count 152 MPV 9.3 Absolute Neuts (auto) 2.7 Neutrophils % 63.6 Lymphocytes % 28.7 Monocytes % 5.2 Eosinophils % 1.9 Basophils % 0.6 Nucleated RBC % 0 Sodium 144 Potassium 3.5 Chloride 110 H Carbon Dioxide 29 Anion Gap 5 L BUN 9.7 Creatinine 0.5 L Est GFR (CKD-EPI)AfAm 101.57 Est GFR (CKD-EPI)NonAf 87.64 Random Glucose 84 Calcium 7.5 L Phosphorus 3.0 Magnesium 2.3 Total Bilirubin 0.6 AST 23 ALT 17 Alkaline Phosphatase 89 Total Protein 4.7 L Albumin 1.9 L Total T3 39.00 L HOSPITAL COURSE: Date of Admission:12/29/19 This patient was admitted for hypernatremia and generalized weakness in setting of severe Advanced dementia Alzheimers type with nonverbal baseline along with stage II sacral decub ulcer. Pt was given D5W and Na normalized. Pt was seen by wound care and will f/u as o/p. Pt not requiring debridement. Pt was treated with ceftriaxone for UTI but no need for wound Rx given not infectious. Pt was on synthroid but found to have a TSH low and T3 free low with normal T4 and endo wanted to discontinue synthroid until TSH normalized so pt informed she should folllow up with endocrine within 1 week. Pt also evaluated by cardio (Dr. Aguilera) in setting of elevated trops: -borderline trop elevation with flat trend and nl ck, ecg w/o significant changes from prior -no signs acs -recent echo unremarkable -stable CV status, no further w/u required Pt's is the healthcare proxy and preferred SNF placement and agreed on adira, initially there was concern for peg need vs hospice if proxy decided pt would not want PEG however on final day of admission pt started tolerating po puree foods so PEG discussion was halted and SNF placement commenced. Date of Discharge: 01/04/20 Minutes to complete discharge: 35 Discharge Summary Problems reviewed: Yes Reason For Visit: FAILURE TO THRIVE / DEHYDRATED Current Active Problems Decubitus ulcer limited to breakdown of skin (stage 2) (Chronic) Failure to thrive (Chronic) Secondary hyperthyroidism (Chronic) Condition: Fair - Instructions Diet, Activity, Other Instructions: You were admitted for being generalized weakness and high sodium blood levels due to not drinking enough water. We monitored your fluid status while here and had a kidney specialist see you. We gave you fluids through your veins to help correct the high sodium and it has normalized. You were also seen by an infectious disease doctor for a urinary tract infection and you were given antibiotics which has prevented it from getting worse. You were seen by a student career development specialist as well and they are recommending: -Repositioning every two hours while in bed -Air mattress -Use drawsheets and Trendelenburg when repositioning to reduce friction and shear -Manageincontinence via timely cleansing, use of appropriate incontinence disposables and use of barrier ointment to intact skin -Ensure adequate hydration/nutrition, supplementation per primary team -Ensure off-loading to all bony areas (heels, ankles, hips and tailbone) with Allevyn/Optifoam -Clean open wounds with normal saline and apply mupirocin Medication we discontinued while here: Synthroid You should follow up with cardiology (heat doctor) Dr. Melchor in 1 week for monitoring of your heart. You should follow up with your primary care doctor (Dr. Carranza) in 1 week as well to monitor your overall health. You should follow up with your wound care doctor (Dr. Nair) for managing your wound in 1 week. You should follow up with your endocrine doctor (juanito doctor- Dr. Bacon) in 1 week to recheck your thyroid levels before restarting your synthroid. You should return to the emergency room if you have any worsening of your current symptoms not limited to: chest pain, shortness of breath, high sodium levels, dehydration, weakness, severe bowel/bladder complaints. Referrals: Marifer Peter [Primary Care Provider] - 1 Week Mingo Melchor MD [Staff Physician] - 1 Week Adi Lang MD [Staff Physician] - 1 Week (Thyroid management) Scotty Nair DO [Staff Physician] - 1 Week (wound care follow up ) Disposition: [facility] - Home Medications Comprehensive Discharge Medication List: Ambulatory Orders Mupirocin Ointment [Bactroban 2% Ointment -] 1 applic TD DAILY 12/29/19 Megestrol Acetate Oral Susp [Megace Oral Suspension -] 400 mg PO DAILY cup 10/13 This patient is new to me today: No Emergency Visit: No Critical Care patient: No - Discharge Referral Referred to [facility] Med [facility].C[facility] No ATTENDING PHYSICIAN STATEMENT I saw and evaluated the patient. I reviewed the resident's note and discussed the case with the resident. I agree with the resident's findings and plan as documented. SUBJECTIVE: OBJECTIVE: ASSESSMENT AND PLAN:
[2020-01-04 18:14] VITALS: BP 100/63; PULSE 59; TEMP 98
== END 2020-01-04 19:33 | DRG 56 ==
LOC: JER 17:05 → JERBED 19:13 → J4W 12-30 18:51
PROVIDERS: ADMIT Internal Medicine
DX: G30.9 Alzheimer's disease, unspecified (principal); L89.153 Pressure ulcer of sacral region, stage 3; E43 Unspecified severe protein-calorie malnutrition; I21.A1 Myocardial infarction type 2; E87.0 Hyperosmolality and hypernatremia; E87.3 Alkalosis; R64 Cachexia; Z68.1 Body mass index [BMI] 19.9 or less, adult; N39.0 Urinary tract infection, site not specified; F02.80 Dementia in other diseases classified elsewhere, unspecified severity, without behavioral disturbance, psychotic disturbance, mood disturbance, and anxiety; R62.7 Adult failure to thrive; E86.0 Dehydration; E05.80 Other thyrotoxicosis without thyrotoxic crisis or storm; E03.9 Hypothyroidism, unspecified; E83.42 Hypomagnesemia
CPT/HCPCS: 36415; 71045-TC-FY; 71250-TC; 76705-TC; 80048; 80053; 81003; 82248; 82272; 82436; 82550; 82565; 82803; 83615; 83735; 83930; 83935; 84100; 84133; 84300; 84439; 84443; 84480; 84481; 84484; 85025; 85027; 85610; 85651; 85730; 86140; 86850; 86900; 86901; 87040; 87070; 87086; 87186; 87205; 93005; 93010; 99285-25; J1644; Q2036

== ENCOUNTER 2021-04-15 19:17 | Inpatient (IN) | payer OTHER, MEDICARE ==
[2021-04-15 19:53] VITALS: BMI 21.9
[2021-04-15 20:59] LABS: BASO % 1.2 % (0-2.0); EOS % 0.3 % (0-4.5); HEMATOCRIT 40.9 % (32.4-45.2); HEMOGLOBIN 13.8 GM/dL (10.7-15.3); LYMPH % 18.2 % (8-40); MCH 30.2 pg (25.7-33.7); MCHC 33.7 g/dl (32.0-36.0); MEAN CELL VOLUME 89.5 fl (80-96); MEAN PLT VOLUME 10.5 fl (7.5-11.1); MONO % 2.6 % (3.8-10.2); NEUT % 77.7 % (42.8-82.8); PLATELET COUNT 347 K/MM3 (134-434); RBC 4.57 M/mm3 (3.60-5.2); WHITE BLOOD COUNT 9.2 K/mm3 (4.0-10.0)
[2021-04-15 21:07] LABS: INR 0.97 (0.83-1.09); PROTHROMBIN TIME (PATIENT) 11.8 SEC (9.7-13.0)
[2021-04-15 21:09] LABS: ACTIVATED PTT 29.2 SECONDS (25.2-36.5)
[2021-04-15 21:16] LABS: ALBUMIN 3.8 g/dl (3.4-5.0); BLOOD UREA NITROGEN 17.5 mg/dL (7-18)
[2021-04-15 21:19] LABS: CREATININE 0.7 mg/dL (0.55-1.3)
[2021-04-15 21:21] LABS: BILIRUBIN,TOTAL 0.7 mg/dL (0.2-1); TOT PROT 7.7 g/dl (6.4-8.2)
[2021-04-15 23:44] LABS: HEMATOCRIT 39.8 % (32.4-45.2); HEMOGLOBIN 13.2 GM/dL (10.7-15.3); MCH 29.5 pg (25.7-33.7); MCHC 33.2 g/dl (32.0-36.0); MEAN CELL VOLUME 88.8 fl (80-96); PLATELET COUNT 319 K/MM3 (134-434); RBC 4.49 M/mm3 (3.60-5.2); RDW 14.6 % (11.6-15.6); WHITE BLOOD COUNT 9.7 K/mm3 (4.0-10.0)
[2021-04-16] MEDS: LEVOTHYROXINE NA 125 MCG TABLET (FP) GT SCH (07:00)
[2021-04-16 08:10] LABS: HEMATOCRIT 41.3 % (32.4-45.2); HEMOGLOBIN 13.7 GM/dL (10.7-15.3); MCH 29.7 pg (25.7-33.7); MCHC 33.2 g/dl (32.0-36.0); MEAN CELL VOLUME 89.2 fl (80-96); MEAN PLT VOLUME 10.2 fl (7.5-11.1); PLATELET COUNT 341 K/MM3 (134-434); RBC 4.63 M/mm3 (3.60-5.2); RDW 14.6 % (11.6-15.6); WHITE BLOOD COUNT 11.5 K/mm3 (4.0-10.0)
[2021-04-16 08:20] LABS: CALCIUM 9.3 mg/dL (8.5-10.1)
[2021-04-16 08:21] LABS: MAGNESIUM 2.7 mg/dL (1.8-2.4)
[2021-04-16 08:24] LABS: CREATININE 0.6 mg/dL (0.55-1.3); PHOSPHOROUS 3.4 mg/dL (2.5-4.9)
[2021-04-16] MEDS ORDERED: LEVOTHYROXINE SODIUM 125 MCG GT SCH (10:00)
[2021-04-16] MEDS ORDERED: ENOXAPARIN NA (PORCINE) 40 MG/0.4 ML DISP.SYRIN SQ SCH (10:00)
[2021-04-16] MEDS: POLYETHYLENE GLYCOL 3350 119 GM BTL GT SCH ×3 (10:30→22:24)
[2021-04-16] MEDS: PANTOPRAZOLE SODIUM 40 MG VIAL IVPUSH SCH ×2 (22:22→22:23)
[2021-04-16] MEDS: DEXTROSE 5%-NORMAL SALINE 1,000 ML IV SCH (22:23)
[2021-04-17] MEDS: DEXTROSE 5%-NORMAL SALINE 1,000 ML IV SCH (04:55)
[2021-04-17] MEDS: POLYETHYLENE GLYCOL 3350 119 GM BTL GT SCH ×3 (05:34→21:37)
[2021-04-17] MEDS: LEVOTHYROXINE NA 125 MCG TABLET (FP) GT SCH (06:00)
[2021-04-17 09:03] LABS: HEMATOCRIT 31.7 % (32.4-45.2); HEMOGLOBIN 10.6 GM/dL (10.7-15.3); MCH 29.9 pg (25.7-33.7); MCHC 33.5 g/dl (32.0-36.0); MEAN CELL VOLUME 89.4 fl (80-96); MEAN PLT VOLUME 10.6 fl (7.5-11.1); PLATELET COUNT 286 K/MM3 (134-434); RBC 3.55 M/mm3 (3.60-5.2); RDW 14.7 % (11.6-15.6); WHITE BLOOD COUNT 7.3 K/mm3 (4.0-10.0)
[2021-04-17 09:28] LABS: BLOOD UREA NITROGEN 31.3 mg/dL (7-18)
[2021-04-17 09:32] LABS: CALCIUM 8.1 mg/dL (8.5-10.1)
[2021-04-17 09:33] LABS: MAGNESIUM 2.5 mg/dL (1.8-2.4)
[2021-04-17 09:45] LABS: CREATININE 0.5 mg/dL (0.55-1.3)
[2021-04-17] MEDS ORDERED: PT OWN MED DRAWER 7, Y5N ONE (10:25)
[2021-04-17] MEDS: PANTOPRAZOLE SODIUM 40 MG VIAL IVPUSH SCH (10:31)
[2021-04-17] MEDS: KCL 10 MEQ IVPB 10 MEQ/100 ML INFUS.BAG IVPB SCH ×2 (14:27→16:18)
[2021-04-17] MEDS: MAG HYDROX/AL HYDROX/SIMETH 30 ML UNIT-DOSE CUP GT SCH ×2 (14:27→21:37)
[2021-04-17 14:59] LABS: RETICULOCYTES 2.13 % (0.5-1.5)
[2021-04-17] MEDS: PANTOPRAZOLE SODIUM 80 MG in SODIUM CHLORIDE 100 ML IVPB SCH (16:18)
[2021-04-17] MEDS ORDERED: PANTOPRAZOLE SODIUM 40 MG VIAL IVPUSH SCH (22:00)
[2021-04-18] MEDS: DEXTROSE 5%-NORMAL SALINE 1,000 ML IV SCH ×4 (02:01→20:00)
[2021-04-18] MEDS: PANTOPRAZOLE SODIUM 80 MG in SODIUM CHLORIDE 100 ML IVPB SCH ×5 (02:26→23:46)
[2021-04-18] MEDS: POLYETHYLENE GLYCOL 3350 119 GM BTL GT SCH ×3 (06:29→21:18)
[2021-04-18] MEDS: LEVOTHYROXINE NA 125 MCG TABLET (FP) GT SCH (06:32)
[2021-04-18] MEDS ORDERED: POTASSIUM CHLORIDE ORAL LIQUID 20 MEQ/15 ML GT ONE (08:17)
[2021-04-18 11:14] LABS: HEMATOCRIT 29.8 % (32.4-45.2); HEMOGLOBIN 9.9 GM/dL (10.7-15.3); MCH 30.4 pg (25.7-33.7); MCHC 33.4 g/dl (32.0-36.0); MEAN PLT VOLUME 10.2 fl (7.5-11.1); PLATELET COUNT 260 K/MM3 (134-434); RBC 3.28 M/mm3 (3.60-5.2); RDW 14.6 % (11.6-15.6); WHITE BLOOD COUNT 5.3 K/mm3 (4.0-10.0)
[2021-04-18] MEDS ORDERED: PT OWN MED DRAWER 7, Y5N ONE ×2 (11:21→11:46)
[2021-04-18] MEDS: AMINO ACIDS/PROTEIN HYDROLYS 30 ML LIQUID.PKT GT SCH (11:25)
[2021-04-18] MEDS: MAG HYDROX/AL HYDROX/SIMETH 30 ML UNIT-DOSE CUP GT SCH ×2 (11:25→21:18)
[2021-04-18] MEDS: MULTIVIT-MINERALS ORAL LIQUID GT SCH (11:26)
[2021-04-18 11:29] LABS: CALCIUM 7.9 mg/dL (8.5-10.1)
[2021-04-18 11:30] LABS: BLOOD UREA NITROGEN 25.2 mg/dL (7-18)
[2021-04-18 11:33] LABS: CREATININE 0.5 mg/dL (0.55-1.3)
[2021-04-18] MEDS: BACITRACIN 15 GM TUBE TOPICAL OINTMENT TP SCH (21:18)
[2021-04-19] MEDS ORDERED: PT OWN MED DRAWER 7, Y5N ONE ×2 (05:31→11:03)
[2021-04-19] MEDS: PANTOPRAZOLE SODIUM 80 MG in SODIUM CHLORIDE 100 ML IVPB SCH (06:09)
[2021-04-19] MEDS: LEVOTHYROXINE NA 125 MCG TABLET (FP) GT SCH (06:10)
[2021-04-19] MEDS: DEXTROSE 5%-NORMAL SALINE 1,000 ML IV SCH ×2 (06:16→08:42)
[2021-04-19] MEDS: AMINO ACIDS/PROTEIN HYDROLYS 30 ML LIQUID.PKT GT SCH (08:42)
[2021-04-19] MEDS: POLYETHYLENE GLYCOL 3350 119 GM BTL GT SCH (11:06)
[2021-04-19] MEDS: BACITRACIN 15 GM TUBE TOPICAL OINTMENT TP SCH (11:07)
[2021-04-19] MEDS: MAG HYDROX/AL HYDROX/SIMETH 30 ML UNIT-DOSE CUP GT SCH (11:07)
[2021-04-19] MEDS: MULTIVIT-MINERALS ORAL LIQUID GT SCH (11:07)
[2021-04-19 12:25] LABS: HEMATOCRIT 33.7 % (32.4-45.2); HEMOGLOBIN 11.2 GM/dL (10.7-15.3); MCH 30.1 pg (25.7-33.7); MCHC 33.2 g/dl (32.0-36.0); MEAN CELL VOLUME 90.4 fl (80-96); MEAN PLT VOLUME 10.3 fl (7.5-11.1); PLATELET COUNT 237 K/MM3 (134-434); RBC 3.73 M/mm3 (3.60-5.2); RDW 14.5 % (11.6-15.6); WHITE BLOOD COUNT 6.4 K/mm3 (4.0-10.0)
[2021-04-19 12:40] LABS: BLOOD UREA NITROGEN 17.4 mg/dL (7-18); MAGNESIUM 2.5 mg/dL (1.8-2.4)
[2021-04-19 12:43] LABS: CREATININE 0.4 mg/dL (0.55-1.3)
[2021-04-19 15:53] VITALS: BP 122/58; PULSE 71; TEMP 97.8
[2021-04-19] MEDS ORDERED: PANTOPRAZOLE SODIUM 40 MG VIAL IVPUSH SCH (22:00)
== END 2021-04-19 18:12 | DRG 377 ==
LOC: JER 19:17 → JERBED 21:28 → J8W 04-16 22:02
PROVIDERS: ADMIT Internal Medicine; ATTEND Student in an Organized Health Care Education/Training Program
PROC: 0DB78ZX Excision of Stomach, Pylorus, Via Natural or Artificial Opening Endoscopic, Diagnostic (ICD-10-PCS; 2021-04-17)
PROC: 0DB68ZX Excision of Stomach, Via Natural or Artificial Opening Endoscopic, Diagnostic (ICD-10-PCS; principal; 2021-04-17 13:30)
DX: K25.0 Acute gastric ulcer with hemorrhage (principal); R53.2 Functional quadriplegia; E03.9 Hypothyroidism, unspecified; J44.9 Chronic obstructive pulmonary disease, unspecified; G30.9 Alzheimer's disease, unspecified; F02.80 Dementia in other diseases classified elsewhere, unspecified severity, without behavioral disturbance, psychotic disturbance, mood disturbance, and anxiety; M41.9 Scoliosis, unspecified; I44.0 Atrioventricular block, first degree; K29.70 Gastritis, unspecified, without bleeding; R13.10 Dysphagia, unspecified; K31.1 Adult hypertrophic pyloric stenosis; L89.152 Pressure ulcer of sacral region, stage 2; K31.89 Other diseases of stomach and duodenum; K59.09 Other constipation; D64.9 Anemia, unspecified; K44.9 Diaphragmatic hernia without obstruction or gangrene; Z88.0 Allergy status to penicillin; Z86.73 Personal history of transient ischemic attack (TIA), and cerebral infarction without residual deficits; R94.31 Abnormal electrocardiogram [ECG] [EKG]; Z74.01 Bed confinement status; Z93.1 Gastrostomy status
CPT/HCPCS: 36415; 71045-TC-FY; 74018-TC-FY; 74177-TC; 80048; 80053; 82272; 82378; 82728; 83540; 83550; 83735; 84100; 85025; 85027; 85045; 85610; 85730; 86850; 86900; 86901; 88305-TC; 93005; 93010; 99285-25; C9803; E0186; U0003; U0005

== ENCOUNTER 2021-05-01 13:16 | Emergency (ER) | payer OTHER, MEDICARE ==
[2021-05-01 13:27] VITALS: BMI 25.4
[2021-05-01 16:49] VITALS: TEMP 98
[2021-05-01 21:37] VITALS: BP 115/73; PULSE 102
== END 2021-05-01 21:39 ==
LOC: JER 13:16
DX: T85.528A Displacement of other gastrointestinal prosthetic devices, implants and grafts, initial encounter (principal)
CPT/HCPCS: 74018-TC-FY; 99284-25

== ENCOUNTER 2022-09-01 00:39 | Inpatient (IN) | payer OTHER, MEDICARE ==
[2022-09-01] MEDS ORDERED: LACTATED RINGERS SOLUTION 1000 ML INFUS.BAG IV ONE (00:58)
[2022-09-01] MEDS ORDERED: ACETAMINOPHEN 1000 MG/100 ML BAG IVPB ONE (00:58)
[2022-09-01] MEDS: PROPOFOL 1,000,000 MCG/100 ML VIAL IVPB SCH ×2 (01:15→11:21)
[2022-09-01 01:21] LABS: ARTERIAL BLD GAS O2 SATURATION 99.4 % (95-98); ARTERIAL BLOOD GAS BASE EXCESS 1.3 mmol/L (-2-2); ARTERIAL BLOOD GAS PO2 192.3 mmHg (80-100); ARTERIAL BLOOD GAS pH 7.505 (7.350-7.450)
[2022-09-01 01:25] LABS: VENT RATE 18
[2022-09-01 01:28] LABS: HEMATOCRIT 37.4 % (32.4-45.2); HEMOGLOBIN 11.8 GM/dL (10.7-15.3); MCH 26.6 pg (25.7-33.7); MCHC 31.5 g/dl (32.0-36.0); MEAN CELL VOLUME 84.6 fl (80-96); MEAN PLT VOLUME 9.7 fl (7.5-11.1); PLATELET COUNT 307 10^3/uL (134-434); RBC 4.42 M/mm3 (3.60-5.2); RDW 15.7 % (11.6-15.6); WHITE BLOOD COUNT 26.1 K/mm3 (4.0-10.0)
[2022-09-01] MEDS ORDERED: ACETAMINOPHEN INJECTION 100 ML IVPB ONE (01:28)
[2022-09-01 01:40] LABS: EPI CELLS 21 /uL (0-25.1); HYALINE CASTS 1 /uL (0-3.1); PH,URINE 8.5 (5.0-8.0); URINE APPEARANCE TURBID; URINE BACTERIA 3 /uL (0-1359); URINE BILIRUBIN NEGATIVE (NEGATIVE); URINE COLOR YELLOW; URINE GLUCOSE (UA) NEGATIVE (NEGATIVE); URINE KETONE TRACE (NEGATIVE); URINE LEUK ESTERASE NEGATIVE (NEGATIVE); URINE NITRITE NEGATIVE (NEGATIVE); URINE PROTEIN 2+ (NEGATIVE); URINE WBC 3 /uL (0-25.8)
[2022-09-01 01:46] LABS: INR 1.09 (0.83-1.09); PROTHROMBIN TIME (PATIENT) 12.5 SEC (9.7-13.0)
[2022-09-01 01:47] LABS: BLOOD UREA NITROGEN 26.7 mg/dL (7-18); CALCIUM 8.5 mg/dL (8.5-10.1)
[2022-09-01] MEDS ORDERED: VANCOMYCIN 1 GM in D5W (PRE-DOCKED) 1,000 MG/250 ML IVPB ONE (01:48)
[2022-09-01] MEDS ORDERED: PIPERACILLIN/TAZOB 4.5 GM 4.5 GM in DEXTROSE 5%-WATER 100 ML IVPB ONE (01:48)
[2022-09-01 01:49] LABS: ACTIVATED PTT 29.8 SECONDS (25.2-36.5)
[2022-09-01 01:50] LABS: CREATININE 0.6 mg/dL (0.55-1.3)
[2022-09-01 01:53] LABS: TOT PROT 7.6 g/dl (6.4-8.2)
[2022-09-01 01:55] LABS: N-TERMINAL BNP 837.7 pg/ml (5-450)
[2022-09-01] MEDS ORDERED: VANCOMYCIN/WATER FOR INJ (PEG) 1,000 MG/200 ML BAG IVPB ONE (02:06)
[2022-09-01] MEDS ORDERED: PIPERACILLIN/TAZOB 4.5 GM 4.5 GM/100 ML BAG IVPB ONE (02:06)
[2022-09-01 03:03] LABS: LACTIC ACID 2.5 mmol/L (0.4-2.0)
[2022-09-01 03:56] LABS: ANISOCYTOSIS 3+; MACROCYTOSIS 0; ROULEAU 1+
[2022-09-01] MEDS: PANTOPRAZOLE SODIUM 40 MG VIAL IVPUSH SCH (10:33)
[2022-09-01] MEDS: PIPERACILLIN/TAZOB 2.25 GM 2.25 GM in DEXTROSE 5%-WATER - 50 ML IVPB SCH ×2 (11:05→17:17)
[2022-09-01] MEDS: LEVOTHYROXINE SODIUM 100 MCG 5 ML VIAL IVPUSH SCH (11:05)
[2022-09-01] MEDS ORDERED: ACETAMINOPHEN 1000 MG/100 ML BAG IVPB STA (14:08)
[2022-09-01] MEDS: HEPARIN NA (PORCINE) 5,000 UNITS/ML 1ML VIAL SQ SCH ×2 (14:19→21:38)
[2022-09-01] MEDS: DOCUSATE NA 100 MG/10 ML UNIT-DOSE CUPS PEG SCH ×2 (14:19→21:37)
[2022-09-01] MEDS: DEXAMETHASONE SOD PHOSPHATE 4 MG/1 ML VIAL IVPUSH SCH ×2 (14:20→21:37)
[2022-09-01] MEDS ORDERED: PIPERACILLIN/TAZOB 2.25 GM 2.25 GM in DEXTROSE 5%-WATER - 50 ML IVPB SCH (18:00)
[2022-09-01] MEDS: SENNOSIDES 8.8 MG/5 ML BULK BOTTLE PEG SCH (21:37)
[2022-09-02] MEDS: PROPOFOL 1,000,000 MCG/100 ML VIAL IVPB SCH ×3 (01:15→21:27)
[2022-09-02] MEDS: PIPERACILLIN/TAZOB 2.25 GM 2.25 GM in DEXTROSE 5%-WATER - 50 ML IVPB SCH ×2 (01:16→09:41)
[2022-09-02] MEDS: DEXAMETHASONE SOD PHOSPHATE 4 MG/1 ML VIAL IVPUSH SCH ×4 (02:29→21:27)
[2022-09-02] MEDS: HEPARIN NA (PORCINE) 5,000 UNITS/ML 1ML VIAL SQ SCH ×3 (06:00→21:27)
[2022-09-02] MEDS: DOCUSATE NA 100 MG/10 ML UNIT-DOSE CUPS PEG SCH ×3 (06:01→21:26)
[2022-09-02 08:09] LABS: HEMATOCRIT 27.3 % (32.4-45.2); MCH 27.5 pg (25.7-33.7); MCHC 32.9 g/dl (32.0-36.0); MEAN CELL VOLUME 83.6 fl (80-96); MEAN PLT VOLUME 9.3 fl (7.5-11.1); PLATELET COUNT 306 10^3/uL (134-434); RBC 3.26 M/mm3 (3.60-5.2); RDW 15.2 % (11.6-15.6); WHITE BLOOD COUNT 12.1 K/mm3 (4.0-10.0)
[2022-09-02 08:34] LABS: BLOOD UREA NITROGEN 19.8 mg/dL (7-18); CALCIUM 8.1 mg/dL (8.5-10.1); MAGNESIUM 2.7 mg/dL (1.8-2.4)
[2022-09-02 08:38] LABS: CREATININE 0.6 mg/dL (0.55-1.3); PHOSPHOROUS 3.8 mg/dL (2.5-4.9)
[2022-09-02 09:15] LABS: ARTERIAL BLD GAS O2 SATURATION 98.4 % (95-98); ARTERIAL BLOOD GAS BASE EXCESS 4.3 mmol/L (-2-2); ARTERIAL BLOOD GAS PO2 99.4 mmHg (80-100); ARTERIAL BLOOD GAS pH 7.583 (7.350-7.450)
[2022-09-02 09:17] LABS: ALLENS TEST POSITIVE; PT'S TEMP 98.6; VENT MODE A/C; VENT RATE 18
[2022-09-02] MEDS: LEVOTHYROXINE SODIUM 100 MCG 5 ML VIAL IVPUSH SCH (09:41)
[2022-09-02] MEDS: PANTOPRAZOLE SODIUM 40 MG VIAL IVPUSH SCH (09:41)
[2022-09-02] MEDS ORDERED: SCOPOLAMINE HYDROBROMIDE 1 PATCH PATCH.TD72 TD SCH (10:15)
[2022-09-02] MEDS: VANCOMYCIN/WATER 1,250 MG/250 ML BAG (RESTRICTED TO ID ONLY) IVPB SCH (14:36)
[2022-09-02] MEDS: SENNOSIDES 8.8 MG/5 ML BULK BOTTLE PEG SCH (21:27)
[2022-09-03] MEDS: DEXAMETHASONE SOD PHOSPHATE 4 MG/1 ML VIAL IVPUSH SCH ×4 (02:04→21:35)
[2022-09-03] MEDS: PROPOFOL 1,000,000 MCG/100 ML VIAL IVPB SCH ×2 (03:46→08:10)
[2022-09-03] MEDS: DOCUSATE NA 100 MG/10 ML UNIT-DOSE CUPS PEG SCH ×3 (05:27→21:35)
[2022-09-03] MEDS: HEPARIN NA (PORCINE) 5,000 UNITS/ML 1ML VIAL SQ SCH ×3 (05:28→21:34)
[2022-09-03 06:29] LABS: ARTERIAL BLD GAS O2 SATURATION 97.7 % (95-98); ARTERIAL BLOOD GAS BASE EXCESS 8.6 mmol/L (-2-2); ARTERIAL BLOOD GAS PO2 83.3 mmHg (80-100)
[2022-09-03 06:49] LABS: ALLENS TEST POSITIVE; VENT MODE A/C; VENT RATE 18
[2022-09-03 06:50] LABS: ARTERIAL BLOOD GAS pH 7.613 (7.350-7.450)
[2022-09-03 07:55] LABS: HEMATOCRIT 29.4 % (32.4-45.2); HEMOGLOBIN 9.5 GM/dL (10.7-15.3); MCH 27.2 pg (25.7-33.7); MCHC 32.3 g/dl (32.0-36.0); MEAN CELL VOLUME 84.2 fl (80-96); MEAN PLT VOLUME 10.6 fl (7.5-11.1); PLATELET COUNT 331 10^3/uL (134-434); RBC 3.49 M/mm3 (3.60-5.2); RDW 15.5 % (11.6-15.6); WHITE BLOOD COUNT 7.4 K/mm3 (4.0-10.0)
[2022-09-03] MEDS ORDERED: POTASSIUM CHLORIDE 20 MEQ PREMIX IVPB 100 ML IVPB ONE ×2 (08:17)
[2022-09-03 08:20] LABS: CALCIUM 8.3 mg/dL (8.5-10.1)
[2022-09-03 08:21] LABS: ALBUMIN 2.6 g/dl (3.4-5.0); BLOOD UREA NITROGEN 23.4 mg/dL (7-18); MAGNESIUM 2.9 mg/dL (1.8-2.4)
[2022-09-03 08:23] LABS: CREATININE 0.6 mg/dL (0.55-1.3)
[2022-09-03 08:24] LABS: PHOSPHOROUS 3.5 mg/dL (2.5-4.9)
[2022-09-03 08:26] LABS: BILIRUBIN,TOTAL 0.5 mg/dL (0.2-1); TOT PROT 6.5 g/dl (6.4-8.2)
[2022-09-03] MEDS ORDERED: POTASSIUM CHLORIDE ORAL LIQUID 20 MEQ/15 ML PO ONE (08:50)
[2022-09-03 09:00] LABS: ANISOCYTOSIS 0; MACROCYTOSIS 0
[2022-09-03] MEDS: KCL 10 MEQ IVPB 10 MEQ/100 ML INFUS.BAG IVPB SCH ×2 (09:10→09:52)
[2022-09-03 09:38] LABS: ARTERIAL BLD GAS O2 SATURATION 98.6 % (95-98); ARTERIAL BLOOD GAS BASE EXCESS 2.5 mmol/L (-2-2); ARTERIAL BLOOD GAS PO2 113.9 mmHg (80-100); ARTERIAL BLOOD GAS pH 7.512 (7.350-7.450)
[2022-09-03 09:39] LABS: ALLENS TEST POSITIVE
[2022-09-03 09:40] LABS: VENT MODE AC; VENT RATE 12
[2022-09-03] MEDS: PANTOPRAZOLE SODIUM 40 MG VIAL IVPUSH SCH (09:53)
[2022-09-03] MEDS: LEVOTHYROXINE SODIUM 100 MCG 5 ML VIAL IVPUSH SCH (09:53)
[2022-09-03] MEDS: VANCOMYCIN/WATER 1,250 MG/250 ML BAG (RESTRICTED TO ID ONLY) IVPB SCH (10:36)
[2022-09-03] MEDS: AMINO ACIDS/PROTEIN HYDROLYS 30 ML LIQUID.PKT PO SCH (17:20)
[2022-09-03] MEDS: PIPERACILLIN/TAZOB 3.375 GM 3.375 GM in DEXTROSE 5%-WATER - 50 ML IVPB SCH (17:20)
[2022-09-03 18:36] LABS: CALCIUM 8.2 mg/dL (8.5-10.1)
[2022-09-03 18:37] LABS: BLOOD UREA NITROGEN 26.7 mg/dL (7-18)
[2022-09-03 18:40] LABS: CREATININE 0.7 mg/dL (0.55-1.3)
[2022-09-03] MEDS: SENNOSIDES 8.8 MG/5 ML BULK BOTTLE PEG SCH (21:32)
[2022-09-04] MEDS: PIPERACILLIN/TAZOB 3.375 GM 3.375 GM in DEXTROSE 5%-WATER - 50 ML IVPB SCH ×4 (01:00→18:14)
[2022-09-04] MEDS: DEXAMETHASONE SOD PHOSPHATE 4 MG/1 ML VIAL IVPUSH SCH ×2 (03:00→09:32)
[2022-09-04] MEDS: HEPARIN NA (PORCINE) 5,000 UNITS/ML 1ML VIAL SQ SCH ×3 (06:20→22:30)
[2022-09-04] MEDS: DOCUSATE NA 100 MG/10 ML UNIT-DOSE CUPS PEG SCH ×3 (06:20→22:30)
[2022-09-04 07:32] LABS: CALCIUM 8.5 mg/dL (8.5-10.1)
[2022-09-04 07:33] LABS: ALBUMIN 2.7 g/dl (3.4-5.0); BLOOD UREA NITROGEN 28.6 mg/dL (7-18); MAGNESIUM 3.1 mg/dL (1.8-2.4)
[2022-09-04 07:36] LABS: CREATININE 0.8 mg/dL (0.55-1.3); PHOSPHOROUS 4.4 mg/dL (2.5-4.9)
[2022-09-04 07:37] LABS: BILIRUBIN,TOTAL 0.4 mg/dL (0.2-1); TOT PROT 6.8 g/dl (6.4-8.2)
[2022-09-04 08:22] LABS: BASO % 0.9 % (0-2.0); HEMATOCRIT 29.9 % (32.4-45.2); HEMOGLOBIN 9.5 GM/dL (10.7-15.3); LYMPH % 10.3 % (8-40); MCH 27.2 pg (25.7-33.7); MCHC 31.6 g/dl (32.0-36.0); MEAN CELL VOLUME 85.9 fl (80-96); MEAN PLT VOLUME 10.6 fl (7.5-11.1); MONO % 2.5 % (3.8-10.2); NEUT % 86.3 % (42.8-82.8); PLATELET COUNT 326 10^3/uL (134-434); RBC 3.49 M/mm3 (3.60-5.2); RDW 15.3 % (11.6-15.6); WHITE BLOOD COUNT 8.2 K/mm3 (4.0-10.0)
[2022-09-04] MEDS: PROPOFOL 1,000,000 MCG/100 ML VIAL IVPB SCH (09:31)
[2022-09-04] MEDS: LEVOTHYROXINE SODIUM 100 MCG 5 ML VIAL IVPUSH SCH (09:32)
[2022-09-04] MEDS: PANTOPRAZOLE SODIUM 40 MG VIAL IVPUSH SCH (09:32)
[2022-09-04] MEDS: AMINO ACIDS/PROTEIN HYDROLYS 30 ML LIQUID.PKT PO SCH ×2 (09:32→18:24)
[2022-09-05] MEDS: SENNOSIDES 8.8 MG/5 ML BULK BOTTLE PEG SCH ×2 (00:19→23:01)
[2022-09-05] MEDS: PIPERACILLIN/TAZOB 3.375 GM 3.375 GM in DEXTROSE 5%-WATER - 50 ML IVPB SCH ×4 (02:05→17:23)
[2022-09-05] MEDS: HEPARIN NA (PORCINE) 5,000 UNITS/ML 1ML VIAL SQ SCH ×3 (05:50→23:01)
[2022-09-05] MEDS: DOCUSATE NA 100 MG/10 ML UNIT-DOSE CUPS PEG SCH ×3 (05:50→23:01)
[2022-09-05] MEDS: AMINO ACIDS/PROTEIN HYDROLYS 30 ML LIQUID.PKT PO SCH ×2 (09:00→16:40)
[2022-09-05] MEDS ORDERED: LEVOTHYROXINE SODIUM 100 MCG 5 ML VIAL IVPUSH SCH (10:00)
[2022-09-05 10:47] LABS: HEMATOCRIT 32.1 % (32.4-45.2); HEMOGLOBIN 10.1 GM/dL (10.7-15.3); MCH 26.8 pg (25.7-33.7); MCHC 31.3 g/dl (32.0-36.0); MEAN CELL VOLUME 85.8 fl (80-96); PLATELET COUNT 322 10^3/uL (134-434); RBC 3.75 M/mm3 (3.60-5.2); RDW 15.4 % (11.6-15.6); WHITE BLOOD COUNT 8.8 K/mm3 (4.0-10.0)
[2022-09-05] MEDS: PANTOPRAZOLE SODIUM 40 MG VIAL IVPUSH SCH (10:55)
[2022-09-05 11:17] LABS: ALBUMIN 2.6 g/dl (3.4-5.0); CALCIUM 7.8 mg/dL (8.5-10.1)
[2022-09-05 11:20] LABS: CREATININE 0.6 mg/dL (0.55-1.3); PHOSPHOROUS 2.6 mg/dL (2.5-4.9)
[2022-09-05 11:23] LABS: BILIRUBIN,TOTAL 0.5 mg/dL (0.2-1); TOT PROT 6.4 g/dl (6.4-8.2)
[2022-09-05 12:11] LABS: ANISOCYTOSIS 1+; MACROCYTOSIS 0; ROULEAU 1+
[2022-09-05] MEDS ORDERED: POTASSIUM CHLORIDE ORAL LIQUID 20 MEQ/15 ML GT ONE (15:49)
[2022-09-05] MEDS: AMOX TR/POTASSIUM CLAVULANATE 600 MG/5 ML GT SCH (17:37)
[2022-09-05] MEDS ORDERED: FLU VACC QS2022-23(6MOS UP)/PF 60 MCG/0.5 ML SYRINGE IM ONE (20:00)
[2022-09-06] MEDS: DOCUSATE NA 100 MG/10 ML UNIT-DOSE CUPS PEG SCH ×3 (06:22→22:11)
[2022-09-06] MEDS: HEPARIN NA (PORCINE) 5,000 UNITS/ML 1ML VIAL SQ SCH ×3 (06:22→22:11)
[2022-09-06] MEDS: LEVOTHYROXINE NA 125 MCG TABLET (FP) GT SCH (06:22)
[2022-09-06] MEDS: AMOX TR/POTASSIUM CLAVULANATE 600 MG/5 ML GT SCH ×2 (11:08→18:20)
[2022-09-06] MEDS: AMINO ACIDS/PROTEIN HYDROLYS 30 ML LIQUID.PKT PO SCH ×2 (11:09→18:20)
[2022-09-06] MEDS: PANTOPRAZOLE SODIUM 40 MG VIAL IVPUSH SCH (11:12)
[2022-09-06 11:54] LABS: BASO % 0.2 % (0-2.0); EOS % 1.4 % (0-4.5); HEMATOCRIT 32.7 % (32.4-45.2); HEMOGLOBIN 10.3 GM/dL (10.7-15.3); LYMPH % 7.9 % (8-40); MCH 26.9 pg (25.7-33.7); MCHC 31.4 g/dl (32.0-36.0); MEAN CELL VOLUME 85.7 fl (80-96); MEAN PLT VOLUME 10.2 fl (7.5-11.1); MONO % 1.1 % (3.8-10.2); NEUT % 89.4 % (42.8-82.8); PLATELET COUNT 301 10^3/uL (134-434); RBC 3.81 M/mm3 (3.60-5.2); RDW 15.5 % (11.6-15.6); WHITE BLOOD COUNT 11.8 K/mm3 (4.0-10.0)
[2022-09-06 12:20] LABS: BLOOD UREA NITROGEN 28.4 mg/dL (7-18); TOT PROT 6.2 g/dl (6.4-8.2)
[2022-09-06 12:22] LABS: ALBUMIN 2.7 g/dl (3.4-5.0); BILIRUBIN,TOTAL 0.4 mg/dL (0.2-1); PHOSPHOROUS 2.7 mg/dL (2.5-4.9)
[2022-09-06 12:24] LABS: CREATININE 0.5 mg/dL (0.55-1.3); MAGNESIUM 2.7 mg/dL (1.8-2.4)
[2022-09-06] MEDS: SENNOSIDES 8.8 MG/5 ML BULK BOTTLE PEG SCH (22:11)
[2022-09-07] MEDS: LEVOTHYROXINE NA 125 MCG TABLET (FP) GT SCH (06:07)
[2022-09-07] MEDS: HEPARIN NA (PORCINE) 5,000 UNITS/ML 1ML VIAL SQ SCH ×3 (06:07→23:20)
[2022-09-07] MEDS: DOCUSATE NA 100 MG/10 ML UNIT-DOSE CUPS PEG SCH ×3 (06:07→23:20)
[2022-09-07 09:35] LABS: BASO % 1.2 % (0-2.0); EOS % 2.3 % (0-4.5); HEMATOCRIT 31.3 % (32.4-45.2); HEMOGLOBIN 9.9 GM/dL (10.7-15.3); LYMPH % 12.8 % (8-40); MCHC 31.6 g/dl (32.0-36.0); MEAN CELL VOLUME 85.5 fl (80-96); MEAN PLT VOLUME 10.6 fl (7.5-11.1); MONO % 3.3 % (3.8-10.2); NEUT % 80.4 % (42.8-82.8); PLATELET COUNT 391 10^3/uL (134-434); RBC 3.66 M/mm3 (3.60-5.2); RDW 15.6 % (11.6-15.6); WHITE BLOOD COUNT 9.1 K/mm3 (4.0-10.0)
[2022-09-07 09:42] LABS: CALCIUM 7.9 mg/dL (8.5-10.1)
[2022-09-07 09:43] LABS: ALBUMIN 2.6 g/dl (3.4-5.0); BLOOD UREA NITROGEN 22.2 mg/dL (7-18); MAGNESIUM 2.5 mg/dL (1.8-2.4)
[2022-09-07] MEDS: FAMOTIDINE 40 MG/5 ML ORAL SUSPENSION PEG SCH (09:44)
[2022-09-07] MEDS: AMINO ACIDS/PROTEIN HYDROLYS 30 ML LIQUID.PKT PO SCH ×2 (09:44→18:03)
[2022-09-07 09:46] LABS: CREATININE 0.5 mg/dL (0.55-1.3); PHOSPHOROUS 2.7 mg/dL (2.5-4.9)
[2022-09-07 09:47] LABS: BILIRUBIN,TOTAL 0.4 mg/dL (0.2-1); TOT PROT 6.1 g/dl (6.4-8.2)
[2022-09-07] MEDS: AMOX TR/POTASSIUM CLAVULANATE 600 MG/5 ML GT SCH ×2 (09:47→18:04)
[2022-09-07] MEDS: SENNOSIDES 8.8 MG/5 ML BULK BOTTLE PEG SCH (23:20)
[2022-09-08] MEDS: DOCUSATE NA 100 MG/10 ML UNIT-DOSE CUPS PEG SCH ×3 (05:42→22:46)
[2022-09-08] MEDS: HEPARIN NA (PORCINE) 5,000 UNITS/ML 1ML VIAL SQ SCH ×3 (05:42→22:46)
[2022-09-08] MEDS: LEVOTHYROXINE NA 125 MCG TABLET (FP) GT SCH (06:11)
[2022-09-08] MEDS: AMINO ACIDS/PROTEIN HYDROLYS 30 ML LIQUID.PKT PO SCH ×2 (08:40→17:28)
[2022-09-08] MEDS: FAMOTIDINE 40 MG/5 ML ORAL SUSPENSION PEG SCH (10:12)
[2022-09-08 13:32] LABS: HEMOGLOBIN 10.5 GM/dL (10.7-15.3); MCH 27.4 pg (25.7-33.7); MCHC 31.9 g/dl (32.0-36.0); MEAN PLT VOLUME 11.1 fl (7.5-11.1); RBC 3.84 M/mm3 (3.60-5.2); RDW 15.8 % (11.6-15.6)
[2022-09-08 13:38] LABS: ALBUMIN 2.5 g/dl (3.4-5.0); BLOOD UREA NITROGEN 25.1 mg/dL (7-18); CALCIUM 8.1 mg/dL (8.5-10.1); MAGNESIUM 2.5 mg/dL (1.8-2.4); WHITE BLOOD COUNT 22.9 K/mm3 (4.0-10.0)
[2022-09-08 13:41] LABS: CREATININE 0.5 mg/dL (0.55-1.3)
[2022-09-08 13:42] LABS: PHOSPHOROUS 2.7 mg/dL (2.5-4.9)
[2022-09-08 13:43] LABS: BILIRUBIN,TOTAL 0.6 mg/dL (0.2-1); TOT PROT 6.4 g/dl (6.4-8.2)
[2022-09-08 14:35] LABS: ANISOCYTOSIS 0; HELMET CELLS 0; HOWELL-JOLLY BODIES 0; MACROCYTOSIS 0; OVALOCYTE 0; ROULEAU 0; SICKELED CELLS 0; TARGET CELLS 0; TEAR DROP CELLS 0; TOXIC GRANULATION 0
[2022-09-08 14:39] LABS: PLATELET COUNT 354 10^3/uL (134-434)
[2022-09-08] MEDS: CLOTRIMAZOLE 1% CREAM TP SCH ×2 (15:39→22:46)
[2022-09-08] MEDS ORDERED: VANCOMYCIN/WATER FOR INJ (PEG) 1,000 MG/200 ML BAG IVPB ONE (20:26)
[2022-09-08] MEDS: SENNOSIDES 8.8 MG/5 ML BULK BOTTLE PEG SCH (22:47)
[2022-09-08] MEDS: MEROPENEM 1 GM in DEXTROSE 5%-WATER 100 ML IVPB SCH (23:30)
[2022-09-09] MEDS: MEROPENEM 1 GM in DEXTROSE 5%-WATER 100 ML IVPB SCH ×3 (03:43→17:12)
[2022-09-09] MEDS: HEPARIN NA (PORCINE) 5,000 UNITS/ML 1ML VIAL SQ SCH ×3 (06:41→23:22)
[2022-09-09] MEDS: LEVOTHYROXINE NA 125 MCG TABLET (FP) GT SCH (06:41)
[2022-09-09] MEDS: DOCUSATE NA 100 MG/10 ML UNIT-DOSE CUPS PEG SCH ×3 (06:41→23:22)
[2022-09-09] MEDS: AMINO ACIDS/PROTEIN HYDROLYS 30 ML LIQUID.PKT PO SCH ×2 (11:25→17:17)
[2022-09-09] MEDS: CLOTRIMAZOLE 1% CREAM TP SCH ×2 (11:26→23:22)
[2022-09-09] MEDS: FAMOTIDINE 40 MG/5 ML ORAL SUSPENSION PEG SCH (11:26)
[2022-09-09 12:44] LABS: LYMPH % 13.5 % (8-40); MCH 28.2 pg (25.7-33.7); MCHC 33.2 g/dl (32.0-36.0); MEAN PLT VOLUME 9.7 fl (7.5-11.1); MONO % 5.5 % (3.8-10.2); PLATELET COUNT 329 10^3/uL (134-434); RBC 3.53 M/mm3 (3.60-5.2); RDW 15.5 % (11.6-15.6); WHITE BLOOD COUNT 7.5 K/mm3 (4.0-10.0)
[2022-09-09 12:47] LABS: ALBUMIN 2.6 g/dl (3.4-5.0); BLOOD UREA NITROGEN 22.4 mg/dL (7-18); CALCIUM 8.6 mg/dL (8.5-10.1); MAGNESIUM 2.5 mg/dL (1.8-2.4)
[2022-09-09 12:50] LABS: CREATININE 0.5 mg/dL (0.55-1.3); PHOSPHOROUS 3.1 mg/dL (2.5-4.9)
[2022-09-09 12:52] LABS: BILIRUBIN,TOTAL 0.6 mg/dL (0.2-1); TOT PROT 6.2 g/dl (6.4-8.2)
[2022-09-09] MEDS: SENNOSIDES 8.8 MG/5 ML BULK BOTTLE PEG SCH (23:22)
[2022-09-09] MEDS ORDERED: ACETAMINOPHEN 1000 MG/100 ML BAG IVPB ONE (23:25)
[2022-09-10] MEDS: MEROPENEM 1 GM in DEXTROSE 5%-WATER 100 ML IVPB SCH ×3 (02:09→17:41)
[2022-09-10] MEDS: DOCUSATE NA 100 MG/10 ML UNIT-DOSE CUPS PEG SCH ×2 (06:08→15:32)
[2022-09-10] MEDS: LEVOTHYROXINE NA 125 MCG TABLET (FP) GT SCH (06:08)
[2022-09-10] MEDS: HEPARIN NA (PORCINE) 5,000 UNITS/ML 1ML VIAL SQ SCH ×3 (06:08→21:49)
[2022-09-10] MEDS: FAMOTIDINE 40 MG/5 ML ORAL SUSPENSION PEG SCH (10:29)
[2022-09-10] MEDS: AMINO ACIDS/PROTEIN HYDROLYS 30 ML LIQUID.PKT PO SCH ×2 (10:29→17:41)
[2022-09-10] MEDS: CLOTRIMAZOLE 1% CREAM TP SCH ×2 (10:30→21:49)
[2022-09-10] MEDS: BACITRACIN 15 GM TUBE TOPICAL OINTMENT TP SCH (21:48)
[2022-09-11] MEDS: SENNOSIDES 8.8 MG/5 ML BULK BOTTLE PEG SCH ×2 (00:14→23:05)
[2022-09-11] MEDS: DOCUSATE NA 100 MG/10 ML UNIT-DOSE CUPS PEG SCH ×2 (00:14→05:42)
[2022-09-11] MEDS: MEROPENEM 1 GM in DEXTROSE 5%-WATER 100 ML IVPB SCH ×3 (02:26→17:15)
[2022-09-11] MEDS: HEPARIN NA (PORCINE) 5,000 UNITS/ML 1ML VIAL SQ SCH ×2 (05:42→14:27)
[2022-09-11] MEDS: LEVOTHYROXINE NA 125 MCG TABLET (FP) GT SCH (06:26)
[2022-09-11] MEDS: AMINO ACIDS/PROTEIN HYDROLYS 30 ML LIQUID.PKT PO SCH ×2 (09:15→17:15)
[2022-09-11 10:34] LABS: HEMATOCRIT 31.6 % (32.4-45.2); HEMOGLOBIN 10.4 GM/dL (10.7-15.3); MCHC 32.9 g/dl (32.0-36.0); MEAN CELL VOLUME 85.2 fl (80-96); MEAN PLT VOLUME 9.4 fl (7.5-11.1); PLATELET COUNT 299 10^3/uL (134-434); RBC 3.71 M/mm3 (3.60-5.2); RDW 15.3 % (11.6-15.6); WHITE BLOOD COUNT 5.2 K/mm3 (4.0-10.0)
[2022-09-11] MEDS: CLOTRIMAZOLE 1% CREAM TP SCH ×2 (10:34→22:37)
[2022-09-11] MEDS: POLYETHYLENE GLYCOL (HEALTHYLAX) 3350 17 GM PACKET GT SCH (10:34)
[2022-09-11] MEDS: BACITRACIN 15 GM TUBE TOPICAL OINTMENT TP SCH ×2 (10:34→22:37)
[2022-09-11] MEDS: FAMOTIDINE 40 MG/5 ML ORAL SUSPENSION PEG SCH (10:35)
[2022-09-11 11:11] LABS: ALBUMIN 2.6 g/dl (3.4-5.0); BLOOD UREA NITROGEN 16.9 mg/dL (7-18); CALCIUM 8.7 mg/dL (8.5-10.1)
[2022-09-11 11:14] LABS: BILIRUBIN,TOTAL 0.7 mg/dL (0.2-1); CREATININE 0.5 mg/dL (0.55-1.3); TOT PROT 6.3 g/dl (6.4-8.2)
[2022-09-11 15:46] VITALS: BMI 28.0
[2022-09-12] MEDS: MEROPENEM 1 GM in DEXTROSE 5%-WATER 100 ML IVPB SCH ×3 (01:29→20:29)
[2022-09-12] MEDS: LEVOTHYROXINE NA 125 MCG TABLET (FP) GT SCH (06:19)
[2022-09-12] MEDS: POLYETHYLENE GLYCOL (HEALTHYLAX) 3350 17 GM PACKET GT SCH (11:58)
[2022-09-12] MEDS: BACITRACIN 15 GM TUBE TOPICAL OINTMENT TP SCH ×2 (11:58→22:39)
[2022-09-12] MEDS: AMINO ACIDS/PROTEIN HYDROLYS 30 ML LIQUID.PKT PO SCH ×2 (11:58→18:59)
[2022-09-12] MEDS: FAMOTIDINE 40 MG/5 ML ORAL SUSPENSION PEG SCH (11:59)
[2022-09-12] MEDS: CLOTRIMAZOLE 1% CREAM TP SCH ×2 (11:59→22:39)
[2022-09-12 12:33] LABS: ALBUMIN 2.8 g/dl (3.4-5.0); BLOOD UREA NITROGEN 14.7 mg/dL (7-18)
[2022-09-12 12:36] LABS: CREATININE 0.5 mg/dL (0.55-1.3)
[2022-09-12 12:37] LABS: TOT PROT 6.7 g/dl (6.4-8.2)
[2022-09-12 12:39] LABS: BILIRUBIN,TOTAL 0.7 mg/dL (0.2-1)
[2022-09-12 15:47] VITALS: RESP 18
[2022-09-12] MEDS: SENNOSIDES 8.8 MG/5 ML BULK BOTTLE PEG SCH (22:39)
[2022-09-13] MEDS: MEROPENEM 1 GM in DEXTROSE 5%-WATER 100 ML IVPB SCH ×2 (02:10→10:21)
[2022-09-13] MEDS: LEVOTHYROXINE NA 125 MCG TABLET (FP) GT SCH (06:26)
[2022-09-13] MEDS: POLYETHYLENE GLYCOL (HEALTHYLAX) 3350 17 GM PACKET GT SCH (10:20)
[2022-09-13] MEDS: FAMOTIDINE 40 MG/5 ML ORAL SUSPENSION PEG SCH (10:20)
[2022-09-13] MEDS: AMINO ACIDS/PROTEIN HYDROLYS 30 ML LIQUID.PKT PO SCH (10:20)
[2022-09-13] MEDS: BACITRACIN 15 GM TUBE TOPICAL OINTMENT TP SCH (10:21)
[2022-09-13] MEDS: CLOTRIMAZOLE 1% CREAM TP SCH (10:21)
[2022-09-13 10:40] LABS: HEMATOCRIT 30.5 % (32.4-45.2); HEMOGLOBIN 10.4 GM/dL (10.7-15.3); MCH 28.5 pg (25.7-33.7); MCHC 33.9 g/dl (32.0-36.0); MEAN CELL VOLUME 83.9 fl (80-96); MEAN PLT VOLUME 9.1 fl (7.5-11.1); PLATELET COUNT 297 10^3/uL (134-434); RBC 3.64 M/mm3 (3.60-5.2); RDW 15.6 % (11.6-15.6); WHITE BLOOD COUNT 5.9 K/mm3 (4.0-10.0)
[2022-09-13 11:02] LABS: CALCIUM 8.4 mg/dL (8.5-10.1)
[2022-09-13 11:03] LABS: BLOOD UREA NITROGEN 20.7 mg/dL (7-18)
[2022-09-13 11:06] LABS: CREATININE 0.5 mg/dL (0.55-1.3)
[2022-09-13 15:47] VITALS: BP 113/63; PULSE 78; TEMP 98.1
== END 2022-09-13 16:27 | DRG 871 ==
LOC: JER 00:39 → JERBED 01:44 → JICU 04:24 → J5S 09-04 17:37
PROVIDERS: ADMIT Internal Medicine Pulmonary Disease; ATTEND Family Medicine
PROC: 5A1945Z Respiratory Ventilation, 24-96 Consecutive Hours (ICD-10-PCS; principal; 2022-09-01)
DX: A41.9 Sepsis, unspecified organism (principal); G92.8 Other toxic encephalopathy; J96.21 Acute and chronic respiratory failure with hypoxia; R53.2 Functional quadriplegia; J18.9 Pneumonia, unspecified organism; E87.20 Acidosis, unspecified; N39.0 Urinary tract infection, site not specified; K94.23 Gastrostomy malfunction; E03.9 Hypothyroidism, unspecified; J44.9 Chronic obstructive pulmonary disease, unspecified; R13.10 Dysphagia, unspecified; G30.9 Alzheimer's disease, unspecified; Z74.01 Bed confinement status; F02.80 Dementia in other diseases classified elsewhere, unspecified severity, without behavioral disturbance, psychotic disturbance, mood disturbance, and anxiety; K59.00 Constipation, unspecified; D64.9 Anemia, unspecified; Y83.8 Other surgical procedures as the cause of abnormal reaction of the patient, or of later complication, without mention of misadventure at the time of the procedure
CPT/HCPCS: 0241U-QW; 36415; 36600; 70450-TC; 71045-TC-FY; 71275-TC; 74018-TC-FY; 80048; 80053; 81003; 82272; 82728; 82803; 82962; 83540; 83550; 83605; 83690; 83735; 83880; 84100; 84439; 84443; 84484; 85025; 85027; 85610; 85730; 87040; 87070; 87086; 87186; 87205; 93005; 93010; 93970-TC; 94002; 99285-25; C9803-CS; G0008; J1644; Q2036; Q9967; U0003; U0005

== ENCOUNTER 2023-01-01 13:13 | Observation (INO) | payer OTHER, MEDICARE ==
[2023-01-01] MEDS ORDERED: PANTOPRAZOLE SODIUM 40 MG VIAL IVPUSH ONE (16:04)
[2023-01-01] MEDS ORDERED: LACTATED RINGERS SOLUTION 1000 ML INFUS.BAG IV ONE (16:04)
[2023-01-01] MEDS ORDERED: PANTOPRAZOLE SODIUM 40 MG/100 ML BAG IVPB ONE (16:19)
[2023-01-01 19:40] LABS: CALCIUM 8.9 mg/dL (8.5-10.1)
[2023-01-01 19:41] LABS: ALBUMIN 3.4 g/dl (3.4-5.0); BLOOD UREA NITROGEN 18.5 mg/dL (7-18)
[2023-01-01 19:44] LABS: CREATININE 0.5 mg/dL (0.55-1.3)
[2023-01-01 19:46] LABS: BILIRUBIN,TOTAL 0.7 mg/dL (0.2-1); TOT PROT 7.2 g/dl (6.4-8.2)
[2023-01-01 19:57] LABS: INR 0.96 (0.83-1.09); PROTHROMBIN TIME (PATIENT) 11.1 SEC (9.7-13.0)
[2023-01-01 20:00] LABS: ACTIVATED PTT 24.6 SECONDS (25.2-36.5)
[2023-01-01 20:08] LABS: HEMOGLOBIN 10.5 GM/dL (10.7-15.3); MCHC 32.9 g/dl (32.0-36.0); MEAN CELL VOLUME 82.1 fl (80-96); MEAN PLT VOLUME 10.3 fl (7.5-11.1); PLATELET COUNT 332 10^3/uL (134-434); RDW 17.4 % (11.6-15.6); WHITE BLOOD COUNT 6.6 K/mm3 (4.0-10.0)
[2023-01-01 21:03] LABS: ANISOCYTOSIS 2+
[2023-01-01 21:04] LABS: OVALOCYTE 1+; PLATELET ESTIMATE ADEQUATE
[2023-01-01] MEDS ORDERED: ACETAMINOPHEN 650 MG/20.3 ML ORAL SOLUTION (CUPS) PEG PRN (23:33)
[2023-01-02] MEDS: DEXTROSE 5%-NORMAL SALINE 1,000 ML IV SCH ×3 (01:52→22:25)
[2023-01-02] MEDS: DOCUSATE NA 100 MG/10 ML UNIT-DOSE CUPS PEG SCH ×3 (06:07→22:24)
[2023-01-02] MEDS: LEVOTHYROXINE 112 MCG, LEVOTHYROXINE 25 MCG PEG SCH (06:07)
[2023-01-02] MEDS ORDERED: LEVOTHYROXINE NA 125 MCG TABLET (FP) PEG SCH (07:00)
[2023-01-02 07:26] VITALS: RESP 18
[2023-01-02 08:44] LABS: BASO % 1.4 % (0-2.0); EOS % 3.6 % (0-4.5); HEMATOCRIT 29.9 % (32.4-45.2); HEMOGLOBIN 9.9 GM/dL (10.7-15.3); LYMPH % 21.1 % (8-40); MCH 27.4 pg (25.7-33.7); MCHC 33.2 g/dl (32.0-36.0); MEAN CELL VOLUME 82.5 fl (80-96); MEAN PLT VOLUME 8.7 fl (7.5-11.1); MONO % 9.5 % (3.8-10.2); NEUT % 64.4 % (42.8-82.8); PLATELET COUNT 340 10^3/uL (134-434); RBC 3.62 M/mm3 (3.60-5.2); RDW 17.3 % (11.6-15.6); WHITE BLOOD COUNT 6.7 K/mm3 (4.0-10.0)
[2023-01-02 09:01] LABS: BLOOD UREA NITROGEN 15.6 mg/dL (7-18); CALCIUM 8.5 mg/dL (8.5-10.1); MAGNESIUM 2.3 mg/dL (1.8-2.4)
[2023-01-02 09:04] LABS: CREATININE 0.5 mg/dL (0.55-1.3); PHOSPHOROUS 3.8 mg/dL (2.5-4.9)
[2023-01-02] MEDS: CLOTRIMAZOLE 1% CREAM TP SCH ×3 (09:50→22:23)
[2023-01-02] MEDS ORDERED: HEPARIN NA (PORCINE) 5,000 UNITS/ML 1ML VIAL SQ SCH (10:00)
[2023-01-02] MEDS ORDERED: PANTOPRAZOLE SODIUM 40 MG VIAL IVPUSH ONE (10:23)
[2023-01-02] MEDS ORDERED: LEVOTHYROXINE SODIUM 100 MCG/ML 1 ML VIAL IVPUSH SCH (11:00)
[2023-01-02] MEDS: AMINO ACIDS/PROTEIN HYDROLYS 30 ML LIQUID.PKT PO SCH ×2 (11:17→18:10)
[2023-01-02] MEDS: NAPH,MB-DB/K PH,MBDB POWDER PACKET PO SCH (11:18)
[2023-01-02] MEDS: MULTIVIT-MINERALS ORAL LIQUID PEG SCH (11:18)
[2023-01-02] MEDS: METOPROLOL TARTRATE 25 MG TABLET (FP) PEG SCH ×2 (11:19→22:24)
[2023-01-02] MEDS: CALCIUM 500MG/VIT-D 200 UNITS COMBO TABLET (FP) PEG SCH ×2 (11:19→22:24)
[2023-01-02] MEDS: POLYETHYLENE GLYCOL (HEALTHYLAX) 3350 17 GM PACKET PEG SCH (11:19)
[2023-01-02] MEDS: ZINC SULFATE 220 MG CAPSULE (FP) PEG SCH (11:19)
[2023-01-02] MEDS: SODIUM CHLORIDE 1 GM TABLET PEG SCH ×2 (11:20→22:24)
[2023-01-02] MEDS: FAMOTIDINE 40 MG/5 ML ORAL SUSPENSION PEG SCH (11:20)
[2023-01-02] MEDS: ASCORBIC ACID 500 MG/5 ML UNIT DOSE CUP PEG SCH ×2 (11:20→22:25)
[2023-01-02] MEDS: BACITRACIN ZINC 15 GM TUBE TOPICAL OINTMENT TP SCH ×2 (11:35→22:23)
[2023-01-02 15:47] VITALS: BMI 30.9
[2023-01-03] MEDS: DOCUSATE NA 100 MG/10 ML UNIT-DOSE CUPS PEG SCH ×2 (06:39→14:30)
[2023-01-03] MEDS: LEVOTHYROXINE 112 MCG, LEVOTHYROXINE 25 MCG PEG SCH (06:39)
[2023-01-03 08:26] LABS: BASO % 0.3 % (0-2.0); EOS % 5.1 % (0-4.5); HEMATOCRIT 28.8 % (32.4-45.2); HEMOGLOBIN 9.3 GM/dL (10.7-15.3); LYMPH % 28.8 % (8-40); MCH 26.7 pg (25.7-33.7); MCHC 32.3 g/dl (32.0-36.0); MEAN CELL VOLUME 82.5 fl (80-96); MEAN PLT VOLUME 9.6 fl (7.5-11.1); MONO % 9.9 % (3.8-10.2); NEUT % 55.9 % (42.8-82.8); PLATELET COUNT 331 10^3/uL (134-434); RDW 17.3 % (11.6-15.6); WHITE BLOOD COUNT 5.6 K/mm3 (4.0-10.0)
[2023-01-03] MEDS: ZINC SULFATE 220 MG CAPSULE (FP) PEG SCH (09:31)
[2023-01-03] MEDS: ASCORBIC ACID 500 MG/5 ML UNIT DOSE CUP PEG SCH (09:31)
[2023-01-03] MEDS: NAPH,MB-DB/K PH,MBDB POWDER PACKET PO SCH (09:31)
[2023-01-03] MEDS: CALCIUM 500MG/VIT-D 200 UNITS COMBO TABLET (FP) PEG SCH (09:31)
[2023-01-03] MEDS: METOPROLOL TARTRATE 25 MG TABLET (FP) PEG SCH (09:32)
[2023-01-03] MEDS: POLYETHYLENE GLYCOL (HEALTHYLAX) 3350 17 GM PACKET PEG SCH (09:32)
[2023-01-03] MEDS: MULTIVIT-MINERALS ORAL LIQUID PEG SCH (09:32)
[2023-01-03] MEDS: AMINO ACIDS/PROTEIN HYDROLYS 30 ML LIQUID.PKT PO SCH (09:32)
[2023-01-03] MEDS: BACITRACIN ZINC 15 GM TUBE TOPICAL OINTMENT TP SCH (09:33)
[2023-01-03] MEDS: SODIUM CHLORIDE 1 GM TABLET PEG SCH (09:35)
[2023-01-03] MEDS: CLOTRIMAZOLE 1% CREAM TP SCH (10:04)
[2023-01-03] MEDS: FAMOTIDINE 40 MG/5 ML ORAL SUSPENSION PEG SCH (10:05)
[2023-01-03 12:41] VITALS: BP 112/64; PULSE 88; TEMP 98.3
== END 2023-01-03 16:10 ==
LOC: JER 13:13 → JERBED 17:06 → J7W 01-02 00:55
PROVIDERS: ADMIT Internal Medicine; ATTEND Family Medicine
PROC: 3E0337Z Introduction of Electrolytic and Water Balance Substance into Peripheral Vein, Percutaneous Approach (ICD-10-PCS; principal; 2023-01-01)
PROC: 3E033GC Introduction of Other Therapeutic Substance into Peripheral Vein, Percutaneous Approach (ICD-10-PCS; 2023-01-01)
DX: T85.528A Displacement of other gastrointestinal prosthetic devices, implants and grafts, initial encounter (principal); R41.0 Disorientation, unspecified; Z86.73 Personal history of transient ischemic attack (TIA), and cerebral infarction without residual deficits; R13.10 Dysphagia, unspecified; Z99.81 Dependence on supplemental oxygen; E03.9 Hypothyroidism, unspecified; K27.9 Peptic ulcer, site unspecified, unspecified as acute or chronic, without hemorrhage or perforation; Z88.8 Allergy status to other drugs, medicaments and biological substances; Y84.8 Other medical procedures as the cause of abnormal reaction of the patient, or of later complication, without mention of misadventure at the time of the procedure
CPT/HCPCS: 0241U-QW; 36415; 74018-TC-FY; 80048; 80053; 83735; 84100; 85025; 85610; 85730; 86850; 86900; 86901; 93005; 93010; 96374; 96375; 99285-25; G0378